=== PATIENT | male | born 1950 | race African-American/Black ===

== ENCOUNTER 2017-02-28 07:36 | Emergency (ER) | payer OTHER, BC ==
[2017-02-28 07:41] VITALS: BP 142/76; TEMP 98.8; BMI 33.9
[2017-02-28] MEDS ORDERED: ACETAMINOPHEN 325 MG TABLET (FP) PO ONE (08:43)
[2017-02-28] MEDS ORDERED: AMOX TR/POT CLAV 875MG/125MG TABLETS (FP) PO ONE (08:44)
[2017-02-28] MEDS ORDERED: ACETAMINOPHEN 325 MG TABLET (FP) ONE (08:45)
[2017-02-28] MEDS ORDERED: AMOX TR/POT CLAV 875MG/125MG TABLETS (FP) ONE (08:48)
--- NOTE | 2017-02-28 08:51 | PDOC ---
History of Present Illness <Gregg Vila - Last Filed: 02/28/17 09:10> - General History Source: Patient Exam Limitations: No Limitations - History of Present Illness Initial Comments: 02/28/17 12:22 The patient is a 67 year old male with a significant past medical history of hypertension and BPH who presents to the ED with left ear pain since yesterday. Patient notes that he has been experiencing cracky/static feeling in the left ear. Patient also reports nasal congestion. He states that he had an ear infection 1 year ago in the right ear. He denies fever, chills, cough, cp, SOB, nausea, vomiting, diarrhea, constipation or abdominal pain. <Valentina Orellana - Last Filed: 02/28/17 12:23> - General Chief Complaint: Ear Problem Stated Complaint: LEFT EAR PAIN Time Seen by Provider: 02/28/17 08:24 Past History - Past Medical History Anemia: No Asthma: No Cancer: No Cardiac Disorders: No CVA: No COPD: No CHF: No Dementia: No Diabetes: No GI Disorders: No Disorders: Yes (BPH) HTN: Yes Hypercholesterolemia: No Liver Disease: No Seizures: No Thyroid Disease: No - Surgical History Abdominal Surgery: No Appendectomy: No Cardiac Surgery: No Cholecystectomy: No Lung Surgery: No Neurologic Surgery: No Orthopedic Surgery: Yes (LEFT KNEE ARTHROSCOPY) - Immunization History Immunization Up to Date: Yes - Psycho/Social/Smoking Cessation Hx Anxiety: No Suicidal Ideation: No Smoking Status: Yes Smoking History: Never smoked Years of Tobacco Use: 0 Have you smoked in the past 12 months: No Number of Cigarettes Smoked Daily: 0 If you are a former smoker, when did you quit?: 20YRS AGO Cigars Per Day: 0 Information on smoking cessation initiated: No Hx Alcohol Use: Yes (occasional) Drug/Substance Use Hx: No Substance Use Type: None Hx Substance Use Treatment: No <Gregg Vila - Last Filed: 02/28/17 09:10> <Valentina Orellana - Last Filed: 02/28/17 12:23> - Past Medical History Allergies/Adverse Reactions: Allergies Allergy/AdvReac Type Severity Reaction Status Date / Time epinephrine AdvReac Severe Verified 02/28/17 07:40 lidocaine AdvReac Verified 02/28/17 07:40 Home Medications: Ambulatory Orders Enalapril Maleate [Vasotec] 20 mg PO DAILY 02/15/16 Nifedipine [Procardia Xl] 60 mg PO DAILY 02/15/16 Silodosin [Rapaflo] 8 mg PO DAILY 02/15/16 Amoxicillin/Potassium Clav [Augmentin 875-125 Tablet] 1 each PO BID #13 tablet 02/28/17 Review of Systems - Review of Systems Able to Perform ROS?: Yes Comments:: 02/28/17 12:22 CONSTITUTIONAL: No reported: Fever, Chills, Diaphoresis, Generalized Weakness, Malaise, Loss of Appetite HEENT: Reported: left ear pain, nasal congestion No reported: Rhinorrhea, Throat Pain, Throat Swelling, Difficulty Swallowing, Mouth Swelling, Eye Pain, Visual Changes CARDIOVASCULAR: No reported: Chest Pain, Syncope, Palpitations, Irregular Heart Rate, Lightheadedness, Peripheral Edema RESPIRATORY: No reported: Cough, Shortness of Breath, SOB with Exertion, Orthopnea, Wheezing , Stridor, Hemoptysis GASTROINTESTINAL: No reported: Abdominal pain, Abdominal Distension, Nausea, Vomiting, Diarrhea, Constipation, Melena, Hematochezia GENITOURINARY: No reported: Dysuria, Frequency, Urgency, Hesitancy, Flank Pain, Genital Pain MUSCULOSKELETAL: No reported: Myalgia, Arthralgia, Joint Swelling, Back pain, Neck Pain SKIN: No reported: Rash, Itching, Pallor HEMEATOLOGIC/IMMUNOLOGIC: No reported: Easy Bleeding, Easy Bruising, Lymphadenopathy, Frequent infections ENDOCRINE: No reported: Unexplained Weight Gain, Unexplained Weight Loss, Heat Intolerance , Cold Intolerance NEUROLOGIC: No reported: Headache, Focal Weakness, Paresthesias, Vertigo, Lightheadedness, Unsteady Gait, Seizure, Mental Status Changes, Incontinence PSYCHIATRIC: No reported: Anxiety, Depression <Valentina Orellana - Last Filed: 02/28/17 12:23> *Physical Exam - Vital Signs Last Vital Signs Temp Pulse Resp BP Pulse Ox 98.8 F 114 H 19 142/76 97 02/28/17 07:38 02/28/17 07:38 02/28/17 07:38 02/28/17 07:38 02/28/17 07:38 <Gregg Vila - Last Filed: 02/28/17 09:10> - Vital Signs Last Vital Signs Temp Pulse Resp BP Pulse Ox 98.8 F 99 H 19 142/76 97 02/28/17 07:38 02/28/17 08:52 02/28/17 07:38 02/28/17 07:38 02/28/17 07:38 - Physical Exam Comments: 02/28/17 12:23 GENERAL: The patient is awake, alert, and fully oriented, Nontoxic - in no acute distress. HEAD: Normocephalic, atraumatic. EYES: extraocular movements intact, sclera anicteric, conjunctiva clear. ENT: +bulging left TM with appearance of behind the TM. posterior pharynx normal non erythematous, no mastoid tenderness. Normal voice, Moist mucous membranes. NECK: Normal range of motion, supple LUNGS: Breath sounds equal, clear to auscultation bilaterally. No wheezes, no rhonchi, no rales. HEART: slightly tachcyradic, without murmur, rub or gallop. ABDOMEN: Soft, nontender, normoactive bowel sounds. No guarding, no rebound.No CVA tenderness EXTREMITIES: Normal range of motion, no edema. No clubbing or cyanosis. No cords, erythema, or tenderness. NEUROLOGICAL: No facial assymetry, Normal speech, mpoving all 4 extrmities spontanously and symmetrically PSYCH: Normal mood, normal affect. SKIN: Warm, Dry, normal turgor <Valentina Orellana - Last Filed: 02/28/17 12:23> ED Treatment Course - Medications Given in the ED: ED Medications Discontinued Medications Generic Name Dose Route Start Last Admin Trade Name Larissa PRN Reason Stop Dose Admin Acetaminophen 975 mg 02/28/17 08:43 02/28/17 08:46 Tylenol - PO 02/28/17 08:44 975 mg ONCE ONE Administration Amoxicillin/Clavulanate Potassium 1 tab 02/28/17 08:44 02/28/17 08:46 Augmentin - 875mg Tablet PO 02/28/17 08:45 1 tab ONCE ONE Administration <Valentina Orellana - Last Filed: 02/28/17 12:23> *DC/Admit/Observation/Transfer - Discharge Dispostion Admit: No <Gregg Vila - Last Filed: 02/28/17 09:10> - Attestations Scribe Attestion: 02/28/17 08:53 Documentation prepared by CEM Soni, acting as medical billing manager for Gregg Vila MD. <Valentina Orellana - Last Filed: 02/28/17 12:23> Diagnosis at time of Disposition: Ear infection - Discharge Dispostion Disposition: HOME Condition at time of disposition: Improved - Prescriptions Prescriptions: Amoxicillin/Potassium Clav [Augmentin 875-125 Tablet] 1 each PO BID #13 tablet - Referrals Referrals: Boy Simmons MD [Primary Care Provider] - - Patient Instructions Printed Discharge Instructions: Middle Ear Infection Additional Instructions: Return to the emergency department immediately with ANY new, persistent or worsening symptoms including fever/chills, difficulty swallowing, persistent ear pain or other concerns. Take the antibiotics as prescribed You MUST call and follow up with your doctor tomorrow for further evaluation of your symptoms. Results were discussed with you. Please make sure your doctor reviews the results of your emergency evaluation. Print Language: MARSHALLESE
[2017-02-28 08:52] VITALS: PULSE 99
== END 2017-02-28 09:16 | disposition home or self-care (01) ==
LOC: JER 07:36
DX: H66.92 Otitis media, unspecified, left ear (principal); I10 Essential (primary) hypertension; N40.0 Benign prostatic hyperplasia without lower urinary tract symptoms
CPT/HCPCS: 99281-25

== ENCOUNTER 2017-05-05 06:14 | Day surgery (SDC) | payer OTHER, BC ==
[2017-04-30 15:39] VITALS: BMI 32.1
[2017-05-05] MEDS ORDERED: ROCURONIUM BROMIDE 50 MG/5 ML VIAL ONE (07:14)
[2017-05-05] MEDS ORDERED: MIDAZOLAM HCL 2 MG/2 ML SINGLE DOSE VIAL ONE (07:14)
[2017-05-05] MEDS ORDERED: PROPOFOL 20 ML ONE (07:14)
[2017-05-05] MEDS ORDERED: LIDOCAINE 1%/EPI 1:100000 (50 ML MULTI DOSE VIAL) ONE (07:37)
--- NOTE | 2017-05-05 07:38 | HP ---
Admitting History and Physical - Primary Care Physician PCP: Boy Simmons - Admission Chief Complaint: Nasal congestion, post nasal drip, sinus symptoms History of Present Illness: Chronic sinus problems for years with repeated treatment and chronic sinus abnormalities on CT scan. We discussed lido/epi reaction and it occurred when a MD injected it into his lip and his heart beat really fast and hard. History Source: Patient, Medical Record Limitations to Obtaining History: No Limitations - Past Medical History Cardiovascular: Yes: HTN Renal/: Yes: BPH ENT: Yes: Sinusitis Endocrine: Yes: Other (low Testoterone) - Past Surgical History Past Surgical History: Yes: Arthrosocopy, Cataract Removal - Smoking History Smoking history: Former smoker Have you smoked in the past 12 months: No Aproximately how many cigarettes per day: 0 If you are a former smoker, when did you quit?: 30YRS AGO - Alcohol/Substance Use Hx Alcohol Use: Yes (SOCIAL) Home Medications - Allergies Allergies/Adverse Reactions: Allergies Allergy/AdvReac Type Severity Reaction Status Date / Time epinephrine AdvReac Severe Verified 05/05/17 06:32 lidocaine AdvReac Verified 05/05/17 06:32 - Home Medications Home Medications: Ambulatory Orders Enalapril Maleate [Vasotec] 20 mg PO DAILY 02/15/16 Nifedipine [Procardia Xl] 60 mg PO DAILY 02/15/16 Silodosin [Rapaflo] 8 mg PO DAILY 02/15/16 Multivitamins [Tab-A-Vit -] 1 tab PO DAILY 04/30/17 Review of Systems - Review of Systems Constitutional: reports: No Symptoms Eyes: reports: No Symptoms HENT: reports: Nasal Congestion Neck: reports: No Symptoms Cardiovascular: reports: No Symptoms Respiratory: reports: No Symptoms Gastrointestinal: reports: No Symptoms Genitourinary: reports: No Symptoms Musculoskeletal: reports: No Symptoms Integumentary: reports: No Symptoms Neurological: reports: No Symptoms Endocrine: reports: No Symptoms Hematology/Lymphatic: reports: No Symptoms Psychiatric: reports: No Symptoms Physical Examination Vital Signs: Vital Signs Temperature 97.7 F 05/05/17 06:23 Pulse Rate 81 05/05/17 06:23 Respiratory Rate 18 05/05/17 06:23 Blood Pressure 151/90 05/05/17 06:23 O2 Sat by Pulse Oximetry (%) 97 06/27/17 06:23 Constitutional: Yes: Well Nourished, No Distress Eyes: Yes: WNL HENT: Yes: WNL, Other (DNS) Neck: Yes: WNL Cardiovascular: Yes: WNL Respiratory: Yes: WNL Gastrointestinal: Yes: WNL Extremities: Yes: WNL Problem List - Problems (1) Sinusitis Assessment/Plan: For surgery today, risks and benefits discussed, all questions answered. Code(s): J32.9 - CHRONIC SINUSITIS, UNSPECIFIED
[2017-05-05] MEDS ORDERED: COCAINE HCL 4% TOPICAL SOLUTION 4 ML BOTTLE TP ONE ×2 (07:58→08:18)
[2017-05-05] MEDS ORDERED: SODIUM CHLORIDE 0.9% P/F 10 ML VIAL IJ ONE (08:13)
[2017-05-05] MEDS ORDERED: ceFAZolin SODIUM 1 GM VIAL ONE (08:13)
[2017-05-05] MEDS ORDERED: DEXAMETHASONE SOD PHOSPHATE 4 MG/1 ML VIAL ONE (08:16)
[2017-05-05] MEDS ORDERED: ceFAZolin SODIUM 1 GM VIAL IVPB ONE (08:16)
[2017-05-05] MEDS ORDERED: LIDOCAINE 1%/EPI 1:100000 (50 ML MULTI DOSE VIAL) INF ONE (08:18)
[2017-05-05] MEDS ORDERED: DESFLURANE GAS 240 ML BOTTLE IH ONE (08:47)
[2017-05-05] MEDS ORDERED: BACITRACIN 15 GM TUBE TOPICAL OINTMENT TP ONE (08:55)
[2017-05-05] MEDS ORDERED: NEOSTIGMINE METHYLSULFATE 0.5 MG/ML - 10 ML MDV ONE (08:57)
[2017-05-05] MEDS ORDERED: GLYCOPYRROLATE 0.2 MG/1 ML VIAL ONE (08:57)
[2017-05-05] MEDS ORDERED: ONDANSETRON 4 MG/2 ML VIAL IVPUSH PRN (09:14)
[2017-05-05] MEDS ORDERED: PROMETHAZINE HCL 25 MG/1 ML VIAL IVPUSH PRN (09:14)
[2017-05-05] MEDS ORDERED: LACTATED RINGERS SOLUTION 1,000 ML IV SCH (09:15)
[2017-05-05 10:09] VITALS: TEMP 98
[2017-05-05 11:58] VITALS: BP 127/56; PULSE 77
--- NOTE | 2017-05-07 16:28 | PATH ---
Surgical Pathology Report Patient Name: MARIO KAMARA [facility]. Rec. #: [id number] /Age/Gender: 1950 (Age: 67) / M Account: [id number] Location: [facility] SURGICAL Taken: 05/05/2017 Received: 05/05/2017 Reported: 05/07/2017 Physicians: J Carlos Alvarez M.D. Specimen(s) Received ETHMOID & MAXILLARY CONTENTS Clinical History Deviated nasal septum Final Diagnosis NASAL SINUS, ETHMOID AND MAXILLARY, CURETTING: RESPIRATORY MUCOSA WITH NO SIGNIFICANT PATHOLOGIC CHANGES, ALONG WITH CLOTTED BLOOD AND SMALL FRAGMENTS OF BONE. Electronically Signed Bridger Fraire M.D. Gross Description Received in formalin labeled "ethmoid and maxillary content," is a 3.0 x 2.2 x 0.2 cm aggregate of russo soft tissue fragments admixed with mucus. The formalin is filtered and the specimen is entirely submitted in one cassette. /05/05/201705/05/2017
== END 2017-05-05 11:25 | disposition home or self-care (01) ==
LOC: JASU-SURG 06:14
PROVIDERS: ATTEND Otolaryngology
PROC: 09QT4ZZ Repair Left Frontal Sinus, Percutaneous Endoscopic Approach (ICD-10-PCS; 2017-05-05)
PROC: 09QS4ZZ Repair Right Frontal Sinus, Percutaneous Endoscopic Approach (ICD-10-PCS; 2017-05-05)
PROC: 099T4ZZ Drainage of Left Frontal Sinus, Percutaneous Endoscopic Approach (ICD-10-PCS; 2017-05-05)
PROC: 099S4ZZ Drainage of Right Frontal Sinus, Percutaneous Endoscopic Approach (ICD-10-PCS; 2017-05-05)
PROC: 8E09XBZ Computer Assisted Procedure of Head and Neck Region (ICD-10-PCS; 2017-05-05)
PROC: 09SL4ZZ Reposition Nasal Turbinate, Percutaneous Endoscopic Approach (ICD-10-PCS; 2017-05-05)
PROC: 8E09XBZ Computer Assisted Procedure of Head and Neck Region (ICD-10-PCS; 2017-05-05)
PROC: 8E09XBZ Computer Assisted Procedure of Head and Neck Region (ICD-10-PCS; principal; 2017-05-05 07:30)
DX: J32.8 Other chronic sinusitis (principal); J34.3 Hypertrophy of nasal turbinates
CPT/HCPCS: 88304-TC; 94760

== ENCOUNTER 2020-04-22 14:11 | Inpatient (IN) | payer OTHER, BC ==
[2020-04-22 14:25] VITALS: BMI 31.1
--- NOTE | 2020-04-22 14:29 | PDOC ---
History of Present Illness - General Chief Complaint: Injury Stated Complaint: FALL Time Seen by Provider: 04/22/20 14:22 History Source: Patient Exam Limitations: No Limitations - History of Present Illness Initial Comments: 04/22/20 16:02 70 yo M with a hx of HTN and lumbar spondolyosis presents to the emergency department with back pain s/p fall that occurred today. Per the patient, he states that he was getting out of his bed when he felt weakness in his legs and fell, landing on his buttocks without head trauma and LOC. Per the patient, he has had progressive weakness in his lower extremities for the past 3 months and was originally scheduled to have surgical intervention by Dr. Gao in mid December that was canceled secondary to COVID. In addition, the patient has had progressive difficulty ambulating with his walker due to upper extremity weakness that has been progressing worst on the right side versus the left side. The patient denies the following symptoms: fever, chills, SOB, chest pain, cough, headache, dizziness, lightheadedness, diarrhea, vomiting, constipation, urinary incontinence, dysuria, hematuria, diarrhea, and bowel incontinence. Denies loss of sensation in his legs. Past History - Past Medical History Allergies/Adverse Reactions: Allergies Allergy/AdvReac Type Severity Reaction Status Date / Time epinephrine AdvReac Severe Verified 04/22/20 14:22 lidocaine AdvReac Verified 04/22/20 14:22 Home Medications: Ambulatory Orders Nifedipine [Procardia Xl] 90 mg PO DAILY 02/15/16 Silodosin [Rapaflo] 8 mg PO DAILY 02/15/16 Losartan Potassium 100 mg PO DAILY 04/22/20 Naproxen 0 mg PO PRN 04/22/20 Anemia: No Asthma: No Cancer: No Cardiac Disorders: No CVA: No COPD: No CHF: No Dementia: No Diabetes: No GI Disorders: No Disorders: Yes (BPH) HTN: Yes Hypercholesterolemia: No Liver Disease: No Seizures: No Thyroid Disease: No Other medical history: spinal stenosis - Surgical History Abdominal Surgery: No Appendectomy: No Cardiac Surgery: No Cholecystectomy: No Lung Surgery: No Neurologic Surgery: No Orthopedic Surgery: Yes (LEFT KNEE ARTHROSCOPY) - Immunization History Immunization Up to Date: Yes - Psycho Social/Smoking Cessation Hx Smoking Status: Yes Smoking History: Never smoked Years of Tobacco Use: 0 Have you smoked in the past 12 months: No Number of Cigarettes Smoked Daily: 0 If you are a former smoker, when did you quit?: 20YRS AGO Cigars Per Day: 0 Hx Alcohol Use: Yes (occasional) Drug/Substance Use Hx: No Substance Use Type: None Hx Substance Use Treatment: No Review of Systems - Review of Systems Able to Perform ROS?: Yes Is the patient limited Khmer proficient: No Constitutional: No: Chills, Diaphoresis, Fever, Weakness HEENTM: No: Eye Pain, Ear Pain, Nose Pain, Throat Pain, Mouth Pain Respiratory: No: Cough, Shortness of Breath Cardiac (ROS): No: Chest Pain ABD/GI: No: Constipated, Diarrhea, Nausea, Rectal Bleeding, Vomiting, Abdominal cramping, Tarry Stools : No: Burning, Dysuria, Frequency, Hematuria, Incontinence Musculoskeletal: Yes: Back Pain. No: Joint Pain, Neck Pain Integumentary: No: Bruising, Rash Neurological: No: Headache Psychiatric: No: Change in Appetite Endocrine: No: Unexplained Weight Loss Hematologic/Lymphatic: No: Anemia *Physical Exam - Vital Signs Last Vital Signs Temp Pulse Resp BP Pulse Ox 97.8 F 67 18 146/70 99 04/22/20 14:16 04/22/20 14:16 04/22/20 14:16 04/22/20 14:16 04/22/20 14:16 - Physical Exam General Appearance: Yes: Nourished, Appropriately Dressed. No: Apparent Distr ess, Intoxicated HEENT: positive: EOMI, MARYJANE, Normal Voice, Symmetrical, Pharynx Normal, Hearing Grossly Normal. negative: Pale Conjunctivae, Scleral Icterus (R), Scleral Ict erus (L), Muffled/Hoarse voice, Pharyngeal Erythema, Tonsillar Exudate, Tonsillar Erythema, Nasal Congestion, Rhinorrhea, Sinus Tenderness, Excessive drooling Neck: positive: Trachea midline, Supple. negative: Tender, Lymphadenopathy (R), Lymphadenopathy (L), Tender lateral, Tender midline Respiratory/Chest: positive: Lungs Clear, Normal Breath Sounds. negative: Chest Tender, Respiratory Distress, Accessory Muscle Use, Crackles, Rales, Rhonchi, Stridor, Wheezing Cardiovascular: positive: Regular Rhythm, Regular Rate, S1, S2. negative: Systolic Murmur Gastrointestinal/Abdominal: positive: Normal Bowel Sounds, Flat, Soft. negative: Tender Lymphatic: negative: Adenopathy Musculoskeletal: positive: Normal Inspection, Vertebral Tenderness (vertebral tenderness in the L4-L5 region at the midline. No tenderness to palpation or step offs noted in the cervical or thoracic spinal column. No overlying ecchymosis noted. ). negative: CVA Tenderness Extremity: positive: Normal Capillary Refill, Normal Inspection, Other (Motor strength bicep, tricep, hand shrub grower 4/5 on the right UE. 4/5 strength on hip flexion on right side. LUE and LLE motor strength 5/5. No sensory deficits noted in the UE and LE bilaterally. ) Integumentary: positive: Normal Color, Dry, Warm Neurologic: positive: scrap stripper hand II-XII NML intact, Fully Oriented, Alert, Normal Mood/Affect, Normal Response, Other (diminished reflexes on right UE. ). negative: Sensory Deficit ED Treatment Course - LABORATORY CBC & Chemistry Diagram: 04/22/20 15:00 04/22/20 15:00 Medical Decision Making - Medical Decision Making 70 yo M with a hx of HTN and lumbar spondolyosis presents to the emergency department with back pain s/p fall that occurred today. Initial vitals; Initial Vital Signs Temp Pulse Resp BP Pulse Ox 97.8 F 67 18 146/70 99 04/22/20 14:16 04/22/20 14:16 04/22/20 14:16 04/22/20 14:16 04/22/20 14:16 Work up: patient presents to the emergency department s/p fall today Per the patient, he has had progressive LE weakness bilaterally with progressively worsening weakness on the RUE over the course of 3 months per the patient. The patient denies acute worsening of his weakness in his extremities, but endorses that he is unable to walk with his walker due to the progression Will rule out fracture and dislocation. The patient denies urinary incontinence and bowel incontinence. No loss of sensation and new weakness that are acute in his UE and LE bilaterally. Unlikely to be cauda equina given this. Ddx also includes ruling out other causes of weakness: infectious vs metabolic vs cardiac vs neurogenic. Will rule out dysrhythmias, ACS, PNA, intracranial pathologies, electrolyte disturbance, KIM Laboratory Tests 04/22/20 04/22/20 04/22/20 15:00 15:00 15:00 WBC 9.1 RBC 5.37 Hgb 16.4 Hct 48.4 D MCV 90.1 MCH 30.4 MCHC 33.8 RDW 13.4 Plt Count 378 D MPV 6.7 L Absolute Neuts (auto) 6.6 Neutrophils % 72.6 Lymphocytes % 18.6 D Monocytes % 6.6 Eosinophils % 1.6 Basophils % 0.6 Nucleated RBC % 0 PT with INR 13.40 H INR 1.13 H Sodium 136 Potassium 4.3 Chloride 104 Carbon Dioxide 25 Anion Gap 7 L BUN 11.8 Creatinine 0.7 Est GFR (CKD-EPI)AfAm 110.04 Est GFR (CKD-EPI)NonAf 94.95 Random Glucose 95 Calcium 9.3 Total Bilirubin 0.4 AST 41 H ALT 64 H Alkaline Phosphatase 133 H Creatine Kinase 104 Troponin I < 0.02 Total Protein 6.4 Albumin 3.4 Acetaminophen Blood Type Antibody Screen 04/22/20 04/22/20 15:00 15:00 WBC RBC Hgb Hct MCV MCH MCHC RDW Plt Count MPV Absolute Neuts (auto) Neutrophils % Lymphocytes % Monocytes % Eosinophils % Basophils % Nucleated RBC % PT with INR INR Sodium Potassium Chloride Carbon Dioxide Anion Gap BUN Creatinine Est GFR (CKD-EPI)AfAm Est GFR (CKD-EPI)NonAf Random Glucose Calcium Total Bilirubin AST ALT Alkaline Phosphatase Creatine Kinase Troponin I Total Protein Albumin Acetaminophen 2.2 Blood Type O POSITIVE Antibody Screen Negative Head CT does not show acute pathology No acute pathology noted in the cervical and lumbar region. No thoracic spine imaging taken since physical exam shows potential fracture due to tenderness in the midline and the progressive weakness of the RUE is to rule out an occult fracture/dislocation. Dr. Gao, the patient's neurosurgeon, was contacted. Per Dr. Gao, he will attempt to move the patient's scheduled surgical date sooner. Requests for admission given the patient is unable to walk without severe impairment. In a ddition, he recommends a LUMBAR spine MRI and to expand getting a cervical and thoracic MRI if the symptoms are not consistent or explained with the findings on the LUMBAR MRI. The patient had his pain controlled initially with 1 gram of tylenol. Patient to be admitted for inability to ambulate at baseline due to pain that is uncontrolled secondary likely to the lumbar spondylosis. Patient to be admitted to hospitalist service. Discharge - Discharge Information Problems reviewed: Yes Clinical Impression/Diagnosis: Back pain - Follow up/Referral - Patient Discharge Instructions - Post Discharge Activity
[2020-04-22] MEDS ORDERED: ACETAMINOPHEN 1000 MG/100 ML VIAL (NON FORMULARY) IVPB ONE (14:57)
[2020-04-22] MEDS ORDERED: ACETAMINOPHEN INJECTION 100 ML IVPB ONE (15:13)
[2020-04-22 15:18] LABS: BASO % 0.6 % (0-2.0); EOS % 1.6 % (0-4.5); HEMATOCRIT 48.4 % (35.4-49); HEMOGLOBIN 16.4 GM/dL (11.7-16.9); LYMPH % 18.6 % (8-40); MCH 30.4 pg (25.7-33.7); MCHC 33.8 g/dl (32.0-35.9); MEAN CELL VOLUME 90.1 fl (80-96); MEAN PLT VOLUME 6.7 fl (7.5-11.1); MONO % 6.6 % (3.8-10.2); NEUT % 72.6 % (42.8-82.8); PLATELET COUNT 378 K/MM3 (134-434); RBC 5.37 M/mm3 (4.00-5.60); RDW 13.4 % (11.9-15.9); WHITE BLOOD COUNT 9.1 K/mm3 (4.0-10.0)
[2020-04-22 15:24] LABS: INR 1.13 (0.83-1.09); PROTHROMBIN TIME (PATIENT) 13.4 SEC (9.7-13.0)
[2020-04-22 15:56] LABS: ALBUMIN 3.4 g/dl (3.4-5.0); ALK PHOS 133 U/L (45-117); ANION GAP 7 MMOL/L (8-16); BILIRUBIN,TOTAL 0.4 mg/dL (0.2-1); BLOOD UREA NITROGEN 11.8 mg/dL (7-18); CALCIUM 9.3 mg/dL (8.5-10.1); CHLORIDE 104 mmol/L (98-107); CO2 25 mmol/L (21-32); CREATININE 0.7 mg/dL (0.55-1.3); GLUCOSE,RANDOM 95 mg/dL (74-106); POTASSIUM 4.3 mmol/L (3.5-5.1); SGOT/AST 41 U/L (15-37); SGPT/ALT 64 U/L (13-61); SODIUM 136 mmol/L (136-145); TOT PROT 6.4 g/dl (6.4-8.2)
--- NOTE | 2020-04-22 16:10 | PDOC ---
Documentation entered by Koby Abraham SCRIBE, acting as scribe for Mildred Holland MD. Mildred Holland MD: This documentation has been prepared by the Jarad jones Xhesika, SCRIBE, under my direction and personally reviewed by me in its entirety. I confirm that the documentation accurately reflects all work, treatment, procedures, and medical decision making performed by me. Attending Attestation - Resident Resident Name: Patrick Hyman - ED Attending Attestation I have performed the following: I have examined & evaluated the patient, The case was reviewed & discussed with the resident, I agree w/resident's findings & plan, Exceptions are as noted - HPI HPI: 04/22/20 15:31 The patient is a 70y/o M with a significant past medical history of hypertension and BPH who presents to the ED with lower back pain. The patient states he woke up this morning his legs felt weak, they gave out and he fell on his buttocks. Pt states he has surgery scheduled on with Dr. Gao due to his lower back pain. Pt denies LE numbness or tingling. He states his legs have felt weak for more than a year, and do not feel more weak today. Denies chest pain, shortness of breath, headache and dizziness. Denies fever, chills, cough, nausea, vomiting, diarrhea and constipation. Denies dysuria, frequency, urgency and hematuria. Allergies: Epinephrine, lidocaine PCP: Dr. Boy Simmons - Physicial Exam PE: 04/22/20 16:04 Agree with resident exam - Medical Decision Making 04/22/20 16:05 70yo M hx lumbar spondylosis presents to the ED with LBP after falling out of bed this AM. No head strike or LOC. +lumbar midline spinal ttp. Pt also with objective R UE and RLE weakness, that he states is old Plan for CTH (to eval for CVA as cause of R sided weakness) and CT lumbar spine given lumbar ttp Pt will likely need MRI spinal imaging but will defer to Dr. Gao given pt has surgery scheduled this week. Anticipate admission 04/22/20 17:24 CT imaging negative Labs with mild LFT elevations, pt with no abd pain, N/V, abd ttp Per Dr. Gao, recommends admit for operative management. He will evaluate in the AM. We discussed the patients neuro deficits which Dr. Gao states are baseline. He recommends non con lumbar spine MRI at this time and to hold off on cervical/thoracic imaging unless the lumbar MRI is normal. Pt admitted for further management Case discussed in detail with admitting physician including history, physical exam and ancillary studies. Admitting physician has assumed care for the patient, will follow all pending diagnostics and will complete the evaluation and treatment. Discharge - Discharge Information Problems reviewed: Yes Clinical Impression/Diagnosis: Back pain - Follow up/Referral - Patient Discharge Instructions - Post Discharge Activity
[2020-04-22] MEDS ORDERED: ACETAMINOPHEN 325 MG TABLET (FP) PO ONE (19:02)
[2020-04-22] MEDS ORDERED: ACETAMINOPHEN 325 MG TABLET (FP) ONE (19:02)
--- NOTE | 2020-04-22 19:15 | HP ---
CHIEF COMPLAINT: lower back pain PCP: Boy Simmons HISTORY OF PRESENT ILLNESS: 70M w/ pmh of right-handedness, HTN, lumbar spondolyosis, scoliosis, BPH presenting to [facility] after sustaining fall at home. Patient was getting dressing with the aide of his and grandson. He had difficulty pulling up his pants and fell backwards onto this bed then to the floor. Had severe 8 of 10 lower back pain and could not get up. Neg LOC, incontinence, dizziness, palpitations. After getting acetaminophen and Ofirmev in the ED, pain is currently 4 of 10. Had elective surgery scheduled for January 2020 w/ Dr Gao which was delayed until 04/26/2020 due to the ongoing COVID pandemic. Takes acetaminophen and ibupr ofen(~10tabs/wk) for chronic LBP. Normally, he ambulates with the aid of a walker. Has had progressive lower back pain and BLE weakness(worse in RUE) since Dec 2019. Has difficult holding a pencil. Lower back pain is slightly relieved with leaning forward. 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 Thinks he history of irregular heart beat. Had stress test 20ys prior which he believes was negative ER course was notable for: (1) AST/ALT 41/64; Alk P 133 (2) CTH: neg intracrnial path, prominent atherosclerotic calcificaitons along cavernous carotid arteries; prominent dural calcifications along cerebral falc (3) CTc-spine/L-spine: severe Left C4-C5 facet athropathy, severe multilevel C- spine central canal stenosis, mod-marked multilevel lumbar degenerative disc changes, mod-marked multilevel degenerative central canal stenosis (4) EKG: Afib; rpt EKG was NSR (4) acetaminophen 650mg, ofirmev 1000mg (5) Murray consult: rec MRI L-spine, if norm then MRI c-spine/t-spine Recent Travel: none PAST MEDICAL HISTORY: right-handedness, HTN, lumbar spondolyosis, scoliosis, BPH PAST SURGICAL HISTORY: b/l knee replacement Social History: Smoking: quit 20ys prior Alcohol: 1 glass wine occasionally, last 6mo prior Drugs: denies Allergies epinephrine Adverse Reaction (Severe, Verified 04/22/20 14:22) RAPID HEART RATE lidocaine Adverse Reaction (Verified 04/22/20 14:22) LIDOCAINE WITH EPHINEPHRINE CAUSES TACHY- CARDIA HOME MEDICATIONS: Home Medications Medication Instructions Recorded Nifedipine [Procardia Xl] 90 mg PO DAILY 02/15/16 Silodosin [Rapaflo] 8 mg PO DAILY 02/15/16 Losartan Potassium 100 mg PO DAILY 04/22/20 Naproxen 0 mg PO PRN 04/22/20 REVIEW OF SYSTEMS CONSTITUTIONAL: lost 15lbs in 6mo Absent: fever, chills, diaphoresis, generalized weakness, malaise, loss of appetite, HEENT: Absent: rhinorrhea, nasal congestion, throat pain, throat swelling, difficulty swallowing, mouth swelling, ear pain, eye pain, visual changes CARDIOVASCULAR: Absent: chest pain, syncope, palpitations, irregular heart rate, lightheadedness, peripheral edema RESPIRATORY: Absent: cough, shortness of breath, dyspnea with exertion, orthopnea, wheezing, stridor, hemoptysis GASTROINTESTINAL: Absent: abdominal pain, abdominal distension, nausea, vomiting, diarrhea, constipation, melena, hematochezia GENITOURINARY: Absent: dysuria, frequency, urgency, hesitancy, hematuria, flank pain, genital pain MUSCULOSKELETAL: lower back pain, Absent: myalgia, arthralgia, joint swelling, neck pain SKIN: Absent: rash, itching, pallor HEMATOLOGIC/IMMUNOLOGIC: Absent: easy bleeding, easy bruising, lymphadenopathy, frequent infections ENDOCRINE: Absent: unexplained weight gain, unexplained weight loss, heat intolerance, cold intolerance NEUROLOGIC: weakness in BUE(worse in Right hand) Absent: headache, focal weakness or paresthesias, dizziness, unsteady gait, seizure, mental status changes, bladder or bowel incontinence PSYCHIATRIC: Absent: anxiety, depression, suicidal or homicidal ideation, hallucinations. PHYSICAL EXAMINATION Vital Signs - 24 hr 04/22/20 04/22/20 14:16 17:13 Temperature 97.8 F Pulse Rate 67 Pulse Rate [ 83 Left Radial] Respiratory 18 Rate Blood Pressure 146/70 Blood Pressure 150/82 [Right Arm] O2 Sat by Pulse 99 100 Oximetry (%) GENERAL: Awake, alert, and fully oriented, in no acute distress. HEAD: Normal with no signs of trauma. EYES: sclera anicteric, conjunctiva clear and w/o pallor. EARS, NOSE, THROAT: Ears normal, nares patent, oropharynx clear without exudates. Moist mucous membranes. NECK: Normal range of motion, supple without lymphadenopathy, JVD, or masses. LUNGS: Breath sounds equal, clear to auscultation bilaterally. No wheezes, and no crackles. No accessory muscle use. HEART: irregular rhythm, normal S1 and S2 without murmur, rub or gallop. ABDOMEN: Soft, nontender, not distended, no guarding, no rebound, no masses. MUSCULOSKELETAL: Normal range of motion at all joints. UPPER EXTREMITIES: 2+ pulses, warm, well-perfused. No cyanosis. No clubbing. LOWER EXTREMITIES: B/l surgical incisional scars at knees. 2+ pulses, warm, well-perfused. No calf tenderness. No peripheral edema. NEUROLOGICAL: Cranial nerves II-XII intact. Normal speech. 3/5 strength of Right district medical examiner, 4/5 strength of Left district medical examiner. RLE 3/5 strength in hip/knee flexion/extension. LLE 4/5 strength in hip/knee flexion/extension. Sensation grossly intact throughout. Scoliosis SKIN: Warm, dry, normal turgor, no rashes or lesions noted, normal capillary refill. Laboratory Results - last 24 hr 04/22/20 04/22/20 04/22/20 15:00 15:00 15:00 WBC 9.1 RBC 5.37 Hgb 16.4 Hct 48.4 D MCV 90.1 MCH 30.4 MCHC 33.8 RDW 13.4 Plt Count 378 D MPV 6.7 L Absolute Neuts (auto) 6.6 Neutrophils % 72.6 Lymphocytes % 18.6 D Monocytes % 6.6 Eosinophils % 1.6 Basophils % 0.6 Nucleated RBC % 0 PT with INR 13.40 H INR 1.13 H Sodium 136 Potassium 4.3 Chloride 104 Carbon Dioxide 25 Anion Gap 7 L BUN 11.8 Creatinine 0.7 Est GFR (CKD-EPI)AfAm 110.04 Est GFR (CKD-EPI)NonAf 94.95 Random Glucose 95 Calcium 9.3 Total Bilirubin 0.4 AST 41 H ALT 64 H Alkaline Phosphatase 133 H Creatine Kinase 104 Troponin I < 0.02 Total Protein 6.4 Albumin 3.4 Blood Type Antibody Screen 04/22/20 15:00 WBC RBC Hgb Hct MCV MCH MCHC RDW Plt Count MPV Absolute Neuts (auto) Neutrophils % Lymphocytes % Monocytes % Eosinophils % Basophils % Nucleated RBC % PT with INR INR Sodium Potassium Chloride Carbon Dioxide Anion Gap BUN Creatinine Est GFR (CKD-EPI)AfAm Est GFR (CKD-EPI)NonAf Random Glucose Calcium Total Bilirubin AST ALT Alkaline Phosphatase Creatine Kinase Troponin I Total Protein Albumin Blood Type O POSITIVE Antibody Screen Negative ASSESSMENT/PLAN: 70M w/ pmh of right-handedness, HTN, lumbar spondolyosis, scoliosis, BPH presenting to [facility] after mechanical GLF sustaining with complaint of worsened acute on chronic lower back pain. Weakness is baseline. Dr Gao recommended patient admission for lower back pain w/u and possible surgical intervention. #mechanical Ground Level Fall --no prodomal symptoms; no acute ICH, little c oncern for syncope #acute on chronic lower back pain --likely 2/2 spinal stenosis; no fractures > CTH: neg intracranial path, prominent atherosclerotic calcifications along cavernous carotid arteries; prominent dural calcifications along cerebral falc > CTc-spine/L-spine: severe Left C4-C5 facet athropathy, severe multilevel C- spine central canal stenosis, mod-marked multilevel lumbar degenerative disc changes, mod-marked multilevel degenerative central canal stenosis - PT - pain control: ibuprofen 600 q6H PRN - Ortho Spine Consult(Murray): --rec MRI L-spine, if norm then MRI c-spine/t-spine #new-onset Afib --?nonpersistent > CHADVASC 2 > echo --pending > TSH --pending - tele - HOLDING off on A/C for now d/t possible Ortho sx - Cardio Consult(Chuy Renteria) --recs pending for new-onset Afib #elevated LFTs --possibly 2/2 fatty liver > AST/ALT: 41/64; AP 133, Tbil 0.4 > US RUQ(12/31/18): liver 16.5cm sagittal legnth w/ slight-mod dense echotexture - fu acetaminophen level - trend CMP FEN - no mIVF - sodium controlled diet DVT PPX: - SQH Dispo: -tele for new-onset Afib Family Medical History Family Hx Cancer: Father (prostate cancer) Visit type - Emergency Visit Emergency Visit: Yes ED Registration Date: 04/22/20 Care time: The patient presented to the Emergency Department on the above date and was hospitalized for further evaluation of their emergent condition. - New Patient This patient is new to me today: Yes Date on this admission: 04/23/20 - Critical Care Critical Care patient: No ATTENDING PHYSICIAN STATEMENT I saw and evaluated the patient. I reviewed the resident's note and discussed the case with the resident. I agree with the resident's findings and plan as documented. SUBJECTIVE: OBJECTIVE: ASSESSMENT AND PLAN:
[2020-04-22] MEDS: HEPARIN NA (PORCINE) 5,000 UNITS/ML 1ML VIAL SQ SCH (22:59)
[2020-04-22] MEDS: IBUPROFEN 600 MG TABLET (FP) PO PRN (23:05)
--- NOTE | 2020-04-23 00:23 | PN ---
Teaching Attending Note Name of Resident: Mode Harris ATTENDING PHYSICIAN STATEMENT I saw and evaluated the patient. I reviewed the resident's note and discussed the case with the resident. I agree with the resident's findings and plan as documented. SUBJECTIVE: 70 years Old Male with PMh of HTN, lumbar spondolyosis, scoliosis, BPH presented after he sustained a fall. He stated that he fell down due to "Bad back'". His legs felt very weak and fell on his buttocks while trying to stand up. He doesn't have bowel or bladder incontinence. Pt states he has surgery scheduled on with Dr. Gao due to his lower back pain After coming to ED Dr. Emmanuel was consulted by ED who recommended admission for further management. OBJECTIVE: Last Vital Signs Temp Pulse Resp BP Pulse Ox 98.7 F 112 H 18 128/89 98 04/22/20 22:00 04/22/20 22:00 04/22/20 22:00 04/22/20 22:00 04/22/20 22:00 GENERAL; not in acute distress HEAD: Normal with no signs of trauma. EYES: sclera anicteric, conjunctiva clear and w/o pallor. EARS, NOSE, THROAT: Ears normal, nares patent, oropharynx clear without exudates. Moist mucous membranes. NECK: Normal range of motion, supple without lymphadenopathy, JVD, or masses. LUNGS: Breath sounds equal, clear to auscultation bilaterally. No wheezes, and no crackles. No accessory muscle use. HEART: irregular rhythm, normal S1 and S2 without murmur, rub or gallop. ABDOMEN: Soft, nontender, not distended, no guarding, no rebound, no masses. MUSCULOSKELETAL: Normal range of motion at all joints. UPPER EXTREMITIES: 2+ pulses, warm, well-perfused. No cyanosis. No clubbing. LOWER EXTREMITIES:. 2+ pulses, warm, well-perfused. No calf tenderness. No peripheral edema. NEUROLOGICAL: Cranial nerves II-XII intact. Normal speech. Right hand corporate communications associate reduced strength, left hand corporate communications associate normal. Sensation grossly intact throughout. couldn't be able to turn around for back exam RLE strength 3/5 LLE 4/5 SKIN: Warm, dry, normal turgor, no rashes or lesions noted, normal capillary refill. CTc-spine/L-spine: severe Left C4-C5 facet athropathy, severe multilevel C-spine central canal stenosis, mod-marked multilevel lumbar degenerative disc changes, mod-marked multilevel degenerative central canal stenosis ASSESSMENT AND PLAN: Mechanical fall Acute on chronic back pain Left C4-C5 facet athropathy, severe multilevel C-spine central canal stenosis, mod-marked multilevel lumbar degenerative disc changes, mod-marked multilevel degenerative central canal stenosis Admit to floor Ortho spine consult and possible surgery PT/Rehab EKG in ED showed ?A fib, repeat EKG showed NSR. will monitor on tele and repeat EKG in Am. ECHO Cardio pre op clearance Elevated LFts possibly fatty liver - send tylenol level repeat CMP in AM DVT ppx HTN- controlled,Resume home meds Follow COVID test
[2020-04-23] MEDS: HEPARIN NA (PORCINE) 5,000 UNITS/ML 1ML VIAL SQ SCH ×4 (05:59→21:34)
[2020-04-23] MEDS: INSULIN SLIDING SCALE (NOVOLOG) 1 VIAL SQ SCH (06:02)
[2020-04-23] MEDS: IBUPROFEN 600 MG TABLET (FP) PO PRN ×2 (06:36→12:30)
[2020-04-23 08:22] LABS: HEMATOCRIT 44.7 % (35.4-49); HEMOGLOBIN 15.2 GM/dL (11.7-16.9); MCH 30.5 pg (25.7-33.7); MEAN CELL VOLUME 89.7 fl (80-96); MEAN PLT VOLUME 7.2 fl (7.5-11.1); PLATELET COUNT 377 K/MM3 (134-434); RBC 4.99 M/mm3 (4.00-5.60); RDW 13.3 % (11.9-15.9); WHITE BLOOD COUNT 8.3 K/mm3 (4.0-10.0)
[2020-04-23 08:51] LABS: ALBUMIN 3.1 g/dl (3.4-5.0); BLOOD UREA NITROGEN 13.1 mg/dL (7-18); CREATININE 0.7 mg/dL (0.55-1.3); MAGNESIUM 1.5 mg/dL (1.8-2.4); PHOSPHOROUS 3.2 mg/dL (2.5-4.9); POTASSIUM 4.3 mmol/L (3.5-5.1)
[2020-04-23 08:59] LABS: BILIRUBIN,TOTAL 0.5 mg/dL (0.2-1); TOT PROT 5.7 g/dl (6.4-8.2)
[2020-04-23 09:00] LABS: CALCIUM 8.6 mg/dL (8.5-10.1)
[2020-04-23] MEDS: TAMSULOSIN HCL 0.4 MG CAP PO SCH (09:04)
--- NOTE | 2020-04-23 09:11 | EKG ---
Test Reason : Blood Pressure : / mmHG Vent. Rate : 090 BPM Atrial Rate : 090 BPM P-R Int : 192 ms QRS Dur : 090 ms QT Int : 342 ms P-R-T Axes : -03 008 063 degrees QTc Int : 418 ms SINUS RHYTHM WITH PREMATURE ATRIAL COMPLEXES WITH ABERRANT CONDUCTION OTHERWISE NORMAL ECG WHEN COMPARED WITH ECG OF 22-APR-2020 15:08, No significant changes Confirmed by Cinda Ospina ([id number]) on 04/23/2020 9:10:56 AM Referred By: Confirmed By:Cinda Ospina
--- NOTE | 2020-04-23 09:24 | EKG ---
Test Reason : Blood Pressure : / mmHG Vent. Rate : 095 BPM Atrial Rate : 091 BPM P-R Int : 000 ms QRS Dur : 088 ms QT Int : 348 ms P-R-T Axes : 000 028 055 degrees QTc Int : 437 ms POOR DATA QUALITY, INTERPRETATION MAY BE ADVERSELY AFFECTED Sinus rhythm with APCs ABNORMAL ECG WHEN COMPARED WITH ECG OF 15-FEB-2016 16:24, APCs present Confirmed by Cinda Ospina ([id number]) on 04/23/2020 9:24:20 AM Referred By: Confirmed By:Cinda Ospina
[2020-04-23] MEDS: NIFEdipine E.R. 90 MG TABLET PO SCH (10:05)
[2020-04-23] MEDS: LOSARTAN POTASSIUM 50 MG TABLET (FP) PO SCH (10:05)
--- NOTE | 2020-04-23 10:26 | CON.CARD ---
Consult Consult Specialty:: Cardiology Referred by:: Hospitalist Reason for Consultation:: Abnormal ECG, PAC and PVC, pre-op CV evaluation - History of Present Illness Chief Complaint: Weakness History of Present Illness: 70 years Old Male with PMhx of HTN, lumbar spondolyosis, scoliosis, BPH presented after he sustained a fall due to progressive lower extremity weakness w/o loss of sensation and fell on his buttocks while trying to stand up. He doesn't have bowel or bladder incontinence. Pt states he has surgery scheduled on with Dr. Gao due to his lower back pain, denies chest pain, dyspnea, palpitations, near or true syncope, orthopnea, PND or LE edema. - History Source History Provided By: Patient Limitations to Obtaining History: No Limitations - Past Medical History Cardio/Vascular: Yes: HTN Renal/: Yes: BPH ENT: Yes: Sinusitis Endocrine: Yes: Other (low Testoterone) - Past Surgical History Past Surgical History: Yes: Arthrosocopy, Cataract Removal - Alcohol/Substance Use Hx Alcohol Use: Yes (occasional) - Smoking History Smoking history: Never smoked Have you smoked in the past 12 months: No Aproximately how many cigarettes per day: 0 If you are a former smoker, when did you quit?: 20YRS AGO Home Medications - Allergies Allergies/Adverse Reactions: Allergies Allergy/AdvReac Type Severity Reaction Status Date / Time epinephrine AdvReac Severe Verified 04/22/20 14:22 lidocaine AdvReac Verified 04/22/20 14:22 - Home Medications Home Medications: Ambulatory Orders Nifedipine [Procardia Xl] 90 mg PO DAILY 02/15/16 Silodosin [Rapaflo] 8 mg PO DAILY 02/15/16 Losartan Potassium 100 mg PO DAILY 04/22/20 Naproxen 0 mg PO PRN 04/22/20 Review of Systems - Review of Systems Constitutional: reports: Weakness Musculoskeletal: reports: Back Pain Vital Signs: Vital Signs Temperature 97.8 F 04/23/20 10:00 Pulse Rate 90 04/23/20 10:00 Respiratory Rate 04/23/20 10:00 Blood Pressure 118/76 04/23/20 10:00 O2 Sat by Pulse Oximetry (%) 98 04/22/20 22:00 Constitutional: Yes: No Distress, Calm Neck: Yes: Supple Respiratory: Yes: Regular, CTA Bilaterally Gastrointestinal: Yes: Soft, Hypoactive Bowel Sounds Cardiovascular: Yes: Regular Rate and Rhythm JVD: No Carotid Bruit: No Heart Sounds: Yes: S1, S2 Edema: No - Other Data Labs, Other Data: CBC, BMP 04/23/20 05:35 04/23/20 05:35 INR, PTT INR 1.13 (0.83-1.09) H 04/22/20 15:00 Troponin, BNP 04/22/20 15:00 Troponin I < 0.02 Troponin, BNP 04/22/20 15:00 Troponin I < 0.02 NSR with PAC, PVC Tele: NSR Ejection Fraction %: LVEF > or = 40 % Problem List - Problems (1) Preop cardiovascular exam Code(s): Z01.810 - ENCOUNTER FOR PREPROCEDURAL CARDIOVASCULAR EXAMINATION (2) Back pain Code(s): M54.9 - DORSALGIA, UNSPECIFIED (3) Hypertension Code(s): I10 - ESSENTIAL (PRIMARY) HYPERTENSION Qualifiers: Hypertension type: essential hypertension Qualified Code(s): I10 - Essential (primary) hypertension (4) Premature atrial contraction Code(s): I49.1 - ATRIAL PREMATURE DEPOLARIZATION (5) Premature ventricular contraction Code(s): I49.3 - VENTRICULAR PREMATURE DEPOLARIZATION (6) Facet arthropathy, lumbosacral Code(s): M47.817 - SPONDYLS W/O MYELOPATHY OR RADICULOPATHY, LUMBOSACR REGION Assessment/Plan 04/23/2020 Echo: Normal LV size and fxn LVEF 55-60%, diastolic dysfunction, normal RV fxn, mild TR with normal RVSP, mildly dilated ao root 3.8 cm 1. Mechanical fall in context of acute on chronic back pain 2. Left C4-C5 facet athropathy, severe multilevel C-spine central canal stenosis, mod-marked multilevel lumbar degenerative disc changes, mod-marked multilevel degenerative central canal stenosis 3. Pre-op CV evaluation 4. PAC, PVC 5. HTN P:1. Echo results noted, telemetry monitoring to document arrhythmia burden, Follow COVID test 2. May proceed with spinal surgery if no sustained arrhythmia is seen, doesn not have symptoms of decompensated CHF or acute coronary syndrome, f/u MRI spine 3. Continue Procardia XL 90 qd and losartan 100 qd 4. Thank you for consultative opportunity
[2020-04-23] MEDS: oxyCODONE HCL 5 MG TABLET PO PRN ×2 (13:10→19:59)
--- NOTE | 2020-04-23 14:05 | PN ---
Progress Note, Physician History of Present Illness: Patient seen and examined. Well-known to me from office. pain issues--- better with medication Positive constipation denies chest pain Follow-up follow-ups noted and appreciated - Current Medication List Current Medications: Active Medications Docusate Sodium (Colace -) 100 mg PO Q8H PRN PRN Reason: CONSTIPATION Heparin Sodium (Porcine) (Heparin -) 5,000 unit SQ TID [facility] Last Admin: 04/23/20 13:10 Dose: 5,000 unit Documented by: Ibuprofen (Motrin -) 600 mg PO Q6H PRN PRN Reason: PAIN LEVEL 4-6 Last Admin: 04/23/20 06:36 Dose: 600 mg Documented by: Insulin Aspart (Novolog Vial Sliding Scale -) 0 vial SQ [facility]; Protocol Last Admin: 04/23/20 06:02 Dose: Not Given Documented by: Losartan Potassium (Cozaar -) 100 mg PO DAILY [facility] Last Admin: 04/23/20 10:05 Dose: 100 mg Documented by: Nifedipine (Procardia Xl -) 90 mg PO DAILY [facility] Last Admin: 04/23/20 10:05 Dose: 90 mg Documented by: Oxycodone HCl (Roxicodone -) 10 mg PO Q6H PRN PRN Reason: PAIN LEVEL 7-10 Last Admin: 04/23/20 13:10 Dose: 10 mg Documented by: Tamsulosin HCl (Flomax -) 0.8 mg PO DAILY@0830 [facility] Last Admin: 04/23/20 09:04 Dose: 0.8 mg Documented by: - Objective Vital Signs: Vital Signs Temperature 97.8 F 04/23/20 10:00 Pulse Rate 90 04/23/20 10:00 Respiratory Rate 20 04/23/20 10:00 Blood Pressure 118/76 04/23/20 10:00 O2 Sat by Pulse Oximetry (%) 98 04/22/20 22:00 Constitutional: Yes: No Distress Eyes: Yes: Conjunctiva Clear HENT: Yes: Other (No JVD) Neck: Yes: Other (no bruit) Cardiovascular: Yes: Regular Rate and Rhythm Respiratory: Yes: Diminished Gastrointestinal: Yes: Soft Edema: No Neurological: Yes: Alert Labs: CBC, BMP 04/23/20 05:35 04/23/20 05:35 INR, PTT INR 1.13 (0.83-1.09) H 04/22/20 15:00 - ....Imaging Chest X-ray: Report Reviewed Cat Scan: Report Reviewed Problem List - Problems (1) Arrhythmia Code(s): I49.9 - CARDIAC ARRHYTHMIA, UNSPECIFIED (2) Fall Code(s): W19.XXXA - UNSPECIFIED FALL, INITIAL ENCOUNTER (3) Back pain Code(s): M54.9 - DORSALGIA, UNSPECIFIED (4) Facet arthropathy, lumbosacral Code(s): M47.817 - SPONDYLS W/O MYELOPATHY OR RADICULOPATHY, LUMBOSACR REGION (5) Hypertension Code(s): I10 - ESSENTIAL (PRIMARY) HYPERTENSION Qualifiers: Hypertension type: essential hypertension Qualified Code(s): I10 - Essential (primary) hypertension Assessment/Plan discussed with patient as well as nursing staff. Continue present care. Pain control. Laxatives. Neurosurgery on case as well as cardiology. Monitor on Telemetry will follow
--- NOTE | 2020-04-23 14:43 | ECHO ---
Name: MARIO KAMARA Exam:Adult Echocardiogram Study Date: 04/23/2020 11:50 AM Age: 70 yrs Reason For Study: New-onset A-fib, pre-op Height: 72 in Weight: 230 lb BSA: 2.3 m2 MMode/2D Measurements & Calculations IVSd: 1.1 cm Ao root diam: 3.8 cm LVIDd: 4.4 cm LA dimension: 2.7 cm LVIDs: 3.1 cm ACS: 1.9 cm LVPWd: 1.0 cm EDV(Teich): 88.2 ml LVOT diam: 2.0 cm ESV(Teich): 36.7 ml LAV (MOD-bp): 23.0 ml TAPSE: 2.0 cm RV S Adrian: 21.3 cm/sec Doppler Measurements & Calculations MV E max adrian: 68.1 cm/sec Ao V2 max: 108.6 cm/sec MV A max adrian: 76.0 cm/sec Ao max P.7 mmHg MV E/A: 0.90 Ao V2 mean: 74.1 cm/sec MV dec time: 0.21 sec Ao mean P.5 mmHg Ao V2 VTI: 18.0 cm KLAUS(I,D): 2.8 cm2 KLAUS(V,D): 2.3 cm2 LV V1 max P.7 mmHg SV(LVOT): 51.3 ml LV V1 mean P.5 mmHg LV V1 max: 82.4 cm/sec LV V1 mean: 55.6 cm/sec LV V1 VTI: 16.6 cm TR max adrian: 207.7 cm/sec PA acc slope: 570.4 cm/sec2 TR max P.3 mmHg PA acc time: 0.10 sec Med Peak E' Adrian: 6.6 cm/sec PA pr(Accel): 33.1 mmHg Med E/e': 10.3 Lat Peak E' Adrian: 8.9 cm/sec Lat E/e': 7.7 Tech Comments TDS. Patient scanned supine. Procedure Study Quality: Technically suboptimal. Left Ventricle The left ventricular size, thickness and function are normal. Ejection Fraction = 55-60%. The transmi tral spectral Doppler flow pattern is suggestive of impaired LV relaxation. Right Ventricle Borderline right ventricular enlargement. The right ventricular systolic function is normal. Atria Normal left and right atrial size and function. Mitral Valve The mitral valve is grossly normal. There is no mitral regurgitation noted. Tricuspid Valve The tricuspid valve is not well visualized, but is grossly normal. There is mild tricuspid regurgitat ion. Right ventricular systolic pressure is normal. Aortic Valve There is mild aortic sclerosis.;. No hemodynamically significant valvular aortic stenosis. No aortic regurgitation is present. Pulmonic Valve The pulmonic valve is not well visualized. Great Vessels Mild aortic root dilatation. Pericardium/Pleura There is no pericardial effusion. Interpretation Summary LV: Normal size and systoluic ffunction, EF 55-60%, impaired relaxation RV: Normal AV: Sclerotic Mild TR with normal RVSP Mildly dilated aortic root/sinus of Valsalve 3.8 cm; ascending aorta not well seen. Cinda Ospina 04/23/2020 02:42 PM
[2020-04-23] MEDS: POLYETHYLENE GLYCOL 3350 119 GM BTL PO SCH (17:18)
--- NOTE | 2020-04-23 17:54 | CONSULT ---
Consult - text type - Consultation Consultation Note: NEUROSURGERY CONSULTATION Gustavo Choi is a 70 year old malewho has achief complaint of lower back pain. He states: "I've had some problems with my lower back." He has been told of a "considerable amount of arthritis." He has had Epidural steroid injections, Physical Therapy, and Radiofrequency Ablation procedures which he indicates: "[they] helped." The patient underwent Right sided RFA injection in April 2019and this lasted for 6 months.He recently returned for consideration of another injection, but is having symptoms of progressive gait deterioration and myelopathy.The patient was originally referred to [facility] by Dr. Landon Dunn for further evaluation and management.The patient has had episodes where his Left leg jag and gives out from beneath him. He is also having increased tone and spasticity in his legs which manifests as stiffness and spontaneous clonus. He has been having difficulty emptying his bladder resulting in frequent trips to the bathroom and sleep disruption. He has also had some difficulty controlling his bowels and is complaining of constipation. The patient has had some episodes of urinary incontinence. The patient denies any accident or injury which may have been causative of his symptoms and denies any history of falls.Although he has some neck pain, he denies numbness and tingling in his hands, loss of fine motor skills or dropping things. He has some neck pain with extension and Left greater than Right Spurling's sign on Physical Examination.The patient has aggravation of back pain with vibration and jostling such as riding in a car over a bumpy road, pot holes or rail road tracks which he describes as "sometimes." The patienthas aggravation of symptoms associated with Valsalvas maneuver. The patient walks better with a stooped posture such as pushing a shopping cart.MRI Lumbar demonstrates Lumbar degenerative scoliosis with severe spondylosis with osteophytes, disc bulges and hypertrophic facets and ligamentum flavum. There is evidence of a lower th oracic disc herniation which is eccentric to the Left and causes severe compression of the conus medullaris. There is profound, multilevel spondylosis with nerve root and cauda equina compression from hypertrophic facets, discs and ligamentum flavum.The patient describes severe limitations of activities of daily living and a poor quality of life. I described the potential role of injections, bracing, and Physical Therapy as well as medical management in detail.After review of the patients symptoms and imaging, the patient would likely benefit from decompression and stabilization in the Lumbar spine. I described the risks, benefits and alternativesof Lumbar scoliosis surgery in great detail. I explained that the risks included, but were not limited to: , coma, paralysis, bleeding, infection, CSF leak possibly requiring spinal drainage or additional surgery, failure to fuse, failure to improve, instrumentation migration/malposition/malfunction and the need for additional surgery. I offered the patient the option to seek another opinion or another surgeon. All questions were answered. Informed consent was obtained. I made a series of illustrations to outline the anatomy, pathology, surgical approachesand potential complications.I explained that the most likely procedure would consist of T12-S2 decompression, osteotomies, and posterior fusion with pedicle screws, however, the exact plan of care would require evaluation of a more contemporaneous MRI.The patient returned on January 04, 2020 withMRI Thoracic and Lumbar without contrast and standing plain films of the Thoracic and Lumbar spine taken with the knees locked, Including flexion/extension views. These imaging studies confirm the surgical plan as previously discussed and identify some mid-Thoracic spondylosis which may require treatment into the future. The patient has a unilateral rib on the Right at L1. The patient is progressing and having increased pain and difficulty walking. He has fallen twice and is adamant that: "I can't live like this....I have to do something."The patient asks that we proceed with Thoraco-Lumbar scoliosis surgery as described.- Surgery was scheduled for Thursday January 23, 2020; however, this was postponed due to Covid-19 Pandemic resulting in cessation of elective surgeries. The patient has been progressing in his pain and incapacitation over the subsequent three months while awaiting treatment and has largely been bed bound for the last 2 months. This weekend, he suffered a fall and was brought to the [facility] ED for evaluation. His Neurological exam is stable other than progressive functional limitation secondary to pain. The patient was evaluated with CT Lumbar that did not reveal concerning progression which would alter the plans for surgery which is now planned for April pending Medical Clearance from Dr. Boy Simmons and Cardiology Clearance from Dr. Winston. I again reviewed the surgical plans with the patient who is eager to proceed, even sooner if arrangements can be made.
--- NOTE | 2020-04-23 19:52 | PN ---
Progress Note (short form) - Note Progress Note: MRI report reviewed. Neurosurgery is already consulted and aware. Surgery is scheduled for pending cardiac clearance.
[2020-04-23] MEDS: SENNOSIDES 8.6MG TABLET (FP) PO PRN (19:59)
[2020-04-23] MEDS: DOCUSATE SODIUM 100 MG CAPSULE (FP) PO PRN (19:59)
[2020-04-24] MEDS: IBUPROFEN 600 MG TABLET (FP) PO PRN ×2 (00:05→06:14)
[2020-04-24] MEDS: oxyCODONE HCL 5 MG TABLET PO PRN ×4 (01:58→21:41)
[2020-04-24] MEDS: HEPARIN NA (PORCINE) 5,000 UNITS/ML 1ML VIAL SQ SCH ×3 (06:15→21:32)
[2020-04-24] MEDS: INSULIN SLIDING SCALE (NOVOLOG) 1 VIAL SQ SCH (06:24)
--- NOTE | 2020-04-24 07:30 | PN ---
Progress Note (short form) - Note Progress Note: NEUROSURGERY planning for T12-S2 PLIF 04/26/20 Patient's current Covid test (which is negative) will be out of date as per new OR protocol. Repeat Covid and type and screen ordered Medical optimization / clearance for impending procedure.
[2020-04-24] MEDS: TAMSULOSIN HCL 0.4 MG CAP PO SCH (08:08)
[2020-04-24 08:31] LABS: EPI CELLS 1 /uL (0-25.1); HYALINE CASTS 4 /uL (0-3.1); URINE APPEARANCE CLOUDY; URINE BILIRUBIN NEGATIVE (NEGATIVE); URINE COLOR YELLOW; URINE GLUCOSE (UA) NEGATIVE (NEGATIVE); URINE KETONE TRACE (NEGATIVE); URINE LEUK ESTERASE 2+ (NEGATIVE); URINE NITRITE NEGATIVE (NEGATIVE); URINE PROTEIN NEGATIVE (NEGATIVE); URINE RBC 9 /uL (0-23.9); URINE WBC 340 /uL (0-25.8)
[2020-04-24] MEDS: LOSARTAN POTASSIUM 50 MG TABLET (FP) PO SCH (09:22)
[2020-04-24] MEDS: NIFEdipine E.R. 90 MG TABLET PO SCH (09:22)
--- NOTE | 2020-04-24 10:28 | PN ---
Progress Note, Physician Chief Complaint: Events noted Back pain History of Present Illness: Patient was seen and examined. Awake and alert. Chart was reviewed Denies chest pain, SOB or palpitations - Current Medication List Current Medications: Active Medications Docusate Sodium (Colace -) 100 mg PO Q8H PRN PRN Reason: CONSTIPATION Last Admin: 04/23/20 19:59 Dose: 100 mg Documented by: Heparin Sodium (Porcine) (Heparin -) 5,000 unit SQ TID [facility] Last Admin: 04/24/20 06:15 Dose: 5,000 unit Documented by: Ibuprofen (Motrin -) 600 mg PO Q6H PRN PRN Reason: PAIN LEVEL 4-6 Last Admin: 04/24/20 06:14 Dose: 600 mg Documented by: Insulin Aspart (Novolog Vial Sliding Scale -) 0 vial SQ ACBK [facility]; Protocol Last Admin: 04/24/20 06:24 Dose: Not Given Documented by: Losartan Potassium (Cozaar -) 100 mg PO DAILY [facility] Last Admin: 04/24/20 09:22 Dose: 100 mg Documented by: Nifedipine (Procardia Xl -) 90 mg PO DAILY [facility] Last Admin: 04/24/20 09:22 Dose: 90 mg Documented by: Oxycodone HCl (Roxicodone -) 10 mg PO Q6H PRN PRN Reason: PAIN LEVEL 7-10 Last Admin: 04/24/20 09:38 Dose: 10 mg Documented by: Polyethylene Glycol (Miralax (For Daily Use) -) 17 gm PO DAILY [facility] Last Admin: 04/23/20 17:18 Dose: 17 gm Documented by: Senna (Senna -) 2 tab PO HS PRN PRN Reason: CONSTIPATION Last Admin: 04/23/20 19:59 Dose: 2 tab Documented by: Tamsulosin HCl (Flomax -) 0.8 mg PO DAILY@0830 [facility] Last Admin: 04/24/20 08:08 Dose: 0.8 mg Documented by: - Objective Vital Signs: Vital Signs Temperature 97.5 F L 04/24/20 08:03 Pulse Rate 93 H 04/24/20 08:03 Respiratory Rate 18 04/24/20 08:03 Blood Pressure 116/78 04/24/20 08:03 O2 Sat by Pulse Oximetry (%) 97 04/24/20 08:02 Neck: Yes: Supple Cardiovascular: Yes: Regular Rate and Rhythm, S1, S2 Respiratory: Yes: CTA Bilaterally Gastrointestinal: Yes: Normal Bowel Sounds, Soft. No: Tenderness Edema: No Additional Findings/Remarks: - Review of Systems Constitutional: denies: Chills, Fever Cardiovascular: denies: Chest Pain, Palpitations, Shortness of Breath Respiratory: denies: Cough, SOB, SOB on Exertion Gastrointestinal: denies: Abdominal Pain, Constipation, Diarrhea, Melena, Nausea, Rectal Bleeding, Vomiting Genitourinary: denies: Dysuria, Hematuria Musculoskeletal: denies: Joint Pain Neurological: denies: Dizziness, Headache, Seizure, Syncope Labs: CBC, BMP 04/23/20 05:35 04/23/20 05:35 INR, PTT INR 1.13 (0.83-1.09) H 04/22/20 15:00 Problem List - Problems (1) Facet arthropathy, lumbosacral Code(s): M47.817 - SPONDYLS W/O MYELOPATHY OR RADICULOPATHY, LUMBOSACR REGION (2) Fall Code(s): W19.XXXA - UNSPECIFIED FALL, INITIAL ENCOUNTER (3) Premature atrial contraction Code(s): I49.1 - ATRIAL PREMATURE DEPOLARIZATION (4) Premature ventricular contraction Code(s): I49.3 - VENTRICULAR PREMATURE DEPOLARIZATION (5) Preop cardiovascular exam Code(s): Z01.810 - ENCOUNTER FOR PREPROCEDURAL CARDIOVASCULAR EXAMINATION (6) Anemia Code(s): D64.9 - ANEMIA, UNSPECIFIED Qualifiers: Anemia type: unspecified type Qualified Code(s): D64.9 - Anemia, unspecified (7) Hypertension Code(s): I10 - ESSENTIAL (PRIMARY) HYPERTENSION Qualifiers: Hypertension type: essential hypertension Qualified Code(s): I10 - Essential (primary) hypertension Assessment/Plan 1. Mechanical fall in context of acute on chronic back pain 2. Left C4-C5 facet athropathy, severe multilevel C-spine central canal stenosis, mod-marked multilevel lumbar degenerative disc changes, mod-marked multilevel degenerative central canal stenosis 3. Pre-op cardiovascular evaluation 4. HTN PLAN: 1. Echocardiography noted 2. May proceed with spinal surgery. No absolute contraindication in view of absence of ischemic symptoms, decompensated congestive heart failure or malignant arrhythmias 3. Continue Procardia XL 90 mg QD and Losartan 100 mg QD 4. Physical therapy Further plans are to follow Sang H. Myra MD
[2020-04-24] MEDS: POLYETHYLENE GLYCOL 3350 119 GM BTL PO SCH ×2 (10:29→21:31)
--- NOTE | 2020-04-24 12:54 | EKG ---
Test Reason : Blood Pressure : / mmHG Vent. Rate : 100 BPM Atrial Rate : 100 BPM P-R Int : 160 ms QRS Dur : 088 ms QT Int : 314 ms P-R-T Axes : 062 030 056 degrees QTc Int : 405 ms POOR DATA QUALITY, INTERPRETATION MAY BE ADVERSELY AFFECTED SINUS RHYTHM WITH PREMATURE SUPRAVENTRICULAR COMPLEXES AND WITH OCCASIONAL PREMATURE VENTRICULAR COMPLEXES OTHERWISE NORMAL ECG WHEN COMPARED WITH ECG OF 22-APR-2020 16:21, PREMATURE VENTRICULAR COMPLEXES ARE NOW PRESENT T WAVE AMPLITUDE HAS DECREASED IN INFERIOR LEADS Confirmed by Antonio Mcneil ([id number]) on 04/24/2020 12:54:16 PM Referred By: Confirmed By:Antonio Mcneil
--- NOTE | 2020-04-24 14:45 | PN ---
Progress Note (short form) - Note Progress Note: Events noted No BM so far Pain is controlled with meds Echo noted Vital Signs - 24 hr 04/23/20 04/24/20 04/24/20 23:00 02:06 06:00 Temperature 97.6 F 97.7 F 97.7 F Pulse Rate 88 83 79 Respiratory 16 18 16 Rate Blood Pressure 113/72 110/70 133/78 O2 Sat by Pulse Oximetry (%) 04/24/20 04/24/20 04/24/20 08:02 08:03 14:25 Temperature 97.5 F L 97.6 F Pulse Rate 93 H 94 H Respiratory 18 18 18 Rate Blood Pressure 116/78 140/82 O2 Sat by Pulse 97 Oximetry (%) Current Medications Generic Name Dose Route Start Last Admin Trade Name Freq PRN Reason Stop Dose Admin Docusate Sodium 100 mg 04/23/20 12:18 04/23/20 19:59 Colace - PO 100 mg Q8H PRN Administration CONSTIPATION Heparin Sodium (Porcine) 5,000 unit 04/22/20 22:00 04/24/20 13:09 Heparin - SQ 5,000 unit TID [facility] Administration Ibuprofen 600 mg 04/22/20 20:33 04/24/20 06:14 Motrin - PO 600 mg Q6H PRN Administration PAIN LEVEL 4-6 Insulin Aspart 0 vial 04/23/20 07:00 04/24/20 06:24 Novolog Vial Sliding Scale - SQ Not Given [facility] Protocol Losartan Potassium 100 mg 04/23/20 10:00 04/24/20 09:22 Cozaar - PO 100 mg DAILY [facility] Administration Nifedipine 90 mg 04/23/20 10:00 04/24/20 09:22 Procardia Xl - PO 90 mg DAILY [facility] Administration Oxycodone HCl 10 mg 04/23/20 12:18 04/24/20 15:33 Roxicodone - PO 10 mg Q6H PRN Administration PAIN LEVEL 7-10 Polyethylene Glycol 17 gm 04/24/20 22:00 Miralax (For Daily Use) - PO BID [facility] Senna 2 tab 04/23/20 15:56 04/23/20 19:59 Senna - PO 2 tab HS PRN Administration CONSTIPATION Tamsulosin HCl 0.8 mg 04/23/20 08:30 04/24/20 08:08 Flomax - PO 0.8 mg DAILY@0830 [facility] Administration Laboratory Results - last 24 hr 04/24/20 04/24/20 04/24/20 05:50 06:19 11:56 POC Glucometer 92 Urine Color Yellow Urine Appearance Cloudy Urine pH 5.0 Ur Specific [place] 1.024 Urine Protein Negative Urine Glucose (UA) Negative Urine Ketones Trace H Urine Blood Negative Urine Nitrite Negative Urine Bilirubin Negative Urine Urobilinogen 1.0 Ur Leukocyte Esterase 2+ H Urine WBC (Auto) 340 Urine RBC (Auto) 9 Urine Casts (Auto) 4 U Epithel Cells (Auto) 1 Urine Bacteria (Auto) >10,000 Blood Type O POSITIVE Antibody Screen Negative S1S2 RRR Lungs clear Abd -soft, NT, ND No edema Moving his legs No sensory deficits A/P pain control continue BP meds COVID first one negative 2nd one pending he has urinary problems - finds it difficult to urinate-- UA positive -- will start ceftriaxone-- urine culture ordered Pt cleared by Cardiology Pt is medically cleared for surgery Problem List - Problems (1) UTI (urinary tract infection) Code(s): N39.0 - URINARY TRACT INFECTION, SITE NOT SPECIFIED (2) Arrhythmia Code(s): I49.9 - CARDIAC ARRHYTHMIA, UNSPECIFIED (3) Back pain Code(s): M54.9 - DORSALGIA, UNSPECIFIED (4) Facet arthropathy, lumbosacral Code(s): M47.817 - SPONDYLS W/O MYELOPATHY OR RADICULOPATHY, LUMBOSACR REGION (5) Premature atrial contraction Code(s): I49.1 - ATRIAL PREMATURE DEPOLARIZATION
[2020-04-24] MEDS ORDERED: SODIUM PHOSPHATE/NA BIPHOS 133 ML ENEMA RC ONE (18:04)
[2020-04-24] MEDS ORDERED: cefTRIAXone SODIUM 1 GM VIAL ONE (20:26)
[2020-04-24] MEDS ORDERED: DEXTROSE 5%-WATER - 50 ML IVPB ONE (20:27)
[2020-04-24] MEDS: CEFTRIAXONE 1 GM in DEXTROSE 5%-WATER - 50 ML IVPB SCH (20:35)
[2020-04-24] MEDS: BISACODYL 10 MG SUPP.RECT PR PRN (20:36)
[2020-04-24] MEDS: SENNOSIDES 8.6MG TABLET (FP) PO PRN (21:31)
[2020-04-25] MEDS: HEPARIN NA (PORCINE) 5,000 UNITS/ML 1ML VIAL SQ SCH ×3 (05:39→21:09)
[2020-04-25] MEDS: INSULIN SLIDING SCALE (NOVOLOG) 1 VIAL SQ SCH (06:08)
[2020-04-25] MEDS ORDERED: cefTRIAXone SODIUM 1 GM VIAL ONE (08:08)
[2020-04-25] MEDS ORDERED: DEXTROSE 5%-WATER - 50 ML IVPB ONE (08:08)
[2020-04-25] MEDS: TAMSULOSIN HCL 0.4 MG CAP PO SCH (08:20)
--- NOTE | 2020-04-25 08:30 | SPA.PREOP ---
- PRE-OP NOTE Dx: Spinal stenosis Planned Procedure: T12-S2 PLIF Surgeon: Jagdish Gao MD Last Vital Signs Temp Pulse Resp BP Pulse Ox 98 F 83 20 117/75 99 04/25/20 07:54 04/25/20 07:54 04/25/20 07:54 04/25/20 07:54 04/25/20 07:54 Lab Results WBC 8.3 K/mm3 (4.0-10.0) 04/23/20 05:35 RBC 4.99 M/mm3 (4.00-5.60) 04/23/20 05:35 Hgb 15.2 GM/dL (11.7-16.9) 04/23/20 05:35 Hct 44.7 % (35.4-49) 04/23/20 05:35 MCV 89.7 fl (80-96) 04/23/20 05:35 MCHC 34.0 g/dl (32.0-35.9) 04/23/20 05:35 RDW 13.3 % (11.9-15.9) 04/23/20 05:35 Plt Count 377 K/MM3 (134-434) 04/23/20 05:35 INR 1.13 (0.83-1.09) H 04/22/20 15:00 Sodium 137 mmol/L (136-145) 04/23/20 05:35 Potassium 4.3 mmol/L (3.5-5.1) 04/23/20 05:35 Chloride 106 mmol/L (98-107) 04/23/20 05:35 Carbon Dioxide 23 mmol/L (21-32) 04/23/20 05:35 Anion Gap 8 MMOL/L (8-16) 04/23/20 05:35 BUN 13.1 mg/dL (7-18) 04/23/20 05:35 Creatinine 0.7 mg/dL (0.55-1.3) 04/23/20 05:35 Random Glucose 79 mg/dL (74-106) 04/23/20 05:35 Calcium 8.6 mg/dL (8.5-10.1) 04/23/20 05:35 Blood Type O POSITIVE 04/24/20 11:56 Antibody Screen Negative 04/24/20 11:56 - ASSESSMENT/PLAN 1. Make NPO after midnight except po meds 2. GI/DVT PPX 3. Medical optimization / clearance 4. Consent to be obtained by surgeon after risks, benefits and alternatives discussed with patient and or Health Care Proxy.
[2020-04-25] MEDS: NIFEdipine E.R. 90 MG TABLET PO SCH (09:11)
[2020-04-25] MEDS: CEFTRIAXONE 1 GM in DEXTROSE 5%-WATER - 50 ML IVPB SCH (09:11)
[2020-04-25] MEDS: LOSARTAN POTASSIUM 50 MG TABLET (FP) PO SCH (09:12)
[2020-04-25] MEDS: POLYETHYLENE GLYCOL 3350 119 GM BTL PO SCH ×2 (09:12→21:09)
--- NOTE | 2020-04-25 09:41 | PN ---
Progress Note, Physician History of Present Illness: Denies chest pain, SOB or palpitations, back pain adequately controlled. - Current Medication List Current Medications: Active Medications Bisacodyl (Dulcolax Suppository -) 10 mg TN DAILY PRN PRN Reason: CONSTIPATION Last Admin: 04/24/20 20:36 Dose: 10 mg Documented by: Docusate Sodium (Colace -) 100 mg PO Q8H PRN PRN Reason: CONSTIPATION Last Admin: 04/23/20 19:59 Dose: 100 mg Documented by: Heparin Sodium (Porcine) (Heparin -) 5,000 unit SQ TID [facility] Last Admin: 04/25/20 05:39 Dose: 5,000 unit Documented by: Ceftriaxone Sodium 1 gm/ (Dextrose) 50 mls @ 100 mls/hr IVPB DAILY [facility] Stop: 04/28/20 10:29 Last Admin: 04/25/20 09:11 Dose: 100 mls/hr Documented by: Ibuprofen (Motrin -) 600 mg PO Q6H PRN PRN Reason: PAIN LEVEL 4-6 Last Admin: 04/24/20 06:14 Dose: 600 mg Documented by: Insulin Aspart (Novolog Vial Sliding Scale -) 0 vial SQ ACBK [facility]; Protocol Last Admin: 04/25/20 06:08 Dose: Not Given Documented by: Losartan Potassium (Cozaar -) 100 mg PO DAILY [facility] Last Admin: 04/25/20 09:12 Dose: 100 mg Documented by: Nifedipine (Procardia Xl -) 90 mg PO DAILY [facility] Last Admin: 04/25/20 09:11 Dose: 90 mg Documented by: Oxycodone HCl (Roxicodone -) 10 mg PO Q6H PRN PRN Reason: PAIN LEVEL 7-10 Last Admin: 04/24/20 21:41 Dose: 10 mg Documented by: Polyethylene Glycol (Miralax (For Daily Use) -) 17 gm PO BID [facility] Last Admin: 04/25/20 09:12 Dose: 17 grams Documented by: Senna (Senna -) 2 tab PO HS PRN PRN Reason: CONSTIPATION Last Admin: 04/24/20 21:31 Dose: 2 tab Documented by: Tamsulosin HCl (Flomax -) 0.8 mg PO DAILY@0830 [facility] Last Admin: 04/25/20 08:20 Dose: 0.8 mg Documented by: - Objective Vital Signs: Vital Signs Temperature 98 F 04/25/20 07:54 Pulse Rate 83 04/25/20 07:54 Respiratory Rate 20 04/25/20 07:54 Blood Pressure 117/75 04/25/20 07:54 O2 Sat by Pulse Oximetry (%) 99 04/25/20 07:54 Constitutional: Yes: No Distress, Calm Neck: Yes: Supple Cardiovascular: Yes: Regular Rate and Rhythm Respiratory: Yes: Regular, CTA Bilaterally Gastrointestinal: Yes: Normal Bowel Sounds, Soft Edema: No Labs: CBC, BMP 04/23/20 05:35 04/23/20 05:35 INR, PTT INR 1.13 (0.83-1.09) H 04/22/20 15:00 - ....Imaging EKG: Report Reviewed (Tele: NSR) Problem List - Problems (1) Preop cardiovascular exam Code(s): Z01.810 - ENCOUNTER FOR PREPROCEDURAL CARDIOVASCULAR EXAMINATION (2) Back pain Code(s): M54.9 - DORSALGIA, UNSPECIFIED (3) Hypertension Code(s): I10 - ESSENTIAL (PRIMARY) HYPERTENSION Qualifiers: Hypertension type: essential hypertension Qualified Code(s): I10 - Esse ntial (primary) hypertension (4) Premature atrial contraction Code(s): I49.1 - ATRIAL PREMATURE DEPOLARIZATION (5) Premature ventricular contraction Code(s): I49.3 - VENTRICULAR PREMATURE DEPOLARIZATION (6) Facet arthropathy, lumbosacral Code(s): M47.817 - SPONDYLS W/O MYELOPATHY OR RADICULOPATHY, LUMBOSACR REGION Assessment/Plan 04/23/2020 Echo: Normal LV size and fxn LVEF 55-60%, diastolic dysfunction, normal RV fxn, mild TR with normal RVSP, mildly dilated ao root 3.8 cm 1. Mechanical fall in context of acute on chronic back pain 2. Left C4-C5 facet arthropathy, severe multilevel C-spine central canal stenosis, mod-marked multilevel lumbar degenerative disc changes, mod-marked multilevel degenerative central canal stenosis 3. Pre-op cardiovascular evaluation 4. HTN PLAN: 1. Echocardiography noted 2. May proceed with spinal surgery. No absolute contraindication in view of absence of ischemic symptoms, decompensated congestive heart failure or malignant arrhythmias 3. Continue Procardia XL 90 mg QD and Losartan 100 mg QD 4. Physical therapy
[2020-04-25] MEDS: oxyCODONE HCL 5 MG TABLET PO PRN ×3 (10:38→22:51)
--- NOTE | 2020-04-25 14:32 | PN ---
Progress Note (short form) - Note Progress Note: Events noted hard stools Pain is controlled with meds Echo noted has weakness in upper arms tells me his hands have been weaker for the last 6 months-- > has a hard time writing and holding things. Vital Signs - 24 hr 04/24/20 04/24/20 04/24/20 19:32 21:00 21:51 Temperature 98.1 F 97.8 F Pulse Rate 86 89 Respiratory 20 Rate Blood Pressure 127/78 151/74 O2 Sat by Pulse 98 Oximetry (%) 04/25/20 04/25/20 04/25/20 01:43 05:38 07:54 Temperature 97.6 F 98.1 F 98 F Pulse Rate 91 H 91 H 83 Respiratory 20 20 20 Rate Blood Pressure 137/79 132/69 117/75 O2 Sat by Pulse 99 Oximetry (%) 04/25/20 14:14 Temperature 98 F Pulse Rate 88 Respiratory 20 Rate Blood Pressure 131/76 O2 Sat by Pulse Oximetry (%) Current Medications Generic Name Dose Route Start Last Admin Trade Name Freq PRN Reason Stop Dose Admin Bisacodyl 10 mg 04/24/20 19:54 04/24/20 20:36 Dulcolax Suppository - [place] 10 mg DAILY PRN Administration CONSTIPATION Docusate Sodium 100 mg 04/23/20 12:18 04/23/20 19:59 Colace - PO 100 mg Q8H PRN Administration CONSTIPATION Heparin Sodium (Porcine) 5,000 unit 04/22/20 22:00 04/25/20 13:26 Heparin - SQ 5,000 unit TID [facility] Administration Ceftriaxone Sodium 1 gm/ 50 mls @ 100 mls/hr 04/24/20 19:30 04/25/20 09:11 Dextrose IVPB 04/28/20 10:29 100 mls/hr DAILY [facility] Administration Ibuprofen 600 mg 04/22/20 20:33 04/24/20 06:14 Motrin - PO 600 mg Q6H PRN Administration PAIN LEVEL 4-6 Insulin Aspart 0 vial 04/23/20 07:00 04/25/20 06:08 Novolog Vial Sliding Scale - SQ Not Given [facility] Protocol Losartan Potassium 100 mg 04/23/20 10:00 04/25/20 09:12 Cozaar - PO 100 mg DAILY [facility] Administration Nifedipine 90 mg 04/23/20 10:00 04/25/20 09:11 Procardia Xl - PO 90 mg DAILY [facility] Administration Oxycodone HCl 10 mg 04/23/20 12:18 04/25/20 10:38 Roxicodone - PO 10 mg Q6H PRN Administration PAIN LEVEL 7-10 Polyethylene Glycol 17 gm 04/24/20 22:00 04/25/20 09:12 Miralax (For Daily Use) - PO 17 grams BID [facility] Administration Senna 2 tab 04/23/20 15:56 04/24/20 21:31 Senna - PO 2 tab HS PRN Administration CONSTIPATION Tamsulosin HCl 0.8 mg 04/23/20 08:30 04/25/20 08:20 Flomax - PO 0.8 mg DAILY@0830 [facility] Administration Laboratory Results - last 24 hr 04/24/20 04/24/20 04/25/20 21:39 Unknown 05:31 POC Glucometer 105 99 COVID-19 (MAURICIO) Not detected S1S2 RRR Lungs clear Abd -soft, NT, ND No edema 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, 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 No sensory deficits A/P pain control continue BP meds COVID first one negative 2nd one negative Neurology evaluation with regards to weakness in hands for surgery tomorrow Problem List - Problems (1) UTI (urinary tract infection) Code(s): N39.0 - URINARY TRACT INFECTION, SITE NOT SPECIFIED (2) Arrhythmia Code(s): I49.9 - CARDIAC ARRHYTHMIA, UNSPECIFIED (3) Back pain Code(s): M54.9 - DORSALGIA, UNSPECIFIED (4) Facet arthropathy, lumbosacral Code(s): M47.817 - SPONDYLS W/O MYELOPATHY OR RADICULOPATHY, LUMBOSACR REGION (5) Premature atrial contraction Code(s): I49.1 - ATRIAL PREMATURE DEPOLARIZATION
[2020-04-25] MEDS: SENNOSIDES 8.6MG TABLET (FP) PO PRN (19:51)
[2020-04-25] MEDS: DOCUSATE SODIUM 100 MG CAPSULE (FP) PO PRN (19:51)
[2020-04-25] MEDS: IBUPROFEN 600 MG TABLET (FP) PO PRN (20:29)
[2020-04-26] MEDS: IBUPROFEN 600 MG TABLET (FP) PO PRN (02:21)
[2020-04-26] MEDS: oxyCODONE HCL 5 MG TABLET PO PRN (04:36)
[2020-04-26] MEDS: HEPARIN NA (PORCINE) 5,000 UNITS/ML 1ML VIAL SQ SCH ×2 (05:49→15:15)
[2020-04-26] MEDS: INSULIN SLIDING SCALE (NOVOLOG) 1 VIAL SQ SCH (06:13)
[2020-04-26] MEDS ORDERED: PROPOFOL 20 ML ONE (07:20)
[2020-04-26] MEDS ORDERED: ROCURONIUM BROMIDE 50 MG/5 ML SYRINGE ONE ×4 (07:20→13:27)
[2020-04-26] MEDS ORDERED: fentaNYL CITRATE 250 MCG/5 ML VIAL ONE ×3 (07:20→16:09)
[2020-04-26] MEDS ORDERED: MIDAZOLAM HCL 2 MG/2 ML SINGLE DOSE VIAL ONE ×4 (07:21→15:25)
[2020-04-26] MEDS ORDERED: LIDOCAINE HCL/PF 2% SDV 5ML VIAL ONE (07:21)
[2020-04-26] MEDS ORDERED: ceFAZolin SODIUM 1 GM VIAL IVPB ONE ×2 (08:35→12:00)
[2020-04-26] MEDS ORDERED: VANCOMYCIN 1,000 MG VIAL (RESTRICTED TO ID ONLY) IVPB ONE ×2 (08:38→09:01)
[2020-04-26] MEDS ORDERED: VANCOMYCIN 1,000 MG VIAL (RESTRICTED TO ID ONLY) ONE (08:40)
[2020-04-26] MEDS ORDERED: ceFAZolin SODIUM 1 GM VIAL ONE ×4 (08:40→21:31)
[2020-04-26] MEDS ORDERED: LIDOCAINE 1%/EPI 1:100000 (50 ML MULTI DOSE VIAL) INF ONE (08:50)
[2020-04-26] MEDS ORDERED: HYDROGEN PEROXIDE 473 ML PO ONE (09:01)
[2020-04-26] MEDS ORDERED: GENTAMICIN SO4 80 MG/2 ML VIAL IVPB ONE (09:01)
[2020-04-26] MEDS ORDERED: THROMBIN (BOVINE) 5,000 UNIT VIAL TP ONE ×2 (09:01→11:17)
[2020-04-26] MEDS ORDERED: BACITRACIN 50,000 UNITS VIAL TP ONE ×2 (09:01)
[2020-04-26] MEDS ORDERED: BUPIVACAINE LIPOSOME/PF (EXPAREL) 266 MG/20 ML VIAL ONE (09:15)
[2020-04-26] MEDS ORDERED: THROMBIN (BOVINE) 20,000 UNIT VIAL TP ONE (09:26)
[2020-04-26] MEDS: POLYETHYLENE GLYCOL 3350 119 GM BTL PO SCH ×2 (09:28→21:11)
[2020-04-26] MEDS ORDERED: BUPIVACAINE LIPOSOME/PF (EXPAREL) 266 MG/20 ML VIAL NR ONE (09:31)
[2020-04-26] MEDS: TAMSULOSIN HCL 0.4 MG CAP PO SCH (09:35)
[2020-04-26] MEDS ORDERED: SODIUM CHLORIDE 0.9% P/F 10 ML VIAL IJ ONE (11:13)
[2020-04-26] MEDS ORDERED: DEXAMETHASONE SOD PHOSPHATE 4 MG/1 ML VIAL ONE (11:23)
[2020-04-26] MEDS ORDERED: ONDANSETRON 4 MG/2 ML VIAL ONE (11:23)
[2020-04-26] MEDS: LOSARTAN POTASSIUM 50 MG TABLET (FP) PO SCH (11:26)
[2020-04-26] MEDS: NIFEdipine E.R. 90 MG TABLET PO SCH (11:26)
[2020-04-26] MEDS: CEFTRIAXONE 1 GM in DEXTROSE 5%-WATER - 50 ML IVPB SCH (11:27)
--- NOTE | 2020-04-26 12:24 | PN ---
Progress Note (short form) - Note Progress Note: Pain is controlled with meds Vital Signs - 24 hr 04/25/20 04/25/20 04/25/20 14:14 17:30 20:48 Temperature 98 F 98.2 F 98.4 F Pulse Rate 88 90 72 Respiratory 20 20 18 Rate Blood Pressure 131/76 126/72 130/90 O2 Sat by Pulse Oximetry (%) 04/25/20 04/26/20 04/26/20 20:49 01:34 05:46 Temperature 98.1 F 98.1 F Pulse Rate 65 83 Respiratory 16 16 Rate Blood Pressure 125/77 110/60 O2 Sat by Pulse 91 L Oximetry (%) 04/26/20 09:00 Temperature Pulse Rate Respiratory 16 Rate Blood Pressure O2 Sat by Pulse Oximetry (%) Current Medications Generic Name Dose Route Start Last Admin Trade Name Freq PRN Reason Stop Dose Admin Bisacodyl 10 mg 04/24/20 19:54 04/24/20 20:36 Dulcolax Suppository - [place] 10 mg DAILY PRN Administration CONSTIPATION Docusate Sodium 100 mg 04/23/20 12:18 04/25/20 19:51 Colace - PO 100 mg Q8H PRN Administration CONSTIPATION Heparin Sodium (Porcine) 5,000 unit 04/22/20 22:00 04/26/20 05:49 Heparin - SQ Not Given TID [facility] Ceftriaxone Sodium 1 gm/ 50 mls @ 100 mls/hr 04/24/20 19:30 04/26/20 11:27 Dextrose IVPB 04/28/20 10:29 Not Given DAILY [facility] Ibuprofen 600 mg 04/22/20 20:33 04/26/20 02:21 Motrin - PO 600 mg Q6H PRN Administration PAIN LEVEL 4-6 Insulin Aspart 0 vial 04/23/20 07:00 04/26/20 06:13 Novolog Vial Sliding Scale - SQ Not Given ACBK [facility] Protocol Losartan Potassium 100 mg 04/23/20 10:00 04/26/20 11:26 Cozaar - PO Not Given DAILY [facility] Nifedipine 90 mg 04/23/20 10:00 04/26/20 11:26 Procardia Xl - PO Not Given DAILY [facility] Polyethylene Glycol 17 gm 04/24/20 22:00 04/26/20 09:28 Miralax (For Daily Use) - PO Not Given BID [facility] Senna 2 tab 04/23/20 15:56 04/25/20 19:51 Senna - PO 2 tab HS PRN Administration CONSTIPATION Tamsulosin HCl 0.8 mg 04/23/20 08:30 04/26/20 09:35 Flomax - PO Not Given DAILY@0830 [facility] Laboratory Results - last 24 hr 04/24/20 04/26/20 11:56 06:00 POC Glucometer 92 Blood Type O POSITIVE Antibody Screen Negative Crossmatch See Detail S1S2 RRR Lungs clear Abd -soft, NT, ND No edema 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
[2020-04-26] MEDS ORDERED: VASOPRESSIN 20 UNITS/ML VIAL IV ONE (12:38)
[2020-04-26] MEDS ORDERED: NEOSTIGMINE METHYLSULFATE 0.5 MG/1 ML - 10 ML MDV ONE (14:53)
[2020-04-26] MEDS ORDERED: NOREPINEPHRINE BITARTRATE 4 MG/4 ML ML IV ONE (15:08)
[2020-04-26] MEDS ORDERED: ROCURONIUM BROMIDE 100 MG/10 ML VIAL ONE ×2 (15:10)
[2020-04-26] MEDS ORDERED: diphenhydrAMINE HCL 25 MG CAPSULE (FP) PO PRN (15:51)
--- NOTE | 2020-04-26 16:04 | PN ---
Progress Note (short form) - Note Progress Note: Pt s/p T12-S2 decompression/fusion. Has TAYLRE x1, monitor output. Blood loss 2L, received 6L LR intraop. Required pressors intraop. Plan for pt to go to ICU, will remain intubated with strict monitoring of fluid status. Labs ordered cbc/chm/magnesium. Will go downstairs for post op CT scan. [place] to remain in place, strict I&Os. Plan for attempt to extubate tomorrow 04/28. Of note, pts family is Jehovas witness, pt is not. Would like to avoid blood products unless absolutely necessary. Above d/w ICU resident.
[2020-04-26] MEDS ORDERED: PROPOFOL 1,000,000 MCG/100 ML VIAL ONE ×2 (16:27→19:07)
[2020-04-26] MEDS: PROPOFOL 1,000,000 MCG/100 ML VIAL IVPB SCH ×2 (16:37→21:43)
--- NOTE | 2020-04-26 16:38 | OP ---
Operative Note - Note: Operative Date: 04/26/20 Operation: s/p lumbar lamiectomy/decompression/fusion of T12 to S2 with interbody cage placment S1-2/L5-S1/L4-5/L3-4. dureal defect and repair with duraseal Surgeon: Jagdish Gao Tipple Greaser: Heike Arce Anesthesiologist/TIGHTENING MACHINE OPERATOR: Gay Rios Anesthesia: General Estimated Blood Loss (mls): 2,000 Drains, Volume Out (mls): 450 (nguyen) Fluid Volume Replaced (mls): 7,000 Operative Report Dictated: Yes
[2020-04-26 16:48] LABS: BASO % 0.2 % (0-2.0); EOS % 0.1 % (0-4.5); HEMATOCRIT 30.1 % (35.4-49); LYMPH % 7.4 % (8-40); MCH 30.5 pg (25.7-33.7); MCHC 33.2 g/dl (32.0-35.9); MEAN CELL VOLUME 91.9 fl (80-96); MONO % 3.2 % (3.8-10.2); NEUT % 89.1 % (42.8-82.8); PLATELET COUNT 262 K/MM3 (134-434); RBC 3.28 M/mm3 (4.00-5.60); RDW 13.4 % (11.9-15.9); WHITE BLOOD COUNT 10.2 K/mm3 (4.0-10.0)
[2020-04-26] MEDS: LACTATED RINGERS SOLUTION 1,000 ML/1,000 ML INFUS.BAG IV SCH ×2 (17:00→21:11)
[2020-04-26] MEDS ORDERED: PHENYLEPHRINE HCL 10 MG/1 ML SINGLE DOSE VIAL ONE (17:14)
[2020-04-26 17:27] LABS: ALBUMIN 1.9 g/dl (3.4-5.0); BILIRUBIN,TOTAL 0.5 mg/dL (0.2-1); BLOOD UREA NITROGEN 14.8 mg/dL (7-18); CALCIUM 8.3 mg/dL (8.5-10.1); CREATININE 0.7 mg/dL (0.55-1.3); POTASSIUM 4.4 mmol/L (3.5-5.1); TOT PROT 3.8 g/dl (6.4-8.2)
[2020-04-26 17:35] LABS: MAGNESIUM 1.4 mg/dL (1.8-2.4)
[2020-04-26] MEDS ORDERED: PHENYLEPHRINE HCL 10,000 MCG in DEXTROSE 5%-WATER - 499 ML IV SCH (18:00)
[2020-04-26] MEDS ORDERED: HYDROmorphone HCl 2 MG/ML VIAL ONE (18:02)
--- NOTE | 2020-04-26 18:06 | PN ---
Progress Note (short form) - Note Progress Note: 70M post-op multiple level decompression and fusion with EBL of approx. 2000 cc now hypotensive in pacu. Pt. intubated and mechanically ventillated postop secondary to length of procedure and associated fluid shifts. Likely etiology of hypotension being hypovolemia. Given the magnitude of the intraop blood loss we will transfuse 1 unit of PRBC, but until the hypotension resolves will support BP with phenylephrine gtt.
--- NOTE | 2020-04-26 20:41 | CONSULT ---
Consultation: REQUESTING PROVIDER: surgery CONSULT REQUEST: We have been asked to medically evaluate this patient for post operative monitoring and hypotension. HISTORY OF PRESENT ILLNESS: 70 y/o male PMH HTN and BPH c/o mechanical fall and now s/p T12-S2 decompression/fusion with EBL 2 L and resuscitation with 7 L IVF. He is now on phenylephrine ggt peripherally. Surgical history, family history, social history unable to acquire. REVIEW OF SYSTEMS: Pt intubated and sedated PHYSICAL EXAMINATION Vital Signs - 24 hr 04/25/20 04/25/20 04/26/20 20:48 20:49 01:34 Temperature 98.4 F 98.1 F Pulse Rate 72 65 Respiratory 18 16 Rate Blood Pressure 130/90 125/77 O2 Sat by Pulse 91 L Oximetry (%) 04/26/20 04/26/20 04/26/20 05:46 09:00 16:20 Temperature 98.1 F 98.4 F Pulse Rate 83 89 Respiratory 16 16 19 Rate Blood Pressure 110/60 94/61 O2 Sat by Pulse 100 Oximetry (%) 04/26/20 04/26/20 04/26/20 16:30 16:45 17:00 Temperature Pulse Rate 88 90 93 H Respiratory 14 14 14 Rate Blood Pressure 94/59 L 86/54 L 76/79 L O2 Sat by Pulse 95 99 100 Oximetry (%) GENERAL: Intubated 14/450/100%/15 and sedated on propofol HEAD: Normal with no signs of trauma. EYES: TENZIN, sclera anicteric, conjunctiva clear. EARS, NOSE, THROAT: Ears normal, nares patent, oropharynx clear without exudates. Dry mucous membranes. NECK: No appreciable lymphadenopathy, JVD, or masses. LUNGS: Breath sounds equal, clear to auscultation bilaterally. No wheezes, and no crackles. No accessory muscle use. HEART: Regular rate and rhythm, normal S1 and S2 without murmur, rub or gallop. ABDOMEN: Soft, not distended, normoactive bowel sounds, no masses. No hepatomegaly. SKIN/MUSCULOSKELETAL: Surgical dressing on back. RIGHT knee surgical scar. TAYLER drain in place. UPPER EXTREMITIES: 2+ pulses, warm, well-perfused. No cyanosis. No clubbing. Cap refill <2 seconds. No peripheral edema. LOWER EXTREMITIES: 2+ pulses, warm, well-perfused. No calf tenderness. No peripheral edema. NEUROLOGICAL: TENZIN, patellar reflex +2 BL Laboratory Results - last 24 hr 04/24/20 04/26/20 04/26/20 11:56 06:00 16:40 WBC RBC Hgb Hct MCV MCH MCHC RDW Plt Count MPV Absolute Neuts (auto) Neutrophils % Lymphocytes % Monocytes % Eosinophils % Basophils % Nucleated RBC % Sodium 139 Potassium 4.4 Chloride 108 H Carbon Dioxide 24 Anion Gap 7 L BUN 14.8 Creatinine 0.7 Est GFR (CKD-EPI)AfAm 110.04 Est GFR (CKD-EPI)NonAf 94.95 POC Glucometer 92 Random Glucose 138 H Calcium 8.3 L Magnesium 1.4 L Total Bilirubin 0.5 AST 39 H ALT 43 Alkaline Phosphatase 72 Total Protein 3.8 L Albumin 1.9 L Blood Type O POSITIVE Antibody Screen Negative Crossmatch See Detail 04/26/20 16:40 WBC 10.2 H RBC 3.28 L Hgb 10.0 L Hct 30.1 L D MCV 91.9 MCH 30.5 MCHC 33.2 RDW 13.4 Plt Count 262 D MPV 7.0 L Absolute Neuts (auto) 9.1 H Neutrophils % 89.1 H D Lymphocytes % 7.4 L D Monocytes % 3.2 L Eosinophils % 0.1 D Basophils % 0.2 Nucleated RBC % 0 Sodium Potassium Chloride Carbon Dioxide Anion Gap BUN Creatinine Est GFR (CKD-EPI)AfAm Est GFR (CKD-EPI)NonAf POC Glucometer Random Glucose Calcium Magnesium Total Bilirubin AST ALT Alkaline Phosphatase Total Protein Albumin Blood Type Antibody Screen Crossmatch Active Medications Generic Name Dose Route Start Last Admin Trade Name Freq PRN Reason Stop Dose Admin Bisacodyl 10 mg 04/24/20 19:54 04/24/20 20:36 Dulcolax Suppository - [place] 10 mg DAILY PRN Administration CONSTIPATION Chlorhexidine Gluconate 1 applic 04/26/20 22:00 Hibiclens For Decolonization - TP HS CAITLYN Diphenhydramine HCl 25 mg 04/26/20 15:51 Benadryl - PO Q6H PRN FOR ITCHING Docusate Sodium 100 mg 04/27/20 06:00 Colace - PO TID CAITLYN Ferrous Sulfate 325 mg 04/27/20 08:00 Feosol - PO DAILY@0800 [facility] Folic Acid 1 mg 04/27/20 10:00 Folic Acid - PO DAILY [facility] Hydromorphone HCl 2 mg 04/26/20 16:45 Dilaudid Vial - IVPUSH 04/27/20 16:44 Q4H CAITLYN Cefazolin Sodium 1 gm/ 50 mls @ 100 mls/hr 04/26/20 20:00 Dextrose IVPB Q8H-IV CA[facility]LYN Lactated Ringer's 1,000 ml in 1,000 mls @ 125 mls/hr 04/26/20 16:00 04/26/20 17:00 Lactated Ringers Solution IV 0 mls ASDIR CAITLYN Administration Propofol 1,000,000 mcg in 100 mls @ 3.13 mls/hr 04/26/20 16:30 04/26/20 16:37 Diprivan - IVPB 0 mls TITR CAITLYN Administration Protocol 5 MCG/KG/MIN Phenylephrine HCl 50,000 mcg/ 500 mls @ 30 mls/hr 04/26/20 18:15 Dextrose IV TITR [facility]N Protocol 50 MCG/MIN Insulin Aspart 0 vial 04/23/20 07:00 04/26/20 06:13 Novolog Vial Sliding Scale - SQ Not Given ACBK [facility] Protocol Losartan Potassium 100 mg 04/23/20 10:00 04/26/20 11:26 Cozaar - PO Not Given DAILY [facility] [place] Mupirocin 1 applic 04/26/20 22:00 Bactroban Ointment (For Decolonization) - NS 05/01/20 21:59 BID [facility] Nifedipine 90 mg 04/23/20 10:00 04/26/20 11:26 Procardia Xl - PO Not Given DAILY [facility] Ondansetron HCl 4 mg 04/26/20 15:51 Zofran Injection IVPUSH Q6H PRN NAUSE[facility] Polyethylene Glycol 17 gm 04/24/20 22:00 04/26/20 09:28 Miralax (For Daily Use) - PO Not Given BID [facility] Senna 2 tab 04/23/20 15:56 04/25/20 19:51 Senna - PO 2 tab HS PRN Administration CONSTIPATION Tamsulosin HCl 0.8 mg 04/23/20 08:30 04/26/20 09:35 Flomax - PO Not Given DAILY@0830 [facility] [place] ASSESSMENT/PLAN: 70 y/o male PMH HTN and BPH c/o mechanical fall and now s/p T12-S2 decompression/fusion with EBL 2L and resuscitation with 7L IVF. He is now on phenylephrine ggt peripherally. # Neuro Sedated on propfol Pain: dilauded 2 mg q4h # MSK Spondylosis now s/p T12-S2 decompression/fusion # CVS: HTN Procardia XL 90 mg QD and Losartan 100 mg QD LR @ 125 Phenylephrine ggt (will consider changing) # Pulm Intubated 14/450/100%/15 covid NEG # ID Continue ancef while TAYLER drain in place # Renal Cr 0.7 UO 600 # Tamsulosin 0.8 mg po qd # FEN LR @125 Cont. to monitor electrolytes NPO # TLD [place] Plan for central line # PPX SCD Dispo: We will continue to follow the patient. Thank you for this consultative opportunity, Dr. Pugh Visit type - Emergency Visit Emergency Visit: No - New Patient This patient is new to me today: Yes Date on this admission: 04/26/20 - Critical Care Critical Care patient: Yes Total Critical Care Time (in minutes): 36 Critical Care Statement: The care of this patient involved high complexity decision making to prevent further life threatening deterioration of the patient's condition and/or to evaluate & treat vital organ system(s) failure or risk of failure. ATTENDING PHYSICIAN STATEMENT I saw and evaluated the patient. I reviewed the resident's note and discussed the case with the resident. I agree with the resident's findings and plan as documented. SUBJECTIVE: OBJECTIVE: ASSESSMENT AND PLAN:
[2020-04-26] MEDS: PHENYLEPHRINE HCL 50,000 MCG in DEXTROSE 5%-WATER - 495 ML IV SCH (21:07)
[2020-04-26] MEDS: CEFAZOLIN 1 GM in DEXTROSE 5%-WATER - 50 ML IVPB SCH (21:10)
[2020-04-26] MEDS: MUPIROCIN 2% TOPICAL OINTMENT FOR DECOLONIZATION NS SCH (21:10)
[2020-04-26] MEDS: HYDROmorphone HCl 2 MG/ML VIAL IVPUSH SCH ×2 (21:10→21:42)
[2020-04-26] MEDS: CHLORHEXIDINE GLUCONATE 4% CLEANSER FOR DECOLONIZATION TP SCH (21:11)
[2020-04-26] MEDS ORDERED: DEXTROSE 5%-WATER - 50 ML IVPB ONE (21:31)
--- NOTE | 2020-04-26 23:27 | PROC ---
Central Line Insertion Indication: Vasopressor Risks and Benefits Explained: No Consent on Chart: No (Emergent ) Central Line: Triple Lumen Catheter Anesthesia: 1% Lidocaine Sterile Technique: Yes Ultrasound Guided Assistance: Yes Position: Left Internal Jugular Post Insertion: Yes: Chest X-Ray Ordered Sterile Dressing Applied: Yes
[2020-04-26] MEDS ORDERED: NOREPINEPHRINE BITARTRATE 8,000 MCG in DEXTROSE 5%-WATER - 492 ML IV SCH (23:30)
[2020-04-27] MEDS: HYDROmorphone HCl 2 MG/ML VIAL IVPUSH SCH ×3 (00:57→09:50)
[2020-04-27] MEDS: NOREPINEPHRINE BITARTRATE 8,000 MCG in DEXTROSE 5%-WATER - 492 ML IV SCH ×2 (01:04→23:59)
[2020-04-27] MEDS: CEFAZOLIN 1 GM in DEXTROSE 5%-WATER - 50 ML IVPB SCH ×2 (01:17→09:17)
[2020-04-27] MEDS ORDERED: LACTATED RINGERS SOLUTION 1000 ML INFUS.BAG IV ONE (02:08)
[2020-04-27] MEDS: DOCUSATE SODIUM 100 MG CAPSULE (FP) PO SCH ×3 (05:12→21:02)
[2020-04-27] MEDS: LACTATED RINGERS SOLUTION 1,000 ML/1,000 ML INFUS.BAG IV SCH ×3 (05:13→22:19)
[2020-04-27] MEDS: PHENYLEPHRINE HCL 50,000 MCG in DEXTROSE 5%-WATER - 495 ML IV SCH ×2 (05:14→21:01)
[2020-04-27] MEDS: INSULIN SLIDING SCALE (NOVOLOG) 1 VIAL SQ SCH (06:00)
[2020-04-27] MEDS: PROPOFOL 1,000,000 MCG/100 ML VIAL IVPB SCH (06:01)
[2020-04-27 06:47] LABS: HEMATOCRIT 30.9 % (35.4-49); HEMOGLOBIN 10.3 GM/dL (11.7-16.9); MCH 29.7 pg (25.7-33.7); MCHC 33.2 g/dl (32.0-35.9); MEAN CELL VOLUME 89.3 fl (80-96); MEAN PLT VOLUME 7.6 fl (7.5-11.1); PLATELET COUNT 264 K/MM3 (134-434); RBC 3.46 M/mm3 (4.00-5.60); RDW 14.5 % (11.9-15.9); WHITE BLOOD COUNT 15.6 K/mm3 (4.0-10.0)
[2020-04-27 06:54] LABS: INR 1.12 (0.83-1.09); PROTHROMBIN TIME (PATIENT) 13.2 SEC (9.7-13.0)
[2020-04-27 07:13] LABS: ANION GAP 5 MMOL/L (8-16); BLOOD UREA NITROGEN 19.1 mg/dL (7-18); CALCIUM 7.4 mg/dL (8.5-10.1); CHLORIDE 105 mmol/L (98-107); CO2 26 mmol/L (21-32); GLUCOSE,RANDOM 122 mg/dL (74-106); MAGNESIUM 1.1 mg/dL (1.8-2.4); POTASSIUM 5.3 mmol/L (3.5-5.1); SODIUM 136 mmol/L (136-145)
[2020-04-27] MEDS ORDERED: MAGNESIUM SULF 50% (8.12 MEQ/2 ML-1 GM VIAL) IVPB ONE (08:14)
[2020-04-27] MEDS ORDERED: ceFAZolin SODIUM 1 GM VIAL ONE (09:09)
[2020-04-27] MEDS ORDERED: DEXTROSE 5%-WATER - 50 ML IVPB ONE (09:09)
[2020-04-27] MEDS: FOLIC ACID 1 MG TABLET (FP) PO SCH (09:37)
[2020-04-27] MEDS: POLYETHYLENE GLYCOL 3350 119 GM BTL PO SCH ×2 (09:37→21:02)
[2020-04-27] MEDS: FERROUS SO4 325 MG TABLET (FP) PO SCH (09:37)
[2020-04-27] MEDS: TAMSULOSIN HCL 0.4 MG CAP PO SCH (09:37)
[2020-04-27] MEDS: NIFEdipine E.R. 90 MG TABLET PO SCH (09:38)
--- NOTE | 2020-04-27 09:39 | PN ---
Progress Note (short form) - Note Progress Note: POD 1, s/p lumbar laminectomy/decompression/fusion of T12 to S2 with interbody cage placment S1-2/L5-S1/L4-5/L3-4 Pt seen and examined. Intubated but awake and responsive. Shaking his head yes or no to questions. Mouthing ? regarding blood transfusion, not entirely clear. On 2 pressors but titrating down. No major issues overnight. Vital Signs Temp 99.3 F 04/27/20 07:53 Pulse 141 H 04/27/20 09:35 Resp 16 04/27/20 09:35 BP 105/75 04/27/20 09:35 Pulse Ox 100 04/27/20 08:57 Intake & Output 04/26/20 04/26/20 04/27/20 11:59 23:59 11:59 Intake Total 7000 1009 2300 Output Total 2300 1115 620 Balance 4700 -106 1680 Intake: IV 7000 659 2100 DIPRIVAN - 1,000,000 mcg 101 In 100 ml @ 5 MCG/KG/MIN 3.13 mls/hr IVPB TITR CAITLYN Rx#:[id number] LACTATED RINGERS SOLUTION 1507 1,000 ml In 1,000 ml @ 125 mls/hr IV ASDIR CAITLYN Rx#:[id number] Levophed - 8,000 Mcg In 68 D5w - 492 ml @ 5 MCG/MIN 18.75 mls/hr IV TITR CAITLYN Rx#:[id number] [place]-Synephrine - 50,000 414 Mcg In D5w - 495 ml @ 50 MCG/MIN 30 mls/hr IV TITR CAITLYN Rx#:[id number] SALINE LOCK 10 IVPB 200 Oral 0 0 Blood Product 350 Output: Drainage 405 490 Posterior Back 70 490 Urine 300 710 130 Void 200 60 130 Estimated Blood Loss 1999 Other: Voiding Method Indwelling Catheter Indwelling Catheter Indwelling Catheter # Unmeasured Voids Void 1 Bowel Movement No No CBC, BMP 04/27/20 05:00 04/27/20 06:00 Gen: Intubated, awake and responsive Neuro: Tayler in place with approx 25cc serosanguinous drainage in reservoir, tubing stripped. Moves all extremities. Dorsi/plantarflex foot A/P: 70 y/o M w/ PMHx HTN, lumbar spondolyosis, scoliosis, BPH admitted 04/22 after a fall secondary to progressive lower extremity weakness (pt was evaluated by neurosurgery in the past and was set for surgery January 23, 2020; however, this was postponed due to Covid-19 Pandemic resulting in cessation of elective surgeries), now POD 1 s/p lumbar laminectomy/decompression/fusion of T12 to S2 with interbody cage placement S1-2/L5-S1/L4-5/L3-4 c/b hypovolemia. Received 1 unit pRBC overnight On pressor support however bp this AM is systolic 130s TAYLER output 350cc since midnight UOP 130ml overnight -Plan for extubation this morning per ICU -Wean pressors as tolerated -Monitor h/h -Strict I&Os -Continue ancef while drain is in place -DVT prophylaxis with heparin 5000units sq and b/l scds -Incentive spirometry
--- NOTE | 2020-04-27 09:52 | PN ---
Progress Note (short form) - Note Progress Note: Anesthesia POD#1 S/P Laminectomy and instrumentation under GA Stable in the ICU, still intubated. BP is stable,tachycardia just started. Once stable, can be extubated. No issues from yesterday. Lynette Mcgowan MD.
[2020-04-27] MEDS: MUPIROCIN 2% TOPICAL OINTMENT FOR DECOLONIZATION NS SCH ×2 (10:00→21:02)
--- NOTE | 2020-04-27 10:00 | PN ---
Progress Note (short form) - Note Progress Note: Events reviewed: POD#1, laminectomy/fusion multisegments, lost 2 L RBC in OR>.6 L fluid; Hypotensive post >.ICU , intubated on pressors; Hb 10 ( from 15) Currently intubated but awake, tachy, BP low normal, just extubated, awake Monitor/ECG: likely SVT vs AFl 2:1 rate 147 bpm , no significant ST changes, nonspec T changes Vital Signs Temperature 99.3 F 04/27/20 07:53 Pulse Rate 141 H 04/27/20 09:35 Respiratory Rate 16 04/27/20 09:35 Blood Pressure 105/75 04/27/20 09:35 O2 Sat by Pulse Oximetry (%) 100 04/27/20 08:57 Constitutional: Yes:just extubated, awake Cardiovascular: Yes: Regular Rate and Rhythm, tachy Respiratory: Yes: Regular, CTA Bilaterally Gastrointestinal: Yes: Normal Bowel Sounds, Soft Edema: No Labs: CBC, BMP 04/27/20 05:00 04/27/20 06:00 Active Medications Bisacodyl (Dulcolax Suppository -) 10 mg [place] DAILY PRN PRN Reason: CONSTIPATION Last Admin: 04/24/20 20:36 Dose: 10 mg Documented by: Chlorhexidine Gluconate (Hibiclens For Decolonization -) 1 applic TP HS [facility] Last Admin: 04/26/20 21:11 Dose: 1 applic Documented by: Diphenhydramine HCl (Benadryl -) 25 mg PO Q6H PRN PRN Reason: FOR ITCHING Docusate Sodium (Colace -) 100 mg PO TID [facility] Last Admin: 04/27/20 05:12 Dose: Not Given Documented by: Ferrous Sulfate (Feosol -) 325 mg PO DAILY@0800 [facility] Last Admin: 04/27/20 09:37 Dose: Not Given Documented by: Folic Acid (Folic Acid -) 1 mg PO DAILY [facility] Last Admin: 04/27/20 09:37 Dose: Not Given Documented by: Hydromorphone HCl (Dilaudid Vial -) 2 mg IVPUSH Q4H [facility] Stop: 04/27/20 16:44 Last Admin: 04/27/20 09:50 Dose: 2 mg Documented by: Cefazolin Sodium 1 gm/ (Dextrose) 50 mls @ 100 mls/hr IVPB Q8H-IV [facility]N Last Admin: 04/27/20 09:17 Dose: 100 mls/hr Documented by: Lactated Ringer's (Lactated Ringers Solution) 1,000 ml in 1,000 mls @ 125 mls/hr IV ASDIR [facility]ITLYN Last Admin: 04/27/20 05:13 Dose: 125 mls/hr Documented by: Propofol (Diprivan -) 1,000,000 mcg in 100 mls @ 3.13 mls/hr IVPB TITR [facility]; Protocol Last Admin: 04/27/20 06:01 Dose: 20 mcg/kg/min, 12.519 mls/hr Documented by: Phenylephrine HCl 50,000 mcg/ (Dextrose) 500 mls @ 30 mls/hr IV TITR [facility]; Protocol Last Titration: 04/27/20 06:05 Dose: 75 mcg/min, 45 mls/hr Documented by: Norepinephrine Bitartrate 8, (000 mcg/ Dextrose) 500 mls @ 11.737 mls/hr IV ASDIR [facility]; Protocol Last Admin: 04/27/20 01:04 Dose: 0.05 mcg/kg/min, 18 mls/hr Documented by: Insulin Aspart (Novolog Vial Sliding Scale -) 0 vial SQ ACBK [facility]; Protocol Last Admin: 04/27/20 06:00 Dose: Not Given Documented by: Mupirocin (Bactroban Ointment (For Decolonization) -) 1 applic NS BID [facility] Stop: 05/01/20 21:59 Last Admin: 04/26/20 21:10 Dose: 1 g Documented by: Nifedipine (Procardia Xl -) 90 mg PO DAILY [facility] Last Admin: 04/27/20 09:38 Dose: Not Given Documented by: Ondansetron HCl (Zofran Injection) 4 mg IVPUSH Q6H PRN PRN Reason: NAUSEA Polyethylene Glycol (Miralax (For Daily Use) -) 17 gm PO BID [facility] Last Admin: 04/27/20 09:37 Dose: Not Given Documented by: Senna (Senna -) 2 tab PO HS PRN PRN Reason: CONSTIPATION Last Admin: 04/25/20 19:51 Dose: 2 tab Documented by: Tamsulosin HCl (Flomax -) 0.8 mg PO DAILY@0830 [facility] Last Admin: 04/27/20 09:37 Dose: Not Given Documented by: - ....Imaging EKG: Report Reviewed (Tele: NSR) Problem List - Problems (1) Preop cardiovascular exam Code(s): Z01.810 - ENCOUNTER FOR PREPROCEDURAL CARDIOVASCULAR EXAMINATION (2) Back pain Code(s): M54.9 - DORSALGIA, UNSPECIFIED (3) Hypertension Code(s): I10 - ESSENTIAL (PRIMARY) HYPERTENSION Qualifiers: Hypertension type: essential hypertension Qualified Code(s): I10 - [place] l (primary) hypertension (4) Premature atrial contraction Code(s): I49.1 - ATRIAL PREMATURE DEPOLARIZATION (5) Premature ventricular contraction Code(s): I49.3 - VENTRICULAR PREMATURE DEPOLARIZATION (6) Facet arthropathy, lumbosacral Code(s): M47.817 - SPONDYLS W/O MYELOPATHY OR RADICULOPATHY, LUMBOSACR REGION Assessment/Plan 04/23/2020 Echo: Normal LV size and fxn LVEF 55-60%, diastolic dysfunction, normal RV fxn, mild TR with normal RVSP, mildly dilated ao root 3.8 cm -Hypotension pst op -SVT vs AFl 2:1 -Anemia -POstop#1 1. Mechanical fall in context of acute on chronic back pain 2. Left C4-C5 facet arthropathy, severe multilevel C-spine central canal stenosis, mod-marked multilevel lumbar degenerative disc changes, mod-marked mu ltilevel degenerative central canal stenosis: s/p laminectomies/fusions 3. HTN PLAN: 1. Adenosine to differentiate tachy (treat if SVT , if AFl will need rate control with BB when blood pressure OK) 2. Tropninx1 if elevated then trend 3-Limited echo: LV/RV function 4-Off BP meds
--- NOTE | 2020-04-27 10:14 | EKG ---
Test Reason : Blood Pressure : / mmHG Vent. Rate : 139 BPM Atrial Rate : 140 BPM P-R Int : 176 ms QRS Dur : 082 ms QT Int : 262 ms P-R-T Axes : 066 059 078 degrees QTc Int : 398 ms SINUS TACHYCARDIA WHEN COMPARED WITH ECG OF 22-APR-2020 21:39, PREMATURE VENTRICULAR COMPLEXES ARE NO LONGER PRESENT PREMATURE SUPRAVENTRICULAR COMPLEXES ARE NO LONGER PRESENT NONSPECIFIC T WAVE ABNORMALITY NOW EVIDENT IN LATERAL LEADS Confirmed by JESSICA CAMARILLO MD ([id number]) on 04/27/2020 10:13:58 AM Referred By: Confirmed By:JESSICA CAMARILLO MD
[2020-04-27] MEDS ORDERED: ADENOSINE 6 MG/2 ML VIAL IVPUSH ONE ×2 (10:15→10:33)
[2020-04-27] MEDS ORDERED: METOPROLOL TARTRATE 5 MG/5 ML VIAL IVPUSH ONE (10:34)
--- NOTE | 2020-04-27 11:47 | PN ---
Physical Exam: SUBJECTIVE: Patient seen and examined at bedside. No new events overnight. OBJECTIVE: Vital Signs Period Temp Pulse Resp BP Sys/Chinchilla Pulse Ox Last 24 Hr 96.8 F-99.3 F 80-144 10-19 74-122/54-95 95-100 GENERAL: The patient is awake, alert, following commands while intubated. HEAD: Normal with no signs of trauma. NECK: Trachea midline, full range of motion, supple. LUNGS: Breath sounds equal, clear to auscultation bilaterally, no wheezes, no crackles, no accessory muscle use. HEART: Regular rate and rhythm, S1, S2 without murmur, rub or gallop. ABDOMEN: Soft, nontender, nondistended, normoactive bowel sounds, no guarding, no rebound, no hepatosplenomegaly, no masses. EXTREMITIES: 2+ pulses, warm, well-perfused, no edema. NEUROLOGICAL: Cranial nerves II through X grossly intact. limited as patient is intubated. Laboratory Results - last 24 hr 04/24/20 04/26/20 04/26/20 11:56 16:40 16:40 WBC 10.2 H RBC 3.28 L Hgb 10.0 L Hct 30.1 L D MCV 91.9 MCH 30.5 MCHC 33.2 RDW 13.4 Plt Count 262 D MPV 7.0 L Absolute Neuts (auto) 9.1 H Neutrophils % 89.1 H D Lymphocytes % 7.4 L D Monocytes % 3.2 L Eosinophils % 0.1 D Basophils % 0.2 Nucleated RBC % 0 PT with INR INR Sodium 139 Potassium 4.4 Chloride 108 H Carbon Dioxide 24 Anion Gap 7 L BUN 14.8 Creatinine 0.7 Est GFR (CKD-EPI)AfAm 110.04 Est GFR (CKD-EPI)NonAf 94.95 POC Glucometer Random Glucose 138 H Calcium 8.3 L Phosphorus Magnesium 1.4 L Total Bilirubin 0.5 AST 39 H ALT 43 Alkaline Phosphatase 72 Troponin I Total Protein 3.8 L Albumin 1.9 L Blood Type O POSITIVE Antibody Screen Negative Crossmatch See Detail 04/27/20 04/27/20 04/27/20 05:00 05:00 05:01 WBC 15.6 H RBC 3.46 L Hgb 10.3 L Hct 30.9 L MCV 89.3 MCH 29.7 MCHC 33.2 RDW 14.5 Plt Count 264 MPV 7.6 Absolute Neuts (auto) Neutrophils % Lymphocytes % Monocytes % Eosinophils % Basophils % Nucleated RBC % PT with INR 13.20 H INR 1.12 H Sodium Potassium Chloride Carbon Dioxide Anion Gap BUN Creatinine Est GFR (CKD-EPI)AfAm Est GFR (CKD-EPI)NonAf POC Glucometer 115 Random Glucose Calcium Phosphorus Magnesium Total Bilirubin AST ALT Alkaline Phosphatase Troponin I Total Protein Albumin Blood Type Antibody Screen Crossmatch 04/27/20 06:00 WBC RBC Hgb Hct MCV MCH MCHC RDW Plt Count MPV Absolute Neuts (auto) Neutrophils % Lymphocytes % Monocytes % Eosinophils % Basophils % Nucleated RBC % PT with INR INR Sodium 136 Potassium 5.3 H Chloride 105 Carbon Dioxide 26 Anion Gap 5 L BUN 19.1 H Creatinine 1.0 Est GFR (CKD-EPI)AfAm 87.37 Est GFR (CKD-EPI)NonAf 75.39 POC Glucometer Random Glucose 122 H Calcium 7.4 L Phosphorus 4.0 Magnesium 1.1 L Total Bilirubin AST ALT Alkaline Phosphatase Troponin I < 0.02 Total Protein Albumin Blood Type Antibody Screen Crossmatch Active Medications Generic Name Dose Route Start Last Admin Trade Name Freq PRN Reason Stop Dose Admin Bisacodyl 10 mg 04/24/20 19:54 04/24/20 20:36 Dulcolax Suppository - [place] 10 mg DAILY PRN Administration CONSTIPATION Chlorhexidine Gluconate 1 applic 04/26/20 22:00 04/26/20 21:11 Hibiclens For Decolonization - TP 1 applic HS CAITLYN Administration Diphenhydramine HCl 25 mg 04/26/20 15:51 Benadryl - PO Q6H PRN FOR ITCHING Docusate Sodium 100 mg 04/27/20 06:00 04/27/20 05:12 Colace - PO Not Given TID CAITLYN Ferrous Sulfate 325 mg 04/27/20 08:00 04/27/20 09:37 Feosol - PO Not Given DAILY@0800 CAILTYN Folic Acid 1 mg 04/27/20 10:00 04/27/20 09:37 Folic Acid - PO Not Given DAILY CAITLYN Hydromorphone HCl 2 mg 04/26/20 16:45 04/27/20 09:50 Dilaudid Vial - IVPUSH 04/27/20 16:44 2 mg Q4H CAITLYN Administration Cefazolin Sodium 1 gm/ 50 mls @ 100 mls/hr 04/26/20 20:00 04/27/20 09:17 Dextrose IVPB 100 mls/hr Q8H-IV CAITLYN Administration Lactated Ringer's 1,000 ml in 1,000 mls @ 125 mls/hr 04/26/20 16:00 04/27/20 05:13 Lactated Ringers Solution IV 125 mls/hr ASDIR CAITLYN Administration Propofol 1,000,000 mcg in 100 mls @ 3.13 mls/hr 04/26/20 16:30 04/27/20 06:01 Diprivan - IVPB 20 mcg/kg/min TITR CAITLYN 12.519 mls/hr Administration Protocol 5 MCG/KG/MIN Phenylephrine HCl 50,000 mcg/ 500 mls @ 30 mls/hr 04/26/20 18:15 04/27/20 06:05 Dextrose IV 75 mcg/min TITR CAITLYN 45 mls/hr Titration Protocol 50 MCG/MIN Norepinephrine Bitartrate 8, 500 mls @ 11.737 mls/hr 04/26/20 23:30 04/27/20 01:04 000 mcg/ Dextrose IV 0.05 mcg/kg/min ASDIR CAITLYN 18 mls/hr Administration Protocol 0.03 MCG/KG/MIN Insulin Aspart 0 vial 04/23/20 07:00 04/27/20 06:00 Novolog Vial Sliding Scale - SQ Not Given ACBK [facility] Protocol Mupirocin 1 applic 04/26/20 22:00 04/26/20 21:10 Bactroban Ointment (For Decolonization) - NS 05/01/20 21:59 1 g BID CAITLYN Administration Nifedipine 90 mg 04/23/20 10:00 04/27/20 09:38 Procardia Xl - PO Not Given DAILY CAITLYN Ondansetron HCl 4 mg 04/26/20 15:51 Zofran Injection IVPUSH Q6H PRN NAUSEA Polyethylene Glycol 17 gm 04/24/20 22:00 04/27/20 09:37 Miralax (For Daily Use) - PO Not Given BID CAITLYN Senna 2 tab 04/23/20 15:56 04/25/20 19:51 Senna - PO 2 tab HS PRN Administration CONSTIPATION Tamsulosin HCl 0.8 mg 04/23/20 08:30 04/27/20 09:37 Flomax - PO Not Given DAILY@0830 [facility] ASSESSMENT/PLAN: 70 y/o male PMH HTN and BPH c/o mechanical fall and now s/p T12-S2 decompression/fusion with EBL 2L and resuscitation with 7L IVF. Patient left intubated post op germaine to the length of the procedure and the EBL. # Neuro -Patient awake off sedation. -will change IV pain control to PO # MSK -Spondylosis now s/p T12-S2 decompression/fusion # CVS: HTN -Holding home Procardia XL 90 mg QD and Losartan 100 mg QD due to hypotension -LR @ 125 -on levo and phenylephrine GTT; will downtitrate -patient noted to be tachycardic to 140's -adenosine 6mg administered; patient noted to be in Afib -lopressor 5mg IV administered, patient slowed to 114 with a sinus rhythm -EKG showed sinus tach # Pulm -Patient was left intubated post op; awake, following commands today -vent settings minimal -CXR clear -patient doing well on cpap -patient is a good candidate for extubation today # ID -patient hypotensive and tachycardic -plan d/w Dr. Simmons and Dr. Callahan -UCx growing ESBL -will obtain BCx -given hypotention and positive UCX, will broaden coverage with vancomycin and zosyn in lieu of ancef -f/u final ID reccs # FEN -LR @125 -Cont. to monitor electrolytes -Patient passed bedside swallow; will resume diet # PPX -SCDs -AC held in light of sanguinous drainage from TAYLER drain and large about of intra-op blood loss. #Dispo -admit ICU Visit type - Emergency Visit Emergency Visit: Yes ED Registration Date: 04/22/20 Care time: The patient presented to the Emergency Department on the above date and was hospitalized for further evaluation of their emergent condition. - New Patient This patient is new to me today: Yes Date on this admission: 04/27/20 - Critical Care Critical Care patient: Yes Total Critical Care Time (in minutes): 50 Critical Care Statement: The care of this patient involved high complexity decision making to prevent further life threatening deterioration of the patient's condition and/or to evaluate & treat vital organ system(s) failure or risk of failure. - Discharge Referral Referred to [facility] Med [facility].C.: No ATTENDING PHYSICIAN STATEMENT I saw and evaluated the patient. I reviewed the resident's note and discussed the case with the resident. I agree with the resident's findings and plan as documented. SUBJECTIVE: OBJECTIVE: ASSESSMENT AND PLAN:
--- NOTE | 2020-04-27 12:41 | PN ---
Progress Note, Physician History of Present Illness: Pod # 1 Seen in icu. Chart reviewed Case D/W ICu Resident Extubated awake s/p T12-S2 decompression/fusion with EBL 2 L and resuscitation with 7 L IVF. On pressors. afebrile Elevated WBCs. - Current Medication List Current Medications: Active Medications Bisacodyl (Dulcolax Suppository -) 10 mg IN DAILY PRN PRN Reason: CONSTIPATION Last Admin: 04/24/20 20:36 Dose: 10 mg Documented by: Chlorhexidine Gluconate (Hibiclens For Decolonization -) 1 applic TP HS CAITLYN Last Admin: 04/26/20 21:11 Dose: 1 applic Documented by: Diphenhydramine HCl (Benadryl -) 25 mg PO Q6H PRN PRN Reason: FOR ITCHING Docusate Sodium (Colace -) 100 mg PO TID CAITLYN Last Admin: 04/27/20 05:12 Dose: Not Given Documented by: Ferrous Sulfate (Feosol -) 325 mg PO DAILY@0800 CAITLYN Last Admin: 04/27/20 09:37 Dose: Not Given Documented by: Folic Acid (Folic Acid -) 1 mg PO DAILY CAITLYN Last Admin: 04/27/20 09:37 Dose: Not Given Documented by: Cefazolin Sodium 1 gm/ (Dextrose) 50 mls @ 100 mls/hr IVPB Q8H-IV CAITLYN Last Admin: 04/27/20 09:17 Dose: 100 mls/hr Documented by: Lactated Ringer's (Lactated Ringers Solution) 1,000 ml in 1,000 mls @ 125 ml s/hr IV ASDIR CAITLYN Last Admin: 04/27/20 05:13 Dose: 125 mls/hr Documented by: Propofol (Diprivan -) 1,000,000 mcg in 100 mls @ 3.13 mls/hr IVPB TITR CAITLYN; Protocol Last Admin: 04/27/20 06:01 Dose: 20 mcg/kg/min, 12.519 mls/hr Documented by: Phenylephrine HCl 50,000 mcg/ (Dextrose) 500 mls @ 30 mls/hr IV TITR CAITLYN; Protocol Last Titration: 04/27/20 06:05 Dose: 75 mcg/min, 45 mls/hr Documented by: Norepinephrine Bitartrate 8, (000 mcg/ Dextrose) 500 mls @ 11.737 mls/hr IV ASDIR [facility]; Protocol Last Admin: 04/27/20 01:04 Dose: 0.05 mcg/kg/min, 18 mls/hr Documented by: Insulin Aspart (Novolog Vial Sliding Scale -) 0 vial SQ ACBK [facility]; Protocol Last Admin: 04/27/20 06:00 Dose: Not Given Documented by: Mupirocin (Bactroban Ointment (For Decolonization) -) 1 applic NS BID [facility] Stop: 05/01/20 21:59 Last Admin: 04/26/20 21:10 Dose: 1 g Documented by: Nifedipine (Procardia Xl -) 90 mg PO DAILY [facility] Last Admin: 04/27/20 09:38 Dose: Not Given Documented by: Ondansetron HCl (Zofran Injection) 4 mg IVPUSH Q6H PRN PRN Reason: NAUSEA Polyethylene Glycol (Miralax (For Daily Use) -) 17 gm PO BID [facility] Last Admin: 04/27/20 09:37 Dose: Not Given Documented by: Senna (Senna -) 2 tab PO HS PRN PRN Reason: CONSTIPATION Last Admin: 04/25/20 19:51 Dose: 2 tab Documented by: Tamsulosin HCl (Flomax -) 0.8 mg PO DAILY@0830 [facility] Last Admin: 04/27/20 09:37 Dose: Not Given Documented by: - Objective Vital Signs: Vital Signs Temperature 98.3 F 04/27/20 10:00 Pulse Rate 112 H 04/27/20 11:00 Respiratory Rate 16 04/27/20 11:00 Blood Pressure 93/72 04/27/20 11:00 O2 Sat by Pulse Oximetry (%) 100 04/27/20 08:57 Constitutional: Yes: No Distress Neck: Yes: Supple Cardiovascular: Yes: Pulse Irregular Respiratory: Yes: CTA Bilaterally Gastrointestinal: Yes: Soft Edema: No Neurological: Yes: Alert Labs: CBC, BMP 04/27/20 05:00 04/27/20 06:00 INR, PTT INR 1.12 (0.83-1.09) H 04/27/20 05:00 Problem List - Problems (1) Arrhythmia Code(s): I49.9 - CARDIAC ARRHYTHMIA, UNSPECIFIED (2) Fall Code(s): W19.XXXA - UNSPECIFIED FALL, INITIAL ENCOUNTER (3) Back pain Code(s): M54.9 - DORSALGIA, UNSPECIFIED (4) Facet arthropathy, lumbosacral Code(s): M47.817 - SPONDYLS W/O MYELOPATHY OR RADICULOPATHY, LUMBOSACR REGION (5) Hypertension Code(s): I10 - ESSENTIAL (PRIMARY) HYPERTENSION Qualifiers: Hypertension type: essential hypertension Qualified Code(s): I10 - Essential (primary) hypertension Assessment/Plan Monitor in icu Pressor support Abx I/D consult D/W Dr. Callahan also- Will see pt Will follow condition gila barraza CC time approx 30 min
[2020-04-27] MEDS ORDERED: VANCOMYCIN 1 GM in D5W (PRE-DOCKED) 1,000 MG/250 ML IVPB SCH (12:45)
[2020-04-27] MEDS ORDERED: VANCOMYCIN 1 GM in D5W (PRE-DOCKED) 1,000 MG/250 ML IVPB ONE (13:15)
[2020-04-27] MEDS: oxyCODONE HCL 5 MG TABLET PO PRN ×2 (13:37→20:20)
--- NOTE | 2020-04-27 14:54 | PN ---
Progress Note (short form) - Note Progress Note: ID CONSULT DICTATED POD #1 LAMINECTOMY UTI R/O SEPSIS SECONDARY TO UTI HYPOTENSION/ TACHYCARDIA LEUKOCYTOSIS OBTAIN BC AWAIT URINE C/S MEROPEN[facility] CONTACT PRECAUTIONS ESBL CRITICAL CARE TIME 35MIN
[2020-04-27] MEDS ORDERED: PIPERACILLIN/TAZOB 3.375 GM 3.375 GM in DEXTROSE 5%-WATER - 50 ML IVPB SCH (15:00)
--- NOTE | 2020-04-27 15:06 | PN ---
Teaching Attending Note Name of Resident: Polo Bloom ATTENDING PHYSICIAN STATEMENT I saw and evaluated the patient. I reviewed the resident's note and discussed the case with the resident. I agree with the resident's findings and plan as documented. SUBJECTIVE: Patient seen and examined in the ICU. Intubated. Awake and able to follow commands. NE @ 8 mcq and Phenylphrine for hemodynamic support. Intake & Output 04/24/20 04/25/20 04/26/20 04/27/20 23:59 23:59 23:59 23:59 Intake Total 925 154 8127 2300 Output Total 2650 600 3715 620 Balance -2030 -100 4294 1680 Weight 230 lb Last Vital Signs Temp Pulse Resp BP Pulse Ox 98 F 116 H 18 105/68 100 04/27/20 14:00 04/27/20 14:00 04/27/20 14:00 04/27/20 14:00 04/27/20 08:57 Active Medications Bisacodyl (Dulcolax Suppository -) 10 mg NC DAILY PRN PRN Reason: CONSTIPATION Last Admin: 04/24/20 20:36 Dose: 10 mg Documented by: Chlorhexidine Gluconate (Hibiclens For Decolonization -) 1 applic TP HS [facility] Last Admin: 04/26/20 21:11 Dose: 1 applic Documented by: Diphenhydramine HCl (Benadryl -) 25 mg PO Q6H PRN PRN Reason: FOR ITCHING Docusate Sodium (Colace -) 100 mg PO TID [facility] Last Admin: 04/27/20 14:23 Dose: Not Given Documented by: Ferrous Sulfate (Feosol -) 325 mg PO DAILY@0800 [facility] Last Admin: 04/27/20 09:37 Dose: Not Given Documented by: Folic Acid (Folic Acid -) 1 mg PO DAILY [facility] Last Admin: 04/27/20 09:37 Dose: Not Given Documented by: Lactated Ringer's (Lactated Ringers Solution) 1,000 ml in 1,000 mls @ 125 mls/hr IV ASDIR [facility] Last Admin: 04/27/20 05:13 Dose: 125 mls/hr Documented by: Propofol (Diprivan -) 1,000,000 mcg in 100 mls @ 3.13 mls/hr IVPB TITR [facility]; Protocol Last Admin: 04/27/20 06:01 Dose: 20 mcg/kg/min, 12.519 mls/hr Documented by: Phenylephrine HCl 50,000 mcg/ (Dextrose) 500 mls @ 30 mls/hr IV TITR [facility]; Protocol Last Titration: 04/27/20 06:05 Dose: 75 mcg/min, 45 mls/hr Documented by: Norepinephrine Bitartrate 8, (000 mcg/ Dextrose) 500 mls @ 11.737 mls/hr IV ASDIR [facility]; Protocol Last Admin: 04/27/20 01:04 Dose: 0.05 mcg/kg/min, 18 mls/hr Documented by: Piperacillin Sod/Tazobactam (Sod 3.375 gm/ Dextrose) 50 mls @ 100 mls/hr IVPB Q6H-IV [facility]; Protocol Insulin Aspart (Novolog Vial Sliding Scale -) 1 vial SQ ACBK [facility]; Protocol Mupirocin (Bactroban Ointment (For Decolonization) -) 1 applic NS BID [facility] Stop: 05/01/20 21:59 Last Admin: 04/26/20 21:10 Dose: 1 g Documented by: Nifedipine (Procardia Xl -) 90 mg PO DAILY [facility] Last Admin: 04/27/20 09:38 Dose: Not Given Documented by: Ondansetron HCl (Zofran Injection) 4 mg IVPUSH Q6H PRN PRN Reason: NAUSEA Oxycodone HCl (Roxicodone -) 10 mg PO Q4H PRN PRN Reason: PAIN LEVEL 7 - 10 Last Admin: 04/27/20 13:37 Dose: 10 mg Documented by: Polyethylene Glycol (Miralax (For Daily Use) -) 17 gm PO BID [facility] Last Admin: 04/27/20 09:37 Dose: Not Given Documented by: Senna (Senna -) 2 tab PO HS PRN PRN Reason: CONSTIPATION Last Admin: 04/25/20 19:51 Dose: 2 tab Documented by: Tamsulosin HCl (Flomax -) 0.8 mg PO DAILY@0830 [facility] Last Admin: 04/27/20 09:37 Dose: Not Given Documented by: Vancomycin HCl (Vancomycin (Pre-Docked)) 1,000 mg IVPB DAILY [facility]; Protocol GENERAL: Intubated,awake and alert HEAD: Normal with no signs of trauma. EYES: sclera anicteric, conjunctiva clear. EARS, NOSE, THROAT: Ears normal, nares patent, oropharynx clear without exudates. Dry mucous membranes. NECK: (-) lymphadenopathy, JVD, or masses. LUNGS: Vented, clear to auscultation bilaterally. No wheezes, and no crackles. No accessory muscle use. HEART: Regular rate and rhythm, normal S1 and S2 without murmur, rub or gallop. ABDOMEN: Soft, not distended, normoactive bowel sounds, no masses. No hepatomegaly. SKIN/MUSCULOSKELETAL: Surgical dressing on back. RIGHT knee surgical scar. TAYLER drain in place. UPPER EXTREMITIES: 2+ pulses, warm, well-perfused. No cyanosis. No clubbing. Cap refill <2 seconds. No peripheral edema. LOWER EXTREMITIES: 2+ pulses, warm, well-perfused. No calf tenderness. No peripheral edema. NEUROLOGICAL: Non-focal Laboratory Results - last 24 hr 04/24/20 04/26/20 04/26/20 11:56 06:00 16:40 WBC RBC Hgb Hct MCV MCH MCHC RDW Plt Count MPV Absolute Neuts (auto) Neutrophils % Lymphocytes % Monocytes % Eosinophils % Basophils % Nucleated RBC % Sodium 139 Potassium 4.4 Chloride 108 H Carbon Dioxide 24 Anion Gap 7 L BUN 14.8 Creatinine 0.7 Est GFR (CKD-EPI)AfAm 110.04 Est GFR (CKD-EPI)NonAf 94.95 POC Glucometer 92 Random Glucose 138 H Calcium 8.3 L Magnesium 1.4 L Total Bilirubin 0.5 AST 39 H ALT 43 Alkaline Phosphatase 72 Total Protein 3.8 L Albumin 1.9 L Blood Type O POSITIVE Antibody Screen Negative Crossmatch See Detail 04/26/20 16:40 WBC 10.2 H RBC 3.28 L Hgb 10.0 L Hct 30.1 L D MCV 91.9 MCH 30.5 MCHC 33.2 RDW 13.4 Plt Count 262 D MPV 7.0 L Absolute Neuts (auto) 9.1 H Neutrophils % 89.1 H D Lymphocytes % 7.4 L D Monocytes % 3.2 L Eosinophils % 0.1 D Basophils % 0.2 Nucleated RBC % 0 Sodium Potassium Chloride Carbon Dioxide Anion Gap BUN Creatinine Est GFR (CKD-EPI)AfAm Est GFR (CKD-EPI)NonAf POC Glucometer Random Glucose Calcium Magnesium Total Bilirubin AST ALT Alkaline Phosphatase Total Protein Albumin Blood Type Antibody Screen Crossmatch Active Medications Generic Name Dose Route Start Last Admin Trade Name Freq PRN Reason Stop Dose Admin Bisacodyl 10 mg 04/24/20 19:54 04/24/20 20:36 Dulcolax Suppository - [place] 10 mg DAILY PRN Administration CONSTIPATION Chlorhexidine Gluconate 1 applic 04/26/20 22:00 Hibiclens For Decolonization - TP HS CAITLYN Diphenhydramine HCl 25 mg 04/26/20 15:51 Benadryl - PO Q6H PRN FOR ITCHING Docusate Sodium 100 mg 04/27/20 06:00 Colace - PO TID CAITLYN Ferrous Sulfate 325 mg 04/27/20 08:00 Feosol - PO DAILY@0800 CAITLYN Folic Acid 1 mg 04/27/20 10:00 Folic Acid - PO DAILY CAITLYN Hydromorphone HCl 2 mg 04/26/20 16:45 Dilaudid Vial - IVPUSH 04/27/20 16:44 Q4H CAITLYN Cefazolin Sodium 1 gm/ 50 mls @ 100 mls/hr 04/26/20 20:00 Dextrose IVPB Q8H-IV CAITLYN Lactated Ringer's 1,000 ml in 1,000 mls @ 125 mls/hr 04/26/20 16:00 04/26/20 17:00 Lactated Ringers Solution IV 0 mls ASDIR CAITLYN Administration Propofol 1,000,000 mcg in 100 mls @ 3.13 mls/hr 04/26/20 16:30 04/26/20 16:37 Diprivan - IVPB 0 mls TITR CAITLYN Administration Protocol 5 MCG/KG/MIN Phenylephrine HCl 50,000 mcg/ 500 mls @ 30 mls/hr 04/26/20 18:15 Dextrose IV TITR CAITLYN Protocol 50 MCG/MIN Insulin Aspart 0 vial 04/23/20 07:00 04/26/20 06:13 Novolog Vial Sliding Scale - SQ Not Given ACBK CAITLYN Protocol Losartan Potassium 100 mg 04/23/20 10:00 04/26/20 11:26 Cozaar - PO Not Given DAILY CAITLYN Mupirocin 1 applic 04/26/20 22:00 Bactroban Ointment (For Decolonization) - NS 05/01/20 21:59 BID CAITLYN Nifedipine 90 mg 04/23/20 10:00 04/26/20 11:26 Procardia Xl - PO Not Given DAILY CAITLYN Ondansetron HCl 4 mg 04/26/20 15:51 Zofran Injection IVPUSH Q6H PRN NAUSEA Polyethylene Glycol 17 gm 04/24/20 22:00 04/26/20 09:28 Miralax (For Daily Use) - PO Not Given BID CAITLYN Senna 2 tab 04/23/20 15:56 04/25/20 19:51 Senna - PO 2 tab HS PRN Administration CONSTIPATION Tamsulosin HCl 0.8 mg 04/23/20 08:30 04/26/20 09:35 Flomax - PO Not Given DAILY@0830 [facility] ASSESSMENT/PLAN: Suspected Septic Shock Acute Respiratory Insufficiency POD #1 : S/P T12-S2 decompression/fusion with EBL 2L S/P Mechanical Fall HTN BPH P AFib Wean to extubate Strict I & O IVF Pressors to maintain MAP > 65 Mechanical VTE prophylaxis Pain control Beta Get[place]w for rate control If continued AFib will need to discuss AC with Cardiology & Neurosurgery Requires ICU monitoring Dr Junior Critical care time spent in reviewing chart, evaluating patient and formulating plan - 36 minutes.
--- NOTE | 2020-04-27 15:25 | ECHO ---
Name: MARIO KAMARA Exam:Adult Echocardiogram Study Date: 04/27/2020 01:55 PM Age: 70 yrs Reason For Study: Limited: Evaluate LV/RV Function Height: 72 in Weight: 230 lb BSA: 2.3 m2 MMode/2D Measurements & Calculations RVDd: 3.5 cm LA dimension: 3.0 cm IVSd: 1.2 cm LVIDd: 3.6 cm LVIDs: 2.5 cm LVPWd: 1.2 cm EDV(Teich): 54.6 ml LVLd ap4: 7.8 cm ESV(Teich): 21.6 ml EDV(MOD-sp4): 100.0 ml LVLs ap4: 7.2 cm ESV(MOD-sp4): 39.0 ml SV(MOD-sp4): 61.0 ml TAPSE: 1.6 cm Doppler Measurements & Calculations TR max nabila: 292.5 cm/sec TR max P.3 mmHg Tech Comments TDS. Patient scanned supine. Left Ventricle There is borderline concentric left ventricular hypertrophy. Left ventricular systolic function is no rmal. Ejection Fraction = 55-60%. Right Ventricle The right ventricle is mildly dilated. The right ventricular systolic function is grossly normal. Atria The left atrial size is normal. Mitral Valve Focal calcification on the tip of anterior leaflet of the mitral valve. There is no mitral valve sten osis. Tricuspid Valve The tricuspid valve is normal in structure and function. There is mild tricuspid regurgitation. Right ventricular systolic pressure is elevated at 30-40mmHg. Aortic Valve The aortic valve opens well. No hemodynamically significant valvular aortic stenosis. Mild aortic regurgitation. Pulmonic Valve The pulmonic valve is not well seen, but is grossly normal. There is no pulmonic valvular stenosis. T race pulmonic valvular regurgitation. Great Vessels Mild aortic root dilatation. Pericardium/Pleura There is no pericardial effusion. Interpretation Summary Left ventricular systolic function is normal. Ejection Fraction = 55-60%. There is borderline concentric left ventricular hypertrophy. The right ventricle is mildly dilated. The right ventricular systolic function is grossly normal. Focal calcification on the tip of anterior leaflet of the mitral valve. There is mild tricuspid regurgitation. Right ventricular systolic pressure is elevated at 30-40mmHg. Mild aortic regurgitation. Mild aortic root dilatation. There is no pericardial effusion. MD Heath *Leif 04/27/2020 03:24 PM
[2020-04-27 15:37] LABS: HEMATOCRIT 28.3 % (35.4-49); HEMOGLOBIN 9.3 GM/dL (11.7-16.9); MCH 29.7 pg (25.7-33.7); MCHC 32.9 g/dl (32.0-35.9); MEAN CELL VOLUME 90.3 fl (80-96); MEAN PLT VOLUME 7.7 fl (7.5-11.1); PLATELET COUNT 243 K/MM3 (134-434); RBC 3.13 M/mm3 (4.00-5.60); RDW 14.9 % (11.9-15.9); WHITE BLOOD COUNT 14.8 K/mm3 (4.0-10.0)
[2020-04-27] MEDS ORDERED: DEXTROSE 5%-WATER 100 ML IVPB ONE ×2 (16:58→22:41)
[2020-04-27] MEDS ORDERED: MEROPENEM 1 GM VIAL (RESTRICTED TO ID) IVPB ONE ×2 (16:58→22:40)
[2020-04-27] MEDS: MEROPENEM 1 GM in DEXTROSE 5%-WATER 100 ML IVPB SCH ×2 (17:07→17:48)
[2020-04-27] MEDS: CHLORHEXIDINE GLUCONATE 4% CLEANSER FOR DECOLONIZATION TP SCH (21:02)
[2020-04-27] MEDS: SENNOSIDES 8.6MG TABLET (FP) PO PRN (21:13)
[2020-04-27 21:28] LABS: CHLORIDE 103 mmol/L (98-107); CO2 25 mmol/L (21-32); POTASSIUM 4.7 mmol/L (3.5-5.1)
[2020-04-27 21:29] LABS: ANION GAP 7 MMOL/L (8-16); BLOOD UREA NITROGEN 19.4 mg/dL (7-18); CALCIUM 7.8 mg/dL (8.5-10.1); CREATININE 0.9 mg/dL (0.55-1.3); GLUCOSE,RANDOM 116 mg/dL (74-106); SODIUM 135 mmol/L (136-145)
[2020-04-27] MEDS ORDERED: PT OWN MED DRAWER 7, Y5N ONE (22:40)
[2020-04-27] MEDS ORDERED: ACETAMINOPHEN 1000 MG/100 ML VIAL (NON FORMULARY) IVPB ONE (22:48)
--- NOTE | 2020-04-27 22:48 | CONS ---
DATE OF CONSULTATION: DATE OF DICTATION: 04/27/2020 INFECTIOUS DISEASE CONSULTATION HISTORY OF PRESENT ILLNESS: The patient is a 70-year-old male who is evaluated for sepsis. History was obtained from the chart as well as the patient, who is awake and alert. He has a history of chronic low back pain. He had progressively worsening lower extremity weakness over the past several weeks to months prior to admission. He was to have spinal surgery, however this was delayed secondary to the COVID-19 pandemic. He is now admitted to the hospital on April 22, 2020, after falling at home. He had sustained back trauma. He denied any head trauma or loss of consciousness. He was evaluated at [facility] where MRI showed multifocal spinal stenosis. He was also noted to have a T12-L1 disk herniation. The patient was taken to the operating room on April 26, 2020, where a lumbar laminectomy decompression/fusion of L2 to S1 with interbody cage placement S1-L5, S1-L4-L5 was performed. Postoperatively, course was complicated by anemia. He is noted to be hypotensive on pressors and tachycardic. He was successfully extubated. Patient perioperatively received Ancef. A [place] catheter is in place. Urinalysis shows pyuria, urine culture growing ESBL. At the present time, he is awake. He has no focal complaints. He complains of generalized weakness. He has been afebrile, denies any shaking chills. No complaints of chest pain, shortness of breath, cough or sputum production. No vomiting or diarrhea. PAST MEDICAL HISTORY: Positive for osteoarthritis, hypertension, lumbar , BPH. ALLERGIES: EPINEPHRINE, LIDOCAINE. MEDICATION: Include: 1. Zosyn. 2. Vancomycin. 3. Benadryl. 4. Norepinephrine. 5. Flomax. 6. Adenocard. 7. Metoprolol. 8. Nifedipine. 9. Magnesium. 10. Oxycodone. 11. Propofol. SOCIAL HISTORY: Resides in the community. Denies tobacco or alcohol use. SYSTEMS REVIEW: Neurologic: No loss of consciousness, seizure activity, focal weakness. Cardiac: Negative for chest pain or palpitations. Respiratory: Negative for cough or sputum production. Gastrointestinal: Negative vomiting or diarrhea. Genitourinary: Positive for urinary tract infection. LABORATORY DATA: White count 15.6, 89 neutrophils, 7 lymphocytes, 3 monocytes. Hematocrit 30.9, platelets 264, creatinine 1.0. Urinalysis 340 white cells. Urine culture is growing an ESBL. Chest x-ray: mild atelectatic changes right lung base. PHYSICAL EXAMINATION: General: On exam, he is awake, he is responsive, in no acute distress. Vital signs: Temperature 98, blood pressure 105/68, pulse tachycardic S1/S2 116, respirations 18 per minute. HEENT: Sclerae anicteric. A triple lumen catheter is present in the left neck area. Cardiovascular: Heart sounds S1, S2. Lungs: Clear bilaterally. Abdomen: Obese. Soft, nontender. Surgical dressing in place on the back. Extremities: Positive for edema. Negative Homans sign. IMPRESSION: 1. Postoperative day number 1 laminectomy. 2. Tachycardia, hypotension, rule out sepsis. 3. Urinary tract infection, rule out sepsis secondary to urinary tract infection. 4. Positive urine culture extended-spectrum beta-lactamases. 5. Leukocytosis. Obtain blood cultures. Await urine culture result. Empiric coverage for ESBL with meropenem. Contact precautions for ESBL. Critical care time spent 35 minutes. Thank you for the kind referral. JESSICA OCHOA M.D. [id number]
[2020-04-28] MEDS: MEROPENEM 1 GM in DEXTROSE 5%-WATER 100 ML IVPB SCH ×3 (01:01→18:22)
[2020-04-28] MEDS: VANCOMYCIN 1 GRAM (PRE-DOCKED) 1,000 MG/250 ML BAG IVPB SCH ×2 (01:01→14:24)
[2020-04-28] MEDS: ONDANSETRON 4 MG/2 ML VIAL IVPUSH PRN ×2 (01:02→07:54)
[2020-04-28] MEDS: oxyCODONE HCL 5 MG TABLET PO PRN ×3 (01:13→20:15)
[2020-04-28] MEDS: DOCUSATE SODIUM 100 MG CAPSULE (FP) PO SCH ×3 (05:28→21:32)
[2020-04-28] MEDS: INSULIN SLIDING SCALE (NOVOLOG) 1 VIAL SQ SCH (05:59)
[2020-04-28 07:01] LABS: HEMATOCRIT 23.5 % (35.4-49); HEMOGLOBIN 7.9 GM/dL (11.7-16.9); MCH 29.7 pg (25.7-33.7); MCHC 33.5 g/dl (32.0-35.9); MEAN CELL VOLUME 88.6 fl (80-96); MEAN PLT VOLUME 7.4 fl (7.5-11.1); PLATELET COUNT 210 K/MM3 (134-434); RBC 2.65 M/mm3 (4.00-5.60); RDW 14.2 % (11.9-15.9); WHITE BLOOD COUNT 12.4 K/mm3 (4.0-10.0)
[2020-04-28 07:24] LABS: BILIRUBIN,TOTAL 0.6 mg/dL (0.2-1); BLOOD UREA NITROGEN 14.7 mg/dL (7-18); CALCIUM 7.5 mg/dL (8.5-10.1); CREATININE 0.7 mg/dL (0.55-1.3); MAGNESIUM 1.6 mg/dL (1.8-2.4); PHOSPHOROUS 1.6 mg/dL (2.5-4.9); POTASSIUM 3.8 mmol/L (3.5-5.1); TOT PROT 3.9 g/dl (6.4-8.2)
[2020-04-28] MEDS ORDERED: MEROPENEM 1 GM VIAL (RESTRICTED TO ID) IVPB ONE ×2 (07:50→16:35)
[2020-04-28] MEDS ORDERED: DEXTROSE 5%-WATER 100 ML IVPB ONE ×2 (07:51→16:35)
[2020-04-28] MEDS: BISACODYL 10 MG SUPP.RECT PR PRN (07:54)
[2020-04-28] MEDS: TAMSULOSIN HCL 0.4 MG CAP PO SCH (07:56)
[2020-04-28] MEDS: FERROUS SO4 325 MG TABLET (FP) PO SCH (07:56)
[2020-04-28] MEDS: MUPIROCIN 2% TOPICAL OINTMENT FOR DECOLONIZATION NS SCH ×2 (09:47→23:00)
[2020-04-28] MEDS: POLYETHYLENE GLYCOL 3350 119 GM BTL PO SCH ×2 (09:48→21:32)
[2020-04-28] MEDS: FOLIC ACID 1 MG TABLET (FP) PO SCH (09:48)
--- NOTE | 2020-04-28 10:30 | PN ---
Progress Note, Physician History of Present Illness: Events reviewed: POD#2, laminectomy/fusion multisegments, lost 2 L RBC in OR>.6 L fluid; Hypotensive post >.ICU , intubated on pressors; Hb 10 ( from 15) Currently extubated, tachy, BP low normal, just extubated, awake Monitor/ECG: likely SVT vs AFl 2:1 rate 147 bpm , no significant ST changes, nonspec T changes - Current Medication List Current Medications: Active Medications Bisacodyl (Dulcolax Suppository -) 10 mg [place] DAILY PRN PRN Reason: CONSTIPATION Last Admin: 04/28/20 07:54 Dose: 10 mg Documented by: Chlorhexidine Gluconate (Hibiclens For Decolonization -) 1 applic TP HS [facility] Last Admin: 04/27/20 21:02 Dose: 1 applic Documented by: Diphenhydramine HCl (Benadryl -) 25 mg PO Q6H PRN PRN Reason: FOR ITCHING Last Admin: 04/28/20 07:54 Dose: 25 mg Documented by: Docusate Sodium (Colace -) 100 mg PO TID [facility] Last Admin: 04/28/20 05:28 Dose: 100 mg Documented by: Ferrous Sulfate (Feosol -) 325 mg PO DAILY@0800 [facility] Last Admin: 04/28/20 07:56 Dose: 325 mg Documented by: Folic Acid (Folic Acid -) 1 mg PO DAILY [facility] Last Admin: 04/28/20 09:48 Dose: 1 mg Documented by: Lactated Ringer's (Lactated Ringers Solution) 1,000 ml in 1,000 mls @ 125 mls/hr IV ASDIR [facility] Last Admin: 04/27/20 22:19 Dose: 125 mls/hr Documented by: Phenylephrine HCl 50,000 mcg/ (Dextrose) 500 mls @ 30 mls/hr IV TITR [facility]; Protocol Last Admin: 04/27/20 21:01 Dose: Not Given Documented by: Norepinephrine Bitartrate 8, (000 mcg/ Dextrose) 500 mls @ 11.737 mls/hr IV ASDIR [facility]; Protocol Last Admin: 04/27/20 23:59 Dose: 0.02 mcg/kg/min, 7.5 mls/hr Documented by: Vancomycin HCl (Vancomycin (Pre-Docked)) 1,000 mg in 250 mls @ 166.667 mls/hr IVPB Q12H [facility]; Protocol Last Admin: 04/28/20 01:01 Dose: 166.667 mls/hr Documented by: Meropenem 1 gm/ Dextrose 100 mls @ 200 mls/hr IVPB Q8H-IV [facility] Last Admin: 04/28/20 09:48 Dose: 200 mls/hr Documented by: Insulin Aspart (Novolog Vial Sliding Scale -) 1 vial SQ ACBK [facility]; Protocol Last Admin: 04/28/20 05:59 Dose: Not Given Documented by: Mupirocin (Bactroban Ointment (For Decolonization) -) 1 applic NS BID [facility] Stop: 05/01/20 21:59 Last Admin: 04/28/20 09:47 Dose: 1 applic Documented by: Nifedipine (Procardia Xl -) 90 mg PO DAILY [facility] Last Admin: 04/27/20 09:38 Dose: Not Given Documented by: Ondansetron HCl (Zofran Injection) 4 mg IVPUSH Q6H PRN PRN Reason: NAUSEA Last Admin: 04/28/20 07:54 Dose: 4 mg Documented by: Oxycodone HCl (Roxicodone -) 10 mg PO Q4H PRN PRN Reason: PAIN LEVEL 7 - 10 Last Admin: 04/28/20 07:54 Dose: 10 mg Documented by: Polyethylene Glycol (Miralax (For Daily Use) -) 17 gm PO BID [facility] Last Admin: 04/28/20 09:48 Dose: 17 grams Documented by: Senna (Senna -) 2 tab PO HS PRN PRN Reason: CONSTIPATION Last Admin: 04/27/20 21:13 Dose: 2 tab Documented by: Tamsulosin HCl (Flomax -) 0.8 mg PO DAILY@0830 [facility] Last Admin: 04/28/20 07:56 Dose: 0.8 mg Documented by: - Objective Vital Signs: Vital Signs Temperature 97.7 F 04/28/20 09:56 Pulse Rate 118 H 04/28/20 09:56 Respiratory Rate 18 04/28/20 09:56 Blood Pressure 122/63 04/28/20 09:56 O2 Sat by Pulse Oximetry (%) 96 04/28/20 09:00 Eyes: Yes: WNL, Conjunctiva Clear, EOM Intact HENT: Yes: WNL, Atraumatic, Normocephalic Neck: Yes: WNL, Supple, Trachea Midline Cardiovascular: Yes: Tachycardia, S1, S2 Respiratory: Yes: WNL, Regular, Diminished Gastrointestinal: Yes: WNL, Normal Bowel Sounds Genitourinary: Yes: WNL Musculoskeletal: Yes: WNL Extremities: Yes: WNL Edema: No Integumentary: Yes: WNL Neurological: Yes: Alert, Oriented ...Motor Strength: WNL Psychiatric: Yes: WNL Labs: CBC, BMP 04/28/20 05:40 04/28/20 05:40 INR, PTT INR 1.12 (0.83-1.09) H 04/27/20 05:00 Assessment/Plan - Problems (1) Preop cardiovascular exam Code(s): Z01.810 - ENCOUNTER FOR PREPROCEDURAL CARDIOVASCULAR EXAMINATION (2) Back pain Code(s): M54.9 - DORSALGIA, UNSPECIFIED (3) Hypertension Code(s): I10 - ESSENTIAL (PRIMARY) HYPERTENSION Qualifiers: Hypertension type: essential hypertension Qualified Code(s): I10 - Essential (primary) hypertension (4) Premature atrial contraction Code(s): I49.1 - ATRIAL PREMATURE DEPOLARIZATION (5) Premature ventricular contraction Code(s): I49.3 - VENTRICULAR PREMATURE DEPOLARIZATION (6) Facet arthropathy, lumbosacral Code(s): M47.817 - SPONDYLS W/O MYELOPATHY OR RADICULOPATHY, LUMBOSACR REGION Assessment/Plan 04/23/2020 Echo: Normal LV size and fxn LVEF 55-60%, diastolic dysfunction, normal RV fxn, mild TR with normal RVSP, mildly dilated ao root 3.8 cm -Hypotension pst op -SVT vs AFl 2:1 -Anemia -POstop#2 1. Mechanical fall in context of acute on chronic back pain 2. Left C4-C5 facet arthropathy, severe multilevel C-spine central canal stenosis, mod-marked multilevel lumbar degenerative disc changes, mod-marked multilevel degenerative central canal stenosis: s/p laminectomies/fusions 3. HTN PLAN: 1. Adenosine to differentiate tachy (treat if SVT , if AFl will need rate control with BB when blood pressure OK) 2. Tropninx1 if elevated then trend 3-Limited echo: LV/RV function 4-Off BP meds CC time spent [address] Winston
[2020-04-28] MEDS ORDERED: MAGNESIUM SULF 50% (8.12 MEQ/2 ML-1 GM VIAL) IVPB ONE (12:01)
[2020-04-28] MEDS ORDERED: SODIUM PHOSPHATE/NA BIPHOS 133 ML ENEMA RC PRN (12:02)
--- NOTE | 2020-04-28 12:09 | PN ---
Progress Note, Physician History of Present Illness: Pod # 2 Seen in icu. Chart reviewed Case D/W ICu Resident again today awake s/p T12-S2 decompression/fusion with EBL 2 L and resuscitation with 7 L IVF. Off pressors. afebrile I/D CONSULT noted/ appreciated-- On vanco and Meropenam Pain ok - Current Medication List Current Medications: Active Medications Bisacodyl (Dulcolax Suppository -) 10 mg CO DAILY PRN PRN Reason: CONSTIPATION Last Admin: 04/28/20 07:54 Dose: 10 mg Documented by: Chlorhexidine Gluconate (Hibiclens For Decolonization -) 1 applic TP HS [facility] Last Admin: 04/27/20 21:02 Dose: 1 applic Documented by: Diphenhydramine HCl (Benadryl -) 25 mg PO Q6H PRN PRN Reason: FOR ITCHING Last Admin: 04/28/20 07:54 Dose: 25 mg Documented by: Docusate Sodium (Colace -) 100 mg PO TID [facility] Last Admin: 04/28/20 05:28 Dose: 100 mg Documented by: Ferrous Sulfate (Feosol -) 325 mg PO DAILY@0800 [facility] Last Admin: 04/28/20 07:56 Dose: 325 mg Documented by: Folic Acid (Folic Acid -) 1 mg PO DAILY [facility] Last Admin: 04/28/20 09:48 Dose: 1 mg Documented by: Vancomycin HCl (Vancomycin (Pre-Docked)) 1,000 mg in 250 mls @ 166.667 mls/hr IVPB Q12H [facility]; Protocol Last Admin: 04/28/20 01:01 Dose: 166.667 mls/hr Documented by: Meropenem 1 gm/ Dextrose 100 mls @ 200 mls/hr IVPB Q8H-IV [facility] Last Admin: 04/28/20 09:48 Dose: 200 mls/hr Documented by: Insulin Aspart (Novolog Vial Sliding Scale -) 1 vial SQ ACBK [facility]; Protocol Last Admin: 04/28/20 05:59 Dose: Not Given Documented by: Mupirocin (Bactroban Ointment (For Decolonization) -) 1 applic NS BID [facility] Stop: 05/01/20 21:59 Last Admin: 04/28/20 09:47 Dose: 1 applic Documented by: Ondansetron HCl (Zofran Injection) 4 mg IVPUSH Q6H PRN PRN Reason: NAUSEA Last Admin: 04/28/20 07:54 Dose: 4 mg Documented by: Oxycodone HCl (Roxicodone -) 10 mg PO Q4H PRN PRN Reason: PAIN LEVEL 7 - 10 Last Admin: 04/28/20 07:54 Dose: 10 mg Documented by: Polyethylene Glycol (Miralax (For Daily Use) -) 17 gm PO BID [facility] Last Admin: 04/28/20 09:48 Dose: 17 grams Documented by: Senna (Senna -) 2 tab PO HS PRN PRN Reason: CONSTIPATION Last Admin: 04/27/20 21:13 Dose: 2 tab Documented by: Sodium Phosphate (Fleet Adult Rectal Enema -) 133 ml RC DAILY PRN PRN Reason: CONSTIPATION Tamsulosin HCl (Flomax -) 0.8 mg PO DAILY@0830 [facility] Last Admin: 04/28/20 07:56 Dose: 0.8 mg Documented by: - Objective Vital Signs: Vital Signs Temperature 97.7 F 04/28/20 09:56 Pulse Rate 118 H 04/28/20 09:56 Respiratory Rate 18 04/28/20 09:56 Blood Pressure 122/63 04/28/20 09:56 O2 Sat by Pulse Oximetry (%) 96 04/28/20 09:00 Constitutional: Yes: No Distress Neck: Yes: Supple Cardiovascular: Yes: Regular Rate and Rhythm Respiratory: Yes: Diminished Gastrointestinal: Yes: Soft Edema: LLE: 1+, RLE: 1+ Peripheral Pulses WNL: Yes Neurological: Yes: Alert Psychiatric: Yes: Alert Labs: CBC, BMP 04/28/20 05:40 04/28/20 05:40 INR, PTT INR 1.12 (0.83-1.09) H 04/27/20 05:00 Problem List - Problems (1) Arrhythmia Code(s): I49.9 - CARDIAC ARRHYTHMIA, UNSPECIFIED (2) Fall Code(s): W19.XXXA - UNSPECIFIED FALL, INITIAL ENCOUNTER (3) Back pain Code(s): M54.9 - DORSALGIA, UNSPECIFIED (4) Facet arthropathy, lumbosacral Code(s): M47.817 - SPONDYLS W/O MYELOPATHY OR RADICULOPATHY, LUMBOSACR REGION (5) Hypertension Code(s): I10 - ESSENTIAL (PRIMARY) HYPERTENSION Qualifiers: Hypertension type: essential hypertension Qualified Code(s): I10 - Essential (primary) hypertension Assessment/Plan clinically better Abx Monitor Vanco level Transfuse one unit today Magnesium supplement. continue other meds PT Will follow Cc time approx 25 min.
--- NOTE | 2020-04-28 13:25 | PN ---
Teaching Attending Note Name of Resident: Polo Bloom ATTENDING PHYSICIAN STATEMENT I saw and evaluated the patient. I reviewed the resident's note and discussed the case with the resident. I agree with the resident's findings and plan as documented. SUBJECTIVE: Patient seen and examined in the ICU. Remains extubated. NAD on NC O2. Reports constipation. Off pressors. Intake & Output 04/25/20 04/26/20 04/27/20 04/28/20 23:59 23:59 23:59 23:59 Intake Total 500 85730 4608 2381 Output Total 600 6800 1720 655 Balance -100 9218 2888 1726 Weight 230 lb Last Vital Signs Temp Pulse Resp BP Pulse Ox 99.6 F 124 H 18 106/73 96 04/28/20 12:00 04/28/20 12:00 04/28/20 12:00 04/28/20 12:00 04/28/20 09:00 Active Medications Acetaminophen (Tylenol -) 650 mg PO Q6H PRN PRN Reason: FEVER Bisacodyl (Dulcolax Suppository -) 10 mg DE DAILY PRN PRN Reason: CONSTIPATION Last Admin: 04/28/20 07:54 Dose: 10 mg Documented by: Chlorhexidine Gluconate (Hibiclens For Decolonization -) 1 applic TP HS [facility] Last Admin: 04/27/20 21:02 Dose: 1 applic Documented by: Diphenhydramine HCl (Benadryl -) 25 mg PO Q6H PRN PRN Reason: FOR ITCHING Last Admin: 04/28/20 07:54 Dose: 25 mg Documented by: Docusate Sodium (Colace -) 100 mg PO TID [facility] Last Admin: 04/28/20 05:28 Dose: 100 mg Documented by: Ferrous Sulfate (Feosol -) 325 mg PO DAILY@0800 [facility] Last Admin: 04/28/20 07:56 Dose: 325 mg Documented by: Folic Acid (Folic Acid -) 1 mg PO DAILY [facility] Last Admin: 04/28/20 09:48 Dose: 1 mg Documented by: Vancomycin HCl (Vancomycin (Pre-Docked)) 1,000 mg in 250 mls @ 166.667 mls/hr IVPB Q12H [facility]; Protocol Last Admin: 04/28/20 01:01 Dose: 166.667 mls/hr Documented by: Meropenem 1 gm/ Dextrose 100 mls @ 200 mls/hr IVPB Q8H-IV [facility] Last Admin: 04/28/20 09:48 Dose: 200 mls/hr Documented by: Insulin Aspart (Novolog Vial Sliding Scale -) 1 vial SQ ACBK [facility]; Protocol Last Admin: 04/28/20 05:59 Dose: Not Given Documented by: Mupirocin (Bactroban Ointment (For Decolonization) -) 1 applic NS BID [facility] Stop: 05/01/20 21:59 Last Admin: 04/28/20 09:47 Dose: 1 applic Documented by: Ondansetron HCl (Zofran Injection) 4 mg IVPUSH Q6H PRN PRN Reason: NAUSEA Last Admin: 04/28/20 07:54 Dose: 4 mg Documented by: Oxycodone HCl (Roxicodone -) 10 mg PO Q4H PRN PRN Reason: PAIN LEVEL 7 - 10 Last Admin: 04/28/20 07:54 Dose: 10 mg Documented by: Polyethylene Glycol (Miralax (For Daily Use) -) 17 gm PO BID [facility] Last Admin: 04/28/20 09:48 Dose: 17 grams Documented by: Senna (Senna -) 2 tab PO HS PRN PRN Reason: CONSTIPATION Last Admin: 04/27/20 21:13 Dose: 2 tab Documented by: Sodium Phosphate (Fleet Adult Rectal Enema -) 133 ml RC DAILY PRN PRN Reason: CONSTIPATION Last Admin: 04/28/20 12:56 Dose: 133 ml Documented by: Tamsulosin HCl (Flomax -) 0.8 mg PO DAILY@0830 [facility] Last Admin: 04/28/20 07:56 Dose: 0.8 mg Documented by: GENERAL: awake and alert, NAD HEAD: Normal with no signs of trauma. EYES: sclera anicteric, conjunctiva clear. EARS, NOSE, THROAT: Ears normal, nares patent, oropharynx clear without exudates. Dry mucous membranes. NECK: (-) lymphadenopathy, JVD, or masses. LUNGS: Clear to auscultation bilaterally. No wheezes, and no crackles. No a ccessory muscle use. HEART: Regular rate and rhythm, normal S1 and S2 without murmur, rub or gallop. ABDOMEN: Soft, not distended, normoactive bowel sounds, no masses. No hepatomegaly. SKIN/MUSCULOSKELETAL: Surgical dressing on back. RIGHT knee surgical scar. TAYLER drain in place. UPPER EXTREMITIES: 2+ pulses, warm, well-perfused. No cyanosis. No clubbing. Cap refill <2 seconds. No peripheral edema. LOWER EXTREMITIES: 2+ pulses, warm, well-perfused. No calf tenderness. No peripheral edema. NEUROLOGICAL: UE and LE weakness Laboratory Results - last 24 hr 04/24/20 04/27/20 04/27/20 11:56 15:00 17:10 WBC 14.8 H RBC 3.13 L Hgb 9.3 L Hct 28.3 L MCV 90.3 MCH 29.7 MCHC 32.9 RDW 14.9 Plt Count 243 MPV 7.7 Sodium 135 L Potassium 4.7 Chloride 103 Carbon Dioxide 25 Anion Gap 7 L BUN 19.4 H Creatinine 0.9 Est GFR (CKD-EPI)AfAm 99.24 Est GFR (CKD-EPI)NonAf 85.63 POC Glucometer Random Glucose 116 H Calcium 7.8 L Phosphorus Magnesium Total Bilirubin AST ALT Alkaline Phosphatase Troponin I < 0.02 Total Protein Albumin Crossmatch See Detail 04/28/20 04/28/20 04/28/20 05:19 05:40 05:40 WBC 12.4 H RBC 2.65 L Hgb 7.9 L Hct 23.5 L D MCV 88.6 MCH 29.7 MCHC 33.5 RDW 14.2 Plt Count 210 MPV 7.4 L Sodium 135 L Potassium 3.8 Chloride 104 Carbon Dioxide 25 Anion Gap 6 L BUN 14.7 Creatinine 0.7 Est GFR (CKD-EPI)AfAm 110.04 Est GFR (CKD-EPI)NonAf 94.95 POC Glucometer 97 Random Glucose 106 Calcium 7.5 L Phosphorus 1.6 L Magnesium 1.6 L Total Bilirubin 0.6 AST 37 ALT 29 Alkaline Phosphatase 67 Troponin I Total Protein 3.9 L Albumin 2.0 L Crossmatch ASSESSMENT/PLAN: Resolving Septic Shock Volume depletion Acute Respiratory Insufficiency POD #2 : S/P T12-S2 decompression/fusion with EBL 2L S/P Mechanical Fall HTN BPH P AFib Supplemental O2 as needed Incentive Spirometry Strict I & O IVF VTE prophylaxis Pain control Rate control Cardiac Telemetry monitoring Dr Junior
[2020-04-28] MEDS: ACETAMINOPHEN 325 MG TABLET (FP) PO PRN (14:25)
--- NOTE | 2020-04-28 15:01 | PN ---
Physical Exam: SUBJECTIVE: Patient seen and examined at bedside. No events overnight, no new complaints. OBJECTIVE: Vital Signs Period Temp Pulse Resp BP Sys/Chinchilla Pulse Ox Last 24 Hr 97.7 F-101.3 F 98-124 15-19 93-130/56-78 96 GENERAL: The patient is awake, alert, and fully oriented, in no acute distress. HEAD: Normal with no signs of trauma. NECK: Trachea midline, full range of motion, supple. LUNGS: Breath sounds equal, clear to auscultation bilaterally, no wheezes, no crackles, no accessory muscle use. HEART: Regular rate and rhythm, S1, S2 without murmur, rub or gallop. ABDOMEN: Soft, nontender, nondistended, normoactive bowel sounds, no guarding, no rebound, no hepatosplenomegaly, no masses. EXTREMITIES: 2+ pulses, warm, well-perfused, no edema. NEUROLOGICAL: Cranial nerves II through X grossly intact. Normal speech, gait not observed. Strength 5/5 at the hands and feet, 3/5 at the elbow joint, 3/5 at the knee. Laboratory Results - last 24 hr 04/24/20 04/27/20 04/27/20 11:56 15:00 17:10 WBC 14.8 H RBC 3.13 L Hgb 9.3 L Hct 28.3 L MCV 90.3 MCH 29.7 MCHC 32.9 RDW 14.9 Plt Count 243 MPV 7.7 Sodium 135 L Potassium 4.7 Chloride 103 Carbon Dioxide 25 Anion Gap 7 L BUN 19.4 H Creatinine 0.9 Est GFR (CKD-EPI)AfAm 99.24 Est GFR (CKD-EPI)NonAf 85.63 POC Glucometer Random Glucose 116 H Calcium 7.8 L Phosphorus Magnesium Total Bilirubin AST ALT Alkaline Phosphatase Troponin I < 0.02 Total Protein Albumin Crossmatch See Detail 04/28/20 04/28/20 04/28/20 05:19 05:40 05:40 WBC 12.4 H RBC 2.65 L Hgb 7.9 L Hct 23.5 L D MCV 88.6 MCH 29.7 MCHC 33.5 RDW 14.2 Plt Count 210 MPV 7.4 L Sodium 135 L Potassium 3.8 Chloride 104 Carbon Dioxide 25 Anion Gap 6 L BUN 14.7 Creatinine 0.7 Est GFR (CKD-EPI)AfAm 110.04 Est GFR (CKD-EPI)NonAf 94.95 POC Glucometer 97 Random Glucose 106 Calcium 7.5 L Phosphorus 1.6 L Magnesium 1.6 L Total Bilirubin 0.6 AST 37 ALT 29 Alkaline Phosphatase 67 Troponin I Total Protein 3.9 L Albumin 2.0 L Crossmatch 04/28/20 13:30 WBC RBC Hgb Hct MCV MCH MCHC RDW Plt Count MPV Sodium Potassium Chloride Carbon Dioxide Anion Gap BUN Creatinine Est GFR (CKD-EPI)AfAm Est GFR (CKD-EPI)NonAf POC Glucometer Random Glucose Calcium Phosphorus Magnesium Total Bilirubin AST ALT Alkaline Phosphatase Troponin I Total Protein Albumin Crossmatch See Detail Active Medications Generic Name Dose Route Start Last Admin Trade Name Freq PRN Reason Stop Dose Admin Acetaminophen 650 mg 04/28/20 12:56 04/28/20 14:25 Tylenol - PO 650 mg Q6H PRN Administration FEVER Bisacodyl 10 mg 04/24/20 19:54 04/28/20 07:54 Dulcolax Suppository - ND 10 mg DAILY PRN Administration CONSTIPATION Chlorhexidine Gluconate 1 applic 04/26/20 22:00 04/27/20 21:02 Hibiclens For Decolonization - TP 1 applic HS CAITLYN Administration Docusate Sodium 100 mg 04/27/20 06:00 04/28/20 14:25 Colace - PO 100 mg TID CAITLYN Administration Ferrous Sulfate 325 mg 04/27/20 08:00 04/28/20 07:56 Feosol - PO 325 mg DAILY@0800 CAITLYN Administration Folic Acid 1 mg 04/27/20 10:00 04/28/20 09:48 Folic Acid - PO 1 mg DAILY CAITLYN Administration Vancomycin HCl 1,000 mg in 250 mls @ 166.667 mls/hr 04/28/20 02:00 04/28/20 14:24 Vancomycin (Pre-Docked) IVPB 166.667 mls/hr Q12H CAITLYN Administration Protocol Meropenem 1 gm/ Dextrose 100 mls @ 200 mls/hr 04/27/20 15:15 04/28/20 09:48 IVPB 200 mls/hr Q8H-IV CAITLYN Administration Insulin Aspart 1 vial 04/27/20 14:45 04/28/20 05:59 Novolog Vial Sliding Scale - SQ Not Given ACBK [facility] Protocol Mupirocin 1 applic 04/26/20 22:00 04/28/20 09:47 Bactroban Ointment (For Decolonization) - NS 05/01/20 21:59 1 applic BID CAITLYN Administration Ondansetron HCl 4 mg 04/26/20 15:51 04/28/20 07:54 Zofran Injection IVPUSH 4 mg Q6H PRN Administration NAUSEA Oxycodone HCl 10 mg 04/27/20 12:34 04/28/20 07:54 Roxicodone - PO 10 mg Q4H PRN Administration PAIN LEVEL 7 - 10 Polyethylene Glycol 17 gm 04/24/20 22:00 04/28/20 09:48 Miralax (For Daily Use) - PO 17 grams BID CAITLYN Administration Senna 2 tab 04/23/20 15:56 04/27/20 21:13 Senna - PO 2 tab HS PRN Administration CONSTIPATION Sodium Phosphate 133 ml 04/28/20 12:02 04/28/20 12:56 Fleet Adult Rectal Enema - RC 133 ml DAILY PRN Administration CONSTIPATION Tamsulosin HCl 0.8 mg 04/23/20 08:30 04/28/20 07:56 Flomax - PO 0.8 mg DAILY@0830 CAITLYN Administration ASSESSMENT/PLAN: 70 y/o male PMH HTN and BPH c/o mechanical fall and now s/p T12-S2 decompression/fusion with EBL 2L and resuscitation with 7L IVF. Patient left intubated post op due to the length of the procedure and the EBL. patient extubated 07/28 # Neuro -Patient awake off sedation. -will change IV pain control to PO -b/l UE and LE weakness 2/2 deconditioning/ spinal stenosis. # MSK -Spondylosis now s/p T12-S2 decompression/fusion -patient w/ persistent LE weakness, states improved since the surgery -patient w/ b/l weakness in upper extremities, likely 2/2 deconditioning. -PT onboard -will likely need rehabilitation in d/c - # CVS: -Holding home Procardia XL 90 mg QD and Losartan 100 mg QD due to hypotension -LR d/cd as patient normotensive and eating. -Patient off pressors since early am -Patient w/ episode of AFIB w/ RVR yesterday, broken after 5mg lopressor -remains in sinus rhythm; no further lopressor pushes needed -AC for afib held in light of dropping Hb and serosanguinous drainage from TAYLER drain. # Pulm -Intubated 07/27, extubated 07/28 Patient was left intubated post op; awake, following commands today -vent settings minimal -CXR clear -patient doing well on cpap -patient is a good candidate for extubation today #GI -patient w/ h/o constipation -on bowel regimen and fleet enema at home -will resume bowel regimen and monitor for BM # ID -hypotension resolved, off pressors since early AM -UCx growing ESBL -will obtain BCx -ID onboard, escalated ABX to meropenem and vanco q12h # FEN -no fluids indicated. -Cont. to monitor electrolytes -sodium controlled Diet # PPX -SCDs -AC held in light of sanguinous drainage from TAYLER drain and large about of intra-op blood loss. #Lines -Left IJ CVC inserted 04/26 #Dispo -admit ICU Visit type - Emergency Visit Emergency Visit: Yes ED Registration Date: 04/22/20 Care time: The patient presented to the Emergency Department on the above date and was hospitalized for further evaluation of their emergent condition. - New Patient This patient is new to me today: No - Critical Care Critical Care patient: Yes Total Critical Care Time (in minutes): 40 Critical Care Statement: The care of this patient involved high complexity decision making to prevent further life threatening deterioration of the patient's condition and/or to evaluate & treat vital organ system(s) failure or risk of failure. - Discharge Referral Referred to [facility] No ATTENDING PHYSICIAN STATEMENT I saw and evaluated the patient. I reviewed the resident's note and discussed the case with the resident. I agree with the resident's findings and plan as documented. SUBJECTIVE: OBJECTIVE: ASSESSMENT AND PLAN:
[2020-04-28] MEDS ORDERED: ONDANSETRON 4 MG/2 ML VIAL IVPUSH PRN (18:52)
[2020-04-28] MEDS ORDERED: BISACODYL 10 MG SUPP.RECT PR PRN (18:52)
--- NOTE | 2020-04-28 19:13 | PN ---
Progress Note, Physician History of Present Illness: AWAKE, RESPONSIVE LOW GRADE TEMP NO ACUTE DISTRESS NO C/O BACK PAIN - Current Medication List Current Medications: Active Medications Acetaminophen (Tylenol -) 650 mg PO Q6H PRN PRN Reason: FEVER Last Admin: 04/28/20 14:25 Dose: 650 mg Documented by: Bisacodyl (Dulcolax Suppository -) 10 mg OR DAILY PRN PRN Reason: CONSTIPATION Docusate Sodium (Colace -) 100 mg PO TID [facility] Ferrous Sulfate (Feosol -) 325 mg PO DAILY@0800 [facility] Folic Acid (Folic Acid -) 1 mg PO DAILY [facility] Vancomycin HCl (Vancomycin (Pre-Docked)) 1,000 mg in 250 mls @ 166.667 mls/hr IVPB Q12H [facility]; Protocol Last Admin: 04/28/20 14:24 Dose: 166.667 mls/hr Documented by: Meropenem 1 gm/ Dextrose 100 mls @ 200 mls/hr IVPB Q8H-IV [facility] Last Admin: 04/28/20 18:22 Dose: 200 mls/hr Documented by: Insulin Aspart (Novolog Vial Sliding Scale -) 1 vial SQ ACBK [facility]; Protocol Last Admin: 04/28/20 05:59 Dose: Not Given Documented by: Mupirocin (Bactroban Ointment (For Decolonization) -) 1 applic NS BID [facility] Stop: 05/01/20 21:59 Ondansetron HCl (Zofran Injection) 4 mg IVPUSH Q6H PRN PRN Reason: NAUSEA Oxycodone HCl (Roxicodone -) 10 mg PO Q4H PRN PRN Reason: PAIN LEVEL 7 - 10 Last Admin: 04/28/20 07:54 Dose: 10 mg Documented by: Polyethylene Glycol (Miralax (For Daily Use) -) 17 gm PO BID [facility] Senna (Senna -) 2 tab PO HS PRN PRN Reason: CONSTIPATION Sodium Phosphate (Fleet Adult Rectal Enema -) 133 ml RC DAILY PRN PRN Reason: CONSTIPATION Last Admin: 04/28/20 12:56 Dose: 133 ml Documented by: Tamsulosin HCl (Flomax -) 0.8 mg PO DAILY@0830 [facility] - Objective Vital Signs: Vital Signs Temperature 98.6 F 04/28/20 17:51 Pulse Rate 106 H 04/28/20 17:51 Respiratory Rate 18 04/28/20 17:51 Blood Pressure 150/68 04/28/20 17:51 O2 Sat by Pulse Oximetry (%) 96 04/28/20 09:00 Constitutional: Yes: No Distress Cardiovascular: Yes: Regular Rate and Rhythm, S1, S2 Respiratory: Yes: CTA Bilaterally Gastrointestinal: Yes: Normal Bowel Sounds, Soft Edema: Yes Edema: LLE: 2+, RLE: 2+ Labs: CBC, BMP 04/28/20 05:40 04/28/20 05:40 INR, PTT INR 1.12 (0.83-1.09) H 04/27/20 05:00 Assessment/Plan POD#2 LAMINECTOMY UTI + URINE ESBL LEUKOCYTOSIS CONTINUE MEROPENEM/VANCOMYCIN
[2020-04-28 21:36] LABS: HEMATOCRIT 27.4 % (35.4-49); HEMOGLOBIN 9.1 GM/dL (11.7-16.9); MCH 29.5 pg (25.7-33.7); MCHC 33.1 g/dl (32.0-35.9); MEAN CELL VOLUME 89.3 fl (80-96); MEAN PLT VOLUME 7.3 fl (7.5-11.1); PLATELET COUNT 216 K/MM3 (134-434); RBC 3.07 M/mm3 (4.00-5.60); RDW 14.7 % (11.9-15.9); WHITE BLOOD COUNT 13.4 K/mm3 (4.0-10.0)
[2020-04-28] MEDS ORDERED: SENNOSIDES 8.6MG TABLET (FP) PO PRN (22:00)
[2020-04-29] MEDS ORDERED: DEXTROSE 5%-WATER 100 ML IVPB ONE ×3 (00:53→17:49)
[2020-04-29] MEDS ORDERED: MEROPENEM 1 GM VIAL (RESTRICTED TO ID) IVPB ONE ×3 (00:53→17:49)
[2020-04-29] MEDS: oxyCODONE HCL 5 MG TABLET PO PRN ×3 (00:55→22:15)
[2020-04-29] MEDS: MEROPENEM 1 GM in DEXTROSE 5%-WATER 100 ML IVPB SCH ×3 (01:03→17:54)
[2020-04-29] MEDS: VANCOMYCIN 1 GRAM (PRE-DOCKED) 1,000 MG/250 ML BAG IVPB SCH ×2 (01:04→14:15)
--- NOTE | 2020-04-29 05:37 | PN ---
Physical Exam: SUBJECTIVE: Patient seen and examined at bed side in ICU , stable tolerating diet , had BM , removed central line can be monitored in M/S OBJECTIVE: Vital Signs Period Temp Pulse Resp BP Sys/Chinchilla Pulse Ox Last 24 Hr 97.7 F-99.7 F 95-124 12-18 106-152/58-90 96-98 GENERAL: The patient is awake, alert, and fully oriented, in no acute distress. HEAD: Normal with no signs of trauma. NECK: Trachea midline, full range of motion, supple. LUNGS: Breath sounds equal, clear to auscultation bilaterally, no wheezes, no crackles, no accessory muscle use. HEART: Regular rate and rhythm, S1, S2 without murmur, rub or gallop. ABDOMEN: Soft, nontender, nondistended, normoactive bowel sounds, no guarding, no rebound, no hepatosplenomegaly, no masses. EXTREMITIES: 2+ pulses, warm, well-perfused, no edema. NEUROLOGICAL: Cranial nerves II through X grossly intact. Normal speech, gait not observed. Strength 5/5 at the hands and feet, 3/5 at the elbow joint, 3/5 at the knee. Laboratory Results - last 24 hr 04/28/20 04/28/20 04/28/20 05:40 05:40 13:30 WBC 12.4 H RBC 2.65 L Hgb 7.9 L Hct 23.5 L D MCV 88.6 MCH 29.7 MCHC 33.5 RDW 14.2 Plt Count 210 MPV 7.4 L Sodium 135 L Potassium 3.8 Chloride 104 Carbon Dioxide 25 Anion Gap 6 L BUN 14.7 Creatinine 0.7 Est GFR (CKD-EPI)AfAm 110.04 Est GFR (CKD-EPI)NonAf 94.95 Random Glucose 106 Calcium 7.5 L Phosphorus 1.6 L Magnesium 1.6 L Total Bilirubin 0.6 AST 37 ALT 29 Alkaline Phosphatase 67 Total Protein 3.9 L Albumin 2.0 L Blood Type O POSITIVE Antibody Screen Negative Crossmatch See Detail 04/28/20 21:16 WBC 13.4 H RBC 3.07 L Hgb 9.1 L Hct 27.4 L D MCV 89.3 MCH 29.5 MCHC 33.1 RDW 14.7 Plt Count 216 MPV 7.3 L Sodium Potassium Chloride Carbon Dioxide Anion Gap BUN Creatinine Est GFR (CKD-EPI)AfAm Est GFR (CKD-EPI)NonAf Random Glucose Calcium Phosphorus Magnesium Total Bilirubin AST ALT Alkaline Phosphatase Total Protein Albumin Blood Type Antibody Screen Crossmatch Active Medications Generic Name Dose Route Start Last Admin Trade Name Freq PRN Reason Stop Dose Admin Acetaminophen 650 mg 04/28/20 12:56 04/28/20 14:25 Tylenol - PO 650 mg Q6H PRN Administration FEVER Bisacodyl 10 mg 04/28/20 18:52 Dulcolax Suppository - [place] DAILY PRN CONSTIPATION Docusate Sodium 100 mg 04/28/20 22:00 04/28/20 21:32 Colace - PO 100 mg TID CAITLYN Administration Ferrous Sulfate 325 mg 04/29/20 08:00 Feosol - PO DAILY@0800 CAITLYN Folic Acid 1 mg 04/29/20 10:00 Folic Acid - PO DAILY CAITLYN Vancomycin HCl 1,000 mg in 250 mls @ 166.667 mls/hr 04/28/20 02:00 04/29/20 01:04 Vancomycin (Pre-Docked) IVPB 166.667 mls/hr Q12H CAITLYN Administration Protocol Meropenem 1 gm/ Dextrose 100 mls @ 200 mls/hr 04/27/20 15:15 04/29/20 01:03 IVPB 200 mls/hr Q8H-IV CAITLYN Administration Insulin Aspart 1 vial 04/27/20 14:45 04/28/20 05:59 Novolog Vial Sliding Scale - SQ Not Given ACBK [facility] Protocol Mupirocin 1 applic 04/28/20 22:00 04/28/20 23:00 Bactroban Ointment (For Decolonization) - NS 05/01/20 21:59 1 applic BID CAITLYN Administration Ondansetron HCl 4 mg 04/28/20 18:52 Zofran Injection IVPUSH Q6H PRN NAUSEA Oxycodone HCl 5 mg 04/28/20 19:21 04/29/20 00:55 Roxicodone - PO 5 mg Q4H PRN Administration PAIN LEVEL 7 - 10 Polyethylene Glycol 17 gm 04/28/20 22:00 04/28/20 21:32 Miralax (For Daily Use) - PO 17 gm BID CAITLYN Administration Senna 2 tab 04/28/20 22:00 Senna - PO HS PRN CONSTIPATION Sodium Phosphate 133 ml 04/28/20 12:02 04/28/20 12:56 Fleet Adult Rectal Enema - RC 133 ml DAILY PRN Administration CONSTIPATION Tamsulosin HCl 0.8 mg 04/29/20 08:30 Flomax - PO DAILY@0830 [facility] ASSESSMENT/PLAN: 70 y/o male PMH HTN and BPH c/o mechanical fall and now s/p T12-S2 decompression/fusion with EBL 2L and resuscitation with 7L IVF. Patient left intubated post op due to the length of the procedure and the EBL. patient extubated 07/28 # Neuro -Patient awake off sedation. -will change IV pain control to PO -b/l UE and LE weakness 2/2 deconditioning/ spinal stenosis. # MSK -Spondylosis now s/p T12-S2 decompression/fusion -patient w/ persistent LE weakness, states improved since the surgery -patient w/ b/l weakness in upper extremities, likely 2/2 deconditioning. -PT onboard -will likely need rehabilitation in d/c - # CVS: -Holding home Procardia XL 90 mg QD and Losartan 100 mg QD due to hypotension -LR d/cd as patient normotensive and eating. -Patient off pressors since early am -Patient w/ episode of AFIB w/ RVR yesterday, broken after 5mg lopressor -remains in sinus rhythm; no further lopressor pushes needed -AC for afib held in light of dropping Hb and serosanguinous drainage from TAYLER drain. # Pulm -Intubated 07/27, extubated 07/28 Patient was left intubated post op; awake, following commands today -vent settings minimal -CXR clear -patient doing well on cpap -patient is a good candidate for extubation today #GI -patient w/ h/o constipation -on bowel regimen and fleet enema at home -will resume bowel regimen and monitor for BM # ID -hypotension resolved, off pressors since early AM -UCx growing ESBL -will obtain BCx -ID onboard, escalated ABX to meropenem and vanco q12h # FEN -no fluids indicated. -Cont. to monitor electrolytes -sodium controlled Diet # PPX -SCDs -AC held in light of sanguinous drainage from TAYLER drain and large about of intra-op blood loss. #Lines -Left IJ CVC inserted 04/26 #Dispo -admit ICU Visit type - Emergency Visit Emergency Visit: Yes ED Registration Date: 04/22/20 Care time: The patient presented to the Emergency Department on the above date and was hospitalized for further evaluation of their emergent condition. - New Patient This patient is new to me today: Yes Date on this admission: 04/29/20 - Critical Care Critical Care patient: Yes Total Critical Care Time (in minutes): 45 Critical Care Statement: The care of this patient involved high complexity decision making to prevent further life threatening deterioration of the patient's condition and/or to evaluate & treat vital organ system(s) failure or risk of failure. ATTENDING PHYSICIAN STATEMENT I saw and evaluated the patient. I reviewed the resident's note and discussed the case with the resident. I agree with the resident's findings and plan as documented. SUBJECTIVE: OBJECTIVE: ASSESSMENT AND PLAN:
[2020-04-29] MEDS: DOCUSATE SODIUM 100 MG CAPSULE (FP) PO SCH ×3 (06:20→21:37)
[2020-04-29] MEDS: INSULIN SLIDING SCALE (NOVOLOG) 1 VIAL SQ SCH (06:21)
[2020-04-29 07:29] LABS: HEMATOCRIT 26.8 % (35.4-49); HEMOGLOBIN 9.2 GM/dL (11.7-16.9); MCH 30.2 pg (25.7-33.7); MCHC 34.3 g/dl (32.0-35.9); MEAN CELL VOLUME 88.1 fl (80-96); MEAN PLT VOLUME 7.5 fl (7.5-11.1); PLATELET COUNT 224 K/MM3 (134-434); RBC 3.04 M/mm3 (4.00-5.60); RDW 14.3 % (11.9-15.9); WHITE BLOOD COUNT 13.6 K/mm3 (4.0-10.0)
[2020-04-29 07:47] LABS: ALBUMIN 2.1 g/dl (3.4-5.0); BILIRUBIN,TOTAL 0.6 mg/dL (0.2-1); BLOOD UREA NITROGEN 8.8 mg/dL (7-18); CREATININE 0.6 mg/dL (0.55-1.3); MAGNESIUM 1.7 mg/dL (1.8-2.4); PHOSPHOROUS 1.4 mg/dL (2.5-4.9); POTASSIUM 3.6 mmol/L (3.5-5.1); TOT PROT 4.4 g/dl (6.4-8.2)
[2020-04-29] MEDS: LOSARTAN POTASSIUM 50 MG TABLET (FP) PO SCH (09:21)
[2020-04-29] MEDS: MUPIROCIN 2% TOPICAL OINTMENT FOR DECOLONIZATION NS SCH ×2 (09:21→21:37)
[2020-04-29] MEDS: FOLIC ACID 1 MG TABLET (FP) PO SCH (09:21)
[2020-04-29] MEDS: TAMSULOSIN HCL 0.4 MG CAP PO SCH (09:21)
[2020-04-29] MEDS: POLYETHYLENE GLYCOL 3350 119 GM BTL PO SCH ×2 (09:21→21:37)
[2020-04-29] MEDS ORDERED: PT OWN MED DRAWER 7, Y5N ONE ×2 (09:24→17:12)
--- NOTE | 2020-04-29 09:30 | PN ---
Progress Note, Physician History of Present Illness: Events reviewed: POD#2, laminectomy/fusion multisegments, lost 2 L RBC in OR>.6 L fluid; Hypotensive post >.ICU , intubated on pressors; Hb 10 ( from 15) Currently extubated, tachy, BP low normal, just extubated, awake Monitor/ECG: likely SVT vs AFl 2:1 rate 147 bpm , no significant ST changes, nonspec T changes - Current Medication List Current Medications: Active Medications Acetaminophen (Tylenol -) 650 mg PO Q6H PRN PRN Reason: FEVER Last Admin: 04/28/20 14:25 Dose: 650 mg Documented by: Bisacodyl (Dulcolax Suppository -) 10 mg [place] DAILY PRN PRN Reason: CONSTIPATION Docusate Sodium (Colace -) 100 mg PO TID [facility] Last Admin: 04/29/20 06:20 Dose: 100 mg Documented by: Ferrous Sulfate (Feosol -) 325 mg PO DAILY@0800 [facility] Folic Acid (Folic Acid -) 1 mg PO DAILY [facility] Last Admin: 04/29/20 09:21 Dose: 1 mg Documented by: Vancomycin HCl (Vancomycin (Pre-Docked)) 1,000 mg in 250 mls @ 166.667 mls/hr IVPB Q12H [facility]; Protocol Last Admin: 04/29/20 01:04 Dose: 166.667 mls/hr Documented by: Meropenem 1 gm/ Dextrose 100 mls @ 200 mls/hr IVPB Q8H-IV [facility] Last Admin: 04/29/20 09:22 Dose: 200 mls/hr Documented by: Insulin Aspart (Novolog Vial Sliding Scale -) 1 vial SQ ACBK [facility]; Protocol Last Admin: 04/29/20 06:21 Dose: Not Given Documented by: Losartan Potassium (Cozaar -) 100 mg PO DAILY [facility] Last Admin: 04/29/20 09:21 Dose: 100 mg Documented by: Mupirocin (Bactroban Ointment (For Decolonization) -) 1 applic NS BID [facility] Stop: 05/01/20 21:59 Last Admin: 04/29/20 09:21 Dose: 1 applic Documented by: Ondansetron HCl (Zofran Injection) 4 mg IVPUSH Q6H PRN PRN Reason: NAUSEA Oxycodone HCl (Roxicodone -) 5 mg PO Q4H PRN PRN Reason: PAIN LEVEL 7 - 10 Last Admin: 04/29/20 09:22 Dose: 5 mg Documented by: Polyethylene Glycol (Miralax (For Daily Use) -) 17 gm PO BID [facility] Last Admin: 04/29/20 09:21 Dose: 17 gm Documented by: Senna (Senna -) 2 tab PO HS PRN PRN Reason: CONSTIPATION Sodium Phosphate (Fleet Adult Rectal Enema -) 133 ml RC DAILY PRN PRN Reason: CONSTIPATION Last Admin: 04/28/20 12:56 Dose: 133 ml Documented by: Tamsulosin HCl (Flomax -) 0.8 mg PO DAILY@0830 [facility] Last Admin: 04/29/20 09:21 Dose: 0.8 mg Documented by: - Objective Vital Signs: Vital Signs Temperature 98 F 04/29/20 08:38 Pulse Rate 100 H 04/29/20 08:38 Respiratory Rate 16 04/29/20 08:38 Blood Pressure 150/70 04/29/20 08:38 O2 Sat by Pulse Oximetry (%) 96 04/29/20 09:00 Eyes: Yes: WNL, Conjunctiva Clear, EOM Intact HENT: Yes: WNL, Atraumatic, Normocephalic Neck: Yes: WNL, Supple, Trachea Midline Cardiovascular: Yes: Pulse Irregular Respiratory: Yes: WNL, Regular, CTA Bilaterally Gastrointestinal: Yes: WNL, Normal Bowel Sounds Genitourinary: Yes: WNL Musculoskeletal: Yes: WNL Extremities: Yes: WNL Edema: No Integumentary: Yes: WNL Neurological: Yes: WNL, Alert, Oriented ...Motor Strength: WNL Psychiatric: Yes: WNL Labs: CBC, BMP 04/29/20 06:00 04/29/20 06:00 INR, PTT INR 1.12 (0.83-1.09) H 04/27/20 05:00 Assessment/Plan - Problems (1) Preop cardiovascular exam Code(s): Z01.810 - ENCOUNTER FOR PREPROCEDURAL CARDIOVASCULAR EXAMINATION (2) Back pain Code(s): M54.9 - DORSALGIA, UNSPECIFIED (3) Hypertension Code(s): I10 - ESSENTIAL (PRIMARY) HYPERTENSION Qualifiers: Hypertension type: essential hypertension Qualified Code(s): I10 - Essential (primary) hypertension (4) Premature atrial contraction Code(s): I49.1 - ATRIAL PREMATURE DEPOLARIZATION (5) Premature ventricular contraction Code(s): I49.3 - VENTRICULAR PREMATURE DEPOLARIZATION (6) Facet arthropathy, lumbosacral Code(s): M47.817 - SPONDYLS W/O MYELOPATHY OR RADICULOPATHY, LUMBOSACR REGION Assessment/Plan 04/23/2020 Echo: Normal LV size and fxn LVEF 55-60%, diastolic dysfunction, normal RV fxn, mild TR with normal RVSP, mildly dilated ao root 3.8 cm -Anemia -POstop#3 Telemetry s. tachycardia with ventricular trigemmini EKG pending 1. Mechanical fall in context of acute on chronic back pain 2. Left C4-C5 facet arthropathy, severe multilevel C-spine central canal stenosis, mod-marked multilevel lumbar degenerative disc changes, mod-marked multilevel degenerative central canal stenosis: s/p laminectomies/fusions 3. HTN PLAN: 1. Start Lopressor 25 BID 2. cont Losartan 100 QD 34. DVT PLX CC time spent [address] Winston
[2020-04-29] MEDS: FERROUS SO4 325 MG TABLET (FP) PO SCH (10:29)
[2020-04-29] MEDS: METOPROLOL TARTRATE 25 MG TABLET (FP) PO SCH ×2 (10:29→21:37)
--- NOTE | 2020-04-29 10:32 | PN ---
Progress Note, Physician History of Present Illness: AWAKE, RESPONSIVE NO C/O PAIN TEMPS DOWN AFEBRILE WBC REMAINS SL ELEVATED - Current Medication List Current Medications: Active Medications Acetaminophen (Tylenol -) 650 mg PO Q6H PRN PRN Reason: FEVER Last Admin: 04/28/20 14:25 Dose: 650 mg Documented by: Bisacodyl (Dulcolax Suppository -) 10 mg SD DAILY PRN PRN Reason: CONSTIPATION Docusate Sodium (Colace -) 100 mg PO TID [facility] Last Admin: 04/29/20 06:20 Dose: 100 mg Documented by: Ferrous Sulfate (Feosol -) 325 mg PO DAILY@0800 [facility] Last Admin: 04/29/20 10:29 Dose: 325 mg Documented by: Folic Acid (Folic Acid -) 1 mg PO DAILY [facility] Last Admin: 04/29/20 09:21 Dose: 1 mg Documented by: Vancomycin HCl (Vancomycin (Pre-Docked)) 1,000 mg in 250 mls @ 166.667 mls/hr IVPB Q12H [facility]; Protocol Last Admin: 04/29/20 01:04 Dose: 166.667 mls/hr Documented by: Meropenem 1 gm/ Dextrose 100 mls @ 200 mls/hr IVPB Q8H-IV [facility] Last Admin: 04/29/20 09:22 Dose: 200 mls/hr Documented by: Insulin Aspart (Novolog Vial Sliding Scale -) 1 vial SQ ACBK [facility]; Protocol Last Admin: 04/29/20 06:21 Dose: Not Given Documented by: Losartan Potassium (Cozaar -) 100 mg PO DAILY [facility] Last Admin: 04/29/20 09:21 Dose: 100 mg Documented by: Metoprolol Tartrate (Lopressor -) 25 mg PO BID [facility] Last Admin: 04/29/20 10:29 Dose: 25 mg Documented by: Mupirocin (Bactroban Ointment (For Decolonization) -) 1 applic NS BID [facility] Stop: 05/01/20 21:59 Last Admin: 04/29/20 09:21 Dose: 1 applic Documented by: Ondansetron HCl (Zofran Injection) 4 mg IVPUSH Q6H PRN PRN Reason: NAUSEA Oxycodone HCl (Roxicodone -) 5 mg PO Q4H PRN PRN Reason: PAIN LEVEL 7 - 10 Last Admin: 04/29/20 09:22 Dose: 5 mg Documented by: Polyethylene Glycol (Miralax (For Daily Use) -) 17 gm PO BID [facility] Last Admin: 04/29/20 09:21 Dose: 17 gm Documented by: Senna (Senna -) 2 tab PO HS PRN PRN Reason: CONSTIPATION Sodium Phosphate (Fleet Adult Rectal Enema -) 133 ml RC DAILY PRN PRN Reason: CONSTIPATION Last Admin: 04/28/20 12:56 Dose: 133 ml Documented by: Tamsulosin HCl (Flomax -) 0.8 mg PO DAILY@0830 [facility] Last Admin: 04/29/20 09:21 Dose: 0.8 mg Documented by: - Objective Vital Signs: Vital Signs Temperature 98 F 04/29/20 08:38 Pulse Rate 104 H 04/29/20 09:43 Respiratory Rate 16 04/29/20 09:43 Blood Pressure 125/64 04/29/20 09:43 O2 Sat by Pulse Oximetry (%) 96 04/29/20 09:00 Constitutional: Yes: No Distress Cardiovascular: Yes: Regular Rate and Rhythm, S1, S2 Respiratory: Yes: CTA Bilaterally Gastrointestinal: Yes: Normal Bowel Sounds, Soft. No: Tenderness Edema: Yes Labs: CBC, BMP 04/29/20 06:00 04/29/20 06:00 INR, PTT INR 1.12 (0.83-1.09) H 04/27/20 05:00 Assessment/Plan POD#3 LAMINECTOMY UTI + URINE ESBL LEUKOCYTOSIS CONTINUE MEROPENEM D/C VANCOMYCIN
--- NOTE | 2020-04-29 11:55 | PN ---
Progress Note, Physician History of Present Illness: Pod # 3 Seen in icu. awake Feels better s/p T12-S2 decompression/fusion with EBL 2 L and resuscitation with 7 L IVF. Off pressors. afebrile Slightly elevated wbc. got Transfusion yesterday Also has BM yesterday and today - Current Medication List Current Medications: Active Medications Acetaminophen (Tylenol -) 650 mg PO Q6H PRN PRN Reason: FEVER Last Admin: 04/28/20 14:25 Dose: 650 mg Documented by: Bisacodyl (Dulcolax Suppository -) 10 mg [place] DAILY PRN PRN Reason: CONSTIPATION Docusate Sodium (Colace -) 100 mg PO TID [facility] Last Admin: 04/29/20 06:20 Dose: 100 mg Documented by: Ferrous Sulfate (Feosol -) 325 mg PO DAILY@0800 [facility] Last Admin: 04/29/20 10:29 Dose: 325 mg Documented by: Folic Acid (Folic Acid -) 1 mg PO DAILY [facility] Last Admin: 04/29/20 09:21 Dose: 1 mg Documented by: Vancomycin HCl (Vancomycin (Pre-Docked)) 1,000 mg in 250 mls @ 166.667 mls/hr IVPB Q12H [facility]; Protocol Last Admin: 04/29/20 01:04 Dose: 166.667 mls/hr Documented by: Meropenem 1 gm/ Dextrose 100 mls @ 200 mls/hr IVPB Q8H-IV [facility] Last Admin: 04/29/20 09:22 Dose: 200 mls/hr Documented by: Insulin Aspart (Novolog Vial Sliding Scale -) 1 vial SQ ACBK [facility]; Protocol Last Admin: 04/29/20 06:21 Dose: Not Given Documented by: Losartan Potassium (Cozaar -) 100 mg PO DAILY [facility] Last Admin: 04/29/20 09:21 Dose: 100 mg Documented by: Metoprolol Tartrate (Lopressor -) 25 mg PO BID [facility] Last Admin: 04/29/20 10:29 Dose: 25 mg Documented by: Mupirocin (Bactroban Ointment (For Decolonization) -) 1 applic NS BID [facility] Stop: 05/01/20 21:59 Last Admin: 04/29/20 09:21 Dose: 1 applic Documented by: Ondansetron HCl (Zofran Injection) 4 mg IVPUSH Q6H PRN PRN Reason: NAUSEA Oxycodone HCl (Roxicodone -) 5 mg PO Q4H PRN PRN Reason: PAIN LEVEL 7 - 10 Last Admin: 04/29/20 09:22 Dose: 5 mg Documented by: Polyethylene Glycol (Miralax (For Daily Use) -) 17 gm PO BID [facility] Last Admin: 04/29/20 09:21 Dose: 17 gm Documented by: Senna (Senna -) 2 tab PO HS PRN PRN Reason: CONSTIPATION Sodium Phosphate (Fleet Adult Rectal Enema -) 133 ml RC DAILY PRN PRN Reason: CONSTIPATION Last Admin: 04/28/20 12:56 Dose: 133 ml Documented by: Tamsulosin HCl (Flomax -) 0.8 mg PO DAILY@0830 [facility] Last Admin: 04/29/20 09:21 Dose: 0.8 mg Documented by: - Objective Vital Signs: Vital Signs Temperature 98 F 04/29/20 11:00 Pulse Rate 94 H 04/29/20 11:00 Respiratory Rate 16 04/29/20 11:00 Blood Pressure 137/59 L 04/29/20 11:00 O2 Sat by Pulse Oximetry (%) 96 04/29/20 09:00 Constitutional: Yes: No Distress, Calm Eyes: Yes: Conjunctiva Clear Neck: Yes: Supple, Other (central line- left side) Cardiovascular: Yes: Regular Rate and Rhythm Respiratory: Yes: Diminished Gastrointestinal: Yes: Soft Edema: No Neurological: Yes: Alert Labs: CBC, BMP 04/29/20 06:00 04/29/20 06:00 INR, PTT INR 1.12 (0.83-1.09) H 04/27/20 05:00 Problem List - Problems (1) Arrhythmia Code(s): I49.9 - CARDIAC ARRHYTHMIA, UNSPECIFIED (2) Fall Code(s): W19.XXXA - UNSPECIFIED FALL, INITIAL ENCOUNTER (3) Back pain Code(s): M54.9 - DORSALGIA, UNSPECIFIED (4) Facet arthropathy, lumbosacral Code(s): M47.817 - SPONDYLS W/O MYELOPATHY OR RADICULOPATHY, LUMBOSACR REGION (5) Hypertension Code(s): I10 - ESSENTIAL (PRIMARY) HYPERTENSION Qualifiers: Hypertension type: essential hypertension Qualified Code(s): I10 - Essential (primary) hypertension Assessment/Plan clinically better Abx continue other meds Reviewed PT Will follow
--- NOTE | 2020-04-29 12:43 | EKG ---
Test Reason : Blood Pressure : / mmHG Vent. Rate : 098 BPM Atrial Rate : 098 BPM P-R Int : 158 ms QRS Dur : 100 ms QT Int : 342 ms P-R-T Axes : 026 013 022 degrees QTc Int : 436 ms SINUS RHYTHM WITH FREQUENT PREMATURE VENTRICULAR COMPLEXES NONSPECIFIC T WAVE ABNORMALITY ABNORMAL ECG WHEN COMPARED WITH ECG OF 27-APR-2020 09:28, PREMATURE VENTRICULAR COMPLEXES ARE NOW PRESENT NONSPECIFIC T WAVE ABNORMALITY NOW EVIDENT IN INFERIOR LEADS Confirmed by MD Raffi, Bernardino ([id number]) on 04/29/2020 12:43:03 PM Referred By: Frandy GONSALES Confirmed By:Bernardino Nugent MD
--- NOTE | 2020-04-29 12:48 | PN ---
Teaching Attending Note Name of Resident: Bradley Merritt ATTENDING PHYSICIAN STATEMENT I saw and evaluated the patient. I reviewed the resident's note and discussed the case with the resident. I agree with the resident's findings and plan as documented. SUBJECTIVE: Patient seen and examined in the ICU. Awake and alert. Had a BM this AM. Reports feeling overall better. HR better. Intake & Output 04/26/20 04/27/20 04/28/20 04/29/20 23:59 23:59 23:59 23:59 Intake Total 07223 4608 4031 750 Output Total 6800 1720 2335 850 Balance 9218 2888 1696 -100 Weight 230 lb Last Vital Signs Temp Pulse Resp BP Pulse Ox 98 F 90 16 138/78 96 04/29/20 11:00 04/29/20 12:00 04/29/20 12:00 04/29/20 12:00 04/29/20 09:00 Active Medications Acetaminophen (Tylenol -) 650 mg PO Q6H PRN PRN Reason: FEVER Last Admin: 04/28/20 14:25 Dose: 650 mg Documented by: Bisacodyl (Dulcolax Suppository -) 10 mg [place] DAILY PRN PRN Reason: CONSTIPATION Last Admin: 04/28/20 10:00 Dose: 10 mg Documented by: Docusate Sodium (Colace -) 100 mg PO TID [facility] Last Admin: 04/29/20 06:20 Dose: 100 mg Documented by: Ferrous Sulfate (Feosol -) 325 mg PO DAILY@0800 [facility] Last Admin: 04/29/20 10:29 Dose: 325 mg Documented by: Folic Acid (Folic Acid -) 1 mg PO DAILY [facility] Last Admin: 04/29/20 09:21 Dose: 1 mg Documented by: Vancomycin HCl (Vancomycin (Pre-Docked)) 1,000 mg in 250 mls @ 166.667 mls/hr IVPB Q12H [facility]; Protocol Last Admin: 04/29/20 01:04 Dose: 166.667 mls/hr Documented by: Meropenem 1 gm/ Dextrose 100 mls @ 200 mls/hr IVPB Q8H-IV [facility] Last Admin: 04/29/20 09:22 Dose: 200 mls/hr Documented by: Insulin Aspart (Novolog Vial Sliding Scale -) 1 vial SQ ACBK [facility]; Protocol Last Admin: 04/29/20 06:21 Dose: Not Given Documented by: Losartan Potassium (Cozaar -) 100 mg PO DAILY [facility] Last Admin: 04/29/20 09:21 Dose: 100 mg Documented by: Metoprolol Tartrate (Lopressor -) 25 mg PO BID [facility] Last Admin: 04/29/20 10:29 Dose: 25 mg Documented by: Mupirocin (Bactroban Ointment (For Decolonization) -) 1 applic NS BID [facility] Stop: 05/01/20 21:59 Last Admin: 04/29/20 09:21 Dose: 1 applic Documented by: Ondansetron HCl (Zofran Injection) 4 mg IVPUSH Q6H PRN PRN Reason: NAUSEA Oxycodone HCl (Roxicodone -) 5 mg PO Q4H PRN PRN Reason: PAIN LEVEL 7 - 10 Last Admin: 04/29/20 09:22 Dose: 5 mg Documented by: Polyethylene Glycol (Miralax (For Daily Use) -) 17 gm PO BID [facility] Last Admin: 04/29/20 09:21 Dose: 17 gm Documented by: Senna (Senna -) 2 tab PO HS PRN PRN Reason: CONSTIPATION Sodium Phosphate (Fleet Adult Rectal Enema -) 133 ml RC DAILY PRN PRN Reason: CONSTIPATION Last Admin: 04/28/20 12:56 Dose: 133 ml Documented by: Tamsulosin HCl (Flomax -) 0.8 mg PO DAILY@0830 [facility] Last Admin: 04/29/20 09:21 Dose: 0.8 mg Documented by: GENERAL: awake and alert, NAD HEAD: Normal with no signs of trauma. EYES: sclera anicteric, conjunctiva clear. EARS, NOSE, THROAT: Ears normal, nares patent, oropharynx clear without exudates. Dry mucous membranes. NECK: (-) lymphadenopathy, JVD, or masses. LUNGS: Clear to auscultation bilaterally. No wheezes, and no crackles. No accessory muscle use. HEART: Irregular, (-) murmur, rub or gallop. ABDOMEN: Soft, not distended, normoactive bowel sounds, no masses. No hepatomegaly. SKIN/MUSCULOSKELETAL: Surgical dressing on back. RIGHT knee surgical scar. TAYLER drain in place. UPPER EXTREMITIES: 2+ pulses, warm, well-perfused. No cyanosis. No clubbing. Cap refill <2 seconds. No peripheral edema. LOWER EXTREMITIES: 2+ pulses, warm, well-perfused. No calf tenderness. No peripheral edema. NEUROLOGICAL: UE and LE weakness Laboratory Results - last 24 hr 04/28/20 04/28/20 04/29/20 13:30 21:16 06:00 WBC 13.4 H 13.6 H RBC 3.07 L 3.04 L Hgb 9.1 L 9.2 L Hct 27.4 L D 26.8 L MCV 89.3 88.1 MCH 29.5 30.2 MCHC 33.1 34.3 RDW 14.7 14.3 Plt Count 216 224 MPV 7.3 L 7.5 Sodium Potassium Chloride Carbon Dioxide Anion Gap BUN Creatinine Est GFR (CKD-EPI)AfAm Est GFR (CKD-EPI)NonAf POC Glucometer Random Glucose Calcium Phosphorus Magnesium Total Bilirubin AST ALT Alkaline Phosphatase Total Protein Albumin Blood Type O POSITIVE Antibody Screen Negative Crossmatch See Detail 04/29/20 04/29/20 06:00 06:17 WBC RBC Hgb Hct MCV MCH MCHC RDW Plt Count MPV Sodium 136 Potassium 3.6 Chloride 103 Carbon Dioxide 24 Anion Gap 9 BUN 8.8 Creatinine 0.6 Est GFR (CKD-EPI)AfAm 117.24 Est GFR (CKD-EPI)NonAf 101.16 POC Glucometer 111 Random Glucose 100 Calcium 8.0 L Phosphorus 1.4 L Magnesium 1.7 L Total Bilirubin 0.6 AST 34 ALT 30 Alkaline Phosphatase 80 Total Protein 4.4 L Albumin 2.1 L Blood Type Antibody Screen Crossmatch ASSESSMENT/PLAN: Resolving Septic Shock due to a source Volume depletion Acute Respiratory Insufficiency POD #3 : S/P T12-S2 decompression/fusion with EBL 2L S/P Mechanical Fall HTN BPH AFib / Flutter Lopressor Supplemental O2 as needed Incentive Spirometry Strict I & O IVF VTE prophylaxis Pain control Bowel regimen Rate control Cardiac Telemetry monitoring Dr Junior
[2020-04-30] MEDS ORDERED: PT OWN MED DRAWER 7, Y5N ONE (01:08)
[2020-04-30] MEDS: VANCOMYCIN 1 GRAM (PRE-DOCKED) 1,000 MG/250 ML BAG IVPB SCH ×2 (01:12→14:35)
[2020-04-30] MEDS: MEROPENEM 1 GM in DEXTROSE 5%-WATER 100 ML IVPB SCH ×3 (01:49→18:04)
[2020-04-30] MEDS: DOCUSATE SODIUM 100 MG CAPSULE (FP) PO SCH ×3 (05:56→21:32)
[2020-04-30] MEDS: oxyCODONE HCL 5 MG TABLET PO PRN ×3 (05:56→21:28)
[2020-04-30 06:36] LABS: BASO % 0.3 % (0-2.0); EOS % 1.7 % (0-4.5); HEMATOCRIT 28.2 % (35.4-49); HEMOGLOBIN 9.5 GM/dL (11.7-16.9); LYMPH % 24.7 % (8-40); MCH 29.7 pg (25.7-33.7); MCHC 33.7 g/dl (32.0-35.9); MEAN CELL VOLUME 88.2 fl (80-96); MEAN PLT VOLUME 7.3 fl (7.5-11.1); MONO % 8.8 % (3.8-10.2); NEUT % 64.5 % (42.8-82.8); PLATELET COUNT 271 K/MM3 (134-434); WHITE BLOOD COUNT 11.8 K/mm3 (4.0-10.0)
[2020-04-30] MEDS: INSULIN SLIDING SCALE (NOVOLOG) 1 VIAL SQ SCH (07:01)
[2020-04-30 07:11] LABS: BLOOD UREA NITROGEN 6.8 mg/dL (7-18); CALCIUM 8.2 mg/dL (8.5-10.1); MAGNESIUM 1.6 mg/dL (1.8-2.4); POTASSIUM 3.5 mmol/L (3.5-5.1)
[2020-04-30 07:16] LABS: BILIRUBIN,TOTAL 0.5 mg/dL (0.2-1); CREATININE 0.5 mg/dL (0.55-1.3); PHOSPHOROUS 1.7 mg/dL (2.5-4.9); TOT PROT 4.3 g/dl (6.4-8.2)
[2020-04-30] MEDS ORDERED: MEROPENEM 1 GM VIAL (RESTRICTED TO ID) IVPB ONE ×2 (08:07→17:55)
[2020-04-30] MEDS ORDERED: DEXTROSE 5%-WATER 100 ML IVPB ONE ×2 (08:07→17:55)
--- NOTE | 2020-04-30 08:42 | PN ---
Physical Exam: SUBJECTIVE: Patient seen and examined at bedside. no events overnight, no new complaints. Patient states he feels better and stronger today. OBJECTIVE: Vital Signs Period Temp Pulse Resp BP Sys/Chinchilla Pulse Ox Last 24 Hr 98 F-98.9 F 84-104 12-16 119-139/55-96 96-98 GENERAL: The patient is awake, alert, and fully oriented, in no acute distress. HEAD: Normal with no signs of trauma. EYES: PERRL, extraocular movements intact, sclera anicteric, conjunctiva clear. No ptosis. LUNGS: Breath sounds equal, clear to auscultation bilaterally, no wheezes, no crackles, no accessory muscle use. HEART: Regular rate and rhythm, S1, S2 without murmur, rub or gallop. ABDOMEN: Soft, nontender, nondistended, normoactive bowel sounds, no guarding, no rebound, no hepatosplenomegaly, no masses. EXTREMITIES: 2+ pulses, warm, well-perfused, no edema. NEUROLOGICAL: Cranial nerves II through X grossly intact. Normal speech, gait not observed. strength improved today, 4/5 in all 4 limbs Laboratory Results - last 24 hr 04/24/20 04/30/20 04/30/20 11:56 05:55 05:55 WBC 11.8 H RBC 3.20 L Hgb 9.5 L Hct 28.2 L MCV 88.2 MCH 29.7 MCHC 33.7 RDW 14.0 Plt Count 271 D MPV 7.3 L Absolute Neuts (auto) 7.6 Neutrophils % 64.5 D Lymphocytes % 24.7 D Monocytes % 8.8 D Eosinophils % 1.7 D Basophils % 0.3 Nucleated RBC % 0 Sodium 139 Potassium 3.5 Chloride 106 Carbon Dioxide 25 Anion Gap 8 BUN 6.8 L Creatinine 0.5 L Est GFR (CKD-EPI)AfAm 126.36 Est GFR (CKD-EPI)NonAf 109.03 POC Glucometer Random Glucose 100 Calcium 8.2 L Phosphorus 1.7 L Magnesium 1.6 L Total Bilirubin 0.5 AST 26 ALT 25 Alkaline Phosphatase 79 Total Protein 4.3 L Albumin 2.0 L Blood Type O POSITIVE Antibody Screen Negative Crossmatch See Detail 04/30/20 06:29 WBC RBC Hgb Hct MCV MCH MCHC RDW Plt Count MPV Absolute Neuts (auto) Neutrophils % Lymphocytes % Monocytes % Eosinophils % Basophils % Nucleated RBC % Sodium Potassium Chloride Carbon Dioxide Anion Gap BUN Creatinine Est GFR (CKD-EPI)AfAm Est GFR (CKD-EPI)NonAf POC Glucometer 118 Random Glucose Calcium Phosphorus Magnesium Total Bilirubin AST ALT Alkaline Phosphatase Total Protein Albumin Blood Type Antibody Screen Crossmatch Active Medications Generic Name Dose Route Start Last Admin Trade Name Freq PRN Reason Stop Dose Admin Acetaminophen 650 mg 04/28/20 12:56 04/28/20 14:25 Tylenol - PO 650 mg Q6H PRN Administration FEVER Bisacodyl 10 mg 04/28/20 18:52 04/28/20 10:00 Dulcolax Suppository - MD 10 mg DAILY PRN Administration CONSTIPATION Docusate Sodium 100 mg 04/28/20 22:00 04/30/20 05:56 Colace - PO 100 mg TID [facility] Administration Ferrous Sulfate 325 mg 04/29/20 08:00 04/29/20 10:29 Feosol - PO 325 mg DAILY@0800 [facility] Administration Folic Acid 1 mg 04/29/20 10:00 04/29/20 09:21 Folic Acid - PO 1 mg DAILY [facility] Administration Vancomycin HCl 1,000 mg in 250 mls @ 166.667 mls/hr 04/28/20 02:00 04/30/20 01:12 Vancomycin (Pre-Docked) IVPB 166.667 mls/hr Q12H [facility] Administration Protocol Meropenem 1 gm/ Dextrose 100 mls @ 200 mls/hr 04/27/20 15:15 04/30/20 01:49 IVPB 200 mls/hr Q8H-IV [facility] Administration Insulin Aspart 1 vial 04/27/20 14:45 04/30/20 07:01 Novolog Vial Sliding Scale - SQ Not Given ACBK [facility] Protocol Losartan Potassium 100 mg 04/29/20 10:00 04/29/20 09:21 Cozaar - PO 100 mg DAILY [facility] Administration Metoprolol Tartrate 25 mg 04/29/20 10:00 04/29/20 21:37 Lopressor - PO 25 mg BID [facility] Administration Mupirocin 1 applic 04/28/20 22:00 04/29/20 21:37 Bactroban Ointment (For Decolonization) - NS 05/01/20 21:59 1 applic BID [facility] Administration Ondansetron HCl 4 mg 04/28/20 18:52 Zofran Injection IVPUSH Q6H PRN NAUSEA Oxycodone HCl 5 mg 04/28/20 19:21 04/30/20 05:56 Roxicodone - PO 5 mg Q4H PRN Administration PAIN LEVEL 7 - 10 Polyethylene Glycol 17 gm 04/28/20 22:00 04/29/20 21:37 Miralax (For Daily Use) - PO 17 gm BID [facility] Administration Senna 2 tab 04/28/20 22:00 Senna - PO HS PRN CONSTIPATION Sodium Phosphate 133 ml 04/28/20 12:02 04/28/20 12:56 Fleet Adult Rectal Enema - RC 133 ml DAILY PRN Administration CONSTIPATION Tamsulosin HCl 0.8 mg 04/29/20 08:30 04/29/20 09:21 Flomax - PO 0.8 mg DAILY@0830 [facility] Administration ASSESSMENT/PLAN: 70 y/o male PMH HTN and BPH c/o mechanical fall and now s/p T12-S2 decompression/fusion with EBL 2L and resuscitation with 7L IVF. Patient left intubated post op due to the length of the procedure and the EBL. patient e xtubated 07/28 # Neuro -Patient awake off sedation. -will change IV pain control to PO -b/l UE and LE weakness 2/2 deconditioning/ spinal stenosis. # MSK -Spondylosis now s/p T12-S2 decompression/fusion -patient w/ persistent LE weakness, states improved since the surgery -patient w/ b/l weakness in upper extremities, likely 2/2 deconditioning. -PT onboard -will likely need rehabilitation in d/c - # CVS: -home cardiac/BP meds restarted since patient off pressors -LR d/cd as patient normotensive and eating. -Patient w/ episode of AFIB w/ RVR yesterday, broken after 5mg lopressor -remains in sinus rhythm; no further lopressor pushes needed -AC for afib held in light of dropping Hb and serosanguinous drainage from TAYLER drain. # Pulm -Intubated 07/27, extubated 07/28 Patient was left intubated post op; awake, following commands today -vent settings minimal -CXR clear -patient doing well on cpap -patient is a good candidate for extubation today #GI -patient w/ h/o constipation -on bowel regimen and fleet enema at home -patient having BMs; c/w home regimen # ID -hypotension resolved, off pressors since early AM -UCx growing ESBL -will obtain BCx -ID onboard, escalated ABX to meropenem and vanco q12h (day 3) # FEN -no fluids indicated. -Cont. to monitor electrolytes -sodium controlled Diet # PPX -SCDs -AC held in light of sanguinous drainage from TAYLER drain and large about of intra-op blood loss. #Lines -Left IJ CVC inserted 04/26 -nguyen in place #Dispo -stable for transfer to telemetry Visit type - Emergency Visit Emergency Visit: Yes ED Registration Date: 04/22/20 Care time: The patient presented to the Emergency Department on the above date and was hospitalized for further evaluation of their emergent condition. - New Patient This patient is new to me today: No - Critical Care Critical Care patient: Yes Total Critical Care Time (in minutes): 40 Critical Care Statement: The care of this patient involved high complexity decision making to prevent further life threatening deterioration of the patient's condition and/or to evaluate & treat vital organ system(s) failure or risk of failure. - Discharge Referral Referred to [facility] Med [facility] No ATTENDING PHYSICIAN STATEMENT I saw and evaluated the patient. I reviewed the resident's note and discussed the case with the resident. I agree with the resident's findings and plan as documented. SUBJECTIVE: OBJECTIVE: ASSESSMENT AND PLAN:
[2020-04-30] MEDS: MAGNESIUM SULF 50% (8.12 MEQ/2 ML-1 GM VIAL) IVPB ONE ×2 (09:16→09:36)
[2020-04-30] MEDS: FERROUS SO4 325 MG TABLET (FP) PO SCH (09:18)
[2020-04-30] MEDS: METOPROLOL TARTRATE 25 MG TABLET (FP) PO SCH ×2 (09:18→21:32)
[2020-04-30] MEDS: TAMSULOSIN HCL 0.4 MG CAP PO SCH (09:18)
[2020-04-30] MEDS: LOSARTAN POTASSIUM 50 MG TABLET (FP) PO SCH (09:18)
[2020-04-30] MEDS: MUPIROCIN 2% TOPICAL OINTMENT FOR DECOLONIZATION NS SCH ×2 (09:18→21:32)
[2020-04-30] MEDS: FOLIC ACID 1 MG TABLET (FP) PO SCH (09:18)
--- NOTE | 2020-04-30 09:51 | PN ---
Progress Note (short form) - Note Progress Note: Neuro surgery: Pt without complaints of headache this am. Having loose BM, but given stool softeners this weekend. Pain well controlled, no complaints. No numbness to his extremities. Vital Signs Period Temp Pulse Resp BP Sys/Chinchilla Pulse Ox Last 24 Hr 98 F-98.9 F 84-104 12-16 119-139/55-96 98 TAYLER: 480ml serosangrenous nguyen: 2100ml yellow urine GEN: A&0x3, NAD ABD: soft, non-distended, non-tender Back: Dressing c/d/i LE: 5/5 dorsi/plantar flexion b/l. No calf tenderness or swelling noted b/l. SCds in place. CBC, BMP 04/30/20 05:55 04/30/20 05:55 Microbiology 04/24/20 21:50 Urine - Urine Nguyen Urine Culture - Final Escherichia Coli Esbl Pipe And Test Supervisor Non Lactose Fermenting Gnb A/P: 70 yo male s/p lumbar lamiectomy/decompression/fusion of T12 to S2 with interbody cage placment S1-2/L5-S1/L4-5/L3-4. dureal defect and repair with duraseal Continue det as tolerated and stool softners for constipation OOB/ambulate with PT. Wear brace when OOB to chair and ambulating. TAYLER to bile bag/passive drainage. His drain is serosangrenos Pain managment as needed Continue IV abx as per ID for ESBL in urine Restart heparin SQ Iron supplements
--- NOTE | 2020-04-30 10:55 | PN ---
Progress Note, Physician History of Present Illness: Denies chest pain, SOB or palpitations, back pain adequately controlled. TAYLER with serosanguinous drainage. - Current Medication List Current Medications: Active Medications Acetaminophen (Tylenol -) 650 mg PO Q6H PRN PRN Reason: FEVER Last Admin: 04/28/20 14:25 Dose: 650 mg Documented by: Bisacodyl (Dulcolax Suppository -) 10 mg [place] DAILY PRN PRN Reason: CONSTIPATION Last Admin: 04/28/20 10:00 Dose: 10 mg Documented by: Docusate Sodium (Colace -) 100 mg PO TID [facility] Last Admin: 04/30/20 05:56 Dose: 100 mg Documented by: Ferrous Sulfate (Feosol -) 325 mg PO DAILY@0800 [facility] Last Admin: 04/30/20 09:18 Dose: 325 mg Documented by: Folic Acid (Folic Acid -) 1 mg PO DAILY [facility] Last Admin: 04/30/20 09:18 Dose: 1 mg Documented by: Vancomycin HCl (Vancomycin (Pre-Docked)) 1,000 mg in 250 mls @ 166.667 mls/hr IVPB Q12H [facility]; Protocol Last Admin: 04/30/20 01:12 Dose: 166.667 mls/hr Documented by: Meropenem 1 gm/ Dextrose 100 mls @ 200 mls/hr IVPB Q8H-IV [facility] Last Admin: 04/30/20 09:17 Dose: 200 mls/hr Documented by: Insulin Aspart (Novolog Vial Sliding Scale -) 1 vial SQ ACBK [facility]; Protocol Last Admin: 04/30/20 07:01 Dose: Not Given Documented by: Losartan Potassium (Cozaar -) 100 mg PO DAILY [facility] Last Admin: 04/30/20 09:18 Dose: 100 mg Documented by: Metoprolol Tartrate (Lopressor -) 25 mg PO BID [facility] Last Admin: 04/30/20 09:18 Dose: 25 mg Documented by: Mupirocin (Bactroban Ointment (For Decolonization) -) 1 applic NS BID [facility] Stop: 05/01/20 21:59 Last Admin: 04/30/20 09:18 Dose: 1 applic Documented by: Ondansetron HCl (Zofran Injection) 4 mg IVPUSH Q6H PRN PRN Reason: NAUSEA Oxycodone HCl (Roxicodone -) 5 mg PO Q4H PRN PRN Reason: PAIN LEVEL 7 - 10 Last Admin: 04/30/20 05:56 Dose: 5 mg Documented by: Polyethylene Glycol (Miralax (For Daily Use) -) 17 gm PO BID [facility] Last Admin: 04/29/20 21:37 Dose: 17 gm Documented by: Potassium Phos/Sodium Phos (Phos-Nak Packet -) 1 packet PO TID [facility] Senna (Senna -) 2 tab PO HS PRN PRN Reason: CONSTIPATION Sodium Phosphate (Fleet Adult Rectal Enema -) 133 ml RC DAILY PRN PRN Reason: CONSTIPATION Last Admin: 04/28/20 12:56 Dose: 133 ml Documented by: Tamsulosin HCl (Flomax -) 0.8 mg PO DAILY@0830 [facility] Last Admin: 04/30/20 09:18 Dose: 0.8 mg Documented by: - Objective Vital Signs: Vital Signs Temperature 98.9 F 04/30/20 06:00 Pulse Rate 92 H 04/30/20 06:00 Respiratory Rate 15 04/30/20 06:00 Blood Pressure 121/64 04/30/20 06:00 O2 Sat by Pulse Oximetry (%) 98 04/29/20 21:00 Constitutional: Yes: No Distress, Calm Neck: Yes: Supple Cardiovascular: Yes: Regular Rate and Rhythm Respiratory: Yes: Regular, Diminished, On Nasal O2 Gastrointestinal: Yes: Normal Bowel Sounds, Soft Genitourinary: Yes: [place] Present Edema: No Labs: CBC, BMP 04/30/20 05:55 04/30/20 05:55 INR, PTT INR 1.12 (0.83-1.09) H 04/27/20 05:00 - ....Imaging EKG: Report Reviewed (Tele: NSR frequent PVC) Problem List - Problems (1) Back pain Code(s): M54.9 - DORSALGIA, UNSPECIFIED (2) Hypertension Code(s): I10 - ESSENTIAL (PRIMARY) HYPERTENSION Qualifiers: Hypertension type: essential hypertension Qualified Code(s): I10 - Essential (primary) hypertension (3) Premature atrial contraction Code(s): I49.1 - ATRIAL PREMATURE DEPOLARIZATION (4) Premature ventricular contraction Code(s): I49.3 - VENTRICULAR PREMATURE DEPOLARIZATION (5) Facet arthropathy, lumbosacral Code(s): M47.817 - SPONDYLS W/O MYELOPATHY OR RADICULOPATHY, LUMBOSACR REGION (6) Diastolic dysfunction Code(s): I51.89 - OTHER ILL-DEFINED HEART DISEASES Assessment/Plan 04/23/2020 Echo: Normal LV size and fxn LVEF 55-60%, diastolic dysfunction, normal RV fxn, mild TR with normal RVSP, mildly dilated ao root 3.8 cm 1. Mechanical fall in context of acute on chronic back pain 2. Left C4-C5 facet arthropathy, severe multilevel C-spine central canal stenosis, mod-marked multilevel lumbar degenerative disc changes, mod-marked multilevel degenerative central canal stenosis: s/p lumbar lamiecto my/decompression/fusion of T12 to S2 with interbody cage placment S1-2/L5-S1/L4-5/L3-4 3. HTN 4. Acute blood loss anemia 5. PVC with ventricular trigeminy 6. Diastolic dysfunction PLAN: 1. Continue Lopressor 25 bid, losartan 100 qd 2. DVT prophylaxis, drain management, empiric abx coverage, pain control, PT as tolerated
[2020-04-30] MEDS: POLYETHYLENE GLYCOL 3350 119 GM BTL PO SCH ×2 (11:50→21:32)
--- NOTE | 2020-04-30 13:09 | PN ---
Teaching Attending Note Name of Resident: Polo Bloom ATTENDING PHYSICIAN STATEMENT I saw and evaluated the patient. I reviewed the resident's note and discussed the case with the resident. I agree with the resident's findings and plan as documented. SUBJECTIVE: Pt seen and examined in the ICU. Pain controlled. TAYLER with serous drainage. No fevers/chills. OBJECTIVE: Vital Signs Period Temp Pulse Resp BP Sys/Chinchilla Pulse Ox Last 24 Hr 98 F-98.9 F 84-104 12-21 106-140/54-96 98-98 Intake & Output 04/27/20 04/28/20 04/29/20 04/30/20 23:59 23:59 23:59 23:59 Intake Total 4608 4031 2150 550 Output Total 1720 2335 2810 1220 Balance 2888 8575 -340 -619 Weight 104.326 kg Gen: NAD at rest Heart: RRR Lung: decreased breath sounds at the bases Abd: soft, nontender Ext: no edema CBC, BMP 04/30/20 05:55 04/30/20 05:55 Active Medications Acetaminophen (Tylenol -) 650 mg PO Q6H PRN PRN Reason: FEVER Last Admin: 04/28/20 14:25 Dose: 650 mg Documented by: Bisacodyl (Dulcolax Suppository -) 10 mg [place] DAILY PRN PRN Reason: CONSTIPATION Last Admin: 04/28/20 10:00 Dose: 10 mg Documented by: Docusate Sodium (Colace -) 100 mg PO TID [facility] Last Admin: 04/30/20 05:56 Dose: 100 mg Documented by: Ferrous Sulfate (Feosol -) 325 mg PO DAILY@0800 [facility] Last Admin: 04/30/20 09:18 Dose: 325 mg Documented by: Folic Acid (Folic Acid -) 1 mg PO DAILY [facility] Last Admin: 04/30/20 09:18 Dose: 1 mg Documented by: Vancomycin HCl (Vancomycin (Pre-Docked)) 1,000 mg in 250 mls @ 166.667 mls/hr IVPB Q12H [facility]; Protocol Last Admin: 04/30/20 01:12 Dose: 166.667 mls/hr Documented by: Meropenem 1 gm/ Dextrose 100 mls @ 200 mls/hr IVPB Q8H-IV [facility] Last Admin: 04/30/20 09:17 Dose: 200 mls/hr Documented by: Insulin Aspart (Novolog Vial Sliding Scale -) 1 vial SQ ACBK [facility]; Protocol Last Admin: 04/30/20 07:01 Dose: Not Given Documented by: Losartan Potassium (Cozaar -) 100 mg PO DAILY [facility] Last Admin: 04/30/20 09:18 Dose: 100 mg Documented by: Metoprolol Tartrate (Lopressor -) 25 mg PO BID [facility] Last Admin: 04/30/20 09:18 Dose: 25 mg Documented by: Mupirocin (Bactroban Ointment (For Decolonization) -) 1 applic NS BID [facility] Stop: 05/01/20 21:59 Last Admin: 04/30/20 09:18 Dose: 1 applic Documented by: Ondansetron HCl (Zofran Injection) 4 mg IVPUSH Q6H PRN PRN Reason: NAUSEA Oxycodone HCl (Roxicodone -) 5 mg PO Q4H PRN PRN Reason: PAIN LEVEL 7 - 10 Last Admin: 04/30/20 11:58 Dose: 5 mg Documented by: Polyethylene Glycol (Miralax (For Daily Use) -) 17 gm PO BID [facility] Last Admin: 04/30/20 11:50 Dose: Not Given Documented by: Potassium Phos/Sodium Phos (Phos-Nak Packet -) 1 packet PO TID [facility] Senna (Senna -) 2 tab PO HS PRN PRN Reason: CONSTIPATION Sodium Phosphate (Fleet Adult Rectal Enema -) 133 ml RC DAILY PRN PRN Reason: CONSTIPATION Last Admin: 04/28/20 12:56 Dose: 133 ml Documented by: Tamsulosin HCl (Flomax -) 0.8 mg PO DAILY@0830 [facility] Last Admin: 04/30/20 09:18 Dose: 0.8 mg Documented by: ASSESSMENT AND PLAN: s/p lumbar lamiectomy/decompression/fusion of T12 to S2 with interbody cage placment S1-2/L5-S1/L4-5/L3-4. Acute Blood Loss Anemia Hemorrhagic Shock improved LV Diastolic Dysfunction UTI HTN BPH - continue antibiotics - monitor drain output - monitor H/H - pain control - incentive spirometry - PO as tolerated - rehab/PT - DVT prophylaxis - can monitor on floor
[2020-04-30] MEDS: NAPH,MB-DB/K PH,MBDB POWDER PACKET PO SCH ×2 (14:35→21:32)
--- NOTE | 2020-04-30 16:12 | PN ---
Progress Note, Physician History of Present Illness: Pod # 4 Seen in icu. awake Feels better s/p T12-S2 decompression/fusion with EBL 2 L and resuscitation with 7 L IVF. Off pressors. afebrile having BM Frustated today as wants to go to floor- as not able to sleep well here-- Awaiting room availability I d/w him as well as case maker/ resident team and RN. No distress - Current Medication List Current Medications: Active Medications Acetaminophen (Tylenol -) 650 mg PO Q6H PRN PRN Reason: FEVER Last Admin: 04/28/20 14:25 Dose: 650 mg Documented by: Bisacodyl (Dulcolax Suppository -) 10 mg [place] DAILY PRN PRN Reason: CONSTIPATION Last Admin: 04/28/20 10:00 Dose: 10 mg Documented by: Docusate Sodium (Colace -) 100 mg PO TID [facility] Last Admin: 04/30/20 14:36 Dose: 100 mg Documented by: Ferrous Sulfate (Feosol -) 325 mg PO DAILY@0800 [facility] Last Admin: 04/30/20 09:18 Dose: 325 mg Documented by: Folic Acid (Folic Acid -) 1 mg PO DAILY [facility] Last Admin: 04/30/20 09:18 Dose: 1 mg Documented by: Vancomycin HCl (Vancomycin (Pre-Docked)) 1,000 mg in 250 mls @ 166.667 mls/hr IVPB Q12H [facility]; Protocol Last Admin: 04/30/20 14:35 Dose: 166.667 mls/hr Documented by: Meropenem 1 gm/ Dextrose 100 mls @ 200 mls/hr IVPB Q8H-IV [facility] Last Admin: 04/30/20 09:17 Dose: 200 mls/hr Documented by: Insulin Aspart (Novolog Vial Sliding Scale -) 1 vial SQ ACBK [facility]; Protocol Last Admin: 04/30/20 07:01 Dose: Not Given Documented by: Losartan Potassium (Cozaar -) 100 mg PO DAILY [facility] Last Admin: 04/30/20 09:18 Dose: 100 mg Documented by: Metoprolol Tartrate (Lopressor -) 25 mg PO BID [facility] Last Admin: 04/30/20 09:18 Dose: 25 mg Documented by: Mupirocin (Bactroban Ointment (For Decolonization) -) 1 applic NS BID [facility] Stop: 05/01/20 21:59 Last Admin: 04/30/20 09:18 Dose: 1 applic Documented by: Ondansetron HCl (Zofran Injection) 4 mg IVPUSH Q6H PRN PRN Reason: NAUSEA Oxycodone HCl (Roxicodone -) 5 mg PO Q4H PRN PRN Reason: PAIN LEVEL 7 - 10 Last Admin: 04/30/20 11:58 Dose: 5 mg Documented by: Polyethylene Glycol (Miralax (For Daily Use) -) 17 gm PO BID [facility] Last Admin: 04/30/20 11:50 Dose: Not Given Documented by: Potassium Phos/Sodium Phos (Phos-Nak Packet -) 1 packet PO TID [facility] Last Admin: 04/30/20 14:35 Dose: 1 packet Documented by: Senna (Senna -) 2 tab PO HS PRN PRN Reason: CONSTIPATION Sodium Phosphate (Fleet Adult Rectal Enema -) 133 ml RC DAILY PRN PRN Reason: CONSTIPATION Last Admin: 04/28/20 12:56 Dose: 133 ml Documented by: Tamsulosin HCl (Flomax -) 0.8 mg PO DAILY@0830 [facility] Last Admin: 04/30/20 09:18 Dose: 0.8 mg Documented by: - Objective Vital Signs: Vital Signs Temperature 98.6 F 04/30/20 10:00 Pulse Rate 87 04/30/20 12:00 Respiratory Rate 18 04/30/20 12:00 Blood Pressure 106/54 L 04/30/20 10:00 O2 Sat by Pulse Oximetry (%) 98 04/30/20 09:00 Constitutional: Yes: No Distress, Anxious Neck: Yes: Supple Cardiovascular: Yes: Regular Rate and Rhythm Respiratory: Yes: Diminished Gastrointestinal: Yes: Soft Edema: No Neurological: Yes: Alert Labs: CBC, BMP 04/30/20 05:55 04/30/20 05:55 INR, PTT INR 1.12 (0.83-1.09) H 04/27/20 05:00 Problem List - Problems (1) Arrhythmia Code(s): I49.9 - CARDIAC ARRHYTHMIA, UNSPECIFIED (2) Fall Code(s): W19.XXXA - UNSPECIFIED FALL, INITIAL ENCOUNTER (3) Back pain Code(s): M54.9 - DORSALGIA, UNSPECIFIED (4) Facet arthropathy, lumbosacral Code(s): M47.817 - SPONDYLS W/O MYELOPATHY OR RADICULOPATHY, LUMBOSACR REGION (5) Hypertension Code(s): I10 - ESSENTIAL (PRIMARY) HYPERTENSION Qualifiers: Hypertension type: essential hypertension Qualified Code(s): I10 - Essential (primary) hypertension Assessment/Plan clinically stable Continue present care continue other meds can go to floor PT Will follow.
[2020-04-30] MEDS: HEPARIN NA (PORCINE) 5,000 UNITS/ML 1ML VIAL SQ SCH (21:32)
--- NOTE | 2020-04-30 23:59 | PN ---
Progress Note, Physician History of Present Illness: AWAKE, RESPONSIVE DEPRESSED WISHES TO BE MOVED OUT OF ICU NO C/O PAIN TEMPS DOWN AFEBRILE WBC REMAINS SL ELEVATED - Current Medication List Current Medications: Active Medications Acetaminophen (Tylenol -) 650 mg PO Q6H PRN PRN Reason: FEVER Last Admin: 04/28/20 14:25 Dose: 650 mg Documented by: Bisacodyl (Dulcolax Suppository -) 10 mg [place] DAILY PRN PRN Reason: CONSTIPATION Last Admin: 04/28/20 10:00 Dose: 10 mg Documented by: Docusate Sodium (Colace -) 100 mg PO TID [facility] Last Admin: 04/30/20 21:32 Dose: 100 mg Documented by: Ferrous Sulfate (Feosol -) 325 mg PO DAILY@0800 [facility] Last Admin: 04/30/20 09:18 Dose: 325 mg Documented by: Folic Acid (Folic Acid -) 1 mg PO DAILY [facility] Last Admin: 04/30/20 09:18 Dose: 1 mg Documented by: Heparin Sodium (Porcine) (Heparin -) 5,000 unit SQ BID [facility] Last Admin: 04/30/20 21:32 Dose: 5,000 unit Documented by: Vancomycin HCl (Vancomycin (Pre-Docked)) 1,000 mg in 250 mls @ 166.667 mls/hr IVPB Q12H [facility]; Protocol Last Admin: 04/30/20 14:35 Dose: 166.667 mls/hr Documented by: Meropenem 1 gm/ Dextrose 100 mls @ 200 mls/hr IVPB Q8H-IV [facility] Last Admin: 04/30/20 18:04 Dose: 200 mls/hr Documented by: Insulin Aspart (Novolog Vial Sliding Scale -) 1 vial SQ ACBK [facility]; Protocol Last Admin: 04/30/20 07:01 Dose: Not Given Documented by: Losartan Potassium (Cozaar -) 100 mg PO DAILY [facility] Last Admin: 04/30/20 09:18 Dose: 100 mg Documented by: Metoprolol Tartrate (Lopressor -) 25 mg PO BID [facility] Last Admin: 04/30/20 21:32 Dose: 25 mg Documented by: Mupirocin (Bactroban Ointment (For Decolonization) -) 1 applic NS BID [facility] Stop: 05/01/20 21:59 Last Admin: 04/30/20 21:32 Dose: 1 applic Documented by: Ondansetron HCl (Zofran Injection) 4 mg IVPUSH Q6H PRN PRN Reason: NAUSEA Oxycodone HCl (Roxicodone -) 5 mg PO Q4H PRN PRN Reason: PAIN LEVEL 7 - 10 Last Admin: 04/30/20 21:28 Dose: 5 mg Documented by: Polyethylene Glycol (Miralax (For Daily Use) -) 17 gm PO BID [facility] Last Admin: 04/30/20 21:32 Dose: 17 gm Documented by: Potassium Phos/Sodium Phos (Phos-Nak Packet -) 1 packet PO TID [facility] Last Admin: 04/30/20 21:32 Dose: 1 packet Documented by: Senna (Senna -) 2 tab PO HS PRN PRN Reason: CONSTIPATION Sodium Phosphate (Fleet Adult Rectal Enema -) 133 ml RC DAILY PRN PRN Reason: CONSTIPATION Last Admin: 04/28/20 12:56 Dose: 133 ml Documented by: Tamsulosin HCl (Flomax -) 0.8 mg PO DAILY@0830 [facility] Last Admin: 04/30/20 09:18 Dose: 0.8 mg Documented by: - Objective Vital Signs: Vital Signs Temperature 98.2 F 04/30/20 22:00 Pulse Rate 92 H 04/30/20 22:00 Respiratory Rate 18 04/30/20 22:00 Blood Pressure 118/77 04/30/20 22:00 O2 Sat by Pulse Oximetry (%) 99 04/30/20 21:00 Constitutional: Yes: No Distress Eyes: Yes: Conjunctiva Clear Cardiovascular: Yes: Regular Rate and Rhythm, S1, S2 Respiratory: Yes: Diminished. No: Regular Gastrointestinal: Yes: Normal Bowel Sounds, Soft Edema: No Labs: CBC, BMP 04/30/20 05:55 04/30/20 05:55 INR, PTT INR 1.12 (0.83-1.09) H 04/27/20 05:00 Assessment/Plan POD#4 LAMINECTOMY UTI + URINE ESBL LEUKOCYTOSIS CONTINUE MEROPENEM D/C VANCOMYCIN
[2020-05-01] MEDS: VANCOMYCIN 1 GRAM (PRE-DOCKED) 1,000 MG/250 ML BAG IVPB SCH ×2 (02:32→13:22)
[2020-05-01] MEDS: MEROPENEM 1 GM in DEXTROSE 5%-WATER 100 ML IVPB SCH ×3 (03:40→18:23)
[2020-05-01] MEDS: oxyCODONE HCL 5 MG TABLET PO PRN ×5 (05:07→22:21)
[2020-05-01] MEDS: DOCUSATE SODIUM 100 MG CAPSULE (FP) PO SCH ×3 (05:08→21:50)
[2020-05-01] MEDS: INSULIN SLIDING SCALE (NOVOLOG) 1 VIAL SQ SCH (06:05)
[2020-05-01] MEDS: NAPH,MB-DB/K PH,MBDB POWDER PACKET PO SCH ×3 (06:06→21:50)
[2020-05-01 06:56] LABS: HEMATOCRIT 28.5 % (35.4-49); HEMOGLOBIN 9.6 GM/dL (11.7-16.9); MCH 29.9 pg (25.7-33.7); MCHC 33.5 g/dl (32.0-35.9); MEAN CELL VOLUME 89.3 fl (80-96); MEAN PLT VOLUME 7.3 fl (7.5-11.1); PLATELET COUNT 333 K/MM3 (134-434); RBC 3.19 M/mm3 (4.00-5.60); RDW 14.5 % (11.9-15.9); WHITE BLOOD COUNT 9.9 K/mm3 (4.0-10.0)
[2020-05-01 07:11] LABS: BLOOD UREA NITROGEN 6.9 mg/dL (7-18); CREATININE 0.5 mg/dL (0.55-1.3); MAGNESIUM 1.6 mg/dL (1.8-2.4); PHOSPHOROUS 2.6 mg/dL (2.5-4.9); POTASSIUM 3.5 mmol/L (3.5-5.1)
[2020-05-01] MEDS: ACETAMINOPHEN 325 MG TABLET (FP) PO PRN (07:52)
[2020-05-01] MEDS: FERROUS SO4 325 MG TABLET (FP) PO SCH (07:53)
[2020-05-01] MEDS: TAMSULOSIN HCL 0.4 MG CAP PO SCH (07:53)
--- NOTE | 2020-05-01 08:51 | PN ---
Progress Note (short form) - Note Progress Note: HD#10 OVERNIGHT EVENTS No acute overnight events. Patient seems to be progressing well. Up for xfr to telemetry. However patient notes feeling more depressed, would like to speak with SW and Passenger Service Supervisor Paul. OBJECTIVE Vital Signs Temp 98.1 F 05/01/20 06:00 Pulse 73 05/01/20 06:00 Resp 18 05/01/20 06:00 BP 132/75 05/01/20 06:00 Pulse Ox 99 05/01/20 07:57 Intake & Output 04/30/20 04/30/20 05/01/20 11:59 23:59 11:59 Intake Total 550 850 610 Output Total 0364 373 0764 Balance -670 -105 -430 Intake: IV 10 10 SALINE LOCK 10 10 IVPB 250 250 350 Oral 300 590 250 Output: Drainage 120 215 300 Posterior Back 120 215 300 Urine 1100 740 740 [place] 1100 700 700 Void 40 40 Other: Voiding Method Indwelling Catheter Indwelling Catheter Indwelling Catheter Bowel Movement Yes Yes: LARGE Yes: LARGE # Bowel Movements 1 1 LINES: LIJ CVC placed 04/26/2020 TUBES: None DRAINS: [place], TAYLER drain SUPPLEMENTAL O2: None GENERAL: depressed affect but physically well-appearing, A/Ox4, answers questions appropriately, pleasant and kind gentleman HEENT: PERRLA, EOMI, moist mucous membranes NECK/BACK: no midline ttp, no spinal stepoff or deformity, no hematoma, full R OM, neck supple CARDIOVASCULAR: regular rate/rhythm, no MGR, strong peripheral pulses, capillary refill <2 seconds, extremities wwp, no edema LUNGS/RESPIRATORY: no respiratory distress, CTAB GI/ABDOMEN: symmetric [id number], normoactive BS, soft, no ttp, no midline pulsatile masses : no CVA tenderness EXTREMITIES: no muscle atrophy, no acute deformity SKIN: warm and dry, no pallor, no jaundice, no rash, no bruising, no skin breakdown, no cuts, no lesions NEUROLOGICAL: GCS 15, CN II-XII grossly intact, 4/5 strength proximally and distally all four extremities, no facial droop PSYCH: depressed affect, not anxious, a bit hypokinetic movement, but not endorsing abnormal or harmful thoughts and appears of sound mind CBCD WBC 9.9 K/mm3 (4.0-10.0) 05/01/20 05:45 RBC 3.19 M/mm3 (4.00-5.60) L 05/01/20 05:45 Hgb 9.6 GM/dL (11.7-16.9) L 05/01/20 05:45 Hct 28.5 % (35.4-49) L 05/01/20 05:45 MCV 89.3 fl (80-96) 05/01/20 05:45 MCHC 33.5 g/dl (32.0-35.9) 05/01/20 05:45 RDW 14.5 % (11.9-15.9) 05/01/20 05:45 Plt Count 333 K/MM3 (134-434) D 05/01/20 05:45 MPV 7.3 fl (7.5-11.1) L 05/01/20 05:45 CMP Sodium 139 mmol/L (136-145) 05/01/20 05:45 Potassium 3.5 mmol/L (3.5-5.1) 05/01/20 05:45 Chloride 104 mmol/L (98-107) 05/01/20 05:45 Carbon Dioxide 26 mmol/L (21-32) 05/01/20 05:45 Anion Gap 9 MMOL/L (8-16) 05/01/20 05:45 BUN 6.9 mg/dL (7-18) L 05/01/20 05:45 Creatinine 0.5 mg/dL (0.55-1.3) L 05/01/20 05:45 Random Glucose 95 mg/dL (74-106) 05/01/20 05:45 Calcium 8.0 mg/dL (8.5-10.1) L 05/01/20 05:45 Total Bilirubin 0.5 mg/dL (0.2-1) 04/30/20 05:55 AST 26 U/L (15-37) 04/30/20 05:55 ALT 25 U/L (13-61) 04/30/20 05:55 Alkaline Phosphatase 79 U/L (45-117) 04/30/20 05:55 Total Protein 4.3 g/dl (6.4-8.2) L 04/30/20 05:55 Albumin 2.0 g/dl (3.4-5.0) L 04/30/20 05:55 CARDIAC ENZYMES Creatine Kinase 104 U/L (26-308) 04/22/20 15:00 Troponin I < 0.02 ng/ml (0.00-0.05) 04/27/20 17:10 Microbiology 04/27/20 17:10 Blood - Peripheral Venous Blood Culture - Preliminary NO GROWTH OBTAINED AFTER 72 HOURS, INCUBATION TO CONTINUE FOR 2 DAYS. 04/27/20 17:20 Blood - Peripheral Venous Blood Culture - Preliminary NO GROWTH OBTAINED AFTER 72 HOURS, INCUBATION TO CONTINUE FOR 2 DAYS. 04/24/20 21:50 Urine - Urine [place] Urine Culture - Final Escherichia Coli Esbl Dental Scheduling Coordinator Non Lactose Fermenting Gnb ASSESSMENT/PLAN: 70 y/o male PMH HTN and BPH c/o mechanical fall and now s/p T12-S2 decompression/fusion with EBL 2L and resuscitation with 7L IVF. Patient left intubated post op due to the length of the procedure and the EBL. Extubated 07/28/2020 and doing well. # Psych -Patient notes feeling very down about his medical problems and lack of movement -Specifically feels he should be progressing faster -Being in hospital without a lot of contact with family has been very difficult -Possible h/o mild depressive sxs but never diagnosed or treated, always was able to manage himself -Hospital time, lack of sleep, hospital food all exacerbating symptoms -Would like to see Passenger Service Supervisorronald Renteria for discussion -Would like to follow up with SW regarding plan for rehab placement -Would like family updated -I will f/u these action items for this gentleman today # Neuro -Patient awake off sedation -PO analgesia -all four extremities weakness 2/2 deconditioning/spinal stenosis. # MSK -Spondylosis now s/p T12-S2 decompression/fusion -patient w/ persistent LE weakness, states improved since the surgery -patient w/ b/l weakness in upper extremities, likely 2/2 deconditioning. -PT onboard -will likely need rehabilitation in d/c # CVS: -home cardiac/BP meds restarted since patient off pressors -LR d/cd as patient normotensive and eating. -Patient w/ episode of AFIB w/ RVR yesterday, broken after 5mg lopressor -remains in sinus rhythm; no further lopressor pushes needed -AC for afib held in light of dropping Hb and serosanguinous drainage from TAYLER drain. # Pulm -Intubated 07/27, extubated 07/28 Patient was left intubated post op; awake, following commands today -vent settings minimal -CXR clear -patient doing well on cpap -patient is a good candidate for extubation today #GI -patient w/ h/o constipation -on bowel regimen and fleet enema at home -patient having BMs; c/w home regimen # ID -hypotension resolved, off pressors since early AM -UCx growing ESBL -f/u BCx final -ID onboard, escalated ABX to meropenem and vanco q12h (day 3) # FEN -no fluids indicated. -Cont. to monitor electrolytes -sodium controlled Diet # PPX -SCDs -AC held in light of sanguinous drainage from TAYLER drain and large about of intra-op blood loss. #Dispo -XFR telemetry Discussed patient with ICU Attending, Bridger Soares MD. Yamilka Bond MD ICU Consult Service
[2020-05-01] MEDS ORDERED: MEROPENEM 1 GM VIAL (RESTRICTED TO ID) IVPB ONE ×2 (09:58→17:17)
[2020-05-01] MEDS ORDERED: PT OWN MED DRAWER 7, Y5N ONE (09:58)
[2020-05-01] MEDS ORDERED: DEXTROSE 5%-WATER 100 ML IVPB ONE ×2 (09:58→17:17)
[2020-05-01] MEDS: LOSARTAN POTASSIUM 50 MG TABLET (FP) PO SCH (10:02)
[2020-05-01] MEDS: FOLIC ACID 1 MG TABLET (FP) PO SCH (10:02)
[2020-05-01] MEDS: METOPROLOL TARTRATE 25 MG TABLET (FP) PO SCH ×2 (10:02→21:50)
[2020-05-01] MEDS: POLYETHYLENE GLYCOL 3350 119 GM BTL PO SCH ×2 (10:04→22:20)
[2020-05-01] MEDS: MUPIROCIN 2% TOPICAL OINTMENT FOR DECOLONIZATION NS SCH (10:04)
[2020-05-01] MEDS: HEPARIN NA (PORCINE) 5,000 UNITS/ML 1ML VIAL SQ SCH ×2 (10:04→21:53)
--- NOTE | 2020-05-01 10:37 | PN ---
Progress Note (short form) - Note Progress Note: Neuro surgery: Vital Signs Period Temp Pulse Resp BP Sys/Chinchilla Pulse Ox Last 24 Hr 98.1 F-98.3 F 63-92 11-18 118-145/67-82 99-99 nguyen: 1400 ml yellow urine posterior drain 515, serosangrenous GEN: A&0x3, NAD ABD: soft, non-distended, non-tender Back: Dressing c/d/i LE: 5/5 dorsi/plantar flexion b/l. No calf tenderness or swelling noted b/l. SCds in place. CBC, BMP 05/01/20 05:45 05/01/20 05:45 04/24/20 21:50 Urine - Urine Nguyen Urine Culture - Final Escherichia Coli Esbl Deli Manager Non Lactose Fermenting Gnb A/P: 70 yo male s/p lumbar lamiectomy/decompression/fusion of T12 to S2 with interbody cage placment S1-2/L5-S1/L4-5/L3-4. dureal defect and repair with duraseal Continue diet as tolerated and stool softners for constipation OOB/ambulate with PT. Wear brace when OOB to chair and ambulating. TAYLER to bile bag/passive drainage. His drain is serosangrenos Pain managment as needed Continue IV abx as per ID for ESBL in urine DVT ppx with heparin SQ Iron supplements
--- NOTE | 2020-05-01 11:41 | PN ---
Teaching Attending Note Name of Resident: Yamilka Bond ATTENDING PHYSICIAN STATEMENT I saw and evaluated the patient. I reviewed the resident's note and discussed the case with the resident. I agree with the resident's findings and plan as documented. SUBJECTIVE: Pt seen and examined in the ICU. Pain uncontrolled today. TAYLER with serous draina ge. No fevers/chills. OBJECTIVE: Vital Signs Period Temp Pulse Resp BP Sys/Chinchilla Pulse Ox Last 24 Hr 97.7 F-98.3 F 63-92 11-18 118-156/67-91 99-99 Intake & Output 04/28/20 04/29/20 04/30/20 05/01/20 23:59 23:59 23:59 23:59 Intake Total 4031 2150 1400 610 Output Total 2335 2810 2175 1040 Balance 1696 -660 -775 -430 Gen: NAD at rest Heart: RRR Lung: decreased breath sounds at the bases Abd: soft, nontender Ext: no edema CBC, BMP 05/01/20 05:45 05/01/20 05:45 Active Medications Acetaminophen (Tylenol -) 650 mg PO Q6H PRN PRN Reason: FEVER Last Admin: 05/01/20 07:52 Dose: 650 mg Documented by: Bisacodyl (Dulcolax Suppository -) 10 mg [place] DAILY PRN PRN Reason: CONSTIPATION Last Admin: 04/28/20 10:00 Dose: 10 mg Documented by: Docusate Sodium (Colace -) 100 mg PO TID [facility] Last Admin: 05/01/20 05:08 Dose: 100 mg Documented by: Ferrous Sulfate (Feosol -) 325 mg PO DAILY@0800 [facility] Last Admin: 05/01/20 07:53 Dose: 325 mg Documented by: Folic Acid (Folic Acid -) 1 mg PO DAILY [facility] Last Admin: 05/01/20 10:02 Dose: 1 mg Documented by: Heparin Sodium (Porcine) (Heparin -) 5,000 unit SQ BID [facility] Last Admin: 05/01/20 10:04 Dose: 5,000 unit Documented by: Vancomycin HCl (Vancomycin (Pre-Docked)) 1,000 mg in 250 mls @ 166.667 mls/hr IVPB Q12H [facility]; Protocol Last Admin: 05/01/20 02:32 Dose: 166.667 mls/hr Documented by: Meropenem 1 gm/ Dextrose 100 mls @ 200 mls/hr IVPB Q8H-IV [facility] Last Admin: 05/01/20 10:01 Dose: 200 mls/hr Documented by: Insulin Aspart (Novolog Vial Sliding Scale -) 1 vial SQ ACBK [facility]; Protocol Last Admin: 05/01/20 06:05 Dose: Not Given Documented by: Losartan Potassium (Cozaar -) 100 mg PO DAILY [facility] Last Admin: 05/01/20 10:02 Dose: 100 mg Documented by: Metoprolol Tartrate (Lopressor -) 25 mg PO BID [facility] Last Admin: 05/01/20 10:02 Dose: 25 mg Documented by: Mupirocin (Bactroban Ointment (For Decolonization) -) 1 applic NS BID [facility] Stop: 05/01/20 21:59 Last Admin: 05/01/20 10:04 Dose: 1 applic Documented by: Ondansetron HCl (Zofran Injection) 4 mg IVPUSH Q6H PRN PRN Reason: NAUSEA Oxycodone HCl (Roxicodone -) 5 mg PO Q4H PRN PRN Reason: PAIN LEVEL 7 - 10 Last Admin: 05/01/20 10:02 Dose: 5 mg Documented by: Polyethylene Glycol (Miralax (For Daily Use) -) 17 gm PO BID [facility] Last Admin: 05/01/20 10:04 Dose: 17 gm Documented by: Potassium Phos/Sodium Phos (Phos-Nak Packet -) 1 packet PO TID [facility] Last Admin: 05/01/20 06:06 Dose: 1 packet Documented by: Senna (Senna -) 2 tab PO HS PRN PRN Reason: CONSTIPATION Sodium Phosphate (Fleet Adult Rectal Enema -) 133 ml RC DAILY PRN PRN Reason: CONSTIPATION Last Admin: 04/28/20 12:56 Dose: 133 ml Documented by: Tamsulosin HCl (Flomax -) 0.8 mg PO DAILY@0830 [facility] Last Admin: 05/01/20 07:53 Dose: 0.8 mg Documented by: ASSESSMENT AND PLAN: s/p lumbar lamiectomy/decompression/fusion of T12 to S2 with interbody cage placment S1-2/L5-S1/L4-5/L3-4. Acute Blood Loss Anemia Hemorrhagic Shock improved LV Diastolic Dysfunction UTI HTN BPH - continue antibiotics - monitor drain output - monitor H/H - pain control - incentive spirometry - PO as tolerated - rehab/PT - DVT prophylaxis - can monitor on floor
--- NOTE | 2020-05-01 13:18 | PN ---
Progress Note, Physician Chief Complaint: Events noted Post op in ICU Hemodynamically stable History of Present Illness: Patient was seen and examined. Awake and alert. Chart was reviewed Denies chest pain, SOB or palpitations - Current Medication List Current Medications: Active Medications Acetaminophen (Tylenol -) 650 mg PO Q6H PRN PRN Reason: FEVER Last Admin: 05/01/20 07:52 Dose: 650 mg Documented by: Bisacodyl (Dulcolax Suppository -) 10 mg [place] DAILY PRN PRN Reason: CONSTIPATION Last Admin: 04/28/20 10:00 Dose: 10 mg Documented by: Docusate Sodium (Colace -) 100 mg PO TID [facility] Last Admin: 05/01/20 05:08 Dose: 100 mg Documented by: Ferrous Sulfate (Feosol -) 325 mg PO DAILY@0800 [facility] Last Admin: 05/01/20 07:53 Dose: 325 mg Documented by: Folic Acid (Folic Acid -) 1 mg PO DAILY [facility] Last Admin: 05/01/20 10:02 Dose: 1 mg Documented by: Heparin Sodium (Porcine) (Heparin -) 5,000 unit SQ BID [facility] Last Admin: 05/01/20 10:04 Dose: 5,000 unit Documented by: Vancomycin HCl (Vancomycin (Pre-Docked)) 1,000 mg in 250 mls @ 166.667 mls/hr I VPB Q12H [facility]; Protocol Last Admin: 05/01/20 02:32 Dose: 166.667 mls/hr Documented by: Meropenem 1 gm/ Dextrose 100 mls @ 200 mls/hr IVPB Q8H-IV [facility] Last Admin: 05/01/20 10:01 Dose: 200 mls/hr Documented by: Insulin Aspart (Novolog Vial Sliding Scale -) 1 vial SQ ACBK [facility]; Protocol Last Admin: 05/01/20 06:05 Dose: Not Given Documented by: Losartan Potassium (Cozaar -) 100 mg PO DAILY [facility] Last Admin: 05/01/20 10:02 Dose: 100 mg Documented by: Metoprolol Tartrate (Lopressor -) 25 mg PO BID [facility] Last Admin: 05/01/20 10:02 Dose: 25 mg Documented by: Mupirocin (Bactroban Ointment (For Decolonization) -) 1 applic NS BID [facility] Stop: 05/01/20 21:59 Last Admin: 05/01/20 10:04 Dose: 1 applic Documented by: Ondansetron HCl (Zofran Injection) 4 mg IVPUSH Q6H PRN PRN Reason: NAUSEA Oxycodone HCl (Roxicodone -) 5 mg PO Q4H PRN PRN Reason: PAIN LEVEL 7 - 10 Last Admin: 05/01/20 10:02 Dose: 5 mg Documented by: Polyethylene Glycol (Miralax (For Daily Use) -) 17 gm PO BID [facility] Last Admin: 05/01/20 10:04 Dose: 17 gm Documented by: Potassium Phos/Sodium Phos (Phos-Nak Packet -) 1 packet PO TID [facility] Last Admin: 05/01/20 06:06 Dose: 1 packet Documented by: Senna (Senna -) 2 tab PO HS PRN PRN Reason: CONSTIPATION Sodium Phosphate (Fleet Adult Rectal Enema -) 133 ml RC DAILY PRN PRN Reason: CONSTIPATION Last Admin: 04/28/20 12:56 Dose: 133 ml Documented by: Tamsulosin HCl (Flomax -) 0.8 mg PO DAILY@0830 [facility] Last Admin: 05/01/20 07:53 Dose: 0.8 mg Documented by: - Objective Vital Signs: Vital Signs Temperature 98.3 F 05/01/20 12:00 Pulse Rate 68 05/01/20 12:00 Respiratory Rate 20 05/01/20 12:00 Blood Pressure 111/75 05/01/20 12:00 O2 Sat by Pulse Oximetry (%) 99 05/01/20 07:57 Neck: Yes: Supple Cardiovascular: Yes: Regular Rate and Rhythm, S1, S2. No: Murmur Respiratory: Yes: CTA Bilaterally Gastrointestinal: Yes: Normal Bowel Sounds, Soft. No: Tenderness Edema: No Labs: CBC, BMP 05/01/20 05:45 05/01/20 05:45 INR, PTT INR 1.12 (0.83-1.09) H 04/27/20 05:00 Problem List - Problems (1) Facet arthropathy, lumbosacral Code(s): M47.817 - SPONDYLS W/O MYELOPATHY OR RADICULOPATHY, LUMBOSACR REGION (2) Fall Code(s): W19.XXXA - UNSPECIFIED FALL, INITIAL ENCOUNTER (3) Premature atrial contraction Code(s): I49.1 - ATRIAL PREMATURE DEPOLARIZATION (4) Premature ventricular contraction Code(s): I49.3 - VENTRICULAR PREMATURE DEPOLARIZATION (5) Preop cardiovascular exam Code(s): Z01.810 - ENCOUNTER FOR PREPROCEDURAL CARDIOVASCULAR EXAMINATION (6) Anemia Code(s): D64.9 - ANEMIA, UNSPECIFIED Qualifiers: Anemia type: unspecified type Qualified Code(s): D64.9 - Anemia, unspecifi ed (7) Hypertension Code(s): I10 - ESSENTIAL (PRIMARY) HYPERTENSION Qualifiers: Hypertension type: essential hypertension Qualified Code(s): I10 - Essential (primary) hypertension Assessment/Plan 1. Mechanical fall in context of acute on chronic back pain 2. Left C4-C5 facet arthropathy, severe multilevel C-spine central canal stenosis, moderate-marked multilevel lumbar degenerative disc changes, moderate- marked multilevel degenerative central canal stenosis: s/p lumbar lamiectomy/decompression/fusion of T12 to S2 with interbody cage placment S1-2/L5-S1/L4-5/L3-4 3. HTN 4. Acute blood loss anemia 5. PVC with ventricular trigeminy 6. Diastolic dysfunction PLAN: 1. Continue Lopressor 25 mg BID and Losartan 100 mg QD 2. DVT prophylaxis, empiric antibiotic coverage, pain control and PT as tolerated 3. Surgical follow up Chuy Renteria MD
[2020-05-01] MEDS ORDERED: MAGNESIUM SULFATE IN WATER 2 GM/50 ML IVPB IVPB ONE (14:45)
[2020-05-01] MEDS ORDERED: MELATONIN 5 MG TABLETS PO PRN (14:47)
[2020-05-01] MEDS: AMINO ACIDS/PROTEIN HYDROLYS 30 ML LIQUID.PKT PO SCH (18:23)
[2020-05-01] MEDS: NIFEdipine E.R. 90 MG TABLET PO SCH (19:14)
--- NOTE | 2020-05-01 23:05 | PN ---
Progress Note (short form) - Note Progress Note: Pain is controlled with meds unsteady gait during PT he is depressed, still in ICU-- he is waiting for bed on the regular floor- - need isolation room Vital Signs - 24 hr 05/01/20 05/01/20 05/01/20 02:00 02:48 06:00 Temperature 98.3 F 98.3 F 98.1 F Pulse Rate 63 63 73 Respiratory 18 18 18 Rate Blood Pressure 145/82 145/82 132/75 O2 Sat by Pulse Oximetry (%) 05/01/20 05/01/20 05/01/20 07:57 08:00 10:00 Temperature 97.7 F Pulse Rate 64 74 Respiratory 13 17 Rate Blood Pressure 156/81 145/91 O2 Sat by Pulse 99 Oximetry (%) 05/01/20 05/01/20 05/01/20 12:00 14:00 16:00 Temperature 98.3 F 98.2 F Pulse Rate 68 68 62 Respiratory 20 17 12 Rate Blood Pressure 111/75 124/67 128/81 O2 Sat by Pulse Oximetry (%) 05/01/20 05/01/20 18:00 21:00 Temperature Pulse Rate 66 Respiratory 19 Rate Blood Pressure 140/73 O2 Sat by Pulse 99 Oximetry (%) Current Medications Generic Name Dose Route Start Last Admin Trade Name Freq PRN Reason Stop Dose Admin Acetaminophen 650 mg 04/28/20 12:56 05/01/20 07:52 Tylenol - PO 650 mg Q6H PRN Administration FEVER Amino Acids 30 ml 05/01/20 17:30 05/01/20 18:23 Prosource No Carb Liquid Pkt PO 30 ml BID@0800,1730 [facility] Administration Bisacodyl 10 mg 04/28/20 18:52 04/28/20 10:00 Dulcolax Suppository - [place] 10 mg DAILY PRN Administration CONSTIPATION Docusate Sodium 100 mg 04/28/20 22:00 05/01/20 21:50 Colace - PO 100 mg TID [facility] Administration Ferrous Sulfate 325 mg 04/29/20 08:00 05/01/20 07:53 Feosol - PO 325 mg DAILY@0800 [facility] Administration Folic Acid 1 mg 04/29/20 10:00 05/01/20 10:02 Folic Acid - PO 1 mg DAILY [facility] Administration Heparin Sodium (Porcine) 5,000 unit 04/30/20 22:00 05/01/20 21:53 Heparin - SQ 5,000 unit BID [facility] Administration Vancomycin HCl 1,000 mg in 250 mls @ 166.667 mls/hr 04/28/20 02:00 05/01/20 1 3:22 Vancomycin (Pre-Docked) IVPB 166.667 mls/hr Q12H [facility] Administration Protocol Meropenem 1 gm/ Dextrose 100 mls @ 200 mls/hr 04/27/20 15:15 05/01/20 18:23 IVPB 200 mls/hr Q8H-IV [facility] Administration Insulin Aspart 1 vial 04/27/20 14:45 05/01/20 06:05 Novolog Vial Sliding Scale - SQ Not Given [facility] Protocol Losartan Potassium 100 mg 04/29/20 10:00 05/01/20 10:02 Cozaar - PO 100 mg DAILY [facility] Administration Melatonin 5 mg 05/01/20 14:47 Melatonin PO HS PRN INSOMNIA Metoprolol Tartrate 25 mg 04/29/20 10:00 05/01/20 21:50 Lopressor - PO 25 mg BID [facility] Administration Ondansetron HCl 4 mg 04/28/20 18:52 Zofran Injection IVPUSH Q6H PRN NAUSEA Oxycodone HCl 5 mg 04/28/20 19:21 05/01/20 22:21 Roxicodone - PO 5 mg Q4H PRN Administration PAIN LEVEL 7 - 10 Polyethylene Glycol 17 gm 04/28/20 22:00 05/01/20 22:20 Miralax (For Daily Use) - PO 17 gm BID [facility] Administration Potassium Phos/Sodium Phos 1 packet 04/30/20 14:00 05/01/20 21:50 Phos-Nak Packet - PO 1 packet TID [facility] Administration Senna 2 tab 04/28/20 22:00 Senna - PO HS PRN CONSTIPATION Sodium Phosphate 133 ml 04/28/20 12:02 04/28/20 12:56 Fleet Adult Rectal Enema - RC 133 ml DAILY PRN Administration CONSTIPATION Tamsulosin HCl 0.8 mg 04/29/20 08:30 05/01/20 07:53 Flomax - PO 0.8 mg DAILY@0830 [facility] Administration Laboratory Results - last 24 hr 04/28/20 05/01/20 05/01/20 13:30 05:44 05:45 WBC 9.9 RBC 3.19 L Hgb 9.6 L Hct 28.5 L MCV 89.3 MCH 29.9 MCHC 33.5 RDW 14.5 Plt Count 333 D MPV 7.3 L Sodium Potassium Chloride Carbon Dioxide Anion Gap BUN Creatinine Est GFR (CKD-EPI)AfAm Est GFR (CKD-EPI)NonAf POC Glucometer 107 Random Glucose Calcium Phosphorus Magnesium Blood Type O POSITIVE Antibody Screen Negative Crossmatch See Detail 05/01/20 05:45 WBC RBC Hgb Hct MCV MCH MCHC RDW Plt Count MPV Sodium 139 Potassium 3.5 Chloride 104 Carbon Dioxide 26 Anion Gap 9 BUN 6.9 L Creatinine 0.5 L Est GFR (CKD-EPI)AfAm 126.36 Est GFR (CKD-EPI)NonAf 109.03 POC Glucometer Random Glucose 95 Calcium 8.0 L Phosphorus 2.6 Magnesium 1.6 L Blood Type Antibody Screen Crossmatch Microbiology 04/27/20 17:10 Blood Culture - Preliminary Blood - Peripheral Venous NO GROWTH OBTAINED AFTER 96 HOURS, INCUBATION TO CONTINUE FOR 1 DAYS. 04/27/20 17:20 Blood Culture - Preliminary Blood - Peripheral Venous NO GROWTH OBTAINED AFTER 96 HOURS, INCUBATION TO CONTINUE FOR 1 DAYS. S1S2 RRR Lungs clear Abd -soft, NT, ND No edema A/P pain control continue BP meds add melatonin to help him with sleep incentive spirometry replace magnesium iv antibiotics for ESBL in Urine Problem List - Problems (1) UTI (urinary tract infection) Code(s): N39.0 - URINARY TRACT INFECTION, SITE NOT SPECIFIED (2) Arrhythmia Code(s): I49.9 - CARDIAC ARRHYTHMIA, UNSPECIFIED (3) Back pain Code(s): M54.9 - DORSALGIA, UNSPECIFIED (4) Facet arthropathy, lumbosacral Code(s): M47.817 - SPONDYLS W/O MYELOPATHY OR RADICULOPATHY, LUMBOSACR REGION (5) Premature atrial contraction Code(s): I49.1 - ATRIAL PREMATURE DEPOLARIZATION (6) UTI (lower urinary tract infection) Code(s): N39.0 - URINARY TRACT INFECTION, SITE NOT SPECIFIED
--- NOTE | 2020-05-01 23:42 | PN ---
Progress Note, Physician History of Present Illness: AWAKE, RESPONSIVE DEPRESSED WISHES TO BE MOVED OUT OF ICU NO C/O PAIN TEMPS DOWN AFEBRILE WBC IMPROVED - Current Medication List Current Medications: Active Medications Acetaminophen (Tylenol -) 650 mg PO Q6H PRN PRN Reason: FEVER Last Admin: 05/01/20 07:52 Dose: 650 mg Documented by: Amino Acids (Prosource No Carb Liquid Pkt) 30 ml PO BID@0800,1730 [facility] Last Admin: 05/01/20 18:23 Dose: 30 ml Documented by: Bisacodyl (Dulcolax Suppository -) 10 mg [place] DAILY PRN PRN Reason: CONSTIPATION Last Admin: 04/28/20 10:00 Dose: 10 mg Documented by: Docusate Sodium (Colace -) 100 mg PO TID [facility] Last Admin: 05/01/20 21:50 Dose: 100 mg Documented by: Ferrous Sulfate (Feosol -) 325 mg PO DAILY@0800 [facility] Last Admin: 05/01/20 07:53 Dose: 325 mg Documented by: Folic Acid (Folic Acid -) 1 mg PO DAILY [facility] Last Admin: 05/01/20 10:02 Dose: 1 mg Documented by: Heparin Sodium (Porcine) (Heparin -) 5,000 unit SQ BID [facility] Last Admin: 05/01/20 21:53 Dose: 5,000 unit Documented by: Vancomycin HCl (Vancomycin (Pre-Docked)) 1,000 mg in 250 mls @ 166.667 mls/hr IVPB Q12H [facility]; Protocol Last Admin: 05/01/20 13:22 Dose: 166.667 mls/hr Documented by: Meropenem 1 gm/ Dextrose 100 mls @ 200 mls/hr IVPB Q8H-IV [facility] Last Admin: 05/01/20 18:23 Dose: 200 mls/hr Documented by: Insulin Aspart (Novolog Vial Sliding Scale -) 1 vial SQ ACBK [facility]; Protocol Last Admin: 05/01/20 06:05 Dose: Not Given Documented by: Losartan Potassium (Cozaar -) 100 mg PO DAILY [facility] Last Admin: 05/01/20 10:02 Dose: 100 mg Documented by: Melatonin (Melatonin) 5 mg PO HS PRN PRN Reason: INSOMNIA Last Admin: 05/01/20 23:15 Dose: 5 mg Documented by: Metoprolol Tartrate (Lopressor -) 25 mg PO BID [facility] Last Admin: 05/01/20 21:50 Dose: 25 mg Documented by: Ondansetron HCl (Zofran Injection) 4 mg IVPUSH Q6H PRN PRN Reason: NAUSEA Oxycodone HCl (Roxicodone -) 5 mg PO Q4H PRN PRN Reason: PAIN LEVEL 7 - 10 Last Admin: 05/01/20 22:21 Dose: 5 mg Documented by: Polyethylene Glycol (Miralax (For Daily Use) -) 17 gm PO BID [facility] Last Admin: 05/01/20 22:20 Dose: 17 gm Documented by: Potassium Phos/Sodium Phos (Phos-Nak Packet -) 1 packet PO TID [facility] Last Admin: 05/01/20 21:50 Dose: 1 packet Documented by: Senna (Senna -) 2 tab PO HS PRN PRN Reason: CONSTIPATION Sodium Phosphate (Fleet Adult Rectal Enema -) 133 ml RC DAILY PRN PRN Reason: CONSTIPATION Last Admin: 04/28/20 12:56 Dose: 133 ml Documented by: Tamsulosin HCl (Flomax -) 0.8 mg PO DAILY@0830 [facility] Last Admin: 05/01/20 07:53 Dose: 0.8 mg Documented by: - Objective Vital Signs: Vital Signs Temperature 98.2 F 05/01/20 16:00 Pulse Rate 81 05/01/20 22:00 Respiratory Rate 14 05/01/20 22:00 Blood Pressure 128/76 05/01/20 22:00 O2 Sat by Pulse Oximetry (%) 99 05/01/20 21:00 Constitutional: Yes: No Distress Cardiovascular: Yes: Regular Rate and Rhythm, S1, S2 Respiratory: Yes: CTA Bilaterally Gastrointestinal: Yes: Normal Bowel Sounds, Soft Edema: Yes Labs: CBC, BMP 05/01/20 05:45 05/01/20 05:45 INR, PTT INR 1.12 (0.83-1.09) H 04/27/20 05:00 Assessment/Plan POD#5 LAMINECTOMY UTI + URINE ESBL LEUKOCYTOSIS CONTINUE MEROPENEM D/C VANCOMYCIN
[2020-05-02] MEDS ORDERED: MEROPENEM 1 GM VIAL (RESTRICTED TO ID) IVPB ONE ×4 (01:59→17:50)
[2020-05-02] MEDS ORDERED: DEXTROSE 5%-WATER 100 ML IVPB ONE ×4 (01:59→17:51)
[2020-05-02] MEDS: MEROPENEM 1 GM in DEXTROSE 5%-WATER 100 ML IVPB SCH ×3 (02:06→18:31)
[2020-05-02] MEDS: VANCOMYCIN 1 GRAM (PRE-DOCKED) 1,000 MG/250 ML BAG IVPB SCH (03:05)
[2020-05-02] MEDS: oxyCODONE HCL 5 MG TABLET PO PRN ×4 (05:45→21:41)
[2020-05-02] MEDS: NAPH,MB-DB/K PH,MBDB POWDER PACKET PO SCH ×3 (07:20→21:40)
[2020-05-02] MEDS: DOCUSATE SODIUM 100 MG CAPSULE (FP) PO SCH ×3 (07:20→21:40)
[2020-05-02] MEDS: INSULIN SLIDING SCALE (NOVOLOG) 1 VIAL SQ SCH (07:31)
--- NOTE | 2020-05-02 09:24 | PN ---
Progress Note (short form) - Note Progress Note: NEUROSURGERY POD #6 Last Vital Signs Temp Pulse Resp BP Pulse Ox 98.3 F 57 L 13 141/77 100 05/02/20 06:00 05/02/20 08:00 05/02/20 08:00 05/02/20 08:00 05/02/20 07:33 CBC, BMP 05/01/20 05:45 05/01/20 05:45 Selected Entries 05/01/20 05/01/20 05/02/20 06:00 18:29 07:31 Drain to bile bag 300 300 330 Microbiology: 04/24/20 21:50 Urine - Urine Nguyen Urine Culture - Final: Escherichia Coli Esbl [employer]; Non Lactose Fermenting GnbPE PE GEN: A&0x3, NAD ABD: soft, non-distended, non-tender Back: Dressing c/d/i. No evidence of infection. LE: 5/5 dorsi/plantar flexion b/l. No calf tenderness or swelling noted b/l. SCds in place. : nguyen (clear) to gravity LE: all compartments soft. SCDs bilat Problem List - Problems (1) Back pain Assessment/Plan: POD #6 s/p lumbar lamiectomy/decompression/fusion of T12 to S2 with interbody cage placement S1-2/L5-S1/L4-5/L3-4. Dural defect and repair with duraseal -Continue diet as tolerated -Stool softners for constipation -OOB/ambulate with PT. -Wear brace when OOB to chair and ambulating. -Monitor/record TAYLER(to bile bag) -Pain managment PRN -IV abx as per ID for ESBL in urine -DVT ppx -Iron supplements Above plan discussed with Dr. Gao and agrees. Code(s): M54.9 - DORSALGIA, UNSPECIFIED (2) VRE (vancomycin resistant enterococcus) culture positive Code(s): Z22.39 - CARRIER OF OTHER SPECIFIED BACTERIAL DISEASES (3) Facet arthropathy, lumbosacral Code(s): M47.817 - SPONDYLS W/O MYELOPATHY OR RADICULOPATHY, LUMBOSACR REGION (4) Hypertension Code(s): I10 - ESSENTIAL (PRIMARY) HYPERTENSION Qualifiers: Hypertension type: essential hypertension Qualified Code(s): I10 - Essential (primary) hypertension
[2020-05-02] MEDS ORDERED: PT OWN MED DRAWER 7, Y5N ONE (09:25)
[2020-05-02] MEDS: HEPARIN NA (PORCINE) 5,000 UNITS/ML 1ML VIAL SQ SCH ×2 (09:43→21:41)
[2020-05-02] MEDS: TAMSULOSIN HCL 0.4 MG CAP PO SCH (09:43)
[2020-05-02] MEDS: FERROUS SO4 325 MG TABLET (FP) PO SCH (09:43)
[2020-05-02] MEDS: AMINO ACIDS/PROTEIN HYDROLYS 30 ML LIQUID.PKT PO SCH ×2 (09:43→17:33)
[2020-05-02] MEDS: FOLIC ACID 1 MG TABLET (FP) PO SCH (09:43)
[2020-05-02] MEDS: LOSARTAN POTASSIUM 50 MG TABLET (FP) PO SCH (09:43)
[2020-05-02] MEDS: METOPROLOL TARTRATE 25 MG TABLET (FP) PO SCH ×2 (09:43→21:41)
[2020-05-02] MEDS: POLYETHYLENE GLYCOL 3350 119 GM BTL PO SCH ×2 (09:48→21:41)
[2020-05-02] MEDS: ACETAMINOPHEN 325 MG TABLET (FP) PO PRN ×2 (09:49→17:33)
--- NOTE | 2020-05-02 10:08 | PN ---
Progress Note, Physician History of Present Illness: AWAKE, RESPONSIVE IN BED NO C/O PAIN AFEBRILE WBC IMPROVED - Current Medication List Current Medications: Active Medications Acetaminophen (Tylenol -) 650 mg PO Q6H PRN PRN Reason: FEVER Last Admin: 05/02/20 09:49 Dose: 650 mg Documented by: Amino Acids (Prosource No Carb Liquid Pkt) 30 ml PO BID@0800,1730 [facility] Last Admin: 05/02/20 09:43 Dose: 30 ml Documented by: Bisacodyl (Dulcolax Suppository -) 10 mg [place] DAILY PRN PRN Reason: CONSTIPATION Last Admin: 04/28/20 10:00 Dose: 10 mg Documented by: Docusate Sodium (Colace -) 100 mg PO TID [facility] Last Admin: 05/02/20 07:20 Dose: 100 mg Documented by: Ferrous Sulfate (Feosol -) 325 mg PO DAILY@0800 [facility] Last Admin: 05/02/20 09:43 Dose: 325 mg Documented by: Folic Acid (Folic Acid -) 1 mg PO DAILY [facility] Last Admin: 05/02/20 09:43 Dose: 1 mg Documented by: Heparin Sodium (Porcine) (Heparin -) 5,000 unit SQ BID [facility] Last Admin: 05/02/20 09:43 Dose: 5,000 unit Documented by: Meropenem 1 gm/ Dextrose 100 mls @ 200 mls/hr IVPB Q8H-IV [facility] Last Admin: 05/02/20 02:06 Dose: 200 mls/hr Documented by: Insulin Aspart (Novolog Vial Sliding Scale -) 1 vial SQ [facility]; Protocol Last Admin: 05/02/20 07:31 Dose: Not Given Documented by: Losartan Potassium (Cozaar -) 100 mg PO DAILY [facility] Last Admin: 05/02/20 09:43 Dose: 100 mg Documented by: Melatonin (Melatonin) 5 mg PO HS PRN PRN Reason: INSOMNIA Last Admin: 05/01/20 23:15 Dose: 5 mg Documented by: Metoprolol Tartrate (Lopressor -) 25 mg PO BID [facility] Last Admin: 05/02/20 09:43 Dose: 25 mg Documented by: Ondansetron HCl (Zofran Injection) 4 mg IVPUSH Q6H PRN PRN Reason: NAUSEA Last Admin: 06/24/20 02:06 Dose: 4 mg Documented by: Oxycodone HCl (Roxicodone -) 5 mg PO Q4H PRN PRN Reason: PAIN LEVEL 7 - 10 Last Admin: 05/02/20 09:48 Dose: 5 mg Documented by: Polyethylene Glycol (Miralax (For Daily Use) -) 17 gm PO BID [facility] Last Admin: 05/02/20 09:48 Dose: 17 gm Documented by: Potassium Phos/Sodium Phos (Phos-Nak Packet -) 1 packet PO TID [facility] Last Admin: 05/02/20 07:20 Dose: 1 packet Documented by: Senna (Senna -) 2 tab PO HS PRN PRN Reason: CONSTIPATION Sodium Phosphate (Fleet Adult Rectal Enema -) 133 ml RC DAILY PRN PRN Reason: CONSTIPATION Last Admin: 04/28/20 12:56 Dose: 133 ml Documented by: Tamsulosin HCl (Flomax -) 0.8 mg PO DAILY@0830 [facility] Last Admin: 05/02/20 09:43 Dose: 0.8 mg Documented by: - Objective Vital Signs: Vital Signs Temperature 98.1 F 05/02/20 09:47 Pulse Rate 85 05/02/20 10:01 Respiratory Rate 19 05/02/20 10:01 Blood Pressure 124/59 L 05/02/20 10:01 O2 Sat by Pulse Oximetry (%) 100 05/02/20 07:33 Constitutional: Yes: No Distress Eyes: Yes: Conjunctiva Clear Cardiovascular: Yes: Regular Rate and Rhythm, S1, S2 Respiratory: Yes: CTA Bilaterally Gastrointestinal: Yes: Normal Bowel Sounds, Soft. No: Tenderness Edema: Yes Labs: CBC, BMP 05/01/20 05:45 05/01/20 05:45 INR, PTT INR 1.12 (0.83-1.09) H 04/27/20 05:00 Assessment/Plan POD#6 LAMINECTOMY UTI + URINE ESBL LEUKOCYTOSIS CONTINUE MEROPENEM ADDITIONAL 24HR
--- NOTE | 2020-05-02 10:55 | PN ---
Physical Exam: SUBJECTIVE: Patient seen and examined. Pt afebrile and asymptomatic. C/o of lack of sleep due to noise c/o, feelings decreased mood, anxious to be discharged. Passing stool, urinating, tolerating diet, but appetite decreased. OBJECTIVE: Vital Signs Period Temp Pulse Resp BP Sys/Chinchilla Pulse Ox Last 24 Hr 98.0 F-98.3 F 57-85 12-20 111-141/59-83 99-100 GENERAL: The patient is awake, alert, and fully oriented, in no acute distress. Decreased mood but physically well-appearing EYES: PERRL, extraocular movements intact, sclera anicteric, conjunctiva clear. No ptosis. ENT: moist mucous membranes. NECK: Trachea midline, full range of motion, supple. LUNGS: Breath sounds equal, clear to auscultation bilaterally, no wheezes, no crackles, HEART: Regular rate and rhythm, S1, S2 without murmur, rub or gallop. ABDOMEN: Soft, nontender, nondistended, normoactive bowel sounds, no guarding, EXTREMITIES: 2+ pulses, warm, well-perfused, no edema. NEUROLOGICAL: Normal speech, gait not observed. PSYCH: decreased mood SKIN: Warm, dry, normal turgor, no rashes or lesions noted Laboratory Results - last 24 hr 04/28/20 05/02/20 13:30 07:24 POC Glucometer 102 Blood Type O POSITIVE Antibody Screen Negative Crossmatch See Detail Active Medications Generic Name Dose Route Start Last Admin Trade Name Freq PRN Reason Stop Dose Admin Acetaminophen 650 mg 04/28/20 12:56 05/02/20 09:49 Tylenol - PO 650 mg Q6H PRN Administration FEVER Amino Acids 30 ml 05/01/20 17:30 05/02/20 09:43 Prosource No Carb Liquid Pkt PO 30 ml BID@0800,1730 [facility] Administration Bisacodyl 10 mg 04/28/20 18:52 04/28/20 10:00 Dulcolax Suppository - [place] 10 mg DAILY PRN Administration CONSTIPATION Docusate Sodium 100 mg 04/28/20 22:00 05/02/20 07:20 Colace - PO 100 mg TID [facility] Administration Ferrous Sulfate 325 mg 04/29/20 08:00 05/02/20 09:43 Feosol - PO 325 mg DAILY@0800 [facility] Administration Folic Acid 1 mg 04/29/20 10:00 05/02/20 09:43 Folic Acid - PO 1 mg DAILY [facility] Administration Heparin Sodium (Porcine) 5,000 unit 04/30/20 22:00 05/02/20 09:43 Heparin - SQ 5,000 unit BID [facility] Administration Meropenem 1 gm/ Dextrose 100 mls @ 200 mls/hr 04/27/20 15:15 05/02/20 02:06 IVPB 05/03/20 23:00 200 mls/hr Q8H-IV [facility] Administration Insulin Aspart 1 vial 04/27/20 14:45 05/02/20 07:31 Novolog Vial Sliding Scale - SQ Not Given [facility] Protocol Losartan Potassium 100 mg 04/29/20 10:00 05/02/20 09:43 Cozaar - PO 100 mg DAILY [facility] Administration Melatonin 5 mg 05/01/20 14:47 05/01/20 23:15 Melatonin PO 5 mg HS PRN Administration INSOMNIA Metoprolol Tartrate 25 mg 04/29/20 10:00 05/02/20 09:43 Lopressor - PO 25 mg BID [facility] Administration Ondansetron HCl 4 mg 04/28/20 18:52 05/02/20 02:06 Zofran Injection IVPUSH 4 mg Q6H PRN Administration NAUSEA Oxycodone HCl 5 mg 04/28/20 19:21 05/02/20 09:48 Roxicodone - PO 5 mg Q4H PRN Administration PAIN LEVEL 7 - 10 Polyethylene Glycol 17 gm 04/28/20 22:00 05/02/20 09:48 Miralax (For Daily Use) - PO 17 gm BID [facility] Administration Potassium Phos/Sodium Phos 1 packet 04/30/20 14:00 05/02/20 07:20 Phos-Nak Packet - PO 1 packet TID [facility] Administration Senna 2 tab 04/28/20 22:00 Senna - PO HS PRN CONSTIPATION Sodium Phosphate 133 ml 04/28/20 12:02 04/28/20 12:56 Fleet Adult Rectal Enema - RC 133 ml DAILY PRN Administration CONSTIPATION Tamsulosin HCl 0.8 mg 04/29/20 08:30 05/02/20 09:43 Flomax - PO 0.8 mg DAILY@0830 [facility] Administration ASSESSMENT/PLAN: 70 y/o male PMH HTN and BPH c/o mechanical fall and now s/p T12-S2 decompression/fusion with EBL 2L and resuscitation with 7L IVF. Patient left intubated post op due to the length of the procedure and the EBL. Extubated 07/28/2020 and doing well. # Neuro awake off sedation PO analgesia all four extremities weakness 2/2 deconditioning/spinal stenosis. #MSK Spondylosis now s/p T12-S2 decompression/fusion PT onboard will likely need rehabilitation in d/c Left arm strength improved #CVS: home cardiac/BP meds restarted since patient off pressors AC for afib held in light of dropping Hb and serosanguinous drainage from TAYLER drain. #Pulm Intubated 07/27, extubated 07/28 stable #GI patient w/ h/o constipation on bowel regimen and fleet enema at home #ID UCx- ESBL ID onboard Meropenem [id number], d/c Abx tomorrow after 24hrs #Psych Patient notes feeling very down about his medical problems and lack of movement Being in hospital without a lot of contact with family has been very difficult Hospital time, lack of sleep, hospital food all exacerbating symptoms Would like to see Chaplain Renteria for discussion # FEN Cont. to monitor electrolytes sodium controlled Diet #PPX SCDs AC held in light of sanguinous drainage from TAYLER drain and large about of intra- op blood loss. #Dispo: transfer to med-surg, discussed with Dr. Angelo, pt does not need tele. Visit type - Emergency Visit Emergency Visit: Yes ED Registration Date: 04/22/20 Care time: The patient presented to the Emergency Department on the above date and was hospitalized for further evaluation of their emergent condition. - New Patient This patient is new to me today: Yes Date on this admission: 05/08/20 - Critical Care Critical Care patient: No - Discharge Referral Referred to [facility] No ATTENDING PHYSICIAN STATEMENT I saw and evaluated the patient. I reviewed the resident's note and discussed the case with the resident. I agree with the resident's findings and plan as documented. SUBJECTIVE: OBJECTIVE: ASSESSMENT AND PLAN:
[2020-05-02 11:15] LABS: HEMATOCRIT 30.7 % (35.4-49); MCH 29.2 pg (25.7-33.7); MCHC 32.6 g/dl (32.0-35.9); MEAN CELL VOLUME 89.4 fl (80-96); MEAN PLT VOLUME 6.9 fl (7.5-11.1); PLATELET COUNT 428 K/MM3 (134-434); RBC 3.43 M/mm3 (4.00-5.60); RDW 14.6 % (11.9-15.9); WHITE BLOOD COUNT 9.4 K/mm3 (4.0-10.0)
--- NOTE | 2020-05-02 11:36 | PN ---
Teaching Attending Note Name of Resident: Alden Lujan ATTENDING PHYSICIAN STATEMENT I saw and evaluated the patient. I reviewed the resident's note and discussed the case with the resident. I agree with the resident's findings and plan as documented. SUBJECTIVE: Pt seen and examined in the ICU. Pain better controlled today. TAYLER with serosan guinous drainage. No fevers/chills. OBJECTIVE: Vital Signs Period Temp Pulse Resp BP Sys/Chinchilla Pulse Ox Last 24 Hr 98.0 F-98.3 F 57-85 12-20 111-141/59-83 99-100 Intake & Output 04/29/20 04/30/20 05/01/20 05/02/20 23:59 23:59 23:59 23:59 Intake Total 2150 1400 1710 Output Total 2810 2175 2240 630 Balance -660 -775 -530 -630 Gen: NAD at rest Heart: RRR Lung: decreased breath sounds at the bases Abd: soft, nontender Ext: no edema CBC, BMP 05/02/20 10:58 05/01/20 05:45 Active Medications Acetaminophen (Tylenol -) 650 mg PO Q6H PRN PRN Reason: FEVER Last Admin: 05/02/20 09:49 Dose: 650 mg Documented by: Amino Acids (Prosource No Carb Liquid Pkt) 30 ml PO BID@0800,1730 [facility] Last Admin: 05/02/20 09:43 Dose: 30 ml Documented by: Bisacodyl (Dulcolax Suppository -) 10 mg [place] DAILY PRN PRN Reason: CONSTIPATION Last Admin: 04/28/20 10:00 Dose: 10 mg Documented by: Docusate Sodium (Colace -) 100 mg PO TID [facility] Last Admin: 05/02/20 07:20 Dose: 100 mg Documented by: Ferrous Sulfate (Feosol -) 325 mg PO DAILY@0800 [facility] Last Admin: 05/02/20 09:43 Dose: 325 mg Documented by: Folic Acid (Folic Acid -) 1 mg PO DAILY [facility] Last Admin: 05/02/20 09:43 Dose: 1 mg Documented by: Heparin Sodium (Porcine) (Heparin -) 5,000 unit SQ BID [facility] Last Admin: 05/02/20 09:43 Dose: 5,000 unit Documented by: Meropenem 1 gm/ Dextrose 100 mls @ 200 mls/hr IVPB Q8H-IV [facility] Stop: 05/03/20 23:00 Last Admin: 05/02/20 02:06 Dose: 200 mls/hr Documented by: Insulin Aspart (Novolog Vial Sliding Scale -) 1 vial SQ ACBK [facility]; Protocol Last Admin: 05/02/20 07:31 Dose: Not Given Documented by: Losartan Potassium (Cozaar -) 100 mg PO DAILY [facility] Last Admin: 05/02/20 09:43 Dose: 100 mg Documented by: Melatonin (Melatonin) 5 mg PO HS PRN PRN Reason: INSOMNIA Last Admin: 05/01/20 23:15 Dose: 5 mg Documented by: Metoprolol Tartrate (Lopressor -) 25 mg PO BID [facility] Last Admin: 05/02/20 09:43 Dose: 25 mg Documented by: Ondansetron HCl (Zofran Injection) 4 mg IVPUSH Q6H PRN PRN Reason: NAUSEA Last Admin: 05/02/20 02:06 Dose: 4 mg Documented by: Oxycodone HCl (Roxicodone -) 5 mg PO Q4H PRN PRN Reason: PAIN LEVEL 7 - 10 Last Admin: 05/02/20 09:48 Dose: 5 mg Documented by: Polyethylene Glycol (Miralax (For Daily Use) -) 17 gm PO BID [facility] Last Admin: 05/02/20 09:48 Dose: 17 gm Documented by: Potassium Phos/Sodium Phos (Phos-Nak Packet -) 1 packet PO TID [facility] Last Admin: 05/02/20 07:20 Dose: 1 packet Documented by: Senna (Senna -) 2 tab PO HS PRN PRN Reason: CONSTIPATION Sodium Phosphate (Fleet Adult Rectal Enema -) 133 ml RC DAILY PRN PRN Reason: CONSTIPATION Last Admin: 04/28/20 12:56 Dose: 133 ml Documented by: Tamsulosin HCl (Flomax -) 0.8 mg PO DAILY@0830 [facility] Last Admin: 05/02/20 09:43 Dose: 0.8 mg Documented by: ASSESSMENT AND PLAN: s/p lumbar lamiectomy/decompression/fusion of T12 to S2 with interbody cage placment S1-2/L5-S1/L4-5/L3-4 Acute Blood Loss Anemia Hemorrhagic Shock improved LV Diastolic Dysfunction UTI HTN BPH - continue antibiotics - monitor drain output - monitor H/H - pain control - incentive spirometry - PO as tolerated - rehab/PT - DVT prophylaxis - can monitor on floor
[2020-05-02] MEDS ORDERED: MAGNESIUM SULF 50% (8.12 MEQ/2 ML-1 GM VIAL) IVPB ONE (12:35)
--- NOTE | 2020-05-02 12:44 | PN ---
Progress Note, Physician History of Present Illness: Denies chest pain, SOB or palpitations, back pain adequately controlled. TAYLER drain with serosaunguinous drainage. - Current Medication List Current Medications: Active Medications Acetaminophen (Tylenol -) 650 mg PO Q6H PRN PRN Reason: FEVER Last Admin: 05/02/20 09:49 Dose: 650 mg Documented by: Amino Acids (Prosource No Carb Liquid Pkt) 30 ml PO BID@0800,1730 [facility] Last Admin: 05/02/20 09:43 Dose: 30 ml Documented by: Bisacodyl (Dulcolax Suppository -) 10 mg [place] DAILY PRN PRN Reason: CONSTIPATION Last Admin: 04/28/20 10:00 Dose: 10 mg Documented by: Docusate Sodium (Colace -) 100 mg PO TID [facility] Last Admin: 05/02/20 07:20 Dose: 100 mg Documented by: Ferrous Sulfate (Feosol -) 325 mg PO DAILY@0800 [facility] Last Admin: 05/02/20 09:43 Dose: 325 mg Documented by: Folic Acid (Folic Acid -) 1 mg PO DAILY [facility] Last Admin: 05/02/20 09:43 Dose: 1 mg Documented by: Heparin Sodium (Porcine) (Heparin -) 5,000 unit SQ BID [facility] Last Admin: 05/02/20 09:43 Dose: 5,000 unit Documented by: Meropenem 1 gm/ Dextrose 100 mls @ 200 mls/hr IVPB Q8H-IV [facility] Stop: 05/03/20 23:00 Last Admin: 05/02/20 12:37 Dose: 200 mls/hr Documented by: Insulin Aspart (Novolog Vial Sliding Scale -) 1 vial SQ BK [facility]; Protocol Last Admin: 05/02/20 07:31 Dose: Not Given Documented by: Losartan Potassium (Cozaar -) 100 mg PO DAILY [facility] Last Admin: 05/02/20 09:43 Dose: 100 mg Documented by: Melatonin (Melatonin) 5 mg PO HS PRN PRN Reason: INSOMNIA Last Admin: 05/01/20 23:15 Dose: 5 mg Documented by: Metoprolol Tartrate (Lopressor -) 25 mg PO BID [facility] Last Admin: 05/02/20 09:43 Dose: 25 mg Documented by: Ondansetron HCl (Zofran Injection) 4 mg IVPUSH Q6H PRN PRN Reason: NAUSEA Last Admin: 05/02/20 02:06 Dose: 4 mg Documented by: Oxycodone HCl (Roxicodone -) 5 mg PO Q4H PRN PRN Reason: PAIN LEVEL 7 - 10 Last Admin: 05/02/20 09:48 Dose: 5 mg Documented by: Polyethylene Glycol (Miralax (For Daily Use) -) 17 gm PO BID [facility] Last Admin: 05/02/20 09:48 Dose: 17 gm Documented by: Potassium Phos/Sodium Phos (Phos-Nak Packet -) 1 packet PO TID [facility] Last Admin: 05/02/20 07:20 Dose: 1 packet Documented by: Senna (Senna -) 2 tab PO HS PRN PRN Reason: CONSTIPATION Sodium Phosphate (Fleet Adult Rectal Enema -) 133 ml RC DAILY PRN PRN Reason: CONSTIPATION Last Admin: 04/28/20 12:56 Dose: 133 ml Documented by: Tamsulosin HCl (Flomax -) 0.8 mg PO DAILY@0830 [facility] Last Admin: 05/02/20 09:43 Dose: 0.8 mg Documented by: - Objective Vital Signs: Vital Signs Temperature 98.1 F 05/02/20 10:00 Pulse Rate 85 05/02/20 10:01 Respiratory Rate 19 05/02/20 10:01 Blood Pressure 124/59 L 05/02/20 10:01 O2 Sat by Pulse Oximetry (%) 100 05/02/20 07:33 Constitutional: Yes: No Distress, Calm Neck: Yes: Supple Cardiovascular: Yes: Regular Rate and Rhythm Respiratory: Yes: Regular, CTA Bilaterally Gastrointestinal: Yes: Normal Bowel Sounds, Soft Edema: No Labs: CBC, BMP 05/02/20 10:58 05/01/20 05:45 INR, PTT INR 1.12 (0.83-1.09) H 04/27/20 05:00 - ....Imaging EKG: Report Reviewed (Tele: NSR) Problem List - Problems (1) Back pain Code(s): M54.9 - DORSALGIA, UNSPECIFIED (2) Hypertension Code(s): I10 - ESSENTIAL (PRIMARY) HYPERTENSION Qualifiers: Hypertension type: essential hypertension Qualified Code(s): I10 - Essential (primary) hypertension (3) Premature atrial contraction Code(s): I49.1 - ATRIAL PREMATURE DEPOLARIZATION (4) Premature ventricular contraction Code(s): I49.3 - VENTRICULAR PREMATURE DEPOLARIZATION (5) Facet arthropathy, lumbosacral Code(s): M47.817 - SPONDYLS W/O MYELOPATHY OR RADICULOPATHY, LUMBOSACR REGION (6) Diastolic dysfunction Code(s): I51.89 - OTHER ILL-DEFINED HEART DISEASES Assessment/Plan 04/23/2020 Echo: Normal LV size and fxn LVEF 55-60%, diastolic dysfunction, normal RV fxn, mild TR with normal RVSP, mildly dilated ao root 3.8 cm 1. Mechanical fall in context of acute on chronic back pain 2. Left C4-C5 facet arthropathy, severe multilevel C-spine central canal stenosis, moderate-marked multilevel lumbar degenerative disc changes, moderate- marked multilevel degenerative central canal stenosis: s/p lumbar lamiectomy/decompression/fusion of T12 to S2 with interbody cage placment S1-2/L5-S1/L4-5/L3-4 3. HTN 4. Acute blood loss anemia 5. PVC with ventricular trigeminy 6. Diastolic dysfunction PLAN: 1. Continue Lopressor 25 mg BID and Losartan 100 mg QD 2. DVT prophylaxis, empiric antibiotic coverage, pain control and PT as tolerated 3. Surgical follow up, drain management
--- NOTE | 2020-05-02 13:04 | PN ---
Progress Note (short form) - Note Progress Note: Pain is controlled with meds unsteady gait during PT he is depressed, still in ICU-- he is waiting for bed on the regular floor- - need isolation room Vital Signs - 24 hr 05/02/20 05/02/20 05/02/20 02:00 06:00 07:33 Temperature 98.3 F Pulse Rate 67 69 Respiratory 12 17 Rate Blood Pressure 114/66 139/83 O2 Sat by Pulse 100 Oximetry (%) 05/02/20 05/02/20 05/02/20 08:00 10:00 10:01 Temperature 98.1 F Pulse Rate 57 L 85 85 Respiratory 13 19 19 Rate Blood Pressure 141/77 120/73 124/59 L O2 Sat by Pulse Oximetry (%) 05/02/20 05/02/20 05/02/20 12:00 14:00 16:00 Temperature 98.4 F 98.7 F Pulse Rate 64 74 Respiratory 22 H 12 Rate Blood Pressure 120/73 115/74 O2 Sat by Pulse Oximetry (%) 05/02/20 20:00 Temperature Pulse Rate 72 Respiratory 18 Rate Blood Pressure 121/70 O2 Sat by Pulse Oximetry (%) Current Medications Generic Name Dose Route Start Last Admin Trade Name Freq PRN Reason Stop Dose Admin Acetaminophen 650 mg 05/02/20 20:09 Tylenol - PO Q6H PRN FEVER Amino Acids 30 ml 05/03/20 08:00 Prosource No Carb Liquid Pkt PO BID@0800,1730 [facility] Bisacodyl 10 mg 05/02/20 20:09 Dulcolax Suppository - [place] DAILY PRN CONSTIPATION Docusate Sodium 100 mg 05/02/20 22:00 05/02/20 21:40 Colace - PO 100 mg TID [facility] Administration Ferrous Sulfate 325 mg 05/03/20 08:00 Feosol - PO DAILY@0800 [facility] Folic Acid 1 mg 05/03/20 10:00 Folic Acid - PO DAILY [facility] Heparin Sodium (Porcine) 5,000 unit 05/02/20 22:00 05/02/20 21:41 Heparin - SQ 5,000 unit BID [facility] Administration Meropenem 1 gm/ Dextrose 100 mls @ 200 mls/hr 05/03/20 02:00 IVPB Q8H-IV [facility] Insulin Aspart 1 vial 05/03/20 07:00 Novolog Vial Sliding Scale - SQ ACBK [facility] Protocol Losartan Potassium 100 mg 05/03/20 10:00 Cozaar - PO DAILY [facility] Melatonin 5 mg 05/02/20 20:09 05/02/20 21:42 Melatonin PO 5 mg HS PRN Administration INSOMNIA Metoprolol Tartrate 25 mg 05/02/20 22:00 05/02/20 21:41 Lopressor - PO 25 mg BID [facility] Administration Ondansetron HCl 4 mg 05/02/20 20:09 Zofran Injection IVPUSH Q6H PRN NAUSEA Oxycodone HCl 5 mg 05/02/20 20:09 05/02/20 21:41 Roxicodone - PO 5 mg Q4H PRN Administration PAIN LEVEL 7 - 10 Polyethylene Glycol 17 gm 05/02/20 22:00 05/02/20 21:41 Miralax (For Daily Use) - PO 17 gm BID [facility] Administration Potassium Phos/Sodium Phos 1 packet 05/02/20 22:00 05/02/20 21:40 Phos-Nak Packet - PO 1 packet TID [facility] Administration Senna 2 tab 05/02/20 20:09 Senna - PO HS PRN CONSTIPATION Sodium Phosphate 133 ml 05/02/20 20:09 Fleet Adult Rectal Enema - RC DAILY PRN CONSTIPATION Tamsulosin HCl 0.8 mg 05/03/20 08:30 Flomax - PO DAILY@0830 [facility] Laboratory Results - last 24 hr 05/02/20 05/02/20 05/02/20 07:24 10:58 10:58 WBC 9.4 RBC 3.43 L Hgb 10.0 L Hct 30.7 L MCV 89.4 MCH 29.2 MCHC 32.6 RDW 14.6 Plt Count 428 D MPV 6.9 L POC Glucometer 102 Magnesium 1.5 L S1S2 RRR Lungs clear Abd -soft, NT, ND No edema A/P pain control still has drain continue BP meds on melatonin to help him with sleep incentive spirometry replace magnesium iv antibiotics for ESBL in Urine Problem List - Problems (1) UTI (urinary tract infection) Code(s): N39.0 - URINARY TRACT INFECTION, SITE NOT SPECIFIED (2) Arrhythmia Code(s): I49.9 - CARDIAC ARRHYTHMIA, UNSPECIFIED (3) Back pain Code(s): M54.9 - DORSALGIA, UNSPECIFIED (4) Facet arthropathy, lumbosacral Code(s): M47.817 - SPONDYLS W/O MYELOPATHY OR RADICULOPATHY, LUMBOSACR REGION (5) Premature atrial contraction Code(s): I49.1 - ATRIAL PREMATURE DEPOLARIZATION (6) UTI (lower urinary tract infection) Code(s): N39.0 - URINARY TRACT INFECTION, SITE NOT SPECIFIED
[2020-05-02] MEDS ORDERED: SENNOSIDES 8.6MG TABLET (FP) PO PRN (20:09)
[2020-05-02] MEDS ORDERED: BISACODYL 10 MG SUPP.RECT PR PRN (20:09)
[2020-05-02] MEDS ORDERED: SODIUM PHOSPHATE/NA BIPHOS 133 ML ENEMA RC PRN (20:09)
[2020-05-02] MEDS ORDERED: ACETAMINOPHEN 325 MG TABLET (FP) PO PRN (20:09)
[2020-05-02] MEDS ORDERED: ONDANSETRON 4 MG/2 ML VIAL IVPUSH PRN (20:09)
[2020-05-02] MEDS: MELATONIN 5 MG TABLETS PO PRN (21:42)
[2020-05-03] MEDS ORDERED: MEROPENEM 1 GM VIAL (RESTRICTED TO ID) IVPB ONE ×3 (02:20→16:35)
[2020-05-03] MEDS ORDERED: DEXTROSE 5%-WATER 100 ML IVPB ONE ×3 (02:20→16:36)
[2020-05-03] MEDS: MEROPENEM 1 GM in DEXTROSE 5%-WATER 100 ML IVPB SCH ×3 (02:34→17:39)
[2020-05-03] MEDS: oxyCODONE HCL 5 MG TABLET PO PRN ×5 (02:34→21:34)
[2020-05-03] MEDS: NAPH,MB-DB/K PH,MBDB POWDER PACKET PO SCH ×3 (05:44→21:34)
[2020-05-03] MEDS: DOCUSATE SODIUM 100 MG CAPSULE (FP) PO SCH ×3 (05:45→21:34)
[2020-05-03] MEDS: INSULIN SLIDING SCALE (NOVOLOG) 1 VIAL SQ SCH (06:02)
--- NOTE | 2020-05-03 08:04 | PN ---
Progress Note (short form) - Note Progress Note: Surgery POD #7 multilevel decompression and interbody fusion patient seen and examined on AM rounda with no complaints. His pain is controlled and he is tolerating and diet. He says that his pre-op symptoms continue to improve and he denies any radicular symptoms, fever, H/A, chills, N/V/D, CP or SOB. 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 with surrounding tissue intact and no tracking erythema, edema or evidence of collection or d/c. Drain at right upper back in good posisiotn with SS d/c. No evidence of infection. LE: 5/5 dorsi/plantar flexion b/l. No calf tenderness or swelling noted b/l. SCds in place. + DP pulses : nguyen removed LE: all compartments soft. SCDs bilat Problem List - Problems (1) Facet arthropathy, lumbosacral Assessment/Plan: Assessment/Plan: POD #7 s/p lumbar lamiectomy/decompression/fusion of T12 to S2 with interbody cage placement S1-2/L5-S1/L4-5/L3-4. Dural defect and repair with duraseal -Continue diet as tolerated with nutritional support- Ensure/proboost -Stool softners for constipation -OOB/ambulate with PT. -Wear brace when OOB to chair and ambulating. -Monitor/record TAYLER(to bile bag) -Pain managment PRN -IV abx as per ID for ESBL in urine -DVT ppx -Iron supplements -d/c planning for [facility] will d/c drain when patient is ready to go Above plan discussed with Dr. Gao and agrees. Code(s): M47.817 - SPONDYLS W/O MYELOPATHY OR RADICULOPATHY, LUMBOSACR REGION
[2020-05-03] MEDS: TAMSULOSIN HCL 0.4 MG CAP PO SCH (08:35)
[2020-05-03] MEDS: FERROUS SO4 325 MG TABLET (FP) PO SCH (08:35)
[2020-05-03] MEDS: AMINO ACIDS/PROTEIN HYDROLYS 30 ML LIQUID.PKT PO SCH ×2 (08:35→16:49)
[2020-05-03 09:08] LABS: ALBUMIN 2.2 g/dl (3.4-5.0); BILIRUBIN,TOTAL 0.6 mg/dL (0.2-1); BLOOD UREA NITROGEN 8.9 mg/dL (7-18); CALCIUM 8.3 mg/dL (8.5-10.1); CREATININE 0.5 mg/dL (0.55-1.3); MAGNESIUM 1.6 mg/dL (1.8-2.4); POTASSIUM 4.1 mmol/L (3.5-5.1); TOT PROT 4.6 g/dl (6.4-8.2)
--- NOTE | 2020-05-03 10:17 | PN ---
Progress Note, Physician History of Present Illness: Denies chest pain, SOB or palpitations, back pain adequately controlled. TAYLER drain with serosaunguinous drainage. - Current Medication List Current Medications: Active Medications Acetaminophen (Tylenol -) 650 mg PO Q6H PRN PRN Reason: FEVER Amino Acids (Prosource No Carb Liquid Pkt) 30 ml PO BID@0800,1730 [facility] Last Admin: 05/03/20 08:35 Dose: 30 ml Documented by: Bisacodyl (Dulcolax Suppository -) 10 mg [place] DAILY PRN PRN Reason: CONSTIPATION Docusate Sodium (Colace -) 100 mg PO TID [facility] Last Admin: 05/03/20 05:45 Dose: 100 mg Documented by: Ferrous Sulfate (Feosol -) 325 mg PO DAILY@0800 [facility] Last Admin: 05/03/20 08:35 Dose: 325 mg Documented by: Folic Acid (Folic Acid -) 1 mg PO DAILY [facility] Heparin Sodium (Porcine) (Heparin -) 5,000 unit SQ BID [facility] Last Admin: 05/02/20 21:41 Dose: 5,000 unit Documented by: Meropenem 1 gm/ Dextrose 100 mls @ 200 mls/hr IVPB Q8H-IV [facility] Last Admin: 05/03/20 02:34 Dose: 200 mls/hr Documented by: Insulin Aspart (Novolog Vial Sliding Scale -) 1 vial SQ ACBK [facility]; Protocol Last Admin: 05/03/20 06:02 Dose: Not Given Documented by: Losartan Potassium (Cozaar -) 100 mg PO DAILY [facility] Melatonin (Melatonin) 5 mg PO HS PRN PRN Reason: INSOMNIA Last Admin: 05/02/20 21:42 Dose: 5 mg Documented by: Metoprolol Tartrate (Lopressor -) 25 mg PO BID [facility] Last Admin: 05/02/20 21:41 Dose: 25 mg Documented by: Ondansetron HCl (Zofran Injection) 4 mg IVPUSH Q6H PRN PRN Reason: NAUSEA Oxycodone HCl (Roxicodone -) 5 mg PO Q4H PRN PRN Reason: PAIN LEVEL 7 - 10 Last Admin: 05/03/20 08:35 Dose: 5 mg Documented by: Polyethylene Glycol (Miralax (For Daily Use) -) 17 gm PO BID [facility] Last Admin: 05/02/20 21:41 Dose: 17 gm Documented by: Potassium Phos/Sodium Phos (Phos-Nak Packet -) 1 packet PO TID [facility] Last Admin: 05/03/20 05:44 Dose: 1 packet Documented by: Senari (Senna -) 2 tab PO HS PRN PRN Reason: CONSTIPATION Sodium Phosphate (Fleet Adult Rectal Enema -) 133 ml RC DAILY PRN PRN Reason: CONSTIPATION Tamsulosin HCl (Flomax -) 0.8 mg PO DAILY@0830 [facility] Last Admin: 05/03/20 08:35 Dose: 0.8 mg Documented by: - Objective Vital Signs: Vital Signs Temperature 97.9 F 05/03/20 06:00 Pulse Rate 73 05/03/20 06:00 Respiratory Rate 20 05/03/20 06:00 Blood Pressure 145/76 05/03/20 06:00 O2 Sat by Pulse Oximetry (%) 98 05/02/20 21:00 Constitutional: Yes: No Distress, Calm Neck: Yes: Supple Cardiovascular: Yes: Regular Rate and Rhythm Respiratory: Yes: Regular, CTA Bilaterally Gastrointestinal: Yes: Normal Bowel Sounds, Soft Edema: No Labs: CBC, BMP 05/02/20 10:58 05/03/20 07:06 INR, PTT INR 1.12 (0.83-1.09) H 04/27/20 05:00 Problem List - Problems (1) Back pain Code(s): M54.9 - DORSALGIA, UNSPECIFIED (2) Hypertension Code(s): I10 - ESSENTIAL (PRIMARY) HYPERTENSION Qualifiers: Hypertension type: essential hypertension Qualified Code(s): I10 - Essential (primary) hypertension (3) Premature atrial contraction Code(s): I49.1 - ATRIAL PREMATURE DEPOLARIZATION (4) Premature ventricular contraction Code(s): I49.3 - VENTRICULAR PREMATURE DEPOLARIZATION (5) Facet arthropathy, lumbosacral Code(s): M47.817 - SPONDYLS W/O MYELOPATHY OR RADICULOPATHY, LUMBOSACR REGION (6) Diastolic dysfunction Code(s): I51.89 - OTHER ILL-DEFINED HEART DISEASES Assessment/Plan 04/23/2020 Echo: Normal LV size and fxn LVEF 55-60%, diastolic dysfunction, normal RV fxn, mild TR with normal RVSP, mildly dilated ao root 3.8 cm 1. Mechanical fall in context of acute on chronic back pain 2. POD# 7 Left C4-C5 facet arthropathy, severe multilevel C-spine central canal stenosis, moderate-marked multilevel lumbar degenerative disc changes, moderate- marked multilevel degenerative central canal stenosis: s/p lumbar lamiectomy/decompression/fusion of T12 to S2 with interbody cage placment S1-2/L5-S1/L4-5/L3-4 3. HTN 4. Acute blood loss anemia 5. PVC with ventricular trigeminy 6. Diastolic dysfunction PLAN: 1. Continue Lopressor 25 mg BID and Losartan 100 mg QD 2. DVT prophylaxis, empiric antibiotic coverage, pain control and PT as tolerated 3. Surgical follow up, drain management, PT->rehab placement
[2020-05-03] MEDS ORDERED: PT OWN MED DRAWER 7, Y5N ONE (10:30)
[2020-05-03] MEDS: HEPARIN NA (PORCINE) 5,000 UNITS/ML 1ML VIAL SQ SCH ×2 (10:41→21:35)
[2020-05-03] MEDS: POLYETHYLENE GLYCOL 3350 119 GM BTL PO SCH ×2 (10:41→21:34)
[2020-05-03] MEDS: LOSARTAN POTASSIUM 50 MG TABLET (FP) PO SCH (10:42)
[2020-05-03] MEDS: METOPROLOL TARTRATE 25 MG TABLET (FP) PO SCH ×2 (10:42→21:34)
[2020-05-03] MEDS: FOLIC ACID 1 MG TABLET (FP) PO SCH (10:42)
[2020-05-03] MEDS ORDERED: MAGNESIUM 1GM/D5W - 1 GM/100 ML IVPB IVPB ONE (12:00)
--- NOTE | 2020-05-03 12:05 | PN ---
Progress Note (short form) - Note Progress Note: Pain is controlled with meds sleeping ok has muscle weakness I notice that his upper extremities are twitching continuously Vital Signs - 24 hr 05/02/20 05/02/20 05/02/20 14:00 16:00 20:00 Temperature 98.4 F 98.7 F Pulse Rate 74 72 Respiratory 12 18 Rate Blood Pressure 115/74 121/70 O2 Sat by Pulse Oximetry (%) 05/02/20 05/02/20 05/03/20 21:00 22:20 06:00 Temperature 97.9 F 97.9 F Pulse Rate 86 73 Respiratory 20 20 Rate Blood Pressure 139/88 145/76 O2 Sat by Pulse 98 Oximetry (%) Current Medications Generic Name Dose Route Start Last Admin Trade Name Freq PRN Reason Stop Dose Admin Acetaminophen 650 mg 05/02/20 20:09 Tylenol - PO Q6H PRN FEVER Amino Acids 30 ml 05/03/20 08:00 05/03/20 08:35 Prosource No Carb Liquid Pkt PO 30 ml BID@0800,1730 [facility] Administration Bisacodyl 10 mg 05/02/20 20:09 05/03/20 10:43 Dulcolax Suppository - [place] 10 mg DAILY PRN Administration CONSTIPATION Docusate Sodium 100 mg 05/02/20 22:00 05/03/20 05:45 Colace - PO 100 mg TID [facility] Administration Ferrous Sulfate 325 mg 05/03/20 08:00 05/03/20 08:35 Feosol - PO 325 mg DAILY@0800 [facility] Administration Folic Acid 1 mg 05/03/20 10:00 05/03/20 10:42 Folic Acid - PO 1 mg DAILY [facility] Administration Heparin Sodium (Porcine) 5,000 unit 05/02/20 22:00 05/03/20 10:41 Heparin - SQ 5,000 unit BID [facility] Administration Meropenem 1 gm/ Dextrose 100 mls @ 200 mls/hr 05/03/20 02:00 05/03/20 10:42 IVPB 200 mls/hr Q8H-IV [facility] Administration Magnesium Sulfate/Dextrose 2 200 mls @ 100 mls/hr 05/03/20 12:00 gm/ Miscellaneous IVPB 05/03/20 13:59 ONCE ONE Insulin Aspart 1 vial 05/03/20 07:00 05/03/20 06:02 Novolog Vial Sliding Scale - SQ Not Given ACBK [facility] Protocol Losartan Potassium 100 mg 05/03/20 10:00 05/03/20 10:42 Cozaar - PO 100 mg DAILY [facility] Administration Melatonin 5 mg 05/02/20 20:09 05/02/20 21:42 Melatonin PO 5 mg HS PRN Administration INSOMNIA Metoprolol Tartrate 25 mg 05/02/20 22:00 05/03/20 10:42 Lopressor - PO 25 mg BID [facility] Administration Ondansetron HCl 4 mg 05/02/20 20:09 Zofran Injection IVPUSH Q6H PRN NAUSEA Oxycodone HCl 5 mg 05/02/20 20:09 05/03/20 08:35 Roxicodone - PO 5 mg Q4H PRN Administration PAIN LEVEL 7 - 10 Polyethylene Glycol 17 gm 05/02/20 22:00 05/03/20 10:41 Miralax (For Daily Use) - PO 17 gm BID [facility] Administration Potassium Phos/Sodium Phos 1 packet 05/02/20 22:00 05/03/20 05:44 Phos-Nak Packet - PO 1 packet TID [facility] Administration Senna 2 tab 05/02/20 20:09 Senna - PO HS PRN CONSTIPATION Sodium Phosphate 133 ml 05/02/20 20:09 Fleet Adult Rectal Enema - RC DAILY PRN CONSTIPATION Tamsulosin HCl 0.8 mg 05/03/20 08:30 05/03/20 08:35 Flomax - PO 0.8 mg DAILY@0830 [facility] Administration Laboratory Results - last 24 hr 05/03/20 05/03/20 05:49 07:06 Sodium 138 Potassium 4.1 Chloride 104 Carbon Dioxide 27 Anion Gap 7 L BUN 8.9 Creatinine 0.5 L Est GFR (CKD-EPI)AfAm 126.36 Est GFR (CKD-EPI)NonAf 109.03 POC Glucometer 108 Random Glucose 91 Calcium 8.3 L Magnesium 1.6 L Total Bilirubin 0.6 AST 19 ALT 23 Alkaline Phosphatase 93 Total Protein 4.6 L Albumin 2.2 L S1S2 RRR Lungs clear Abd -soft, NT, ND No edema A/P pain control still has drain+ continue BP meds on melatonin to help him with sleep incentive spirometry replace magnesium iv antibiotics for ESBL in Urine-- last dose tonight will need Neurology for muscle weakness and twitching -- he says he has this chronic for many years and never thought much about it-->out[facility] [place] Problem List - Problems (1) UTI (urinary tract infection) Code(s): N39.0 - URINARY TRACT INFECTION, SITE NOT SPECIFIED (2) Arrhythmia Code(s): I49.9 - CARDIAC ARRHYTHMIA, UNSPECIFIED (3) Back pain Code(s): M54.9 - DORSALGIA, UNSPECIFIED (4) Facet arthropathy, lumbosacral Code(s): M47.817 - SPONDYLS W/O MYELOPATHY OR RADICULOPATHY, LUMBOSACR REGION (5) Premature atrial contraction Code(s): I49.1 - ATRIAL PREMATURE DEPOLARIZATION (6) UTI (lower urinary tract infection) Code(s): N39.0 - URINARY TRACT INFECTION, SITE NOT SPECIFIED
[2020-05-03] MEDS ORDERED: MAGNESIUM SULF 50% (8.12 MEQ/2 ML-1 GM VIAL) IVPB ONE (13:00)
[2020-05-03] MEDS: MELATONIN 5 MG TABLETS PO PRN (21:34)
[2020-05-04] MEDS ORDERED: DEXTROSE 5%-WATER 100 ML IVPB ONE ×2 (00:53→09:22)
[2020-05-04] MEDS ORDERED: MEROPENEM 1 GM VIAL (RESTRICTED TO ID) IVPB ONE ×2 (00:53→09:22)
[2020-05-04] MEDS: MEROPENEM 1 GM in DEXTROSE 5%-WATER 100 ML IVPB SCH ×2 (01:04→09:31)
[2020-05-04] MEDS: oxyCODONE HCL 5 MG TABLET PO PRN ×3 (02:32→11:24)
[2020-05-04] MEDS: NAPH,MB-DB/K PH,MBDB POWDER PACKET PO SCH ×2 (05:39→13:41)
[2020-05-04] MEDS: DOCUSATE SODIUM 100 MG CAPSULE (FP) PO SCH ×2 (05:39→13:41)
[2020-05-04] MEDS: INSULIN SLIDING SCALE (NOVOLOG) 1 VIAL SQ SCH (06:03)
[2020-05-04] MEDS: FERROUS SO4 325 MG TABLET (FP) PO SCH (08:38)
[2020-05-04] MEDS: AMINO ACIDS/PROTEIN HYDROLYS 30 ML LIQUID.PKT PO SCH (08:38)
[2020-05-04] MEDS: TAMSULOSIN HCL 0.4 MG CAP PO SCH (08:43)
--- NOTE | 2020-05-04 09:10 | PN ---
Progress Note (short form) - Note Progress Note: Surgery POD #8 multilevel decompression and interbody fusion patient seen and examined on AM rounds with no complaints. His pain is controlled and he is tolerating and diet. He says that his pre-op symptoms continue to improve and he denies any radicular symptoms, fever, H/A, chills, N/V/D, CP or SOB. Vital Signs Temp 98.1 F 05/04/20 09:43 Pulse 88 05/04/20 09:43 Resp 20 05/04/20 09:43 BP 153/87 05/04/20 09:43 Pulse Ox 98 05/04/20 09:00 Intake & Output 05/03/20 05/04/20 05/04/20 23:59 11:59 23:59 Intake Total 440 700 Output Total 500 580 Balance -60 120 Intake: IVPB 200 100 Oral 240 600 Output: Drainage 500 580 Posterior Back 500 580 Other: Voiding Method Incontinent Incontinent # Unmeasured Voids Void 3 Bowel Movement Yes: large Yes: Large BM # Bowel Movements 1 2 Body Mass Index (BMI) 31.1 CBC, BMP 05/02/20 10:58 05/03/20 07:06 PE GEN: A&0x3, NAD ABD: soft, non-distended, non-tender Back: incision c/d/i. with surrounding tissue intact and no tracking erythema, edema or evidence of collection or d/c. Drain removed on Rounds-ostomy sealed with Dermabond, clean dry dressing applied. no evidence of infection. LE: 5/5 dorsi/plantar flexion b/l. No calf tenderness or swelling noted b/l. SCds in place. + DP pulses LE: all compartments soft. SCDs bilat Problem List - Problems (1) Facet arthropathy, lumbosacral Assessment/Plan: Assessment/Plan: POD #8 s/p lumbar lamiectomy/decompression/fusion of T12 to S2 with interbody cage placement S1-2/L5-S1/L4-5/L3-4. Dural defect and repair with duraseal -Continue diet as tolerated with nutritional support- Ensure/proboost -Stool softeners for constipation -OOB/ambulate with PT. -Wear brace when OOB to chair and ambulating. -Pain management PRN -IV abx as per ID for ESBL in urine -DVT ppx -Iron supplements -d/c planning for [place] Above plan discussed with Dr. Gao Code(s): M47.817 - SPONDYLS W/O MYELOPATHY OR RADICULOPATHY, LUMBOSACR REGION
[2020-05-04] MEDS: METOPROLOL TARTRATE 25 MG TABLET (FP) PO SCH (09:27)
[2020-05-04] MEDS: FOLIC ACID 1 MG TABLET (FP) PO SCH (09:27)
[2020-05-04] MEDS: LOSARTAN POTASSIUM 50 MG TABLET (FP) PO SCH (09:27)
[2020-05-04] MEDS: HEPARIN NA (PORCINE) 5,000 UNITS/ML 1ML VIAL SQ SCH (09:31)
[2020-05-04] MEDS: POLYETHYLENE GLYCOL 3350 119 GM BTL PO SCH (09:32)
[2020-05-04 09:44] VITALS: BP 153/87; PULSE 88; TEMP 98.1
--- NOTE | 2020-05-04 10:35 | PN ---
Progress Note (short form) - Note Progress Note: No acute cardiac events; d/c planning Vital Signs Temperature 98.1 F 05/04/20 09:43 Pulse Rate 88 05/04/20 09:43 Respiratory Rate 20 05/04/20 09:43 Blood Pressure 153/87 05/04/20 09:43 O2 Sat by Pulse Oximetry (%) 98 05/03/20 21:00 Cardiovascular: Yes: Regular Rate and Rhythm Respiratory: Yes: Regular, CTA Bilaterally Gastrointestinal: Yes: Normal Bowel Sounds, Soft Edema: No Labs: CBC, BMP 05/02/20 10:58 05/03/20 07:06 Active Medications Acetaminophen (Tylenol -) 650 mg PO Q6H PRN PRN Reason: FEVER Amino Acids (Prosource No Carb Liquid Pkt) 30 ml PO BID@0800,1730 [facility] Last Admin: 05/04/20 08:38 Dose: 30 ml Documented by: Bisacodyl (Dulcolax Suppository -) 10 mg [place] DAILY PRN PRN Reason: CONSTIPATION Last Admin: 05/03/20 10:43 Dose: 10 mg Documented by: Docusate Sodium (Colace -) 100 mg PO TID [facility] Last Admin: 05/04/20 05:39 Dose: 100 mg Documented by: Ferrous Sulfate (Feosol -) 325 mg PO DAILY@0800 [facility] Last Admin: 05/04/20 08:38 Dose: 325 mg Documented by: Folic Acid (Folic Acid -) 1 mg PO DAILY [facility] Last Admin: 05/04/20 09:27 Dose: 1 mg Documented by: Heparin Sodium (Porcine) (Heparin -) 5,000 unit SQ BID [facility] Last Admin: 05/04/20 09:31 Dose: 5,000 unit Documented by: Meropenem 1 gm/ Dextrose 100 mls @ 200 mls/hr IVPB Q8H-IV [facility] Last Admin: 05/04/20 09:31 Dose: 200 mls/hr Documented by: Insulin Aspart (Novolog Vial Sliding Scale -) 1 vial SQ ACBK [facility]; Protocol Last Admin: 05/04/20 06:03 Dose: Not Given Documented by: Losartan Potassium (Cozaar -) 100 mg PO DAILY [facility] Last Admin: 05/04/20 09:27 Dose: 100 mg Documented by: Melatonin (Melatonin) 5 mg PO HS PRN PRN Reason: INSOMNIA Last Admin: 05/03/20 21:34 Dose: 5 mg Documented by: Metoprolol Tartrate (Lopressor -) 25 mg PO BID [facility] Last Admin: 05/04/20 09:27 Dose: 25 mg Documented by: Ondansetron HCl (Zofran Injection) 4 mg IVPUSH Q6H PRN PRN Reason: NAUSEA Oxycodone HCl (Roxicodone -) 5 mg PO Q4H PRN PRN Reason: PAIN LEVEL 7 - 10 Last Admin: 05/04/20 06:09 Dose: 5 mg Documented by: Polyethylene Glycol (Miralax (For Daily Use) -) 17 gm PO BID [facility] Last Admin: 05/04/20 09:32 Dose: Not Given Documented by: Potassium Phos/Sodium Phos (Phos-Nak Packet -) 1 packet PO TID [facility] Last Admin: 05/04/20 05:39 Dose: 1 packet Documented by: Senna (Senna -) 2 tab PO HS PRN PRN Reason: CONSTIPATION Sodium Phosphate (Fleet Adult Rectal Enema -) 133 ml RC DAILY PRN PRN Reason: CONSTIPATION Tamsulosin HCl (Flomax -) 0.8 mg PO DAILY@0830 [facility] Last Admin: 05/04/20 08:43 Dose: 0.8 mg Documented by: Problem List - Problems (1) Back pain Code(s): M54.9 - DORSALGIA, UNSPECIFIED (2) Hypertension Code(s): I10 - ESSENTIAL (PRIMARY) HYPERTENSION Qualifiers: Hypertension type: essential hypertension Qualified Code(s): I10 - Essential (primary) hypertension (3) Premature atrial contraction Code(s): I49.1 - ATRIAL PREMATURE DEPOLARIZATION (4) Premature ventricular contraction Code(s): I49.3 - VENTRICULAR PREMATURE DEPOLARIZATION (5) Facet arthropathy, lumbosacral Code(s): M47.817 - SPONDYLS W/O MYELOPATHY OR RADICULOPATHY, LUMBOSACR REGION (6) Diastolic dysfunction Code(s): I51.89 - OTHER ILL-DEFINED HEART DISEASES Assessment/Plan 04/23/2020 Echo: Normal LV size and fxn LVEF 55-60%, diastolic dysfunction, normal RV fxn, mild TR with normal RVSP, mildly dilated ao root 3.8 cm 1. Mechanical fall in context of acute on chronic back pain 2. POD# 7 Left C4-C5 facet arthropathy, severe multilevel C-spine central canal stenosis, moderate-marked multilevel lumbar degenerative disc changes, moderate- marked multilevel degenerative central canal stenosis: s/p lumbar lamie ctomy/decompression/fusion of T12 to S2 with interbody cage placment S1-2/L5-S1/L4-5/L3-4 3. HTN 4. Acute blood loss anemia 5. PVC with ventricular trigeminy 6. Diastolic dysfunction PLAN: 1. Continue Lopressor 25 mg BID and Losartan 100 mg QD 2.F/U with cardio as outpatient when surgically stable: [phone]
--- NOTE | 2020-05-04 11:37 | DS ---
Physical Examination Vital Signs: Vital Signs Temperature 98.1 F 05/04/20 09:43 Pulse Rate 88 05/04/20 09:43 Respiratory Rate 20 05/04/20 09:43 Blood Pressure 153/87 05/04/20 09:43 O2 Sat by Pulse Oximetry (%) 98 05/04/20 09:00 Findings/Remarks: comfortable pain ok alert/ awake Constitutional: Yes: No Distress Neck: Yes: Supple Cardiovascular: Yes: Regular Rate and Rhythm Respiratory: Yes: CTA Bilaterally Gastrointestinal: Yes: Soft Edema: No Neurological: Yes: Alert Psychiatric: Yes: Alert Labs: CBC, BMP 05/02/20 10:58 05/03/20 07:06 Discharge Summary Problems reviewed: Yes Reason For Visit: BACK PAIN Current Active Problems Arrhythmia (Acute) Back pain (Acute) Diastolic dysfunction (Acute) Facet arthropathy, lumbosacral (Acute) Fall (Acute) Premature atrial contraction (Acute) Premature ventricular contraction (Acute) Preop cardiovascular exam (Acute) UTI (urinary tract infection) (Acute) VRE (vancomycin resistant enterococcus) culture positive (Acute) Hospital Course: 70 yo male with pmhx of back pain /spinal stenosis htn/ obesity/bph admitted after fall/ back pain Underwent lumbar lamiectomy/decompression/fusion of T12 to S2 with interbody cage placment S1-2/L5-S1/L4-5/L3-4. dureal defect and repair with duraseal pod # 8 doing well Initially admitted to icu - post -op. 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 Anticipate d/c later today Pt also in agreement Condition: Improved - Instructions Referrals: Sonny Gupta DO [Staff Physician] - (once discharged from [place] ) Boy Simmons MD [Primary Care Provider] - Disposition: [facility] F[facility]ILITY - Home Medications Comprehensive Discharge Medication List: Ambulatory Orders Silodosin [Rapaflo] 8 mg PO DAILY 02/15/16 Losartan Potassium 100 mg PO DAILY 04/22/20 Acetaminophen [Tylenol .Regular Strength -] 650 mg PO Q6H PRN tablet 05/04/20 Amino Acids/Protein Hydrolys [Prosource No Carb Liquid Pkt] 30 ml PO BID@0800,17 30 packet 05/04/20 Bisacodyl Suppository [Dulcolax Suppository -] 10 mg [place] DAILY PRN supp.rect Docusate Sodium [Colace -] 100 mg PO TID capsule 05/04/20 Ferrous Sulfate [Feosol] 325 mg PO DAILY@0800 ud 05/04/20 Folic Acid - 1 mg PO DAILY tablet 05/04/20 Heparin - 5,000 unit SQ BID vial 05/04/20 Insulin Sliding Scale [Novolog Vial Sliding Scale -] 1 vial SQ ACBK units 05/04/20 Melatonin 5 mg PO HS PRN tab 05/04/20 Metoprolol Tartrate [Lopressor -] 25 mg PO BID tablet 05/04/20 Naph,Mb-Db/K pH,Mbdb [PHOS-NaK PACKET -] 1 packet PO TID pow 05/04/20 Polyethylene Glycol 3350 [Miralax 119 gm Btl -] 17 gm PO BID bottle 05/04/20 Sennosides [Senna -] 2 tab PO HS PRN tablet 05/04/20 Sodium Phosphate/Na Biphos [Fleet Adult Rectal Enema -] 133 ml RC DAILY PRN enema 05/04/20 oxyCODONE HCL [Roxicodone -] 5 mg PO Q4H PRN tablet 05/04/20
--- NOTE | 2020-05-22 16:28 | OP ---
Operative Note - Note: Operative Date: 04/20/20
--- NOTE | 2020-05-22 16:40 | SURG ---
Surgery Learning And Development Associate Note Learning And Development Associate: Heike Arce PA-C Date of Service: 04/26/20 Diagnosis: lumbar degenerative scoliosis Procedure: T12 laminectomies L1 Laminectomies L2 Laminectomies L3 Laminectomies L4 Lamiectomies L5 [place] Laminectomies S1 Laminectomies L23 Transpedicular approach L34 Transpedicular approach L45 Transpedicular approach L5S1 Transpedicular approach Fluoscopy Microdissection Posterior/Lateral Arthrodesis T12L1 Posterior/Lateral Arthrodesis L12 Interbody & Posterior/Lateral Arthrodesis L23 Interbody CAGE L23 Interbody & Posterior/Lateral Arthrodesis L34 Interbody CAGE L34 Interbody & Posterior/Lateral Arthrodesis L45 Interbody CAGE L45 Interbody & Posterior/Lateral Arthrodesis L5S1 Interbody CAGE L5S1 Spinopelvic arathrodesis Repair of durotomy T12-S2 posterior segmental instrumentation(technically challenging) Local autograft T12 Osteotomy L1 Osteotomy I was present for the entirety of the operative procedure. For further detail, please refer to operative report. Visit type - Case Type Case Type: Scheduled - Emergency Emergency Visit: No - New patient This patient is new to me today: Yes Date on this admission: 04/26/20
== END 2020-05-04 17:02 | DRG 453 ==
LOC: JER 14:11 → JERBED 17:18 → J4W 20:48 → JICU 04-26 17:28 → J6S 05-02 20:11
PROVIDERS: ADMIT Internal Medicine; ATTEND Internal Medicine
PROC: 0RGA071 Fusion of Thoracolumbar Vertebral Joint with Autologous Tissue Substitute, Posterior Approach, Posterior Column, Open Approach (ICD-10-PCS; 2020-04-26)
PROC: 0SG10AJ Fusion of 2 or more Lumbar Vertebral Joints with Interbody Fusion Device, Posterior Approach, Anterior Column, Open Approach (ICD-10-PCS; 2020-04-26)
PROC: 0SG1071 Fusion of 2 or more Lumbar Vertebral Joints with Autologous Tissue Substitute, Posterior Approach, Posterior Column, Open Approach (ICD-10-PCS; 2020-04-26)
PROC: 0SB20ZZ Excision of Lumbar Vertebral Disc, Open Approach (ICD-10-PCS; 2020-04-26)
PROC: 0SG30AJ Fusion of Lumbosacral Joint with Interbody Fusion Device, Posterior Approach, Anterior Column, Open Approach (ICD-10-PCS; 2020-04-26)
PROC: 0SG3071 Fusion of Lumbosacral Joint with Autologous Tissue Substitute, Posterior Approach, Posterior Column, Open Approach (ICD-10-PCS; 2020-04-26)
PROC: 00U20KZ Supplement Dura Mater with Nonautologous Tissue Substitute, Open Approach (ICD-10-PCS; 2020-04-26)
PROC: 00U20KZ Supplement Dura Mater with Nonautologous Tissue Substitute, Open Approach (ICD-10-PCS; 2020-04-26)
PROC: 0JX70ZB Transfer Back Subcutaneous Tissue and Fascia with Skin and Subcutaneous Tissue, Open Approach (ICD-10-PCS; 2020-04-26)
PROC: B01BZZZ Fluoroscopy of Spinal Cord (ICD-10-PCS; 2020-04-26)
PROC: 30233N1 Transfusion of Nonautologous Red Blood Cells into Peripheral Vein, Percutaneous Approach (ICD-10-PCS; 2020-04-26)
PROC: 05HN33Z Insertion of Infusion Device into Left Internal Jugular Vein, Percutaneous Approach (ICD-10-PCS; 2020-04-26)
PROC: 0RGA0AJ Fusion of Thoracolumbar Vertebral Joint with Interbody Fusion Device, Posterior Approach, Anterior Column, Open Approach (ICD-10-PCS; principal; 2020-04-26 08:00)
PROC: 5A1935Z Respiratory Ventilation, Less than 24 Consecutive Hours (ICD-10-PCS; 2020-04-27)
PROC: 0BH17EZ Insertion of Endotracheal Airway into Trachea, Via Natural or Artificial Opening (ICD-10-PCS; 2020-04-27)
DX: M47.16 Other spondylosis with myelopathy, lumbar region (principal); T81.19XA Other postprocedural shock, initial encounter; T81.40XA Infection following a procedure, unspecified, initial encounter; A41.9 Sepsis, unspecified organism; S32.058A Other fracture of fifth lumbar vertebra, initial encounter for closed fracture; G95.81 Conus medullaris syndrome; I47.1 Supraventricular tachycardia; I97.191 Other postprocedural cardiac functional disturbances following other surgery; N39.0 Urinary tract infection, site not specified; Z16.12 Extended spectrum beta lactamase (ESBL) resistance; D62 Acute posthemorrhagic anemia; I48.92 Unspecified atrial flutter; M41.56 Other secondary scoliosis, lumbar region; M48.00 Spinal stenosis, site unspecified; I10 Essential (primary) hypertension; M47.896 Other spondylosis, lumbar region; N40.0 Benign prostatic hyperplasia without lower urinary tract symptoms; M54.9 Dorsalgia, unspecified; K76.0 Fatty (change of) liver, not elsewhere classified; I95.81 Postprocedural hypotension; I48.91 Unspecified atrial fibrillation; N99.89 Other postprocedural complications and disorders of genitourinary system; D72.829 Elevated white blood cell count, unspecified; I49.3 Ventricular premature depolarization; I49.1 Atrial premature depolarization; Y83.9 Surgical procedure, unspecified as the cause of abnormal reaction of the patient, or of later complication, without mention of misadventure at the time of the procedure; E66.9 Obesity, unspecified; Z68.31 Body mass index [BMI] 31.0-31.9, adult; W19.XXXA Unspecified fall, initial encounter; Y93.9 Activity, unspecified; Y92.098 Other place in other non-institutional residence as the place of occurrence of the external cause; Y99.9 Unspecified external cause status
CPT/HCPCS: 36415; 36430; 36511; 70450-TC; 71045-TC-FY; 72125-TC; 72131-TC; 72148-TC; 76000-TC-FY; 80048; 80053; 80061; 80307; 81003; 82550; 82962; 83036; 83721; 83735; 84100; 84443; 84484; 85025; 85027; 85610; 86850; 86900; 86901; 86922; 87040; 87077; 87086; 87186; 93005; 93010; 93306-TC; 94002; 94010; 94760; 97116-GP; 97162-GP; 99285-25; J0131; J1644; P9038; P9058; U0003

== ENCOUNTER 2020-09-11 11:56 | Inpatient (IN) | payer OTHER, BC ==
[2020-09-11 14:23] LABS: BASO % 0.2 % (0-2.0); EOS % 4.3 % (0-4.5); HEMATOCRIT 44.7 % (35.4-49); HEMOGLOBIN 14.7 GM/dL (11.7-16.9); LYMPH % 30.9 % (8-40); MCH 30.7 pg (25.7-33.7); MEAN CELL VOLUME 93.2 fl (80-96); MONO % 9.5 % (3.8-10.2); NEUT % 55.1 % (42.8-82.8); PLATELET COUNT 299 K/MM3 (134-434); RDW 14.8 % (11.9-15.9); WHITE BLOOD COUNT 9.8 K/mm3 (4.0-10.0)
[2020-09-11 17:11] LABS: BASO % 0.9 % (0-2.0); EOS % 5.6 % (0-4.5); HEMATOCRIT 45.5 % (35.4-49); HEMOGLOBIN 14.8 GM/dL (11.7-16.9); MCH 30.1 pg (25.7-33.7); MCHC 32.6 g/dl (32.0-35.9); MEAN CELL VOLUME 92.5 fl (80-96); MEAN PLT VOLUME 8.1 fl (7.5-11.1); MONO % 6.3 % (3.8-10.2); NEUT % 58.2 % (42.8-82.8); PLATELET COUNT 231 K/MM3 (134-434); RBC 4.93 M/mm3 (4.00-5.60); RDW 14.7 % (11.9-15.9); WHITE BLOOD COUNT 8.3 K/mm3 (4.0-10.0)
[2020-09-11 17:19] LABS: POTASSIUM 3.9 mmol/L (3.5-5.1)
[2020-09-11 17:20] LABS: ALBUMIN 3.4 g/dl (3.4-5.0); BLOOD UREA NITROGEN 13.3 mg/dL (7-18); CALCIUM 9.4 mg/dL (8.5-10.1)
[2020-09-11 17:24] LABS: CREATININE 0.7 mg/dL (0.55-1.3)
[2020-09-11 17:25] LABS: BILIRUBIN,TOTAL 0.8 mg/dL (0.2-1); TOT PROT 6.3 g/dl (6.4-8.2)
[2020-09-11] MEDS: HEPARIN NA (PORCINE) 5,000 UNITS/ML 1ML VIAL SQ SCH (22:51)
[2020-09-11] MEDS: DOCUSATE SODIUM 100 MG CAPSULE (FP) PO SCH (22:52)
[2020-09-11] MEDS: PREGABALIN 50 MG CAPSULE PO SCH (22:52)
[2020-09-11] MEDS: METOPROLOL TARTRATE 25 MG TABLET (FP) PO SCH (22:52)
[2020-09-12 01:08] VITALS: BMI 31.8
[2020-09-12 02:48] LABS: N-TERMINAL BNP 173.6 pg/ml (5-125)
[2020-09-12] MEDS: DOCUSATE SODIUM 100 MG CAPSULE (FP) PO SCH ×3 (06:16→22:31)
[2020-09-12] MEDS: METOPROLOL TARTRATE 25 MG TABLET (FP) PO SCH ×2 (09:16→22:33)
[2020-09-12] MEDS: HEPARIN NA (PORCINE) 5,000 UNITS/ML 1ML VIAL SQ SCH ×2 (09:16→22:31)
[2020-09-12] MEDS: PREGABALIN 50 MG CAPSULE PO SCH ×2 (09:16→22:32)
[2020-09-12] MEDS: TAMSULOSIN HCL 0.4 MG CAP PO SCH (09:16)
[2020-09-12] MEDS: LOSARTAN POTASSIUM 50 MG TABLET PO SCH (09:17)
[2020-09-12] MEDS: HYDROCHLOROTHIAZIDE 12.5 MG CAPSULE (FP) PO SCH (13:34)
[2020-09-12] MEDS: ACETAMINOPHEN 325 MG TABLET (FP) PO PRN ×2 (15:20→22:32)
[2020-09-12] MEDS: MELATONIN 5 MG TABLETS PO PRN (22:32)
[2020-09-13] MEDS: DOCUSATE SODIUM 100 MG CAPSULE (FP) PO SCH ×3 (06:00→21:05)
[2020-09-13] MEDS: HEPARIN NA (PORCINE) 5,000 UNITS/ML 1ML VIAL SQ SCH ×2 (09:40→21:05)
[2020-09-13] MEDS: TAMSULOSIN HCL 0.4 MG CAP PO SCH (09:40)
[2020-09-13] MEDS: HYDROCHLOROTHIAZIDE 12.5 MG CAPSULE (FP) PO SCH (09:40)
[2020-09-13] MEDS: LOSARTAN POTASSIUM 50 MG TABLET PO SCH (09:40)
[2020-09-13] MEDS: PREGABALIN 50 MG CAPSULE PO SCH ×2 (09:40→21:05)
[2020-09-13] MEDS: METOPROLOL TARTRATE 25 MG TABLET (FP) PO SCH ×2 (09:41→21:05)
[2020-09-13] MEDS: ACETAMINOPHEN 325 MG TABLET (FP) PO PRN ×2 (10:46→18:21)
[2020-09-13] MEDS: MELATONIN 5 MG TABLETS PO PRN (21:05)
[2020-09-14] MEDS: DOCUSATE SODIUM 100 MG CAPSULE (FP) PO SCH ×3 (05:52→21:25)
[2020-09-14] MEDS: ACETAMINOPHEN 325 MG TABLET (FP) PO PRN ×2 (05:55→21:19)
[2020-09-14] MEDS: TAMSULOSIN HCL 0.4 MG CAP PO SCH (09:12)
[2020-09-14] MEDS: METOPROLOL TARTRATE 25 MG TABLET (FP) PO SCH ×2 (09:12→21:19)
[2020-09-14] MEDS: PREGABALIN 50 MG CAPSULE PO SCH ×2 (09:12→21:37)
[2020-09-14] MEDS: HEPARIN NA (PORCINE) 5,000 UNITS/ML 1ML VIAL SQ SCH ×2 (09:12→21:20)
[2020-09-14] MEDS: LOSARTAN POTASSIUM 50 MG TABLET PO SCH (09:12)
[2020-09-14] MEDS: HYDROCHLOROTHIAZIDE 12.5 MG CAPSULE (FP) PO SCH (09:13)
[2020-09-14] MEDS: ALPRAZolam 0.25 MG TABLET PO SCH ×2 (15:57→21:18)
[2020-09-14] MEDS: ESCITALOPRAM OXALATE 10 MG TABLET PO SCH (15:57)
[2020-09-14] MEDS: MELATONIN 5 MG TABLETS PO PRN (21:19)
[2020-09-14] MEDS: SENNOSIDES 8.6MG TABLET (FP) PO PRN (21:25)
[2020-09-15] MEDS ORDERED: traMADol HCL 50 MG TABLET PO ONE (01:10)
[2020-09-15] MEDS: ACETAMINOPHEN 325 MG TABLET (FP) PO PRN ×2 (05:31→23:00)
[2020-09-15] MEDS: PREGABALIN 50 MG CAPSULE PO SCH ×3 (05:51→21:14)
[2020-09-15] MEDS: DOCUSATE SODIUM 100 MG CAPSULE (FP) PO SCH ×3 (05:51→21:15)
[2020-09-15] MEDS: LOSARTAN POTASSIUM 50 MG TABLET PO SCH (09:38)
[2020-09-15] MEDS: TAMSULOSIN HCL 0.4 MG CAP PO SCH (09:39)
[2020-09-15] MEDS: HEPARIN NA (PORCINE) 5,000 UNITS/ML 1ML VIAL SQ SCH ×2 (09:39→21:14)
[2020-09-15] MEDS: ESCITALOPRAM OXALATE 10 MG TABLET PO SCH (09:39)
[2020-09-15] MEDS: HYDROCHLOROTHIAZIDE 12.5 MG CAPSULE (FP) PO SCH (09:39)
[2020-09-15] MEDS: METOPROLOL TARTRATE 25 MG TABLET (FP) PO SCH ×2 (09:39→21:14)
[2020-09-15] MEDS: ALPRAZolam 0.25 MG TABLET PO SCH ×2 (09:39→21:14)
[2020-09-15] MEDS ORDERED: oxyCODONE HCL 5 MG TABLET PO PRN (12:36)
[2020-09-15] MEDS: SENNOSIDES 8.6MG TABLET (FP) PO PRN (21:13)
[2020-09-15] MEDS: MELATONIN 5 MG TABLETS PO PRN (21:14)
[2020-09-15] MEDS ORDERED: TAMSULOSIN HCL 0.4 MG CAP PO ONE (22:00)
[2020-09-16] MEDS: PREGABALIN 50 MG CAPSULE PO SCH ×3 (05:46→21:17)
[2020-09-16] MEDS: ACETAMINOPHEN 325 MG TABLET (FP) PO PRN ×2 (05:46→21:16)
[2020-09-16] MEDS: DOCUSATE SODIUM 100 MG CAPSULE (FP) PO SCH ×3 (05:47→21:17)
[2020-09-16] MEDS: TAMSULOSIN HCL 0.4 MG CAP PO SCH (08:24)
[2020-09-16] MEDS: LOSARTAN POTASSIUM 50 MG TABLET PO SCH (10:28)
[2020-09-16] MEDS: ALPRAZolam 0.25 MG TABLET PO SCH ×2 (10:28→21:17)
[2020-09-16] MEDS: ESCITALOPRAM OXALATE 10 MG TABLET PO SCH (10:29)
[2020-09-16] MEDS: HEPARIN NA (PORCINE) 5,000 UNITS/ML 1ML VIAL SQ SCH (10:29)
[2020-09-16] MEDS: HYDROCHLOROTHIAZIDE 12.5 MG CAPSULE (FP) PO SCH (10:29)
[2020-09-16] MEDS: METOPROLOL TARTRATE 25 MG TABLET (FP) PO SCH ×2 (10:29→21:17)
[2020-09-16] MEDS ORDERED: SILODOSIN 8 MG PO SCH (16:00)
[2020-09-16] MEDS: SILODOSIN 8 MG CAP PO SCH (16:20)
[2020-09-16] MEDS ORDERED: PT OWN MED DRAWER 7, Y5N ONE (16:54)
[2020-09-16] MEDS ORDERED: TAMSULOSIN HCL 0.4 MG CAP PO SCH (18:00)
[2020-09-16] MEDS: MELATONIN 5 MG TABLETS PO PRN (21:16)
[2020-09-16] MEDS: SENNOSIDES 8.6MG TABLET (FP) PO PRN (21:17)
[2020-09-17] MEDS: ACETAMINOPHEN 325 MG TABLET (FP) PO PRN (05:37)
[2020-09-17] MEDS: DOCUSATE SODIUM 100 MG CAPSULE (FP) PO SCH ×3 (05:38→21:18)
[2020-09-17] MEDS: PREGABALIN 50 MG CAPSULE PO SCH ×3 (05:38→21:14)
[2020-09-17 06:31] LABS: EOS % 5.7 % (0-4.5); HEMATOCRIT 39.6 % (35.4-49); HEMOGLOBIN 13.2 GM/dL (11.7-16.9); LYMPH % 37.5 % (8-40); MCH 30.9 pg (25.7-33.7); MCHC 33.2 g/dl (32.0-35.9); MEAN CELL VOLUME 92.8 fl (80-96); MEAN PLT VOLUME 7.7 fl (7.5-11.1); MONO % 10.7 % (3.8-10.2); NEUT % 45.1 % (42.8-82.8); PLATELET COUNT 216 K/MM3 (134-434); RBC 4.26 M/mm3 (4.00-5.60); RDW 14.7 % (11.9-15.9); WHITE BLOOD COUNT 7.3 K/mm3 (4.0-10.0)
[2020-09-17 06:39] LABS: INR 1.08 (0.83-1.09)
[2020-09-17 07:10] LABS: ALBUMIN 3.1 g/dl (3.4-5.0); CALCIUM 8.8 mg/dL (8.5-10.1)
[2020-09-17 07:11] LABS: BLOOD UREA NITROGEN 18.9 mg/dL (7-18)
[2020-09-17 07:13] LABS: CREATININE 0.7 mg/dL (0.55-1.3)
[2020-09-17 07:15] LABS: BILIRUBIN,TOTAL 0.6 mg/dL (0.2-1); TOT PROT 5.6 g/dl (6.4-8.2)
[2020-09-17] MEDS: ESCITALOPRAM OXALATE 10 MG TABLET PO SCH (12:41)
[2020-09-17] MEDS: HYDROCHLOROTHIAZIDE 12.5 MG CAPSULE (FP) PO SCH (12:41)
[2020-09-17] MEDS: ALPRAZolam 0.25 MG TABLET PO SCH ×2 (12:41→21:14)
[2020-09-17] MEDS: TAMSULOSIN HCL 0.4 MG CAP PO SCH (12:41)
[2020-09-17] MEDS: LOSARTAN POTASSIUM 50 MG TABLET PO SCH (12:41)
[2020-09-17] MEDS: METOPROLOL TARTRATE 25 MG TABLET (FP) PO SCH ×2 (12:41→21:14)
[2020-09-17] MEDS: SILODOSIN 8 MG CAP PO SCH (12:42)
[2020-09-17 12:56] LABS: BF GLUCOSE (CSF ONLY) 36 mg/dL (40-70)
[2020-09-17 13:10] LABS: CSF APPEARANCE CLEAR; CSF COLOR COLORLESS; CSF WBC 4
[2020-09-17] MEDS ORDERED: ceFAZolin 2 GRAM PREMIX BAG IVPB ONE (17:02)
[2020-09-17] MEDS: SODIUM CHLORIDE 1,000 ML IV SCH (17:42)
[2020-09-17] MEDS: MELATONIN 5 MG TABLETS PO PRN (22:00)
[2020-09-18] MEDS: SODIUM CHLORIDE 1,000 ML IV SCH ×3 (03:21→23:55)
[2020-09-18] MEDS: DOCUSATE SODIUM 100 MG CAPSULE (FP) PO SCH ×3 (05:23→21:28)
[2020-09-18] MEDS: PREGABALIN 50 MG CAPSULE PO SCH ×3 (05:23→21:28)
[2020-09-18] MEDS: TAMSULOSIN HCL 0.4 MG CAP PO SCH (09:28)
[2020-09-18] MEDS: HYDROCHLOROTHIAZIDE 12.5 MG CAPSULE (FP) PO SCH (09:28)
[2020-09-18] MEDS: ESCITALOPRAM OXALATE 10 MG TABLET PO SCH (09:29)
[2020-09-18] MEDS: ALPRAZolam 0.25 MG TABLET PO SCH ×2 (09:29→21:25)
[2020-09-18] MEDS: METOPROLOL TARTRATE 25 MG TABLET (FP) PO SCH ×2 (09:29→21:29)
[2020-09-18] MEDS: LOSARTAN POTASSIUM 50 MG TABLET PO SCH (09:29)
[2020-09-18] MEDS ORDERED: PT OWN MED DRAWER 7, Y5N ONE ×2 (09:30→10:08)
[2020-09-18] MEDS: SILODOSIN 8 MG CAP PO SCH (09:31)
[2020-09-18] MEDS: ACETAMINOPHEN 325 MG TABLET (FP) PO PRN (20:06)
[2020-09-18] MEDS: MELATONIN 5 MG TABLETS PO PRN (21:30)
[2020-09-19] MEDS: ACETAMINOPHEN 325 MG TABLET (FP) PO PRN (06:19)
[2020-09-19] MEDS: PREGABALIN 50 MG CAPSULE PO SCH ×3 (06:20→21:30)
[2020-09-19] MEDS: DOCUSATE SODIUM 100 MG CAPSULE (FP) PO SCH ×3 (06:20→21:31)
[2020-09-19] MEDS: SILODOSIN 8 MG CAP PO SCH (10:18)
[2020-09-19] MEDS: TAMSULOSIN HCL 0.4 MG CAP PO SCH (10:19)
[2020-09-19] MEDS: ALPRAZolam 0.25 MG TABLET PO SCH ×2 (10:24→21:30)
[2020-09-19] MEDS: LOSARTAN POTASSIUM 50 MG TABLET PO SCH (10:24)
[2020-09-19] MEDS: METOPROLOL TARTRATE 25 MG TABLET (FP) PO SCH ×2 (10:25→21:30)
[2020-09-19] MEDS: HYDROCHLOROTHIAZIDE 12.5 MG CAPSULE (FP) PO SCH (10:26)
[2020-09-19] MEDS: ESCITALOPRAM OXALATE 10 MG TABLET PO SCH (10:26)
[2020-09-19] MEDS: SODIUM CHLORIDE 1,000 ML IV SCH (15:17)
[2020-09-19] MEDS: MELATONIN 5 MG TABLETS PO PRN (21:31)
[2020-09-20] MEDS: SODIUM CHLORIDE 1,000 ML IV SCH ×2 (05:00→15:37)
[2020-09-20] MEDS: PREGABALIN 50 MG CAPSULE PO SCH ×3 (06:01→21:03)
[2020-09-20] MEDS: DOCUSATE SODIUM 100 MG CAPSULE (FP) PO SCH ×3 (06:01→21:04)
[2020-09-20] MEDS ORDERED: MEPERIDINE HCL 25 MG/ML VIAL IM ONE (07:49)
[2020-09-20 08:15] LABS: BASO % 0.8 % (0-2.0); EOS % 5.5 % (0-4.5); HEMATOCRIT 37.7 % (35.4-49); HEMOGLOBIN 12.6 GM/dL (11.7-16.9); LYMPH % 35.6 % (8-40); MCHC 33.5 g/dl (32.0-35.9); MEAN CELL VOLUME 92.7 fl (80-96); MONO % 8.9 % (3.8-10.2); NEUT % 49.2 % (42.8-82.8); PLATELET COUNT 238 K/MM3 (134-434); RBC 4.07 M/mm3 (4.00-5.60); RDW 14.8 % (11.9-15.9); WHITE BLOOD COUNT 6.5 K/mm3 (4.0-10.0)
[2020-09-20 08:37] LABS: POTASSIUM 4.3 mmol/L (3.5-5.1)
[2020-09-20 08:39] LABS: CALCIUM 8.8 mg/dL (8.5-10.1)
[2020-09-20 08:40] LABS: ALBUMIN 3.1 g/dl (3.4-5.0)
[2020-09-20 08:43] LABS: CREATININE 0.6 mg/dL (0.55-1.3)
[2020-09-20 08:44] LABS: BILIRUBIN,TOTAL 0.6 mg/dL (0.2-1); TOT PROT 5.5 g/dl (6.4-8.2)
[2020-09-20] MEDS ORDERED: PT OWN MED DRAWER 7, Y5N ONE (08:57)
[2020-09-20] MEDS: ALPRAZolam 0.25 MG TABLET PO SCH ×2 (09:11→21:03)
[2020-09-20] MEDS: ENOXAPARIN NA (PORCINE) 40 MG/0.4 ML DISP.SYRIN SQ SCH (09:11)
[2020-09-20] MEDS: HYDROCHLOROTHIAZIDE 12.5 MG CAPSULE (FP) PO SCH (09:13)
[2020-09-20] MEDS: ESCITALOPRAM OXALATE 10 MG TABLET PO SCH (09:13)
[2020-09-20] MEDS: LOSARTAN POTASSIUM 50 MG TABLET PO SCH (09:13)
[2020-09-20] MEDS: METOPROLOL TARTRATE 25 MG TABLET (FP) PO SCH ×2 (09:14→21:06)
[2020-09-20] MEDS: TAMSULOSIN HCL 0.4 MG CAP PO SCH (09:14)
[2020-09-20] MEDS: SILODOSIN 8 MG CAP PO SCH (09:15)
[2020-09-20] MEDS ORDERED: TAMSULOSIN HCL 0.4 MG CAP PO ONE (18:56)
[2020-09-20] MEDS: MELATONIN 5 MG TABLETS PO PRN (21:06)
[2020-09-21] MEDS: PREGABALIN 50 MG CAPSULE PO SCH ×2 (05:22→14:04)
[2020-09-21] MEDS: DOCUSATE SODIUM 100 MG CAPSULE (FP) PO SCH ×2 (05:23→14:04)
[2020-09-21 11:07] VITALS: TEMP 97.6
[2020-09-21] MEDS: ENOXAPARIN NA (PORCINE) 40 MG/0.4 ML DISP.SYRIN SQ SCH (11:08)
[2020-09-21] MEDS: LOSARTAN POTASSIUM 50 MG TABLET PO SCH (11:08)
[2020-09-21] MEDS: ALPRAZolam 0.25 MG TABLET PO SCH (11:08)
[2020-09-21] MEDS: HYDROCHLOROTHIAZIDE 12.5 MG CAPSULE (FP) PO SCH (11:08)
[2020-09-21] MEDS: ESCITALOPRAM OXALATE 10 MG TABLET PO SCH (11:09)
[2020-09-21] MEDS: METOPROLOL TARTRATE 25 MG TABLET (FP) PO SCH (11:09)
[2020-09-21] MEDS: TAMSULOSIN HCL 0.4 MG CAP PO SCH (11:09)
[2020-09-21] MEDS: SILODOSIN 8 MG CAP PO SCH (11:09)
[2020-09-21 13:25] VITALS: BP 119/70; PULSE 61
[2020-09-21] MEDS: SODIUM CHLORIDE 1,000 ML IV SCH (14:04)
== END 2020-09-21 17:25 | disposition home or self-care (01) | DRG 919 ==
LOC: JER 11:56 → JERBED 17:35 → J7W 22:20
PROVIDERS: ADMIT Internal Medicine; ATTEND Internal Medicine
PROC: 009U3ZX Drainage of Spinal Canal, Percutaneous Approach, Diagnostic (ICD-10-PCS; principal; 2020-09-17)
DX: G97.63 Postprocedural seroma of a nervous system organ or structure following a nervous system procedure (principal); R53.2 Functional quadriplegia; M47.12 Other spondylosis with myelopathy, cervical region; G97.82 Other postprocedural complications and disorders of nervous system; I10 Essential (primary) hypertension; G62.9 Polyneuropathy, unspecified; M54.9 Dorsalgia, unspecified; N40.0 Benign prostatic hyperplasia without lower urinary tract symptoms; J32.9 Chronic sinusitis, unspecified; E66.9 Obesity, unspecified; Z68.31 Body mass index [BMI] 31.0-31.9, adult; R26.9 Unspecified abnormalities of gait and mobility; R60.9 Edema, unspecified; R55 Syncope and collapse; G96.198 Other disorders of meninges, not elsewhere classified; Y83.8 Other surgical procedures as the cause of abnormal reaction of the patient, or of later complication, without mention of misadventure at the time of the procedure
CPT/HCPCS: 10030; 36415; 70450-TC; 71045-TC-FY; 71250-TC; 72125-TC; 72128-TC; 72131-TC; 72141-TC; 72146-TC; 72148-TC; 72149-TC; 80053; 82945; 83880; 84157; 85025; 85610; 87070; 87102; 87116; 87205; 87206; 87210; 93005; 93010; 93971; 95860-TC; 97116-GP; 97162-GP; 99285-25; A9579; C9803; J1644; U0003

== ENCOUNTER 2021-01-14 15:35 | Inpatient (IN) | payer OTHER, BC ==
[2021-01-14 16:51] LABS: BASO % 0.1 % (0-2.0); HEMATOCRIT 33.4 % (35.4-49); HEMOGLOBIN 11.8 GM/dL (11.7-16.9); LYMPH % 7.3 % (8-40); MCHC 35.3 g/dl (32.0-35.9); MEAN CELL VOLUME 90.8 fl (80-96); MEAN PLT VOLUME 7.1 fl (7.5-11.1); MONO % 7.7 % (3.8-10.2); NEUT % 84.9 % (42.8-82.8); PLATELET COUNT 155 K/MM3 (134-434); RBC 3.67 M/mm3 (4.00-5.60); WHITE BLOOD COUNT 18.9 K/mm3 (4.0-10.0)
[2021-01-14 16:58] LABS: INR 1.32 (0.83-1.09); PROTHROMBIN TIME (PATIENT) 15.9 SEC (9.7-13.0)
[2021-01-14 17:01] LABS: ACTIVATED PTT 30.2 SECONDS (25.2-36.5)
[2021-01-14 17:15] LABS: ANISOCYTOSIS 1+; MACROCYTOSIS 0; PLATELET ESTIMATE DECREASED
[2021-01-14 17:18] LABS: POTASSIUM 4.1 mmol/L (3.5-5.1)
[2021-01-14 17:20] VITALS: BMI 30.2
[2021-01-14 18:16] LABS: BLOOD UREA NITROGEN 40.8 mg/dL (7-18); CALCIUM 8.6 mg/dL (8.5-10.1)
[2021-01-14 18:19] LABS: CREATININE 1.8 mg/dL (0.55-1.3); PHOSPHOROUS 1.5 mg/dL (2.5-4.9)
[2021-01-14 18:21] LABS: BILIRUBIN,TOTAL 0.9 mg/dL (0.2-1); TOT PROT 5.7 g/dl (6.4-8.2)
[2021-01-14] MEDS ORDERED: LACTATED RINGERS SOLUTION 1000 ML INFUS.BAG IV ONE (19:30)
[2021-01-14 19:36] LABS: EPI CELLS 9 /uL (0-25.1); HYALINE CASTS 3 /uL (0-3.1); URINE APPEARANCE TURBID; URINE BACTERIA >9,000 /uL (0-1359); URINE BILIRUBIN NEGATIVE (NEGATIVE); URINE COLOR YELLOW; URINE GLUCOSE (UA) NEGATIVE (NEGATIVE); URINE KETONE NEGATIVE (NEGATIVE); URINE LEUK ESTERASE 3+ (NEGATIVE); URINE NITRITE NEGATIVE (NEGATIVE); URINE PROTEIN NEGATIVE (NEGATIVE); URINE RBC 908 /uL (0-23.9); URINE UROBILINOGEN 0.2 mg/dL (0.2-1.0); URINE WBC 2031 /uL (0-25.8)
[2021-01-14] MEDS ORDERED: MAGNESIUM 1GM/D5W - 1 GM/100 ML IVPB IVPB ONE (19:44)
[2021-01-14] MEDS ORDERED: CEFTRIAXONE 1,000 MG in DEXTROSE 5%-WATER - 50 ML IVPB ONE (19:47)
[2021-01-14] MEDS ORDERED: MEROPENEM 1 GM in DEXTROSE 5%-WATER 100 ML IVPB ONE (19:49)
[2021-01-14] MEDS ORDERED: ACETAMINOPHEN 500 MG TABLET (FP) PO ONE ×2 (20:07→20:46)
[2021-01-14] MEDS ORDERED: ACETAMINOPHEN 325 MG TABLET (FP) ONE (20:08)
[2021-01-14] MEDS ORDERED: MEROPENEM 1 GM VIAL (RESTRICTED TO ID) IVPB ONE (20:25)
[2021-01-14] MEDS ORDERED: LACTATED RINGERS SOLUTION 1,000 ML/1,000 ML INFUS.BAG IV STA (20:45)
[2021-01-14] MEDS ORDERED: oxyCODONE HCL 5 MG TABLET PO PRN (23:15)
[2021-01-14] MEDS ORDERED: SODIUM PHOSPHATE/NA BIPHOS 133 ML ENEMA RC PRN (23:22)
[2021-01-14] MEDS ORDERED: BISACODYL 10 MG SUPP.RECT PR PRN (23:26)
[2021-01-15] MEDS ORDERED: ERTAPENEM SODIUM 1 GM VIAL ONE ×2 (00:52→08:36)
[2021-01-15] MEDS: ERTAPENEM SODIUM 1 GM in SODIUM CHLORIDE 50 ML IVPB SCH ×2 (00:59→09:10)
[2021-01-15] MEDS ORDERED: HEPARIN NA (PORCINE) 5,000 UNITS/ML 1ML VIAL ONE ×3 (01:37→08:36)
[2021-01-15] MEDS ORDERED: PIPERACILLIN/TAZOB 2.25 GM 2.25 GM/50 ML BAG IVPB ONE (01:41)
[2021-01-15] MEDS: LACTATED RINGERS SOLUTION 1,000 ML IV SCH (02:50)
[2021-01-15] MEDS ORDERED: PREGABALIN 50 MG CAPSULE PO ONE (04:46)
[2021-01-15] MEDS ORDERED: PREGABALIN 50 MG CAPSULE ONE ×3 (04:47→14:44)
[2021-01-15] MEDS ORDERED: ACETAMINOPHEN 1000 MG/100 ML VIAL (NON FORMULARY) IVPB ONE (05:08)
[2021-01-15] MEDS ORDERED: NAPH,MB-DB/K PH,MBDB POWDER PACKET ONE ×2 (05:21→14:44)
[2021-01-15] MEDS ORDERED: DOCUSATE SODIUM 100 MG CAPSULE (FP) PO ONE ×3 (05:22→14:44)
[2021-01-15] MEDS ORDERED: ACETAMINOPHEN INJECTION 100 ML IVPB ONE (05:22)
[2021-01-15] MEDS: HEPARIN NA (PORCINE) 5,000 UNITS/ML 1ML VIAL SQ SCH ×3 (05:36→22:22)
[2021-01-15] MEDS: DOCUSATE SODIUM 100 MG CAPSULE (FP) PO SCH ×3 (05:36→22:22)
[2021-01-15] MEDS: PREGABALIN 50 MG CAPSULE PO SCH ×3 (05:37→22:22)
[2021-01-15] MEDS: NAPH,MB-DB/K PH,MBDB POWDER PACKET PO SCH ×3 (05:37→22:22)
[2021-01-15] MEDS: INSULIN SLIDING SCALE (NOVOLOG) 1 VIAL SQ SCH (06:28)
[2021-01-15 07:56] LABS: BASO % 0.2 % (0-2.0); EOS % 0.5 % (0-4.5); HEMATOCRIT 31.6 % (35.4-49); HEMOGLOBIN 10.9 GM/dL (11.7-16.9); LYMPH % 6.4 % (8-40); MCH 31.7 pg (25.7-33.7); MCHC 34.4 g/dl (32.0-35.9); MEAN CELL VOLUME 92.2 fl (80-96); MEAN PLT VOLUME 7.8 fl (7.5-11.1); MONO % 2.2 % (3.8-10.2); NEUT % 90.7 % (42.8-82.8); PLATELET COUNT 130 K/MM3 (134-434); RBC 3.43 M/mm3 (4.00-5.60); RDW 14.1 % (11.9-15.9); WHITE BLOOD COUNT 13.1 K/mm3 (4.0-10.0)
[2021-01-15 08:08] LABS: POTASSIUM 4.3 mmol/L (3.5-5.1)
[2021-01-15 08:09] LABS: INR 1.25 (0.83-1.09)
[2021-01-15 08:10] LABS: CALCIUM 8.3 mg/dL (8.5-10.1)
[2021-01-15 08:11] LABS: ALBUMIN 2.8 g/dl (3.4-5.0); BLOOD UREA NITROGEN 45.5 mg/dL (7-18); MAGNESIUM 1.2 mg/dL (1.8-2.4)
[2021-01-15 08:14] LABS: PHOSPHOROUS 3.3 mg/dL (2.5-4.9)
[2021-01-15 08:15] LABS: BILIRUBIN,TOTAL 0.9 mg/dL (0.2-1); TOT PROT 5.5 g/dl (6.4-8.2)
[2021-01-15] MEDS ORDERED: METOPROLOL TARTRATE 25 MG TABLET (FP) ONE ×2 (08:35→08:55)
[2021-01-15] MEDS ORDERED: ASPIRIN 81 MG CHEWABLE TABLETS ONE (08:35)
[2021-01-15] MEDS ORDERED: TAMSULOSIN HCL 0.4 MG CAP ONE (08:35)
[2021-01-15] MEDS ORDERED: ESCITALOPRAM OXALATE 10 MG TABLET ONE (08:36)
[2021-01-15] MEDS ORDERED: FOLIC ACID 1 MG TABLET (FP) ONE (08:36)
[2021-01-15] MEDS: TAMSULOSIN HCL 0.4 MG CAP PO SCH (08:56)
[2021-01-15] MEDS: ASPIRIN 81 MG CHEWABLE TABLETS PO SCH (09:10)
[2021-01-15] MEDS: FOLIC ACID 1 MG TABLET (FP) PO SCH (09:10)
[2021-01-15] MEDS: METOPROLOL TARTRATE 25 MG TABLET (FP) PO SCH ×2 (09:10→22:22)
[2021-01-15] MEDS: ESCITALOPRAM OXALATE 10 MG TABLET PO SCH (09:10)
[2021-01-15] MEDS: POLYETHYLENE GLYCOL 3350 119 GM BTL PO SCH ×2 (09:10→22:21)
[2021-01-15] MEDS ORDERED: PATIENT'S OWN MEDICATION (NON-FORMULARY) (Silodosin [Rapaflo] 8 MG Capsule) PO SCH (10:00)
[2021-01-15] MEDS: AMINO ACIDS/PROTEIN HYDROLYS 30 ML LIQUID.PKT PO SCH ×2 (10:54→19:14)
[2021-01-15 11:47] LABS: ANISOCYTOSIS 2+; MACROCYTOSIS 1+
[2021-01-15 12:02] LABS: PLATELET ESTIMATE SLT DECREASE
[2021-01-15] MEDS: ACETAMINOPHEN 325 MG TABLET (FP) PO PRN (12:30)
[2021-01-15] MEDS: MELATONIN 5 MG TABLETS PO PRN (22:22)
[2021-01-16] MEDS: NAPH,MB-DB/K PH,MBDB POWDER PACKET PO SCH ×3 (06:03→21:19)
[2021-01-16] MEDS: HEPARIN NA (PORCINE) 5,000 UNITS/ML 1ML VIAL SQ SCH ×3 (06:03→21:19)
[2021-01-16] MEDS: PREGABALIN 50 MG CAPSULE PO SCH ×3 (06:03→21:19)
[2021-01-16] MEDS: DOCUSATE SODIUM 100 MG CAPSULE (FP) PO SCH ×3 (06:03→21:18)
[2021-01-16] MEDS: INSULIN SLIDING SCALE (NOVOLOG) 1 VIAL SQ SCH (06:05)
[2021-01-16] MEDS: TAMSULOSIN HCL 0.4 MG CAP PO SCH (10:01)
[2021-01-16] MEDS: AMINO ACIDS/PROTEIN HYDROLYS 30 ML LIQUID.PKT PO SCH ×2 (10:01→17:16)
[2021-01-16] MEDS: FOLIC ACID 1 MG TABLET (FP) PO SCH (10:02)
[2021-01-16] MEDS: METOPROLOL TARTRATE 25 MG TABLET (FP) PO SCH ×2 (10:02→21:19)
[2021-01-16] MEDS: ASPIRIN 81 MG CHEWABLE TABLETS PO SCH (10:02)
[2021-01-16] MEDS: ESCITALOPRAM OXALATE 10 MG TABLET PO SCH (10:02)
[2021-01-16] MEDS: POLYETHYLENE GLYCOL 3350 119 GM BTL PO SCH ×2 (10:02→21:19)
[2021-01-16] MEDS: ERTAPENEM SODIUM 1 GM in SODIUM CHLORIDE 50 ML IVPB SCH (11:28)
[2021-01-16] MEDS ORDERED: MAGNESIUM 2GM/50ML STERILE WATER IVPB IVPB ONE (13:15)
[2021-01-16] MEDS: MAGNESIUM OXIDE 400 MG TABLET (FP) PO SCH (13:55)
[2021-01-16] MEDS: LACTATED RINGERS SOLUTION 1,000 ML IV SCH (13:57)
[2021-01-16] MEDS: MELATONIN 5 MG TABLETS PO PRN (23:59)
[2021-01-17] MEDS: NAPH,MB-DB/K PH,MBDB POWDER PACKET PO SCH ×3 (07:01→22:48)
[2021-01-17] MEDS: PREGABALIN 50 MG CAPSULE PO SCH ×3 (07:01→22:48)
[2021-01-17] MEDS: INSULIN SLIDING SCALE (NOVOLOG) 1 VIAL SQ SCH (07:01)
[2021-01-17] MEDS: HEPARIN NA (PORCINE) 5,000 UNITS/ML 1ML VIAL SQ SCH ×3 (07:01→22:49)
[2021-01-17] MEDS: DOCUSATE SODIUM 100 MG CAPSULE (FP) PO SCH ×3 (07:02→22:49)
[2021-01-17 07:17] LABS: POTASSIUM 3.7 mmol/L (3.5-5.1)
[2021-01-17 07:19] LABS: BLOOD UREA NITROGEN 34.1 mg/dL (7-18); CALCIUM 8.5 mg/dL (8.5-10.1)
[2021-01-17 07:21] LABS: ALBUMIN 2.4 g/dl (3.4-5.0)
[2021-01-17 07:24] LABS: CREATININE 0.7 mg/dL (0.55-1.3)
[2021-01-17 07:25] LABS: BILIRUBIN,TOTAL 0.6 mg/dL (0.2-1); TOT PROT 4.9 g/dl (6.4-8.2)
[2021-01-17] MEDS: AMINO ACIDS/PROTEIN HYDROLYS 30 ML LIQUID.PKT PO SCH ×2 (08:55→17:28)
[2021-01-17] MEDS: TAMSULOSIN HCL 0.4 MG CAP PO SCH (08:59)
[2021-01-17] MEDS: FOLIC ACID 1 MG TABLET (FP) PO SCH (09:00)
[2021-01-17] MEDS: METOPROLOL TARTRATE 25 MG TABLET (FP) PO SCH ×2 (09:00→22:48)
[2021-01-17] MEDS: ASPIRIN 81 MG CHEWABLE TABLETS PO SCH (09:00)
[2021-01-17] MEDS: ESCITALOPRAM OXALATE 10 MG TABLET PO SCH (09:00)
[2021-01-17] MEDS: MAGNESIUM OXIDE 400 MG TABLET (FP) PO SCH (09:00)
[2021-01-17] MEDS: POLYETHYLENE GLYCOL 3350 119 GM BTL PO SCH ×2 (09:03→22:49)
[2021-01-17] MEDS: ERTAPENEM SODIUM 1 GM in SODIUM CHLORIDE 50 ML IVPB SCH (09:23)
[2021-01-17] MEDS: LACTATED RINGERS SOLUTION 1,000 ML IV SCH (13:24)
[2021-01-17] MEDS ORDERED: LACTATED RINGERS SOLUTION 1,000 ML IV SCH (17:10)
[2021-01-17] MEDS ORDERED: MAGNESIUM OXIDE 400 MG TABLET (FP) PO ONE (17:11)
[2021-01-17] MEDS: MELATONIN 5 MG TABLETS PO PRN (22:48)
[2021-01-18] MEDS: INSULIN SLIDING SCALE (NOVOLOG) 1 VIAL SQ SCH (06:15)
[2021-01-18] MEDS: DOCUSATE SODIUM 100 MG CAPSULE (FP) PO SCH ×3 (06:15→21:46)
[2021-01-18] MEDS: PREGABALIN 50 MG CAPSULE PO SCH ×3 (06:16→21:39)
[2021-01-18] MEDS: NAPH,MB-DB/K PH,MBDB POWDER PACKET PO SCH ×3 (06:16→21:39)
[2021-01-18] MEDS: HEPARIN NA (PORCINE) 5,000 UNITS/ML 1ML VIAL SQ SCH ×3 (06:16→21:38)
[2021-01-18 07:16] LABS: POTASSIUM 3.9 mmol/L (3.5-5.1)
[2021-01-18 07:23] LABS: ALBUMIN 2.4 g/dl (3.4-5.0); CALCIUM 8.7 mg/dL (8.5-10.1)
[2021-01-18 07:24] LABS: BLOOD UREA NITROGEN 18.2 mg/dL (7-18); CREATININE 0.5 mg/dL (0.55-1.3); MAGNESIUM 1.5 mg/dL (1.8-2.4)
[2021-01-18 07:28] LABS: BILIRUBIN,TOTAL 0.6 mg/dL (0.2-1)
[2021-01-18] MEDS: ACETAMINOPHEN 325 MG TABLET (FP) PO PRN ×2 (07:58→21:39)
[2021-01-18] MEDS: TAMSULOSIN HCL 0.4 MG CAP PO SCH (08:02)
[2021-01-18] MEDS: AMINO ACIDS/PROTEIN HYDROLYS 30 ML LIQUID.PKT PO SCH ×2 (08:03→16:47)
[2021-01-18] MEDS: MAGNESIUM OXIDE 400 MG TABLET (FP) PO SCH (09:05)
[2021-01-18] MEDS: ESCITALOPRAM OXALATE 10 MG TABLET PO SCH (09:05)
[2021-01-18] MEDS: ASPIRIN 81 MG CHEWABLE TABLETS PO SCH (09:05)
[2021-01-18] MEDS: METOPROLOL TARTRATE 25 MG TABLET (FP) PO SCH ×2 (09:05→21:39)
[2021-01-18] MEDS: FOLIC ACID 1 MG TABLET (FP) PO SCH (09:05)
[2021-01-18] MEDS: POLYETHYLENE GLYCOL 3350 119 GM BTL PO SCH ×2 (09:06→21:39)
[2021-01-18] MEDS ORDERED: PT OWN MED DRAWER 7, Y5N ONE (09:49)
[2021-01-18] MEDS: ERTAPENEM SODIUM 1 GM in SODIUM CHLORIDE 50 ML IVPB SCH (09:49)
[2021-01-18] MEDS ORDERED: MAGNESIUM 2GM/50ML STERILE WATER IVPB IVPB ONE (13:48)
[2021-01-18] MEDS: MELATONIN 5 MG TABLETS PO PRN (21:39)
[2021-01-18] MEDS ORDERED: ESCITALOPRAM OXALATE 10 MG TABLET PO ONE (22:55)
[2021-01-19] MEDS: DOCUSATE SODIUM 100 MG CAPSULE (FP) PO SCH ×4 (06:05→21:45)
[2021-01-19] MEDS: INSULIN SLIDING SCALE (NOVOLOG) 1 VIAL SQ SCH (06:06)
[2021-01-19] MEDS: PREGABALIN 50 MG CAPSULE PO SCH ×3 (06:15→21:45)
[2021-01-19] MEDS: NAPH,MB-DB/K PH,MBDB POWDER PACKET PO SCH ×3 (06:15→21:45)
[2021-01-19] MEDS: HEPARIN NA (PORCINE) 5,000 UNITS/ML 1ML VIAL SQ SCH ×3 (06:15→21:45)
[2021-01-19] MEDS: POLYETHYLENE GLYCOL 3350 119 GM BTL PO SCH ×2 (09:21→21:45)
[2021-01-19] MEDS: FOLIC ACID 1 MG TABLET (FP) PO SCH (09:22)
[2021-01-19] MEDS: ESCITALOPRAM OXALATE 10 MG TABLET PO SCH (09:22)
[2021-01-19] MEDS: ASPIRIN 81 MG CHEWABLE TABLETS PO SCH (09:22)
[2021-01-19] MEDS: METOPROLOL TARTRATE 25 MG TABLET (FP) PO SCH ×2 (09:22→21:45)
[2021-01-19] MEDS: MAGNESIUM OXIDE 400 MG TABLET (FP) PO SCH (09:22)
[2021-01-19] MEDS: AMINO ACIDS/PROTEIN HYDROLYS 30 ML LIQUID.PKT PO SCH ×2 (09:23→17:48)
[2021-01-19] MEDS: ERTAPENEM SODIUM 1 GM in SODIUM CHLORIDE 50 ML IVPB SCH (10:00)
[2021-01-19] MEDS: TAMSULOSIN HCL 0.4 MG CAP PO SCH (10:04)
[2021-01-19] MEDS: ACETAMINOPHEN 325 MG TABLET (FP) PO PRN ×2 (15:46→21:46)
[2021-01-19] MEDS: MELATONIN 5 MG TABLETS PO PRN (21:46)
[2021-01-20] MEDS: INSULIN SLIDING SCALE (NOVOLOG) 1 VIAL SQ SCH (07:03)
[2021-01-20] MEDS: DOCUSATE SODIUM 100 MG CAPSULE (FP) PO SCH ×3 (07:03→21:01)
[2021-01-20] MEDS: PREGABALIN 50 MG CAPSULE PO SCH ×3 (07:03→21:00)
[2021-01-20] MEDS: HEPARIN NA (PORCINE) 5,000 UNITS/ML 1ML VIAL SQ SCH ×3 (07:03→21:00)
[2021-01-20] MEDS: NAPH,MB-DB/K PH,MBDB POWDER PACKET PO SCH ×3 (07:03→21:00)
[2021-01-20] MEDS: POLYETHYLENE GLYCOL 3350 119 GM BTL PO SCH ×2 (09:30→21:01)
[2021-01-20] MEDS: FOLIC ACID 1 MG TABLET (FP) PO SCH (09:53)
[2021-01-20] MEDS: TAMSULOSIN HCL 0.4 MG CAP PO SCH (09:53)
[2021-01-20] MEDS: ESCITALOPRAM OXALATE 10 MG TABLET PO SCH (09:53)
[2021-01-20] MEDS: METOPROLOL TARTRATE 25 MG TABLET (FP) PO SCH ×2 (09:53→21:00)
[2021-01-20] MEDS: MAGNESIUM OXIDE 400 MG TABLET (FP) PO SCH (09:53)
[2021-01-20] MEDS: AMINO ACIDS/PROTEIN HYDROLYS 30 ML LIQUID.PKT PO SCH ×2 (09:54→17:21)
[2021-01-20] MEDS: ASPIRIN 81 MG CHEWABLE TABLETS PO SCH (09:54)
[2021-01-20] MEDS ORDERED: PT OWN MED DRAWER 7, Y5N ONE (09:58)
[2021-01-20] MEDS: ERTAPENEM SODIUM 1 GM in SODIUM CHLORIDE 50 ML IVPB SCH (09:59)
[2021-01-20] MEDS: MELATONIN 5 MG TABLETS PO PRN (21:01)
[2021-01-21 01:29] LABS: POTASSIUM 3.9 mmol/L (3.5-5.1)
[2021-01-21 01:30] LABS: CALCIUM 8.6 mg/dL (8.5-10.1)
[2021-01-21 01:31] LABS: BLOOD UREA NITROGEN 12.2 mg/dL (7-18); MAGNESIUM 1.1 mg/dL (1.8-2.4)
[2021-01-21 01:34] LABS: CREATININE 0.5 mg/dL (0.55-1.3)
[2021-01-21] MEDS ORDERED: MAGNESIUM SULF 50% (8.12 MEQ/2 ML-1 GM VIAL) IVPB ONE (01:38)
[2021-01-21] MEDS: HEPARIN NA (PORCINE) 5,000 UNITS/ML 1ML VIAL SQ SCH ×2 (06:13→13:53)
[2021-01-21] MEDS: INSULIN SLIDING SCALE (NOVOLOG) 1 VIAL SQ SCH (06:13)
[2021-01-21] MEDS: DOCUSATE SODIUM 100 MG CAPSULE (FP) PO SCH ×2 (06:13→13:44)
[2021-01-21] MEDS: PREGABALIN 50 MG CAPSULE PO SCH ×2 (06:13→13:53)
[2021-01-21] MEDS: NAPH,MB-DB/K PH,MBDB POWDER PACKET PO SCH ×2 (06:13→13:53)
[2021-01-21 09:09] LABS: EOS % 3.7 % (0-4.5); HEMATOCRIT 31.8 % (35.4-49); HEMOGLOBIN 10.9 GM/dL (11.7-16.9); LYMPH % 24.3 % (8-40); MCH 31.6 pg (25.7-33.7); MCHC 34.2 g/dl (32.0-35.9); MEAN CELL VOLUME 92.5 fl (80-96); MEAN PLT VOLUME 7.9 fl (7.5-11.1); MONO % 9.2 % (3.8-10.2); NEUT % 61.8 % (42.8-82.8); PLATELET COUNT 274 K/MM3 (134-434); RBC 3.43 M/mm3 (4.00-5.60); RDW 13.7 % (11.9-15.9); WHITE BLOOD COUNT 11.8 K/mm3 (4.0-10.0)
[2021-01-21] MEDS ORDERED: PT OWN MED DRAWER 7, Y5N ONE ×2 (09:35→12:58)
[2021-01-21 09:40] LABS: POTASSIUM 3.9 mmol/L (3.5-5.1)
[2021-01-21 09:45] LABS: ALBUMIN 2.6 g/dl (3.4-5.0); CALCIUM 8.7 mg/dL (8.5-10.1)
[2021-01-21 09:49] LABS: CREATININE 0.4 mg/dL (0.55-1.3)
[2021-01-21 09:51] LABS: BILIRUBIN,TOTAL 0.9 mg/dL (0.2-1); TOT PROT 5.5 g/dl (6.4-8.2)
[2021-01-21] MEDS: ASPIRIN 81 MG CHEWABLE TABLETS PO SCH (10:28)
[2021-01-21] MEDS: TAMSULOSIN HCL 0.4 MG CAP PO SCH (10:28)
[2021-01-21] MEDS: AMINO ACIDS/PROTEIN HYDROLYS 30 ML LIQUID.PKT PO SCH (10:28)
[2021-01-21] MEDS: FOLIC ACID 1 MG TABLET (FP) PO SCH (10:28)
[2021-01-21] MEDS: METOPROLOL TARTRATE 25 MG TABLET (FP) PO SCH (10:29)
[2021-01-21] MEDS: ESCITALOPRAM OXALATE 10 MG TABLET PO SCH (10:29)
[2021-01-21] MEDS: MAGNESIUM OXIDE 400 MG TABLET (FP) PO SCH (10:30)
[2021-01-21] MEDS: POLYETHYLENE GLYCOL 3350 119 GM BTL PO SCH (10:31)
[2021-01-21 12:11] LABS: ANISOCYTOSIS 0; MACROCYTOSIS 0; PLATELET ESTIMATE NORMAL
[2021-01-21] MEDS: ERTAPENEM SODIUM 1 GM in SODIUM CHLORIDE 50 ML IVPB SCH (12:49)
[2021-01-21 13:36] VITALS: BP 154/74; PULSE 80; TEMP 98.1
== END 2021-01-21 16:30 | disposition home or self-care (01) | DRG 871 ==
LOC: JER 15:35 → JERBED 18:30 → J4W 01-15 22:10
PROVIDERS: ADMIT Internal Medicine; ATTEND Internal Medicine
DX: A41.50 Gram-negative sepsis, unspecified (principal); R53.2 Functional quadriplegia; N17.9 Acute kidney failure, unspecified; N39.0 Urinary tract infection, site not specified; E83.42 Hypomagnesemia; I95.9 Hypotension, unspecified; N40.0 Benign prostatic hyperplasia without lower urinary tract symptoms; G62.9 Polyneuropathy, unspecified; I10 Essential (primary) hypertension; J32.9 Chronic sinusitis, unspecified; R50.9 Fever, unspecified; M48.02 Spinal stenosis, cervical region; D64.9 Anemia, unspecified; R33.9 Retention of urine, unspecified; B96.20 Unspecified Escherichia coli [E. coli] as the cause of diseases classified elsewhere; Z74.01 Bed confinement status
CPT/HCPCS: 36415; 71045-TC-FY; 76775-TC; 76856-TC; 80048; 80053; 80061; 81003; 82962; 83605; 83721; 83735; 84100; 84153; 85025; 85610; 85730; 87040; 87086; 87186; 93005; 93010; 97162-GP; 99285-25; C9803; J0131; J1644; U0003

== ENCOUNTER 2021-02-05 17:31 | Inpatient (IN) | payer OTHER, BC ==
[2021-02-05 17:49] VITALS: BMI 29.9
[2021-02-05 20:34] LABS: EPI CELLS 16 /uL (0-25.1); HYALINE CASTS 2 /uL (0-3.1); PH,URINE 5.5 (5.0-8.0); URINE APPEARANCE CLEAR; URINE BACTERIA 3016 /uL (0-1359); URINE BILIRUBIN NEGATIVE (NEGATIVE); URINE COLOR YELLOW; URINE GLUCOSE (UA) NEGATIVE (NEGATIVE); URINE KETONE NEGATIVE (NEGATIVE); URINE LEUK ESTERASE TRACE (NEGATIVE); URINE NITRITE NEGATIVE (NEGATIVE); URINE PROTEIN NEGATIVE (NEGATIVE); URINE RBC 80 /uL (0-23.9); URINE UROBILINOGEN 0.2 mg/dL (0.2-1.0); URINE WBC 54 /uL (0-25.8)
[2021-02-05 21:43] LABS: HEMATOCRIT 35.3 % (35.4-49); HEMOGLOBIN 11.8 GM/dL (11.7-16.9); MCH 31.4 pg (25.7-33.7); MCHC 33.5 g/dl (32.0-35.9); MEAN CELL VOLUME 93.5 fl (80-96); MEAN PLT VOLUME 7.7 fl (7.5-11.1); PLATELET COUNT 318 K/MM3 (134-434); RBC 3.77 M/mm3 (4.00-5.60); RDW 14.7 % (11.9-15.9); WHITE BLOOD COUNT 8.7 K/mm3 (4.0-10.0)
[2021-02-05 21:54] LABS: INR 1.13 (0.83-1.09); PROTHROMBIN TIME (PATIENT) 13.6 SEC (9.7-13.0)
[2021-02-05 21:57] LABS: ACTIVATED PTT 29.8 SECONDS (25.2-36.5)
[2021-02-05 22:01] LABS: POTASSIUM 5.1 mmol/L (3.5-5.1)
[2021-02-05 22:02] LABS: CALCIUM 9.3 mg/dL (8.5-10.1)
[2021-02-05 22:03] LABS: BLOOD UREA NITROGEN 17.1 mg/dL (7-18)
[2021-02-05 22:06] LABS: CREATININE 0.7 mg/dL (0.55-1.3)
[2021-02-06] MEDS ORDERED: GABAPENTIN 300 MG CAPSULE PO ONE (03:31)
[2021-02-06] MEDS ORDERED: ESCITALOPRAM OXALATE 10 MG TABLET PO ONE (03:38)
[2021-02-06] MEDS ORDERED: GABAPENTIN 100 MG CAPSULE ONE ×2 (03:44→22:22)
[2021-02-06] MEDS: SODIUM CHLORIDE 1,000 ML IV SCH (03:54)
[2021-02-06 07:36] LABS: BASO % 0.9 % (0-2.0); EOS % 4.4 % (0-4.5); HEMATOCRIT 35.8 % (35.4-49); HEMOGLOBIN 12.1 GM/dL (11.7-16.9); LYMPH % 32.4 % (8-40); MCH 31.5 pg (25.7-33.7); MCHC 33.7 g/dl (32.0-35.9); MEAN CELL VOLUME 93.5 fl (80-96); MEAN PLT VOLUME 8.1 fl (7.5-11.1); MONO % 8.2 % (3.8-10.2); NEUT % 54.1 % (42.8-82.8); PLATELET COUNT 319 K/MM3 (134-434); RBC 3.83 M/mm3 (4.00-5.60); RDW 14.7 % (11.9-15.9); WHITE BLOOD COUNT 7.1 K/mm3 (4.0-10.0)
[2021-02-06 07:56] LABS: POTASSIUM 4.4 mmol/L (3.5-5.1)
[2021-02-06] MEDS ORDERED: TAMSULOSIN HCL 0.4 MG CAP PO SCH (08:30)
[2021-02-06] MEDS ORDERED: TAMSULOSIN HCL 0.4 MG CAP ONE (08:48)
[2021-02-06 08:50] LABS: CALCIUM 9.5 mg/dL (8.5-10.1)
[2021-02-06 08:51] LABS: ALBUMIN 3.2 g/dl (3.4-5.0); BLOOD UREA NITROGEN 12.9 mg/dL (7-18)
[2021-02-06 08:54] LABS: CREATININE 0.6 mg/dL (0.55-1.3)
[2021-02-06 08:55] LABS: BILIRUBIN,TOTAL 0.5 mg/dL (0.2-1)
[2021-02-06 08:56] LABS: TOT PROT 6.2 g/dl (6.4-8.2)
[2021-02-06] MEDS ORDERED: PT OWN MED DRAWER 7, Y5N ONE (13:39)
[2021-02-06] MEDS: GABAPENTIN 300 MG CAPSULE PO SCH ×2 (13:50→22:28)
[2021-02-06] MEDS ORDERED: PATIENT'S OWN MEDICATION (NON-FORMULARY) (Gabapentin [Gabapentin] 600 MG Tablet) PO SCH (22:00)
[2021-02-06] MEDS ORDERED: ESCITALOPRAM OXALATE 10 MG TABLET ONE (22:22)
[2021-02-06] MEDS ORDERED: METOPROLOL TARTRATE 25 MG TABLET (FP) ONE (22:22)
[2021-02-06] MEDS: METOPROLOL TARTRATE 25 MG TABLET (FP) PO SCH (22:28)
[2021-02-06] MEDS: ESCITALOPRAM OXALATE 10 MG TABLET PO SCH (22:28)
[2021-02-06] MEDS ORDERED: ACETAMINOPHEN 325 MG TABLET (FP) PO PRN (22:33)
[2021-02-06] MEDS ORDERED: ACETAMINOPHEN 325 MG TABLET (FP) ONE (23:37)
[2021-02-07] MEDS ORDERED: ACETAMINOPHEN 325 MG TABLET (FP) ONE (06:35)
[2021-02-07] MEDS: GABAPENTIN 300 MG CAPSULE PO SCH ×2 (08:00→14:13)
[2021-02-07] MEDS ORDERED: TAMSULOSIN HCL 0.4 MG CAP PO SCH (08:30)
[2021-02-07] MEDS: SODIUM CHLORIDE 1,000 ML IV SCH (08:43)
[2021-02-07] MEDS: METOPROLOL TARTRATE 25 MG TABLET (FP) PO SCH (11:00)
[2021-02-07] MEDS: ESCITALOPRAM OXALATE 10 MG TABLET PO SCH (11:00)
[2021-02-07] MEDS ORDERED: METOPROLOL TARTRATE 25 MG TABLET (FP) ONE (11:36)
[2021-02-07] MEDS ORDERED: TAMSULOSIN HCL 0.4 MG CAP ONE (11:36)
[2021-02-07] MEDS ORDERED: ESCITALOPRAM OXALATE 10 MG TABLET ONE (11:37)
[2021-02-07 15:31] VITALS: BP 142/86; PULSE 78; TEMP 98.1
== END 2021-02-07 15:20 | disposition home or self-care (01) | DRG 689 ==
LOC: JER 17:31 → JERBED 02-06 02:23
PROVIDERS: ADMIT Internal Medicine; ATTEND Internal Medicine
DX: N39.0 Urinary tract infection, site not specified (principal); R53.2 Functional quadriplegia; B96.20 Unspecified Escherichia coli [E. coli] as the cause of diseases classified elsewhere; N40.0 Benign prostatic hyperplasia without lower urinary tract symptoms; G62.9 Polyneuropathy, unspecified; I10 Essential (primary) hypertension; J32.8 Other chronic sinusitis; R33.9 Retention of urine, unspecified; R31.9 Hematuria, unspecified
CPT/HCPCS: 36415; 71045-TC-FY; 80048; 80053; 81003; 85025; 85027; 85610; 85730; 87086; 87186; 99285-25; C9803; U0003; U0005

== ENCOUNTER 2021-04-07 13:20 | Inpatient (IN) | payer OTHER, BC ==
[2021-04-07 14:29] LABS: BASO % 0.8 % (0-2.0); EOS % 3.4 % (0-4.5); HEMATOCRIT 37.8 % (35.4-49); HEMOGLOBIN 12.8 GM/dL (11.7-16.9); LYMPH % 20.1 % (8-40); MCH 31.2 pg (25.7-33.7); MCHC 33.9 g/dl (32.0-35.9); MEAN CELL VOLUME 91.9 fl (80-96); MEAN PLT VOLUME 7.2 fl (7.5-11.1); MONO % 6.7 % (3.8-10.2); PLATELET COUNT 279 K/MM3 (134-434); RBC 4.11 M/mm3 (4.00-5.60); RDW 15.3 % (11.9-15.9); WHITE BLOOD COUNT 10.3 K/mm3 (4.0-10.0)
[2021-04-07 14:38] LABS: INR 1.11 (0.83-1.09); PROTHROMBIN TIME (PATIENT) 13.6 SEC (9.7-13.0)
[2021-04-07 14:41] LABS: ACTIVATED PTT 29.8 SECONDS (25.2-36.5)
[2021-04-07 14:50] LABS: ALBUMIN 3.2 g/dl (3.4-5.0); BLOOD UREA NITROGEN 11.4 mg/dL (7-18); CALCIUM 8.8 mg/dL (8.5-10.1)
[2021-04-07 14:54] LABS: CREATININE 0.5 mg/dL (0.55-1.3)
[2021-04-07 14:55] LABS: BILIRUBIN,TOTAL 0.5 mg/dL (0.2-1); TOT PROT 6.2 g/dl (6.4-8.2)
[2021-04-07] MEDS ORDERED: SODIUM CHLORIDE 0.9% 500 ML INFUS.BAG IV ONE (15:11)
[2021-04-07 16:11] LABS: URINE APPEARANCE HAZY; URINE COLOR RED
[2021-04-07 16:21] LABS: EPI CELLS 3 /uL (0-25.1); HYALINE CASTS 0 /uL (0-3.1); URINE BACTERIA >9,000 /uL (0-1359); URINE BILIRUBIN NEGATIVE (NEGATIVE); URINE GLUCOSE (UA) NEGATIVE (NEGATIVE); URINE KETONE NEGATIVE (NEGATIVE); URINE PROTEIN 4+ (NEGATIVE); URINE RBC 1108 /uL (0-23.9); URINE UROBILINOGEN 0.2 mg/dL (0.2-1.0); URINE WBC 9 /uL (0-25.8)
[2021-04-07] MEDS ORDERED: LIDOCAINE HCL 2% JELLY 10 ML CARTRIDGE ONE (20:21)
[2021-04-08] MEDS: MELATONIN 5 MG TABLETS PO SCH ×2 (00:06→22:08)
[2021-04-08 05:14] VITALS: BMI 29.5
[2021-04-08 09:01] LABS: BASO % 0.7 % (0-2.0); EOS % 4.2 % (0-4.5); HEMOGLOBIN 12.3 GM/dL (11.7-16.9); LYMPH % 31.4 % (8-40); MCH 31.1 pg (25.7-33.7); MCHC 34.1 g/dl (32.0-35.9); MEAN CELL VOLUME 91.2 fl (80-96); MEAN PLT VOLUME 7.1 fl (7.5-11.1); MONO % 6.8 % (3.8-10.2); NEUT % 56.9 % (42.8-82.8); PLATELET COUNT 243 K/MM3 (134-434); RBC 3.95 M/mm3 (4.00-5.60); RDW 14.5 % (11.9-15.9); WHITE BLOOD COUNT 7.1 K/mm3 (4.0-10.0)
[2021-04-08 09:17] LABS: MAGNESIUM 1.2 mg/dL (1.8-2.4)
[2021-04-08 09:25] LABS: N-TERMINAL BNP 126.9 pg/ml (5-125)
[2021-04-08 09:35] LABS: BLOOD UREA NITROGEN 9.8 mg/dL (7-18); CALCIUM 9.1 mg/dL (8.5-10.1)
[2021-04-08 09:36] LABS: ALBUMIN 3.2 g/dl (3.4-5.0)
[2021-04-08 09:39] LABS: CREATININE 0.5 mg/dL (0.55-1.3)
[2021-04-08 09:40] LABS: BILIRUBIN,TOTAL 0.6 mg/dL (0.2-1); TOT PROT 5.8 g/dl (6.4-8.2)
[2021-04-08] MEDS: TAMSULOSIN HCL 0.4 MG CAP PO SCH (12:38)
[2021-04-08] MEDS: METOPROLOL TARTRATE 25 MG TABLET (FP) PO SCH ×2 (12:39→22:08)
[2021-04-08] MEDS: ESCITALOPRAM OXALATE 10 MG TABLET PO SCH (12:39)
[2021-04-08] MEDS: ACETAMINOPHEN 325 MG TABLET (FP) PO PRN ×2 (12:41→19:53)
[2021-04-08] MEDS: GABAPENTIN 300 MG CAPSULE PO SCH ×2 (14:25→22:09)
[2021-04-08] MEDS: MULTIVITAMINS (DAILY MVI) TABLET (FP) PO SCH (14:25)
[2021-04-08] MEDS: ZINC SULFATE 220 MG CAPSULE (FP) PO SCH (14:25)
[2021-04-08] MEDS ORDERED: MAGNESIUM SULFATE IN WATER 2 GM/50 ML IVPB IVPB ONE (21:19)
[2021-04-08] MEDS ORDERED: METOPROLOL TARTRATE 25 MG TABLET (FP) PO SCH (22:00)
[2021-04-08] MEDS: ZINC OXIDE/PANTHENOL/VITAMIN E 56 GM TUBE TP SCH (22:44)
[2021-04-09] MEDS: GABAPENTIN 300 MG CAPSULE PO SCH ×3 (05:36→23:11)
[2021-04-09] MEDS: TAMSULOSIN HCL 0.4 MG CAP PO SCH (08:14)
[2021-04-09 10:07] LABS: BASO % 0.7 % (0-2.0); EOS % 3.8 % (0-4.5); HEMATOCRIT 33.3 % (35.4-49); HEMOGLOBIN 11.7 GM/dL (11.7-16.9); LYMPH % 31.1 % (8-40); MCH 31.6 pg (25.7-33.7); MEAN CELL VOLUME 90.2 fl (80-96); MEAN PLT VOLUME 7.2 fl (7.5-11.1); MONO % 6.2 % (3.8-10.2); NEUT % 58.2 % (42.8-82.8); PLATELET COUNT 230 K/MM3 (134-434); RBC 3.69 M/mm3 (4.00-5.60); RDW 14.7 % (11.9-15.9); WHITE BLOOD COUNT 8.3 K/mm3 (4.0-10.0)
[2021-04-09] MEDS: ESCITALOPRAM OXALATE 10 MG TABLET PO SCH (10:27)
[2021-04-09] MEDS: METOPROLOL TARTRATE 25 MG TABLET (FP) PO SCH ×2 (10:27→23:12)
[2021-04-09] MEDS: ZINC OXIDE/PANTHENOL/VITAMIN E 56 GM TUBE TP SCH ×2 (10:27→23:13)
[2021-04-09] MEDS: ZINC SULFATE 220 MG CAPSULE (FP) PO SCH (10:27)
[2021-04-09] MEDS: MULTIVITAMINS (DAILY MVI) TABLET (FP) PO SCH (10:27)
[2021-04-09 10:35] LABS: BLOOD UREA NITROGEN 7.9 mg/dL (7-18); MAGNESIUM 1.4 mg/dL (1.8-2.4)
[2021-04-09 10:38] LABS: CREATININE 0.5 mg/dL (0.55-1.3)
[2021-04-09] MEDS ORDERED: MAGNESIUM SULFATE IN WATER 2 GM/50 ML IVPB IVPB ONE (13:00)
[2021-04-09] MEDS: MELATONIN 5 MG TABLETS PO SCH (23:11)
[2021-04-10] MEDS: GABAPENTIN 300 MG CAPSULE PO SCH ×3 (05:42→21:33)
[2021-04-10] MEDS: ACETAMINOPHEN 325 MG TABLET (FP) PO PRN ×2 (05:47→21:04)
[2021-04-10 06:09] LABS: SARS-CoV-2 NAA Not Detected (Not Detected)
[2021-04-10 08:05] LABS: HEMATOCRIT 31.9 % (35.4-49); HEMOGLOBIN 11.1 GM/dL (11.7-16.9); MCH 31.5 pg (25.7-33.7); MCHC 34.7 g/dl (32.0-35.9); MEAN CELL VOLUME 90.9 fl (80-96); MEAN PLT VOLUME 7.5 fl (7.5-11.1); PLATELET COUNT 230 K/MM3 (134-434); RBC 3.51 M/mm3 (4.00-5.60); RDW 14.7 % (11.9-15.9); WHITE BLOOD COUNT 10.2 K/mm3 (4.0-10.0)
[2021-04-10 08:24] LABS: CALCIUM 8.7 mg/dL (8.5-10.1)
[2021-04-10 08:25] LABS: BLOOD UREA NITROGEN 7.7 mg/dL (7-18); MAGNESIUM 1.4 mg/dL (1.8-2.4)
[2021-04-10 08:28] LABS: CREATININE 0.5 mg/dL (0.55-1.3)
[2021-04-10 08:29] LABS: BILIRUBIN,TOTAL 0.4 mg/dL (0.2-1); TOT PROT 5.5 g/dl (6.4-8.2)
[2021-04-10] MEDS: ZINC SULFATE 220 MG CAPSULE (FP) PO SCH (11:02)
[2021-04-10] MEDS: TAMSULOSIN HCL 0.4 MG CAP PO SCH (11:02)
[2021-04-10] MEDS: METOPROLOL TARTRATE 25 MG TABLET (FP) PO SCH ×2 (11:02→21:33)
[2021-04-10] MEDS: MULTIVITAMINS (DAILY MVI) TABLET (FP) PO SCH (11:02)
[2021-04-10] MEDS: ESCITALOPRAM OXALATE 10 MG TABLET PO SCH (11:02)
[2021-04-10] MEDS ORDERED: MAGNESIUM 2GM/50ML STERILE WATER IVPB IVPB ONE (14:15)
[2021-04-10] MEDS: MELATONIN 5 MG TABLETS PO SCH (21:33)
[2021-04-10] MEDS: ZINC OXIDE/PANTHENOL/VITAMIN E 56 GM TUBE TP SCH (21:34)
[2021-04-11] MEDS: GABAPENTIN 300 MG CAPSULE PO SCH ×3 (06:32→21:01)
[2021-04-11] MEDS: ZINC SULFATE 220 MG CAPSULE (FP) PO SCH (10:31)
[2021-04-11] MEDS: MULTIVITAMINS (DAILY MVI) TABLET (FP) PO SCH (10:31)
[2021-04-11] MEDS: ESCITALOPRAM OXALATE 10 MG TABLET PO SCH (10:31)
[2021-04-11] MEDS: METOPROLOL TARTRATE 25 MG TABLET (FP) PO SCH ×2 (10:31→21:01)
[2021-04-11] MEDS: TAMSULOSIN HCL 0.4 MG CAP PO SCH (10:31)
[2021-04-11] MEDS: ACETAMINOPHEN 325 MG TABLET (FP) PO PRN ×2 (10:40→21:22)
[2021-04-11] MEDS: MELATONIN 5 MG TABLETS PO SCH ×3 (21:01→23:45)
[2021-04-11] MEDS: ZINC OXIDE/PANTHENOL/VITAMIN E 56 GM TUBE TP SCH (21:02)
[2021-04-12] MEDS: GABAPENTIN 300 MG CAPSULE PO SCH (06:15)
[2021-04-12 06:42] VITALS: BP 138/93; PULSE 64; TEMP 97.9
[2021-04-12] MEDS: ZINC SULFATE 220 MG CAPSULE (FP) PO SCH (09:55)
[2021-04-12] MEDS: METOPROLOL TARTRATE 25 MG TABLET (FP) PO SCH (09:55)
[2021-04-12] MEDS: ESCITALOPRAM OXALATE 10 MG TABLET PO SCH (09:55)
[2021-04-12] MEDS: TAMSULOSIN HCL 0.4 MG CAP PO SCH (09:55)
[2021-04-12] MEDS: MULTIVITAMINS (DAILY MVI) TABLET (FP) PO SCH (09:55)
== END 2021-04-12 11:48 | disposition home health service (06) | DRG 698 ==
LOC: JER 13:20 → JERBED 18:44 → J7W 23:11
PROVIDERS: ADMIT Internal Medicine; ATTEND Internal Medicine
DX: T83.091A Other mechanical complication of indwelling urethral catheter, initial encounter (principal); R53.2 Functional quadriplegia; U07.1 COVID-19; N39.0 Urinary tract infection, site not specified; N40.0 Benign prostatic hyperplasia without lower urinary tract symptoms; Y83.8 Other surgical procedures as the cause of abnormal reaction of the patient, or of later complication, without mention of misadventure at the time of the procedure; N31.9 Neuromuscular dysfunction of bladder, unspecified; G62.9 Polyneuropathy, unspecified; J32.9 Chronic sinusitis, unspecified; R15.9 Full incontinence of feces; B96.1 Klebsiella pneumoniae [K. pneumoniae] as the cause of diseases classified elsewhere; B96.20 Unspecified Escherichia coli [E. coli] as the cause of diseases classified elsewhere
CPT/HCPCS: 36415; 71045-TC-FY; 80048; 80053; 81003; 82550; 82553; 82728; 83615; 83735; 83880; 84484; 85025; 85027; 85379; 85384; 85610; 85730; 86140; 86850; 86900; 86901; 87086; 87186; 93005; 93010; 99285-25; C9803; U0003; U0005

== ENCOUNTER 2021-04-23 10:00 | Inpatient (IN) | payer OTHER, BC ==
[2021-04-23 14:24] LABS: EPI CELLS 11 /uL (0-25.1); HYALINE CASTS 5 /uL (0-3.1); URINE APPEARANCE TURBID; URINE BACTERIA 7951 /uL (0-1359); URINE BILIRUBIN NEGATIVE (NEGATIVE); URINE COLOR ORANGE; URINE GLUCOSE (UA) NEGATIVE (NEGATIVE); URINE KETONE NEGATIVE (NEGATIVE); URINE LEUK ESTERASE 3+ (NEGATIVE); URINE NITRITE POSITIVE (NEGATIVE); URINE PROTEIN 1+ (NEGATIVE); URINE UROBILINOGEN 0.2 mg/dL (0.2-1.0); URINE WBC 3596 /uL (0-25.8)
[2021-04-23 14:42] LABS: URINE RBC 385.7 /uL (0-23.9); YEAST NO SEEN (NEGATIVE)
[2021-04-23] MEDS ORDERED: ERTAPENEM SODIUM 1 GM in SODIUM CHLORIDE 50 ML IVPB ONE (14:55)
[2021-04-23 14:58] LABS: BASO % 0.8 % (0-2.0); EOS % 2.7 % (0-4.5); HEMATOCRIT 35.8 % (35.4-49); HEMOGLOBIN 12.2 GM/dL (11.7-16.9); MCH 30.6 pg (25.7-33.7); MCHC 34.1 g/dl (32.0-35.9); MEAN CELL VOLUME 89.6 fl (80-96); MEAN PLT VOLUME 6.8 fl (7.5-11.1); MONO % 7.2 % (3.8-10.2); NEUT % 67.3 % (42.8-82.8); PLATELET COUNT 339 10^3/uL (134-434); RDW 15.1 % (11.9-15.9); WHITE BLOOD COUNT 10.1 K/mm3 (4.0-10.0)
[2021-04-23 15:21] LABS: ALBUMIN 3.1 g/dl (3.4-5.0); BLOOD UREA NITROGEN 13.4 mg/dL (7-18)
[2021-04-23] MEDS ORDERED: SODIUM CHLORIDE 0.9% 500 ML INFUS.BAG IV ONE (15:22)
[2021-04-23 15:24] LABS: CREATININE 0.5 mg/dL (0.55-1.3)
[2021-04-23 15:26] LABS: BILIRUBIN,TOTAL 0.2 mg/dL (0.2-1); TOT PROT 5.9 g/dl (6.4-8.2)
[2021-04-23] MEDS: ESCITALOPRAM OXALATE 10 MG TABLET PO SCH (21:35)
[2021-04-23] MEDS: METOPROLOL TARTRATE 25 MG TABLET (FP) PO SCH (21:35)
[2021-04-23] MEDS: GABAPENTIN 300 MG CAPSULE PO SCH (21:35)
[2021-04-23] MEDS: MELATONIN 5 MG TABLETS PO SCH (21:35)
[2021-04-23 23:12] VITALS: BMI 28.7
[2021-04-24] MEDS ORDERED: ACETAMINOPHEN 325 MG TABLET (FP) PO PRN (05:24)
[2021-04-24] MEDS: GABAPENTIN 300 MG CAPSULE PO SCH ×3 (05:44→21:04)
[2021-04-24] MEDS: ESCITALOPRAM OXALATE 10 MG TABLET PO SCH ×2 (09:32→21:04)
[2021-04-24] MEDS: MULTIVITAMINS (DAILY MVI) TABLET (FP) PO SCH (09:32)
[2021-04-24] MEDS: METOPROLOL TARTRATE 25 MG TABLET (FP) PO SCH ×2 (09:32→21:04)
[2021-04-24] MEDS: TAMSULOSIN HCL 0.4 MG CAP PO SCH (09:33)
[2021-04-24] MEDS: MELATONIN 5 MG TABLETS PO SCH (21:04)
[2021-04-25] MEDS: GABAPENTIN 300 MG CAPSULE PO SCH ×2 (05:37→14:34)
[2021-04-25] MEDS: ESCITALOPRAM OXALATE 10 MG TABLET PO SCH (09:22)
[2021-04-25] MEDS: TAMSULOSIN HCL 0.4 MG CAP PO SCH (09:22)
[2021-04-25] MEDS: MULTIVITAMINS (DAILY MVI) TABLET (FP) PO SCH (09:22)
[2021-04-25] MEDS: METOPROLOL TARTRATE 25 MG TABLET (FP) PO SCH (09:22)
[2021-04-25 16:23] VITALS: BP 179/84; PULSE 58; TEMP 98.1
== END 2021-04-25 16:26 | disposition home or self-care (01) | DRG 698 ==
LOC: JER 10:00 → JERBED 15:03 → J5S 20:00
PROVIDERS: ADMIT Internal Medicine; ATTEND Internal Medicine
PROC: 0T9B30Z Drainage of Bladder with Drainage Device, Percutaneous Approach (ICD-10-PCS; principal; 2021-04-24)
DX: T83.511A Infection and inflammatory reaction due to indwelling urethral catheter, initial encounter (principal); G82.50 Quadriplegia, unspecified; N31.9 Neuromuscular dysfunction of bladder, unspecified; N39.0 Urinary tract infection, site not specified; N40.1 Benign prostatic hyperplasia with lower urinary tract symptoms; R33.8 Other retention of urine; I10 Essential (primary) hypertension; G62.9 Polyneuropathy, unspecified; J32.9 Chronic sinusitis, unspecified; Z96.653 Presence of artificial knee joint, bilateral; Z22.39 Carrier of other specified bacterial diseases; Y83.8 Other surgical procedures as the cause of abnormal reaction of the patient, or of later complication, without mention of misadventure at the time of the procedure
CPT/HCPCS: 36415; 51102; 76775-TC; 80053; 81003; 85025; 87086; 93005; 93010; 99285-25; C9803; U0003; U0005

== ENCOUNTER 2021-05-20 11:03 | Emergency (ER) | payer OTHER, BC ==
[2021-05-20 11:18] VITALS: BMI 29.3
[2021-05-20 14:41] LABS: EPI CELLS 29 /uL (0-25.1); HYALINE CASTS 3 /uL (0-3.1); PH,URINE 5.5 (5.0-8.0); URINE APPEARANCE TURBID; URINE BACTERIA >9,000 /uL (0-1359); URINE BILIRUBIN NEGATIVE (NEGATIVE); URINE COLOR DK YELLOW; URINE GLUCOSE (UA) NEGATIVE (NEGATIVE); URINE KETONE NEGATIVE (NEGATIVE); URINE LEUK ESTERASE 3+ (NEGATIVE); URINE NITRITE POSITIVE (NEGATIVE); URINE PROTEIN 2+ (NEGATIVE); URINE RBC 7953 /uL (0-23.9); URINE WBC 1644 /uL (0-25.8)
[2021-05-20 17:52] VITALS: PULSE 78; TEMP 97.8
[2021-05-20 17:53] VITALS: BP 107/69
== END 2021-05-20 20:08 | disposition home or self-care (01) ==
LOC: JER 11:03
DX: T83.098A Other mechanical complication of other urinary catheter, initial encounter (principal)
CPT/HCPCS: 81003; 87086; 87186; 99283-25

== ENCOUNTER 2021-06-08 14:38 | Inpatient (IN) | payer OTHER, BC ==
[2021-06-08] MEDS ORDERED: PIPERACILLIN/TAZOB 3.375 GM 3.375 GM in DEXTROSE 5%-WATER - 50 ML IVPB ONE (15:47)
[2021-06-08] MEDS ORDERED: VANCOMYCIN 1 GM in D5W (PRE-DOCKED) 1,000 MG/250 ML IVPB ONE (15:47)
[2021-06-08 16:46] LABS: BASO % 0.1 % (0-2.0); EOS % 0.1 % (0-4.5); HEMATOCRIT 37.9 % (35.4-49); HEMOGLOBIN 12.9 GM/dL (11.7-16.9); LYMPH % 5.2 % (8-40); MCH 30.6 pg (25.7-33.7); MCHC 34.2 g/dl (32.0-35.9); MEAN CELL VOLUME 89.6 fl (80-96); MEAN PLT VOLUME 6.1 fl (7.5-11.1); MONO % 4.5 % (3.8-10.2); NEUT % 90.1 % (42.8-82.8); PLATELET COUNT 237 10^3/uL (134-434); RBC 4.22 M/mm3 (4.00-5.60); WHITE BLOOD COUNT 20.1 K/mm3 (4.0-10.0)
[2021-06-08 16:54] LABS: INR 1.11 (0.83-1.09); PROTHROMBIN TIME (PATIENT) 13.4 SEC (9.7-13.0)
[2021-06-08 17:04] LABS: CHLORIDE 105 mmol/L (98-107); SODIUM 135 mmol/L (136-145)
[2021-06-08 17:06] LABS: ALBUMIN 2.6 g/dl (3.4-5.0); ANION GAP 7 MMOL/L (8-16); CALCIUM 7.8 mg/dL (8.5-10.1); CO2 23 mmol/L (21-32)
[2021-06-08 17:07] LABS: BLOOD UREA NITROGEN 25.5 mg/dL (7-18); GLUCOSE,RANDOM 115 mg/dL (74-106)
[2021-06-08 17:10] LABS: CREATININE 0.8 mg/dL (0.55-1.3); SGOT/AST 25 U/L (15-37); SGPT/ALT 62 U/L (13-61)
[2021-06-08 17:11] LABS: BILIRUBIN,TOTAL 0.4 mg/dL (0.2-1); TOT PROT 4.5 g/dl (6.4-8.2)
[2021-06-08 17:12] LABS: ALK PHOS 81 U/L (45-117)
[2021-06-08] MEDS ORDERED: VANCOMYCIN 1 GRAM (PRE-DOCKED) 1,000 MG/250 ML BAG IVPB ONE (17:23)
[2021-06-08] MEDS ORDERED: PIPERACILLIN/TAZOB 3.375 GM 3.375 GM/50 ML BAG IVPB ONE (17:24)
[2021-06-08 17:25] LABS: LACTIC ACID 2.6 mmol/L (0.4-2.0)
[2021-06-08 17:38] LABS: EPI CELLS >36 /uL (0-25.1); HYALINE CASTS 2 /uL (0-3.1); PH,URINE >= 9.0 (5.0-8.0); URINE APPEARANCE TURBID; URINE BACTERIA >9,000 /uL (0-1359); URINE BILIRUBIN NEGATIVE (NEGATIVE); URINE COLOR RED; URINE GLUCOSE (UA) NEGATIVE (NEGATIVE); URINE KETONE NEGATIVE (NEGATIVE); URINE LEUK ESTERASE 3+ (NEGATIVE); URINE NITRITE POSITIVE (NEGATIVE); URINE PROTEIN 4+ (NEGATIVE); URINE RBC 9069 /uL (0-23.9); URINE WBC 73 /uL (0-25.8)
[2021-06-08 17:48] LABS: ANISOCYTOSIS 1+; MACROCYTOSIS 0; PLATELET ESTIMATE NORMAL
[2021-06-08 17:53] LABS: ACTIVATED PTT 17.7 SECONDS (25.2-36.5)
[2021-06-08 18:05] LABS: VENOUS BASE EXCESS -1.2 mmol/L (-2-2); VENOUS O2 SATURATION 80.9 % (70-80); VENOUS PCO2 40.2 mmHg (38-52); VENOUS PH 7.387 (7.310-7.410)
[2021-06-08] MEDS ORDERED: LACTATED RINGERS SOLUTION 1,000 ML IV STA (18:21)
[2021-06-08] MEDS ORDERED: PANTOPRAZOLE SODIUM 40 MG VIAL IVPUSH ONE (18:52)
[2021-06-08] MEDS ORDERED: PANTOPRAZOLE SODIUM 40 MG VIAL ONE (19:01)
[2021-06-08 20:26] LABS: LACTIC ACID 4.8 mmol/L (0.4-2.0)
[2021-06-08] MEDS ORDERED: VANCOMYCIN 1 GM in D5W (PRE-DOCKED) 1,000 MG/250 ML IVPB SCH (22:00)
[2021-06-08 23:31] VITALS: BMI 27.1
[2021-06-09] MEDS: MELATONIN 5 MG TABLETS PO SCH ×2 (00:01→21:28)
[2021-06-09] MEDS: GABAPENTIN 300 MG CAPSULE PO SCH ×4 (00:01→21:28)
[2021-06-09] MEDS: MUPIROCIN 2% TOPICAL OINTMENT FOR DECOLONIZATION NS SCH ×3 (00:01→21:28)
[2021-06-09] MEDS: CHLORHEXIDINE GLUCONATE 4% CLEANSER FOR DECOLONIZATION TP SCH ×2 (00:01→21:28)
[2021-06-09] MEDS ORDERED: LACTATED RINGERS SOLUTION 1,000 ML/1,000 ML INFUS.BAG IV SCH (00:45)
[2021-06-09] MEDS ORDERED: PIPERACILLIN/TAZOBACTAM 3.375 GM VIAL IVPB ONE ×2 (01:26→08:25)
[2021-06-09] MEDS ORDERED: DEXTROSE 5%-WATER - 50 ML IVPB ONE ×2 (01:26→08:26)
[2021-06-09] MEDS: PIPERACILLIN/TAZOB 3.375 GM 3.375 GM in DEXTROSE 5%-WATER - 50 ML IVPB SCH ×3 (01:30→11:04)
[2021-06-09] MEDS ORDERED: VANCOMYCIN 1 GM in D5W (PRE-DOCKED) 1,000 MG/250 ML IVPB SCH (06:00)
[2021-06-09 06:22] LABS: EOS % 0.1 % (0-4.5); HEMOGLOBIN 12.4 GM/dL (11.7-16.9); MCH 31.2 pg (25.7-33.7); MCHC 34.5 g/dl (32.0-35.9); MEAN CELL VOLUME 90.5 fl (80-96); MEAN PLT VOLUME 6.6 fl (7.5-11.1); MONO % 4.3 % (3.8-10.2); NEUT % 85.6 % (42.8-82.8); PLATELET COUNT 260 10^3/uL (134-434); RBC 3.98 M/mm3 (4.00-5.60); RDW 15.4 % (11.9-15.9); WHITE BLOOD COUNT 19.1 K/mm3 (4.0-10.0)
[2021-06-09 06:28] LABS: INR 1.24 (0.83-1.09); PROTHROMBIN TIME (PATIENT) 14.9 SEC (9.7-13.0)
[2021-06-09 06:31] LABS: ACTIVATED PTT 26.6 SECONDS (25.2-36.5)
[2021-06-09 06:38] LABS: ALBUMIN 2.5 g/dl (3.4-5.0); BLOOD UREA NITROGEN 16.9 mg/dL (7-18)
[2021-06-09 06:39] LABS: MAGNESIUM 1.4 mg/dL (1.8-2.4)
[2021-06-09 06:41] LABS: CREATININE 0.7 mg/dL (0.55-1.3)
[2021-06-09 06:42] LABS: PHOSPHOROUS 3.2 mg/dL (2.5-4.9)
[2021-06-09 06:43] LABS: BILIRUBIN,TOTAL 0.7 mg/dL (0.2-1); TOT PROT 4.6 g/dl (6.4-8.2)
[2021-06-09] MEDS ORDERED: MAGNESIUM SULFATE IN WATER 2 GM/50 ML IVPB IVPB ONE (09:00)
[2021-06-09] MEDS ORDERED: SODIUM CHLORIDE 1,000 ML IV SCH ×2 (09:15→23:12)
[2021-06-09] MEDS ORDERED: ESCITALOPRAM OXALATE 20 MG TABLET PO SCH (10:00)
[2021-06-09 11:32] LABS: HEMATOCRIT 33.2 % (35.4-49); HEMOGLOBIN 11.5 GM/dL (11.7-16.9); MCH 31.3 pg (25.7-33.7); MCHC 34.5 g/dl (32.0-35.9); MEAN CELL VOLUME 90.9 fl (80-96); MEAN PLT VOLUME 6.3 fl (7.5-11.1); PLATELET COUNT 232 10^3/uL (134-434); RBC 3.65 M/mm3 (4.00-5.60); RDW 15.9 % (11.9-15.9); WHITE BLOOD COUNT 15.7 K/mm3 (4.0-10.0)
[2021-06-09] MEDS: MEROPENEM 1 GM in DEXTROSE 5%-WATER 100 ML IVPB SCH ×2 (12:00→18:05)
[2021-06-09] MEDS ORDERED: MEROPENEM 1 GM VIAL (RESTRICTED TO ID) IVPB ONE ×2 (12:10→17:55)
[2021-06-09] MEDS ORDERED: DEXTROSE 5%-WATER 100 ML IVPB ONE ×2 (12:10→17:56)
[2021-06-09] MEDS ORDERED: CEFTRIAXONE 1 GM in DEXTROSE 5%-WATER - 50 ML IVPB SCH (14:00)
[2021-06-09] MEDS ORDERED: POLYETHYLENE GLYCOL (HEALTHYLAX) 3350 17 GM PACKET PO SCH (22:00)
[2021-06-09] MEDS ORDERED: ESCITALOPRAM OXALATE 10 MG TABLET PO SCH (22:00)
[2021-06-10] MEDS ORDERED: DEXTROSE 5%-WATER 100 ML IVPB ONE ×3 (01:19→16:51)
[2021-06-10] MEDS ORDERED: MEROPENEM 1 GM VIAL (RESTRICTED TO ID) IVPB ONE ×3 (01:19→16:51)
[2021-06-10] MEDS: MEROPENEM 1 GM in DEXTROSE 5%-WATER 100 ML IVPB SCH ×3 (01:24→17:26)
[2021-06-10] MEDS: GABAPENTIN 300 MG CAPSULE PO SCH ×3 (05:45→21:09)
[2021-06-10] MEDS: ESCITALOPRAM OXALATE 10 MG TABLET PO SCH ×2 (09:23→21:09)
[2021-06-10] MEDS: POLYETHYLENE GLYCOL (HEALTHYLAX) 3350 17 GM PACKET PO SCH ×2 (09:24→21:09)
[2021-06-10] MEDS: PIPERACILLIN/TAZOB 3.375 GM 3.375 GM in DEXTROSE 5%-WATER - 50 ML IVPB SCH (10:38)
[2021-06-10 11:16] LABS: BASO % 0.1 % (0-2.0); EOS % 1.4 % (0-4.5); HEMATOCRIT 35.5 % (35.4-49); HEMOGLOBIN 12.1 GM/dL (11.7-16.9); LYMPH % 12.5 % (8-40); MCH 31.1 pg (25.7-33.7); MCHC 34.2 g/dl (32.0-35.9); MEAN CELL VOLUME 90.9 fl (80-96); MEAN PLT VOLUME 6.6 fl (7.5-11.1); MONO % 2.8 % (3.8-10.2); NEUT % 83.2 % (42.8-82.8); PLATELET COUNT 252 10^3/uL (134-434); RDW 16.1 % (11.9-15.9); WHITE BLOOD COUNT 13.1 K/mm3 (4.0-10.0)
[2021-06-10 11:42] LABS: CALCIUM 7.6 mg/dL (8.5-10.1)
[2021-06-10 11:43] LABS: ALBUMIN 2.5 g/dl (3.4-5.0); MAGNESIUM 1.5 mg/dL (1.8-2.4)
[2021-06-10 11:46] LABS: CREATININE 0.6 mg/dL (0.55-1.3); PHOSPHOROUS 1.9 mg/dL (2.5-4.9)
[2021-06-10 11:47] LABS: BILIRUBIN,TOTAL 0.4 mg/dL (0.2-1); TOT PROT 4.8 g/dl (6.4-8.2)
[2021-06-10] MEDS: METOPROLOL TARTRATE 25 MG TABLET (FP) PO SCH ×2 (13:20→21:09)
[2021-06-10] MEDS: NYSTATIN POWDER 100,000 UNITS/GM - 15 GM TOPICAL POWDER TP SCH ×2 (14:40→23:42)
[2021-06-10] MEDS: MAGNESIUM OXIDE 400 MG TABLET (FP) PO SCH (21:09)
[2021-06-10] MEDS: HEPARIN NA (PORCINE) 5,000 UNITS/ML 1ML VIAL SQ SCH ×2 (21:09→21:23)
[2021-06-10] MEDS: MELATONIN 5 MG TABLETS PO SCH (23:42)
[2021-06-11] MEDS ORDERED: MEROPENEM 1 GM VIAL (RESTRICTED TO ID) IVPB ONE ×3 (01:49→16:51)
[2021-06-11] MEDS ORDERED: DEXTROSE 5%-WATER 100 ML IVPB ONE ×3 (01:49→16:51)
[2021-06-11] MEDS: MEROPENEM 1 GM in DEXTROSE 5%-WATER 100 ML IVPB SCH ×3 (01:50→17:08)
[2021-06-11] MEDS: GABAPENTIN 300 MG CAPSULE PO SCH ×3 (06:15→22:07)
[2021-06-11] MEDS: METOPROLOL TARTRATE 25 MG TABLET (FP) PO SCH ×2 (09:27→22:07)
[2021-06-11] MEDS: HEPARIN NA (PORCINE) 5,000 UNITS/ML 1ML VIAL SQ SCH ×2 (09:27→11:16)
[2021-06-11] MEDS: ESCITALOPRAM OXALATE 10 MG TABLET PO SCH ×2 (09:27→22:06)
[2021-06-11] MEDS: MAGNESIUM OXIDE 400 MG TABLET (FP) PO SCH ×2 (09:27→22:07)
[2021-06-11] MEDS: NYSTATIN POWDER 100,000 UNITS/GM - 15 GM TOPICAL POWDER TP SCH ×2 (09:28→22:07)
[2021-06-11] MEDS: POLYETHYLENE GLYCOL (HEALTHYLAX) 3350 17 GM PACKET PO SCH ×2 (11:16→22:06)
[2021-06-11] MEDS: MELATONIN 5 MG TABLETS PO SCH (22:07)
[2021-06-12] MEDS ORDERED: MEROPENEM 1 GM VIAL (RESTRICTED TO ID) IVPB ONE ×3 (01:12→17:03)
[2021-06-12] MEDS ORDERED: DEXTROSE 5%-WATER 100 ML IVPB ONE ×3 (01:13→17:03)
[2021-06-12] MEDS: MEROPENEM 1 GM in DEXTROSE 5%-WATER 100 ML IVPB SCH ×3 (01:16→17:10)
[2021-06-12] MEDS: GABAPENTIN 300 MG CAPSULE PO SCH ×3 (05:19→23:03)
[2021-06-12] MEDS: POLYETHYLENE GLYCOL (HEALTHYLAX) 3350 17 GM PACKET PO SCH ×2 (09:26→23:05)
[2021-06-12] MEDS: METOPROLOL TARTRATE 25 MG TABLET (FP) PO SCH ×2 (09:26→23:04)
[2021-06-12] MEDS: ESCITALOPRAM OXALATE 10 MG TABLET PO SCH ×2 (09:26→23:04)
[2021-06-12] MEDS: MAGNESIUM OXIDE 400 MG TABLET (FP) PO SCH ×2 (09:26→23:04)
[2021-06-12] MEDS: TAMSULOSIN HCL 0.4 MG CAP PO SCH (09:26)
[2021-06-12] MEDS: NYSTATIN POWDER 100,000 UNITS/GM - 15 GM TOPICAL POWDER TP SCH ×2 (12:46→23:04)
[2021-06-12] MEDS: MELATONIN 5 MG TABLETS PO SCH (23:04)
[2021-06-13] MEDS ORDERED: MEROPENEM 1 GM VIAL (RESTRICTED TO ID) IVPB ONE ×3 (02:00→17:48)
[2021-06-13] MEDS: MEROPENEM 1 GM in DEXTROSE 5%-WATER 100 ML IVPB SCH ×3 (02:01→17:52)
[2021-06-13] MEDS ORDERED: DEXTROSE 5%-WATER 100 ML IVPB ONE ×3 (02:01→17:49)
[2021-06-13] MEDS ORDERED: GABAPENTIN 100 MG CAPSULE PO SCH (06:15)
[2021-06-13] MEDS: GABAPENTIN 300 MG CAPSULE PO SCH ×3 (07:06→21:35)
[2021-06-13] MEDS ORDERED: PT OWN MED DRAWER 7, Y5N ONE (10:22)
[2021-06-13] MEDS ORDERED: ACETAMINOPHEN 325 MG TABLET (FP) PO PRN ×2 (10:31→11:14)
[2021-06-13] MEDS: MAGNESIUM OXIDE 400 MG TABLET (FP) PO SCH ×2 (10:32→21:35)
[2021-06-13] MEDS: METOPROLOL TARTRATE 25 MG TABLET (FP) PO SCH ×2 (10:32→21:35)
[2021-06-13] MEDS: ESCITALOPRAM OXALATE 10 MG TABLET PO SCH ×2 (10:32→21:35)
[2021-06-13] MEDS: TAMSULOSIN HCL 0.4 MG CAP PO SCH (10:32)
[2021-06-13] MEDS: POLYETHYLENE GLYCOL (HEALTHYLAX) 3350 17 GM PACKET PO SCH ×3 (10:33→21:35)
[2021-06-13] MEDS: NYSTATIN POWDER 100,000 UNITS/GM - 15 GM TOPICAL POWDER TP SCH ×2 (10:33→21:35)
[2021-06-13] MEDS: MELATONIN 5 MG TABLETS PO SCH (21:35)
[2021-06-14] MEDS ORDERED: DEXTROSE 5%-WATER 100 ML IVPB ONE ×3 (02:03→16:40)
[2021-06-14] MEDS ORDERED: MEROPENEM 1 GM VIAL (RESTRICTED TO ID) IVPB ONE ×3 (02:03→16:40)
[2021-06-14] MEDS: MEROPENEM 1 GM in DEXTROSE 5%-WATER 100 ML IVPB SCH ×3 (02:07→17:14)
[2021-06-14] MEDS: GABAPENTIN 300 MG CAPSULE PO SCH ×3 (06:12→22:22)
[2021-06-14] MEDS: ESCITALOPRAM OXALATE 10 MG TABLET PO SCH ×2 (09:53→22:21)
[2021-06-14] MEDS: MAGNESIUM OXIDE 400 MG TABLET (FP) PO SCH ×2 (09:53→22:21)
[2021-06-14] MEDS: NYSTATIN POWDER 100,000 UNITS/GM - 15 GM TOPICAL POWDER TP SCH ×2 (09:54→23:46)
[2021-06-14] MEDS: METOPROLOL TARTRATE 25 MG TABLET (FP) PO SCH ×2 (09:54→22:21)
[2021-06-14] MEDS: TAMSULOSIN HCL 0.4 MG CAP PO SCH (09:54)
[2021-06-14] MEDS: POLYETHYLENE GLYCOL (HEALTHYLAX) 3350 17 GM PACKET PO SCH ×2 (09:54→22:21)
[2021-06-14] MEDS: MELATONIN 5 MG TABLETS PO SCH (22:21)
[2021-06-15] MEDS ORDERED: MEROPENEM 1 GM VIAL (RESTRICTED TO ID) IVPB ONE ×3 (02:12→17:02)
[2021-06-15] MEDS ORDERED: DEXTROSE 5%-WATER 100 ML IVPB ONE ×3 (02:12→17:02)
[2021-06-15] MEDS: MEROPENEM 1 GM in DEXTROSE 5%-WATER 100 ML IVPB SCH ×3 (02:31→17:31)
[2021-06-15] MEDS: GABAPENTIN 300 MG CAPSULE PO SCH ×3 (07:09→21:36)
[2021-06-15] MEDS: TAMSULOSIN HCL 0.4 MG CAP PO SCH (08:43)
[2021-06-15] MEDS: ESCITALOPRAM OXALATE 10 MG TABLET PO SCH ×2 (09:03→21:35)
[2021-06-15] MEDS: MAGNESIUM OXIDE 400 MG TABLET (FP) PO SCH ×2 (09:03→21:35)
[2021-06-15] MEDS: POLYETHYLENE GLYCOL (HEALTHYLAX) 3350 17 GM PACKET PO SCH ×2 (09:04→21:36)
[2021-06-15] MEDS: METOPROLOL TARTRATE 25 MG TABLET (FP) PO SCH ×2 (09:04→21:35)
[2021-06-15 12:41] LABS: BASO % 0.5 % (0-2.0); HEMATOCRIT 33.5 % (35.4-49); HEMOGLOBIN 11.6 GM/dL (11.7-16.9); LYMPH % 21.8 % (8-40); MCH 31.5 pg (25.7-33.7); MCHC 34.7 g/dl (32.0-35.9); MEAN CELL VOLUME 90.7 fl (80-96); MEAN PLT VOLUME 6.4 fl (7.5-11.1); MONO % 8.8 % (3.8-10.2); NEUT % 65.9 % (42.8-82.8); PLATELET COUNT 282 10^3/uL (134-434); RDW 15.2 % (11.9-15.9); WHITE BLOOD COUNT 7.3 K/mm3 (4.0-10.0)
[2021-06-15 13:09] LABS: CALCIUM 7.9 mg/dL (8.5-10.1)
[2021-06-15 13:10] LABS: ALBUMIN 2.5 g/dl (3.4-5.0); BLOOD UREA NITROGEN 7.9 mg/dL (7-18); MAGNESIUM 1.3 mg/dL (1.8-2.4)
[2021-06-15 13:13] LABS: CREATININE 0.5 mg/dL (0.55-1.3)
[2021-06-15 13:15] LABS: BILIRUBIN,TOTAL 0.3 mg/dL (0.2-1); TOT PROT 4.7 g/dl (6.4-8.2)
[2021-06-15] MEDS: NYSTATIN POWDER 100,000 UNITS/GM - 15 GM TOPICAL POWDER TP SCH ×2 (13:15→21:36)
[2021-06-15] MEDS: MELATONIN 5 MG TABLETS PO SCH (21:36)
[2021-06-16] MEDS ORDERED: MEROPENEM 1 GM VIAL (RESTRICTED TO ID) IVPB ONE ×3 (00:59→16:52)
[2021-06-16] MEDS ORDERED: DEXTROSE 5%-WATER 100 ML IVPB ONE ×3 (01:00→16:52)
[2021-06-16] MEDS: MEROPENEM 1 GM in DEXTROSE 5%-WATER 100 ML IVPB SCH ×3 (01:32→17:20)
[2021-06-16] MEDS: GABAPENTIN 300 MG CAPSULE PO SCH ×3 (06:47→21:11)
[2021-06-16] MEDS: MAGNESIUM OXIDE 400 MG TABLET (FP) PO SCH ×2 (10:10→21:12)
[2021-06-16] MEDS: ESCITALOPRAM OXALATE 10 MG TABLET PO SCH ×2 (10:10→21:12)
[2021-06-16] MEDS: TAMSULOSIN HCL 0.4 MG CAP PO SCH (10:10)
[2021-06-16] MEDS: NYSTATIN POWDER 100,000 UNITS/GM - 15 GM TOPICAL POWDER TP SCH ×2 (10:11→21:12)
[2021-06-16] MEDS: METOPROLOL TARTRATE 25 MG TABLET (FP) PO SCH ×2 (10:11→21:11)
[2021-06-16] MEDS: POLYETHYLENE GLYCOL (HEALTHYLAX) 3350 17 GM PACKET PO SCH ×2 (10:11→22:00)
[2021-06-16] MEDS: MELATONIN 5 MG TABLETS PO SCH (21:12)
[2021-06-17] MEDS ORDERED: DEXTROSE 5%-WATER 100 ML IVPB ONE ×3 (01:10→17:36)
[2021-06-17] MEDS ORDERED: MEROPENEM 1 GM VIAL (RESTRICTED TO ID) IVPB ONE ×3 (01:10→17:36)
[2021-06-17] MEDS: MEROPENEM 1 GM in DEXTROSE 5%-WATER 100 ML IVPB SCH ×3 (01:46→17:50)
[2021-06-17] MEDS: GABAPENTIN 300 MG CAPSULE PO SCH ×3 (06:04→21:54)
[2021-06-17] MEDS: METOPROLOL TARTRATE 25 MG TABLET (FP) PO SCH ×2 (10:53→21:55)
[2021-06-17] MEDS ORDERED: MIDAZOLAM HCL 2 MG/2 ML SINGLE DOSE VIAL ONE (12:48)
[2021-06-17] MEDS ORDERED: PROPOFOL 20 ML ONE (12:48)
[2021-06-17] MEDS ORDERED: ceFAZolin SODIUM 1 GM VIAL IVPB ONE (13:05)
[2021-06-17] MEDS ORDERED: IOHEXOL 300 MG/ML INFUS..BTL IJ ONE (13:20)
[2021-06-17] MEDS ORDERED: PHENYLEPHRINE HCL 10 MG/1 ML SINGLE DOSE VIAL ONE (13:23)
[2021-06-17] MEDS ORDERED: ACETAMINOPHEN 325 MG TABLET (FP) PO PRN (14:15)
[2021-06-17] MEDS ORDERED: ONDANSETRON 4 MG/2 ML VIAL IVPUSH PRN (14:33)
[2021-06-17] MEDS ORDERED: LABETALOL HCL 5 MG/1 ML (100MG/20 ML VIAL) IVPUSH ONE (14:40)
[2021-06-17] MEDS ORDERED: LACTATED RINGERS SOLUTION 1,000 ML IV SCH (14:45)
[2021-06-17] MEDS ORDERED: ESCITALOPRAM OXALATE 10 MG TABLET PO SCH (15:45)
[2021-06-17] MEDS ORDERED: GABAPENTIN 300 MG CAPSULE PO SCH (16:00)
[2021-06-17] MEDS ORDERED: MAGNESIUM OXIDE 400 MG TABLET (FP) PO SCH (16:00)
[2021-06-17] MEDS ORDERED: METOPROLOL TARTRATE 25 MG TABLET (FP) PO SCH (16:00)
[2021-06-17] MEDS: TAMSULOSIN HCL 0.4 MG CAP PO SCH (16:14)
[2021-06-17] MEDS: POLYETHYLENE GLYCOL (HEALTHYLAX) 3350 17 GM PACKET PO SCH ×2 (16:15→21:55)
[2021-06-17] MEDS: MAGNESIUM OXIDE 400 MG TABLET (FP) PO SCH ×2 (16:15→21:54)
[2021-06-17] MEDS: NYSTATIN POWDER 100,000 UNITS/GM - 15 GM TOPICAL POWDER TP SCH ×2 (16:15→22:40)
[2021-06-17] MEDS: ESCITALOPRAM OXALATE 10 MG TABLET PO SCH ×2 (16:15→21:55)
[2021-06-17] MEDS ORDERED: MELATONIN 5 MG TABLETS PO SCH (22:00)
[2021-06-18] MEDS ORDERED: DEXTROSE 5%-WATER 100 ML IVPB ONE ×2 (01:14→09:25)
[2021-06-18] MEDS ORDERED: MEROPENEM 1 GM VIAL (RESTRICTED TO ID) IVPB ONE ×2 (01:14→09:24)
[2021-06-18] MEDS: MEROPENEM 1 GM in DEXTROSE 5%-WATER 100 ML IVPB SCH ×2 (02:14→09:31)
[2021-06-18] MEDS: GABAPENTIN 300 MG CAPSULE PO SCH ×2 (05:40→13:49)
[2021-06-18] MEDS: POLYETHYLENE GLYCOL (HEALTHYLAX) 3350 17 GM PACKET PO SCH ×2 (09:32→09:35)
[2021-06-18] MEDS: ESCITALOPRAM OXALATE 10 MG TABLET PO SCH (09:32)
[2021-06-18] MEDS: MAGNESIUM OXIDE 400 MG TABLET (FP) PO SCH (09:32)
[2021-06-18] MEDS: METOPROLOL TARTRATE 25 MG TABLET (FP) PO SCH (09:32)
[2021-06-18] MEDS: NYSTATIN POWDER 100,000 UNITS/GM - 15 GM TOPICAL POWDER TP SCH (09:33)
[2021-06-18 14:00] VITALS: TEMP 98.3
[2021-06-18 17:46] VITALS: BP 161/51; PULSE 71
== END 2021-06-18 18:24 | disposition home or self-care (01) | DRG 853 ==
LOC: JER 14:38 → JERBED 18:22 → JICU 22:48 → J4S 06-09 23:07
PROVIDERS: ADMIT Internal Medicine; ATTEND Internal Medicine
PROC: 06HM33Z Insertion of Infusion Device into Right Femoral Vein, Percutaneous Approach (ICD-10-PCS; principal; 2021-06-08)
PROC: 0T7B8DZ Dilation of Bladder with Intraluminal Device, Via Natural or Artificial Opening Endoscopic (ICD-10-PCS; 2021-06-08)
PROC: 0TPB8DZ Removal of Intraluminal Device from Bladder, Via Natural or Artificial Opening Endoscopic (ICD-10-PCS; 2021-06-08)
PROC: 0T2BX0Z Change Drainage Device in Bladder, External Approach (ICD-10-PCS; 2021-06-08)
PROC: BT00ZZZ Plain Radiography of Bladder (ICD-10-PCS; 2021-06-08)
PROC: 0TJB8ZZ Inspection of Bladder, Via Natural or Artificial Opening Endoscopic (ICD-10-PCS; 2021-06-08)
PROC: 3E1K38Z Irrigation of Genitourinary Tract using Irrigating Substance, Percutaneous Approach (ICD-10-PCS; 2021-06-08)
DX: A41.89 Other specified sepsis (principal); R53.2 Functional quadriplegia; E87.2 Acidosis; N39.0 Urinary tract infection, site not specified; K62.5 Hemorrhage of anus and rectum; D72.829 Elevated white blood cell count, unspecified; N40.1 Benign prostatic hyperplasia with lower urinary tract symptoms; R33.8 Other retention of urine; K64.4 Residual hemorrhoidal skin tags; R31.0 Gross hematuria; N31.9 Neuromuscular dysfunction of bladder, unspecified; Z93.50 Unspecified cystostomy status; B96.4 Proteus (mirabilis) (morganii) as the cause of diseases classified elsewhere; M41.9 Scoliosis, unspecified; M48.00 Spinal stenosis, site unspecified; I95.9 Hypotension, unspecified; R55 Syncope and collapse
CPT/HCPCS: 36415; 51102; 71045-TC-FY; 74174-TC; 80053; 81003; 82803; 83605; 83735; 84100; 84484; 85025; 85027; 85610; 85730; 86850; 86900; 86901; 87040; 87086; 87186; 93005; 93010; 94760; 99285-25; A4314; A4358; C9803; J1644; U0003; U0005

== ENCOUNTER 2021-07-07 11:33 | Inpatient (IN) | payer OTHER, BC ==
[2021-07-07] MEDS ORDERED: SODIUM CHLORIDE 0.9% 1000 ML INFUS.BAG IV ONE (12:11)
[2021-07-07 13:09] LABS: BASO % 0.8 % (0-2.0); EOS % 4.1 % (0-4.5); HEMOGLOBIN 13.6 GM/dL (11.7-16.9); LYMPH % 23.3 % (8-40); MCH 31.6 pg (25.7-33.7); MCHC 34.9 g/dl (32.0-35.9); MEAN CELL VOLUME 90.7 fl (80-96); MEAN PLT VOLUME 6.6 fl (7.5-11.1); MONO % 7.9 % (3.8-10.2); NEUT % 63.9 % (42.8-82.8); PLATELET COUNT 312 10^3/uL (134-434); RDW 14.6 % (11.9-15.9); WHITE BLOOD COUNT 9.6 K/mm3 (4.0-10.0)
[2021-07-07 13:15] LABS: INR 1.08 (0.83-1.09); PROTHROMBIN TIME (PATIENT) 13.2 SEC (9.7-13.0)
[2021-07-07 13:18] LABS: ACTIVATED PTT 29.8 SECONDS (25.2-36.5)
[2021-07-07 13:28] LABS: CHLORIDE 100 mmol/L (98-107); SODIUM 132 mmol/L (136-145)
[2021-07-07 13:31] LABS: ALBUMIN 2.9 g/dl (3.4-5.0); ANION GAP 8 MMOL/L (8-16); CALCIUM 8.8 mg/dL (8.5-10.1); CO2 24 mmol/L (21-32); GLUCOSE,RANDOM 98 mg/dL (74-106)
[2021-07-07 13:33] LABS: SGOT/AST 20 U/L (15-37); SGPT/ALT 28 U/L (13-61)
[2021-07-07 13:34] LABS: CREATININE 0.5 mg/dL (0.55-1.3)
[2021-07-07 13:35] LABS: BILIRUBIN,TOTAL 0.3 mg/dL (0.2-1); TOT PROT 5.7 g/dl (6.4-8.2)
[2021-07-07 13:36] LABS: ALK PHOS 99 U/L (45-117)
[2021-07-07 14:41] LABS: EPI CELLS 4 /uL (0-25.1); HYALINE CASTS 0 /uL (0-3.1); PH,URINE 5.5 (5.0-8.0); URINE APPEARANCE CLOUDY; URINE BILIRUBIN NEGATIVE (NEGATIVE); URINE COLOR YELLOW; URINE GLUCOSE (UA) NEGATIVE (NEGATIVE); URINE KETONE NEGATIVE (NEGATIVE); URINE LEUK ESTERASE 3+ (NEGATIVE); URINE NITRITE POSITIVE (NEGATIVE); URINE PROTEIN 1+ (NEGATIVE); URINE RBC 1483 /uL (0-23.9); URINE UROBILINOGEN 0.2 mg/dL (0.2-1.0); URINE WBC 1559 /uL (0-25.8)
[2021-07-07] MEDS ORDERED: ERTAPENEM SODIUM 1 GM in SODIUM CHLORIDE 50 ML IVPB ONE (14:47)
[2021-07-07] MEDS ORDERED: MEROPENEM 1 GM in DEXTROSE 5%-WATER 100 ML IVPB ONE (14:50)
[2021-07-07 14:51] LABS: URINE BACTERIA 470.6 /uL (0-1359)
[2021-07-07] MEDS ORDERED: MEROPENEM 1 GM VIAL (RESTRICTED TO ID) IVPB ONE (15:44)
[2021-07-07] MEDS: MELATONIN 5 MG TABLETS PO SCH (22:30)
[2021-07-07] MEDS: ESCITALOPRAM OXALATE 10 MG TABLET PO SCH (22:30)
[2021-07-07] MEDS: HEPARIN NA (PORCINE) 5,000 UNITS/ML 1ML VIAL SQ SCH (22:30)
[2021-07-07] MEDS: GABAPENTIN 300 MG CAPSULE PO SCH (22:31)
[2021-07-07] MEDS: METOPROLOL TARTRATE 25 MG TABLET (FP) PO SCH (22:31)
[2021-07-07] MEDS: ACETAMINOPHEN 325 MG TABLET (FP) PO PRN (22:34)
[2021-07-08] MEDS: NYSTATIN POWDER 100,000 UNITS/GM - 15 GM TOPICAL POWDER TP SCH ×3 (01:09→22:02)
[2021-07-08] MEDS: GABAPENTIN 300 MG CAPSULE PO SCH ×3 (06:18→22:00)
[2021-07-08 07:46] LABS: BASO % 0.9 % (0-2.0); EOS % 5.3 % (0-4.5); HEMATOCRIT 34.7 % (35.4-49); HEMOGLOBIN 12.2 GM/dL (11.7-16.9); LYMPH % 28.6 % (8-40); MCH 31.5 pg (25.7-33.7); MCHC 35.1 g/dl (32.0-35.9); MEAN CELL VOLUME 89.8 fl (80-96); MEAN PLT VOLUME 6.7 fl (7.5-11.1); MONO % 7.9 % (3.8-10.2); NEUT % 57.3 % (42.8-82.8); PLATELET COUNT 301 10^3/uL (134-434); RBC 3.86 M/mm3 (4.00-5.60); RDW 14.6 % (11.9-15.9); WHITE BLOOD COUNT 8.4 K/mm3 (4.0-10.0)
[2021-07-08 08:04] LABS: ALBUMIN 2.8 g/dl (3.4-5.0); CALCIUM 8.4 mg/dL (8.5-10.1)
[2021-07-08 08:08] LABS: CREATININE 0.6 mg/dL (0.55-1.3)
[2021-07-08 08:09] LABS: BILIRUBIN,TOTAL 0.5 mg/dL (0.2-1)
[2021-07-08] MEDS: METOPROLOL TARTRATE 25 MG TABLET (FP) PO SCH ×2 (09:18→22:00)
[2021-07-08] MEDS: MULTIVITAMINS (DAILY MVI) TABLET (FP) PO SCH (09:18)
[2021-07-08] MEDS: TAMSULOSIN HCL 0.4 MG CAP PO SCH (09:20)
[2021-07-08] MEDS: HEPARIN NA (PORCINE) 5,000 UNITS/ML 1ML VIAL SQ SCH (09:21)
[2021-07-08] MEDS: ESCITALOPRAM OXALATE 10 MG TABLET PO SCH ×2 (09:21→22:01)
[2021-07-08] MEDS: ACETAMINOPHEN 325 MG TABLET (FP) PO PRN (09:21)
[2021-07-08] MEDS ORDERED: ERTAPENEM SODIUM 1 GM VIAL ONE (12:40)
[2021-07-08] MEDS ORDERED: SODIUM CHLORIDE 50 ML IVPB ONE (12:40)
[2021-07-08] MEDS: ERTAPENEM SODIUM 1 GM in SODIUM CHLORIDE 50 ML IVPB SCH (12:55)
[2021-07-08] MEDS: BACLOFEN 10 MG TABLET (FP) PO SCH (22:00)
[2021-07-08] MEDS: MELATONIN 5 MG TABLETS PO SCH (22:00)
[2021-07-09] MEDS: GABAPENTIN 300 MG CAPSULE PO SCH ×3 (05:52→21:51)
[2021-07-09] MEDS ORDERED: ERTAPENEM SODIUM 1 GM VIAL ONE (09:46)
[2021-07-09] MEDS ORDERED: SODIUM CHLORIDE 50 ML IVPB ONE (09:47)
[2021-07-09] MEDS: ERTAPENEM SODIUM 1 GM in SODIUM CHLORIDE 50 ML IVPB SCH (10:21)
[2021-07-09] MEDS: METOPROLOL TARTRATE 25 MG TABLET (FP) PO SCH ×2 (10:21→21:51)
[2021-07-09] MEDS: ESCITALOPRAM OXALATE 10 MG TABLET PO SCH ×2 (10:21→21:51)
[2021-07-09] MEDS: TAMSULOSIN HCL 0.4 MG CAP PO SCH (10:21)
[2021-07-09] MEDS: MULTIVITAMINS (DAILY MVI) TABLET (FP) PO SCH (10:21)
[2021-07-09] MEDS: BACLOFEN 10 MG TABLET (FP) PO SCH ×2 (10:21→21:51)
[2021-07-09] MEDS: NYSTATIN POWDER 100,000 UNITS/GM - 15 GM TOPICAL POWDER TP SCH ×2 (10:22→21:52)
[2021-07-09] MEDS ORDERED: VANCOMYCIN 1 GRAM (PRE-DOCKED) 1,000 MG/250 ML BAG IVPB ONE (15:55)
[2021-07-09] MEDS: MELATONIN 5 MG TABLETS PO SCH (21:51)
[2021-07-10] MEDS: GABAPENTIN 300 MG CAPSULE PO SCH ×3 (06:38→21:56)
[2021-07-10] MEDS ORDERED: ERTAPENEM SODIUM 1 GM VIAL ONE ×2 (07:29→09:19)
[2021-07-10] MEDS ORDERED: SODIUM CHLORIDE 50 ML IVPB ONE (09:19)
[2021-07-10] MEDS: TAMSULOSIN HCL 0.4 MG CAP PO SCH (09:44)
[2021-07-10] MEDS: ESCITALOPRAM OXALATE 10 MG TABLET PO SCH ×2 (09:44→21:56)
[2021-07-10] MEDS: NYSTATIN POWDER 100,000 UNITS/GM - 15 GM TOPICAL POWDER TP SCH ×2 (09:44→21:56)
[2021-07-10] MEDS: BACLOFEN 10 MG TABLET (FP) PO SCH ×2 (09:44→21:56)
[2021-07-10] MEDS: METOPROLOL TARTRATE 25 MG TABLET (FP) PO SCH ×2 (09:44→21:56)
[2021-07-10] MEDS: ERTAPENEM SODIUM 1 GM in SODIUM CHLORIDE 50 ML IVPB SCH (09:44)
[2021-07-10] MEDS: MULTIVITAMINS (DAILY MVI) TABLET (FP) PO SCH (09:44)
[2021-07-10] MEDS: ACETAMINOPHEN 325 MG TABLET (FP) PO PRN ×2 (13:38→20:03)
[2021-07-10] MEDS ORDERED: PIPERACILLIN/TAZOBACTAM 3.375 GM VIAL IVPB ONE (19:42)
[2021-07-10] MEDS ORDERED: DEXTROSE 5%-WATER - 50 ML IVPB ONE (19:42)
[2021-07-10] MEDS: PIPERACILLIN/TAZOB 3.375 GM 3.375 GM in DEXTROSE 5%-WATER - 50 ML IVPB SCH (19:46)
[2021-07-10] MEDS: VANCOMYCIN 1 GRAM (PRE-DOCKED) 1,000 MG/250 ML BAG IVPB SCH (20:27)
[2021-07-10] MEDS: MELATONIN 5 MG TABLETS PO SCH (21:56)
[2021-07-11] MEDS ORDERED: PIPERACILLIN/TAZOBACTAM 3.375 GM VIAL IVPB ONE ×3 (02:40→18:18)
[2021-07-11] MEDS ORDERED: DEXTROSE 5%-WATER - 50 ML IVPB ONE ×3 (02:40→18:18)
[2021-07-11] MEDS: PIPERACILLIN/TAZOB 3.375 GM 3.375 GM in DEXTROSE 5%-WATER - 50 ML IVPB SCH ×3 (03:00→18:24)
[2021-07-11] MEDS: GABAPENTIN 300 MG CAPSULE PO SCH ×3 (05:47→22:48)
[2021-07-11] MEDS: VANCOMYCIN 1 GRAM (PRE-DOCKED) 1,000 MG/250 ML BAG IVPB SCH ×2 (06:06→19:23)
[2021-07-11] MEDS: ACETAMINOPHEN 325 MG TABLET (FP) PO PRN ×2 (08:00→19:23)
[2021-07-11] MEDS: TAMSULOSIN HCL 0.4 MG CAP PO SCH (08:00)
[2021-07-11] MEDS ORDERED: PT OWN MED DRAWER 7, Y5N ONE (10:09)
[2021-07-11] MEDS: ESCITALOPRAM OXALATE 10 MG TABLET PO SCH ×2 (10:16→22:48)
[2021-07-11] MEDS: MULTIVITAMINS (DAILY MVI) TABLET (FP) PO SCH (10:16)
[2021-07-11] MEDS: BACLOFEN 10 MG TABLET (FP) PO SCH ×2 (10:16→22:48)
[2021-07-11] MEDS: METOPROLOL TARTRATE 25 MG TABLET (FP) PO SCH ×2 (10:17→22:48)
[2021-07-11] MEDS: NYSTATIN POWDER 100,000 UNITS/GM - 15 GM TOPICAL POWDER TP SCH ×2 (10:17→22:49)
[2021-07-11] MEDS: MELATONIN 5 MG TABLETS PO SCH (22:48)
[2021-07-12] MEDS: PIPERACILLIN/TAZOB 3.375 GM 3.375 GM in DEXTROSE 5%-WATER - 50 ML IVPB SCH ×3 (03:00→17:20)
[2021-07-12] MEDS ORDERED: DEXTROSE 5%-WATER - 50 ML IVPB ONE ×3 (03:04→17:18)
[2021-07-12] MEDS ORDERED: PIPERACILLIN/TAZOBACTAM 3.375 GM VIAL IVPB ONE ×3 (03:04→17:18)
[2021-07-12] MEDS ORDERED: ACETAMINOPHEN 325 MG TABLET (FP) PO PRN (03:10)
[2021-07-12] MEDS: GABAPENTIN 300 MG CAPSULE PO SCH ×3 (05:45→22:27)
[2021-07-12] MEDS: VANCOMYCIN 1 GRAM (PRE-DOCKED) 1,000 MG/250 ML BAG IVPB SCH ×2 (06:41→18:39)
[2021-07-12] MEDS: BACITRACIN 15 GM TUBE TOPICAL OINTMENT TP SCH (10:01)
[2021-07-12] MEDS: TAMSULOSIN HCL 0.4 MG CAP PO SCH (10:03)
[2021-07-12] MEDS: ESCITALOPRAM OXALATE 10 MG TABLET PO SCH ×2 (10:04→22:27)
[2021-07-12] MEDS: MULTIVITAMINS (DAILY MVI) TABLET (FP) PO SCH (10:04)
[2021-07-12] MEDS: BACLOFEN 10 MG TABLET (FP) PO SCH ×2 (10:04→22:27)
[2021-07-12] MEDS: NYSTATIN POWDER 100,000 UNITS/GM - 15 GM TOPICAL POWDER TP SCH ×2 (10:04→22:29)
[2021-07-12] MEDS: METOPROLOL TARTRATE 25 MG TABLET (FP) PO SCH ×2 (10:04→22:32)
[2021-07-12] MEDS: ACETAMINOPHEN 325 MG TABLET (FP) PO PRN (18:45)
[2021-07-12] MEDS: MELATONIN 5 MG TABLETS PO SCH (22:27)
[2021-07-13] MEDS ORDERED: PIPERACILLIN/TAZOBACTAM 3.375 GM VIAL IVPB ONE ×3 (02:06→16:47)
[2021-07-13] MEDS ORDERED: DEXTROSE 5%-WATER - 50 ML IVPB ONE ×3 (02:07→16:47)
[2021-07-13] MEDS: PIPERACILLIN/TAZOB 3.375 GM 3.375 GM in DEXTROSE 5%-WATER - 50 ML IVPB SCH ×3 (02:20→17:12)
[2021-07-13] MEDS: GABAPENTIN 300 MG CAPSULE PO SCH ×3 (05:59→21:27)
[2021-07-13] MEDS: VANCOMYCIN 1 GRAM (PRE-DOCKED) 1,000 MG/250 ML BAG IVPB SCH ×2 (06:14→18:00)
[2021-07-13] MEDS: ESCITALOPRAM OXALATE 10 MG TABLET PO SCH ×2 (09:21→21:28)
[2021-07-13] MEDS: TAMSULOSIN HCL 0.4 MG CAP PO SCH (09:21)
[2021-07-13] MEDS: MULTIVITAMINS (DAILY MVI) TABLET (FP) PO SCH (09:21)
[2021-07-13] MEDS: BACLOFEN 10 MG TABLET (FP) PO SCH ×2 (09:21→21:28)
[2021-07-13] MEDS: NYSTATIN POWDER 100,000 UNITS/GM - 15 GM TOPICAL POWDER TP SCH ×2 (09:22→21:30)
[2021-07-13] MEDS: METOPROLOL TARTRATE 25 MG TABLET (FP) PO SCH ×2 (09:23→21:29)
[2021-07-13] MEDS: BACITRACIN 15 GM TUBE TOPICAL OINTMENT TP SCH (09:23)
[2021-07-13] MEDS: ACETAMINOPHEN 325 MG TABLET (FP) PO PRN ×3 (14:00→22:25)
[2021-07-13] MEDS: MELATONIN 5 MG TABLETS PO SCH (21:28)
[2021-07-14] MEDS ORDERED: PIPERACILLIN/TAZOBACTAM 3.375 GM VIAL IVPB ONE ×3 (01:15→17:17)
[2021-07-14] MEDS ORDERED: DEXTROSE 5%-WATER - 50 ML IVPB ONE ×3 (01:15→17:17)
[2021-07-14] MEDS: PIPERACILLIN/TAZOB 3.375 GM 3.375 GM in DEXTROSE 5%-WATER - 50 ML IVPB SCH ×3 (01:51→18:01)
[2021-07-14] MEDS: GABAPENTIN 300 MG CAPSULE PO SCH ×3 (05:32→21:13)
[2021-07-14] MEDS: METOPROLOL TARTRATE 25 MG TABLET (FP) PO SCH ×2 (10:28→21:13)
[2021-07-14] MEDS: BACLOFEN 10 MG TABLET (FP) PO SCH ×2 (10:28→21:13)
[2021-07-14] MEDS: ESCITALOPRAM OXALATE 10 MG TABLET PO SCH ×2 (10:28→21:13)
[2021-07-14] MEDS: MULTIVITAMINS (DAILY MVI) TABLET (FP) PO SCH (10:28)
[2021-07-14] MEDS: TAMSULOSIN HCL 0.4 MG CAP PO SCH (10:28)
[2021-07-14] MEDS: NYSTATIN POWDER 100,000 UNITS/GM - 15 GM TOPICAL POWDER TP SCH ×2 (10:29→21:13)
[2021-07-14] MEDS: BACITRACIN 15 GM TUBE TOPICAL OINTMENT TP SCH (10:29)
[2021-07-14] MEDS: VANCOMYCIN 1 GRAM (PRE-DOCKED) 1,000 MG/250 ML BAG IVPB SCH ×2 (10:44→18:01)
[2021-07-14] MEDS: ACETAMINOPHEN 325 MG TABLET (FP) PO PRN (14:16)
[2021-07-14 19:10] VITALS: BMI 25.6
[2021-07-14] MEDS: MELATONIN 5 MG TABLETS PO SCH (21:13)
[2021-07-15] MEDS ORDERED: PIPERACILLIN/TAZOBACTAM 3.375 GM VIAL IVPB ONE ×3 (00:23→17:46)
[2021-07-15] MEDS ORDERED: DEXTROSE 5%-WATER - 50 ML IVPB ONE ×3 (00:23→17:46)
[2021-07-15] MEDS: PIPERACILLIN/TAZOB 3.375 GM 3.375 GM in DEXTROSE 5%-WATER - 50 ML IVPB SCH ×3 (01:10→17:57)
[2021-07-15] MEDS: GABAPENTIN 300 MG CAPSULE PO SCH ×3 (05:59→21:05)
[2021-07-15] MEDS: VANCOMYCIN 1 GRAM (PRE-DOCKED) 1,000 MG/250 ML BAG IVPB SCH ×2 (05:59→18:56)
[2021-07-15] MEDS: ESCITALOPRAM OXALATE 10 MG TABLET PO SCH ×2 (09:41→21:05)
[2021-07-15] MEDS: BACITRACIN 15 GM TUBE TOPICAL OINTMENT TP SCH (09:41)
[2021-07-15] MEDS: TAMSULOSIN HCL 0.4 MG CAP PO SCH (09:41)
[2021-07-15] MEDS: METOPROLOL TARTRATE 25 MG TABLET (FP) PO SCH ×2 (09:41→21:06)
[2021-07-15] MEDS: BACLOFEN 10 MG TABLET (FP) PO SCH ×2 (09:41→21:05)
[2021-07-15] MEDS: MULTIVITAMINS (DAILY MVI) TABLET (FP) PO SCH (09:41)
[2021-07-15] MEDS: NYSTATIN POWDER 100,000 UNITS/GM - 15 GM TOPICAL POWDER TP SCH ×2 (09:42→22:01)
[2021-07-15] MEDS: MELATONIN 5 MG TABLETS PO SCH (21:05)
[2021-07-16] MEDS ORDERED: PIPERACILLIN/TAZOBACTAM 3.375 GM VIAL IVPB ONE ×2 (00:04→09:35)
[2021-07-16] MEDS ORDERED: DEXTROSE 5%-WATER - 50 ML IVPB ONE ×2 (00:05→09:36)
[2021-07-16] MEDS: PIPERACILLIN/TAZOB 3.375 GM 3.375 GM in DEXTROSE 5%-WATER - 50 ML IVPB SCH ×2 (01:01→09:49)
[2021-07-16] MEDS: GABAPENTIN 300 MG CAPSULE PO SCH ×3 (06:01→22:05)
[2021-07-16] MEDS: VANCOMYCIN 1 GRAM (PRE-DOCKED) 1,000 MG/250 ML BAG IVPB SCH (06:03)
[2021-07-16] MEDS: ACETAMINOPHEN 325 MG TABLET (FP) PO PRN ×2 (06:55→22:05)
[2021-07-16 07:18] LABS: BASO % 1.1 % (0-2.0); EOS % 13.1 % (0-4.5); HEMATOCRIT 35.5 % (35.4-49); HEMOGLOBIN 12.5 GM/dL (11.7-16.9); LYMPH % 31.4 % (8-40); MCH 31.8 pg (25.7-33.7); MCHC 35.3 g/dl (32.0-35.9); MEAN PLT VOLUME 6.7 fl (7.5-11.1); MONO % 7.1 % (3.8-10.2); NEUT % 47.3 % (42.8-82.8); PLATELET COUNT 323 10^3/uL (134-434); RBC 3.94 M/mm3 (4.00-5.60); RDW 14.6 % (11.9-15.9); WHITE BLOOD COUNT 9.7 K/mm3 (4.0-10.0)
[2021-07-16 07:31] LABS: INR 1.03 (0.83-1.09); PROTHROMBIN TIME (PATIENT) 12.6 SEC (9.7-13.0)
[2021-07-16 07:38] LABS: ALBUMIN 2.7 g/dl (3.4-5.0); BLOOD UREA NITROGEN 8.2 mg/dL (7-18); CALCIUM 8.7 mg/dL (8.5-10.1)
[2021-07-16 07:41] LABS: CREATININE 0.6 mg/dL (0.55-1.3)
[2021-07-16 07:43] LABS: BILIRUBIN,TOTAL 0.3 mg/dL (0.2-1); TOT PROT 5.4 g/dl (6.4-8.2)
[2021-07-16] MEDS: METOPROLOL TARTRATE 25 MG TABLET (FP) PO SCH ×2 (09:47→22:05)
[2021-07-16] MEDS: MULTIVITAMINS (DAILY MVI) TABLET (FP) PO SCH (09:47)
[2021-07-16] MEDS: BACLOFEN 10 MG TABLET (FP) PO SCH ×2 (09:48→22:05)
[2021-07-16] MEDS: ESCITALOPRAM OXALATE 10 MG TABLET PO SCH ×2 (09:48→22:04)
[2021-07-16] MEDS: TAMSULOSIN HCL 0.4 MG CAP PO SCH (09:48)
[2021-07-16] MEDS: BACITRACIN 15 GM TUBE TOPICAL OINTMENT TP SCH (14:13)
[2021-07-16] MEDS: NYSTATIN POWDER 100,000 UNITS/GM - 15 GM TOPICAL POWDER TP SCH ×2 (14:15→22:05)
[2021-07-16] MEDS: MELATONIN 5 MG TABLETS PO SCH (22:04)
[2021-07-17] MEDS: GABAPENTIN 300 MG CAPSULE PO SCH ×3 (06:06→21:01)
[2021-07-17] MEDS: ESCITALOPRAM OXALATE 10 MG TABLET PO SCH ×2 (09:51→21:00)
[2021-07-17] MEDS: TAMSULOSIN HCL 0.4 MG CAP PO SCH (09:51)
[2021-07-17] MEDS: BACLOFEN 10 MG TABLET (FP) PO SCH ×2 (09:51→21:00)
[2021-07-17] MEDS: METOPROLOL TARTRATE 25 MG TABLET (FP) PO SCH ×2 (09:51→21:01)
[2021-07-17] MEDS: MULTIVITAMINS (DAILY MVI) TABLET (FP) PO SCH (09:51)
[2021-07-17] MEDS ORDERED: SODIUM CHLORIDE IVPB SCH (10:00)
[2021-07-17] MEDS ORDERED: DAPTOMYCIN IVPB SCH (10:00)
[2021-07-17] MEDS: NYSTATIN POWDER 100,000 UNITS/GM - 15 GM TOPICAL POWDER TP SCH ×2 (12:26→21:01)
[2021-07-17] MEDS: BACITRACIN 15 GM TUBE TOPICAL OINTMENT TP SCH (12:26)
[2021-07-17] MEDS: ACETAMINOPHEN 325 MG TABLET (FP) PO PRN (16:30)
[2021-07-17 20:44] VITALS: BP 106/66; PULSE 64; TEMP 98.1
[2021-07-17] MEDS: MELATONIN 5 MG TABLETS PO SCH (23:12)
== END 2021-07-18 00:14 | disposition home or self-care (01) | DRG 698 ==
LOC: JER 11:33 → JERBED 15:51 → J7W 17:46
PROVIDERS: ADMIT Internal Medicine; ATTEND Internal Medicine
PROC: 0T2BX0Z Change Drainage Device in Bladder, External Approach (ICD-10-PCS; principal; 2021-07-08)
PROC: 0T9B70Z Drainage of Bladder with Drainage Device, Via Natural or Artificial Opening (ICD-10-PCS; 2021-07-08)
PROC: 02HV33Z Insertion of Infusion Device into Superior Vena Cava, Percutaneous Approach (ICD-10-PCS; 2021-07-16)
PROC: B518ZZA Fluoroscopy of Superior Vena Cava, Guidance (ICD-10-PCS; 2021-07-16)
DX: T83.510A Infection and inflammatory reaction due to cystostomy catheter, initial encounter (principal); R53.2 Functional quadriplegia; N39.0 Urinary tract infection, site not specified; G95.9 Disease of spinal cord, unspecified; E78.81 Lipoid dermatoarthritis; Z22.39 Carrier of other specified bacterial diseases; Z93.59 Other cystostomy status; M54.12 Radiculopathy, cervical region; M54.16 Radiculopathy, lumbar region; B95.62 Methicillin resistant Staphylococcus aureus infection as the cause of diseases classified elsewhere; R31.0 Gross hematuria; B96.5 Pseudomonas (aeruginosa) (mallei) (pseudomallei) as the cause of diseases classified elsewhere; N40.0 Benign prostatic hyperplasia without lower urinary tract symptoms; I10 Essential (primary) hypertension; Y83.9 Surgical procedure, unspecified as the cause of abnormal reaction of the patient, or of later complication, without mention of misadventure at the time of the procedure
CPT/HCPCS: 36415; 36569; 71045-TC-FY; 72141-TC; 76857; 77001-TC-FY; 80053; 81003; 82550; 82607; 83605; 84484; 85025; 85610; 85730; 87040; 87086; 87186; 93005; 93010; 93306-TC; 97162-GP; 99285-25; C1751; C9803; G0480; J0475; J0878; J1644; U0003; U0005

== ENCOUNTER 2021-09-01 10:12 | Inpatient (IN) | payer OTHER, BC ==
[2021-09-01] MEDS ORDERED: PIPERACILLIN/TAZOB 4.5 GM 4.5 GM in DEXTROSE 5%-WATER 100 ML IVPB ONE (11:43)
[2021-09-01] MEDS ORDERED: VANCOMYCIN 1 GM in D5W (PRE-DOCKED) 1,000 MG/250 ML IVPB ONE (11:43)
[2021-09-01 12:46] LABS: ALBUMIN 2.9 g/dl (3.4-5.0); BLOOD UREA NITROGEN 12.5 mg/dL (7-18); CALCIUM 8.4 mg/dL (8.5-10.1)
[2021-09-01 12:49] LABS: BASO % 0.8 % (0-2.0); CREATININE 0.5 mg/dL (0.55-1.3); EOS % 4.5 % (0-4.5); HEMOGLOBIN 13.6 GM/dL (11.7-16.9); LYMPH % 30.4 % (8-40); MCH 31.6 pg (25.7-33.7); MCHC 34.9 g/dl (32.0-35.9); MEAN CELL VOLUME 90.6 fl (80-96); MEAN PLT VOLUME 7.8 fl (7.5-11.1); MONO % 7.4 % (3.8-10.2); NEUT % 56.9 % (42.8-82.8); RBC 4.31 M/mm3 (4.00-5.60); RDW 14.6 % (11.9-15.9); WHITE BLOOD COUNT 9.9 K/mm3 (4.0-10.0)
[2021-09-01 12:51] LABS: BILIRUBIN,TOTAL 0.4 mg/dL (0.2-1); TOT PROT 6.2 g/dl (6.4-8.2)
[2021-09-01] MEDS ORDERED: VANCOMYCIN 1 GRAM (PRE-DOCKED) 1,000 MG/250 ML BAG IVPB ONE (12:54)
[2021-09-01] MEDS ORDERED: PIPERACILLIN/TAZOB 4.5 GM 4.5 GM/100 ML BAG IVPB ONE (12:54)
[2021-09-01 13:40] LABS: PLATELET COUNT 265 10^3/uL (134-434)
[2021-09-01 14:42] LABS: PLATELET ESTIMATE NORMAL
[2021-09-01 14:53] LABS: EPI CELLS 6 /uL (0-25.1); HYALINE CASTS 4 /uL (0-3.1); URINE APPEARANCE TURBID; URINE BACTERIA 3936 /uL (0-1359); URINE BILIRUBIN NEGATIVE (NEGATIVE); URINE COLOR YELLOW; URINE GLUCOSE (UA) NEGATIVE (NEGATIVE); URINE KETONE NEGATIVE (NEGATIVE); URINE LEUK ESTERASE 3+ (NEGATIVE); URINE NITRITE NEGATIVE (NEGATIVE); URINE PROTEIN 2+ (NEGATIVE); URINE WBC 1305 /uL (0-25.8)
[2021-09-01 16:36] LABS: URINE CRYSTALS FEW /hpf; URINE RBC 409 /uL (0-23.9)
[2021-09-01 17:29] VITALS: BMI 28.0
[2021-09-01] MEDS ORDERED: PIPERACILLIN/TAZOBACTAM 3.375 GM VIAL IVPB ONE (19:30)
[2021-09-01] MEDS ORDERED: DEXTROSE 5%-WATER - 50 ML IVPB ONE (19:30)
[2021-09-01] MEDS: ACETAMINOPHEN 325 MG TABLET (FP) PO PRN (19:36)
[2021-09-01] MEDS: PIPERACILLIN/TAZOB 3.375 GM 3.375 GM in DEXTROSE 5%-WATER - 50 ML IVPB SCH (19:38)
[2021-09-01] MEDS: METOPROLOL TARTRATE 25 MG TABLET (FP) PO SCH (21:13)
[2021-09-01] MEDS: MELATONIN 5 MG TABLETS PO SCH (21:13)
[2021-09-01] MEDS: GABAPENTIN 300 MG CAPSULE PO SCH (21:13)
[2021-09-01] MEDS: ESCITALOPRAM OXALATE 10 MG TABLET PO SCH (21:13)
[2021-09-02] MEDS ORDERED: DEXTROSE 5%-WATER - 50 ML IVPB ONE ×2 (00:14→08:53)
[2021-09-02] MEDS ORDERED: PIPERACILLIN/TAZOBACTAM 3.375 GM VIAL IVPB ONE ×2 (00:14→08:53)
[2021-09-02] MEDS: PIPERACILLIN/TAZOB 3.375 GM 3.375 GM in DEXTROSE 5%-WATER - 50 ML IVPB SCH ×3 (01:22→11:52)
[2021-09-02] MEDS: GABAPENTIN 300 MG CAPSULE PO SCH ×3 (06:05→21:03)
[2021-09-02] MEDS: TAMSULOSIN HCL 0.4 MG CAP PO SCH (09:00)
[2021-09-02] MEDS: ESCITALOPRAM OXALATE 10 MG TABLET PO SCH ×2 (10:45→21:03)
[2021-09-02] MEDS: ENOXAPARIN NA (PORCINE) 40 MG/0.4 ML DISP.SYRIN SQ SCH (10:46)
[2021-09-02] MEDS: METOPROLOL TARTRATE 25 MG TABLET (FP) PO SCH ×2 (10:46→21:03)
[2021-09-02] MEDS: ACETAMINOPHEN 325 MG TABLET (FP) PO PRN ×2 (11:57→18:52)
[2021-09-02] MEDS: MELATONIN 5 MG TABLETS PO SCH ×2 (21:04→21:06)
[2021-09-03] MEDS: MELATONIN 5 MG TABLETS PO SCH ×2 (00:39→00:40)
[2021-09-03] MEDS: GABAPENTIN 300 MG CAPSULE PO SCH (05:45)
[2021-09-03 06:15] VITALS: TEMP 97.8
[2021-09-03] MEDS: ESCITALOPRAM OXALATE 10 MG TABLET PO SCH (09:27)
[2021-09-03] MEDS: METOPROLOL TARTRATE 25 MG TABLET (FP) PO SCH (09:27)
[2021-09-03] MEDS: TAMSULOSIN HCL 0.4 MG CAP PO SCH (09:28)
[2021-09-03] MEDS: ENOXAPARIN NA (PORCINE) 40 MG/0.4 ML DISP.SYRIN SQ SCH (09:28)
[2021-09-03] MEDS: ACETAMINOPHEN 325 MG TABLET (FP) PO PRN (09:28)
[2021-09-03 09:38] VITALS: BP 135/84; PULSE 70
== END 2021-09-03 13:35 | disposition home or self-care (01) | DRG 698 ==
LOC: JER 10:12 → JERBED 11:43 → J8W 15:38
PROVIDERS: ADMIT Internal Medicine; ATTEND Internal Medicine
DX: T83.510A Infection and inflammatory reaction due to cystostomy catheter, initial encounter (principal); R53.2 Functional quadriplegia; R78.81 Bacteremia; N39.0 Urinary tract infection, site not specified; N40.0 Benign prostatic hyperplasia without lower urinary tract symptoms; I10 Essential (primary) hypertension; M48.02 Spinal stenosis, cervical region; M48.061 Spinal stenosis, lumbar region without neurogenic claudication; M47.9 Spondylosis, unspecified; K59.00 Constipation, unspecified; N31.9 Neuromuscular dysfunction of bladder, unspecified; Y83.8 Other surgical procedures as the cause of abnormal reaction of the patient, or of later complication, without mention of misadventure at the time of the procedure; E66.9 Obesity, unspecified; Z68.28 Body mass index [BMI] 28.0-28.9, adult; B96.5 Pseudomonas (aeruginosa) (mallei) (pseudomallei) as the cause of diseases classified elsewhere; Z74.01 Bed confinement status
CPT/HCPCS: 36415; 80053; 81003; 85025; 87086; 87186; 93005; 93010; 99285-25; C9803; U0003; U0005

== ENCOUNTER 2021-10-11 07:35 | Inpatient (IN) | payer OTHER, BC ==
[2021-10-11 07:48] VITALS: BMI 32.1
[2021-10-11] MEDS ORDERED: GABAPENTIN 300 MG CAPSULE PO ONE (10:09)
[2021-10-11 11:08] LABS: HEMATOCRIT 42.7 % (35.4-49); HEMOGLOBIN 14.5 GM/dL (11.7-16.9); MCH 30.9 pg (25.7-33.7); MCHC 33.9 g/dl (32.0-35.9); PLATELET COUNT 281 10^3/uL (134-434); RBC 4.69 M/mm3 (4.00-5.60); RDW 14.2 % (11.9-15.9); WHITE BLOOD COUNT 9.2 K/mm3 (4.0-10.0)
[2021-10-11 11:10] LABS: VENOUS BASE EXCESS -1.7 mmol/L (-2-2); VENOUS O2 SATURATION 56.2 % (70-80); VENOUS PCO2 48.6 mmHg (38-52); VENOUS PH 7.327 (7.310-7.410)
[2021-10-11 11:14] LABS: INR 1.16 (0.83-1.09)
[2021-10-11 11:16] LABS: ACTIVATED PTT 29.1 SECONDS (25.2-36.5)
[2021-10-11 11:28] LABS: CHLORIDE 102 mmol/L (98-107); SODIUM 134 mmol/L (136-145)
[2021-10-11 11:30] LABS: CALCIUM 9.4 mg/dL (8.5-10.1)
[2021-10-11 11:31] LABS: ALBUMIN 3.4 g/dl (3.4-5.0); ANION GAP 6 MMOL/L (8-16); BLOOD UREA NITROGEN 14.7 mg/dL (7-18); CO2 27 mmol/L (21-32); GLUCOSE,RANDOM 90 mg/dL (74-106); MAGNESIUM 1.6 mg/dL (1.8-2.4)
[2021-10-11 11:34] LABS: CREATININE 0.6 mg/dL (0.55-1.3); PHOSPHOROUS 3.1 mg/dL (2.5-4.9); SGOT/AST 27 U/L (15-37); SGPT/ALT 39 U/L (13-61)
[2021-10-11 11:35] LABS: BILIRUBIN,TOTAL 0.4 mg/dL (0.2-1); TOT PROT 6.7 g/dl (6.4-8.2)
[2021-10-11 11:37] LABS: ALK PHOS 133 U/L (45-117)
[2021-10-11] MEDS ORDERED: CEFTRIAXONE 1 GM in DEXTROSE 5%-WATER - 50 ML IVPB SCH (13:45)
[2021-10-11] MEDS ORDERED: CEFTRIAXONE 1 GM/50 ML BAG ONE (13:50)
[2021-10-11] MEDS ORDERED: PATIENT'S OWN MEDICATION (NON-FORMULARY) (Gabapentin [Gabapentin] 600 MG Tablet) PO SCH (14:00)
[2021-10-11 16:43] LABS: EPI CELLS 7 /uL (0-25.1); HYALINE CASTS 3 /uL (0-3.1); PH,URINE 5.5 (5.0-8.0); URINE APPEARANCE CLOUDY; URINE BACTERIA 13 /uL (0-1359); URINE BILIRUBIN NEGATIVE (NEGATIVE); URINE COLOR DK YELLOW; URINE GLUCOSE (UA) NEGATIVE (NEGATIVE); URINE KETONE TRACE (NEGATIVE); URINE LEUK ESTERASE 1+ (NEGATIVE); URINE NITRITE NEGATIVE (NEGATIVE); URINE PROTEIN TRACE (NEGATIVE); URINE RBC 67 /uL (0-23.9); URINE UROBILINOGEN 0.2 mg/dL (0.2-1.0); URINE WBC 41 /uL (0-25.8)
[2021-10-11] MEDS: ACETAMINOPHEN 325 MG TABLET (FP) PO PRN (21:01)
[2021-10-11] MEDS: HEPARIN NA (PORCINE) 5,000 UNITS/ML 1ML VIAL SQ SCH (21:03)
[2021-10-11] MEDS: METOPROLOL TARTRATE 25 MG TABLET (FP) PO SCH (21:04)
[2021-10-11] MEDS: ESCITALOPRAM OXALATE 10 MG TABLET PO SCH (21:04)
[2021-10-11] MEDS: GABAPENTIN 300 MG CAPSULE PO SCH (21:04)
[2021-10-11] MEDS: MELATONIN 5 MG TABLETS PO SCH (21:04)
[2021-10-11] MEDS: NYSTATIN POWDER 100,000 UNITS/GM - 15 GM TOPICAL POWDER TP SCH (22:28)
[2021-10-12] MEDS: GABAPENTIN 300 MG CAPSULE PO SCH ×3 (05:45→21:00)
[2021-10-12 08:19] LABS: BASO % 0.6 % (0-2.0); EOS % 2.8 % (0-4.5); HEMATOCRIT 37.9 % (35.4-49); HEMOGLOBIN 13.3 GM/dL (11.7-16.9); LYMPH % 36.3 % (8-40); MCH 31.9 pg (25.7-33.7); MCHC 35.2 g/dl (32.0-35.9); MEAN CELL VOLUME 90.7 fl (80-96); MEAN PLT VOLUME 6.9 fl (7.5-11.1); MONO % 7.9 % (3.8-10.2); NEUT % 52.4 % (42.8-82.8); PLATELET COUNT 259 10^3/uL (134-434); RBC 4.18 M/mm3 (4.00-5.60); RDW 14.3 % (11.9-15.9); WHITE BLOOD COUNT 6.1 K/mm3 (4.0-10.0)
[2021-10-12 09:17] LABS: ALBUMIN 2.9 g/dl (3.4-5.0)
[2021-10-12 09:18] LABS: BLOOD UREA NITROGEN 15.4 mg/dL (7-18)
[2021-10-12 09:20] LABS: CREATININE 0.6 mg/dL (0.55-1.3)
[2021-10-12 09:22] LABS: BILIRUBIN,TOTAL 0.4 mg/dL (0.2-1); TOT PROT 5.9 g/dl (6.4-8.2)
[2021-10-12] MEDS: TAMSULOSIN HCL 0.4 MG CAP PO SCH (10:27)
[2021-10-12] MEDS: METOPROLOL TARTRATE 25 MG TABLET (FP) PO SCH ×2 (10:27→21:01)
[2021-10-12] MEDS: ACETAMINOPHEN 325 MG TABLET (FP) PO PRN (10:27)
[2021-10-12] MEDS: MULTIVITAMINS (DAILY MVI) TABLET (FP) PO SCH (10:27)
[2021-10-12] MEDS: ESCITALOPRAM OXALATE 10 MG TABLET PO SCH ×2 (10:27→21:01)
[2021-10-12] MEDS: HEPARIN NA (PORCINE) 5,000 UNITS/ML 1ML VIAL SQ SCH ×2 (10:27→21:01)
[2021-10-12] MEDS: NYSTATIN POWDER 100,000 UNITS/GM - 15 GM TOPICAL POWDER TP SCH ×2 (10:30→22:43)
[2021-10-12] MEDS: MELATONIN 5 MG TABLETS PO SCH (21:01)
[2021-10-13] MEDS: ACETAMINOPHEN 325 MG TABLET (FP) PO PRN ×3 (04:38→13:09)
[2021-10-13] MEDS: GABAPENTIN 300 MG CAPSULE PO SCH ×2 (05:38→13:09)
[2021-10-13] MEDS: TAMSULOSIN HCL 0.4 MG CAP PO SCH (08:23)
[2021-10-13 08:31] VITALS: BP 135/67; PULSE 78; TEMP 98
[2021-10-13] MEDS: HEPARIN NA (PORCINE) 5,000 UNITS/ML 1ML VIAL SQ SCH (09:12)
[2021-10-13] MEDS: ESCITALOPRAM OXALATE 10 MG TABLET PO SCH (09:12)
[2021-10-13] MEDS: MULTIVITAMINS (DAILY MVI) TABLET (FP) PO SCH (09:12)
[2021-10-13] MEDS: METOPROLOL TARTRATE 25 MG TABLET (FP) PO SCH (09:12)
[2021-10-13] MEDS: NYSTATIN POWDER 100,000 UNITS/GM - 15 GM TOPICAL POWDER TP SCH (09:13)
== END 2021-10-13 13:45 | disposition short-term general hospital (02) | DRG 947 ==
LOC: JER 07:35 → JERBED 12:02 → J7W 14:46
PROVIDERS: ADMIT Internal Medicine; ATTEND Internal Medicine
DX: R41.82 Altered mental status, unspecified (principal); R53.2 Functional quadriplegia; I10 Essential (primary) hypertension; E78.5 Hyperlipidemia, unspecified; J32.3 Chronic sphenoidal sinusitis; M54.16 Radiculopathy, lumbar region; M54.12 Radiculopathy, cervical region; Z74.01 Bed confinement status
CPT/HCPCS: 36415; 70450-TC; 71045-TC-FY; 80053; 81003; 82550; 82553; 82803; 82962; 83036; 83605; 83735; 84100; 84443; 84484; 85025; 85027; 85610; 85730; 87086; 93005; 93010; 99285-25; C9803; J1644; U0003; U0005

== ENCOUNTER 2021-12-15 13:26 | Observation (INO) | payer OTHER, BC ==
[2021-12-15] MEDS ORDERED: CEFTRIAXONE 1,000 MG in DEXTROSE 5%-WATER - 50 ML IVPB ONE (16:07)
[2021-12-15] MEDS ORDERED: CEFTRIAXONE 1 GM/50 ML BAG ONE (16:39)
[2021-12-15] MEDS ORDERED: ACETAMINOPHEN 325 MG TABLET (FP) PO PRN (16:42)
[2021-12-15 17:57] LABS: BASO % 0.9 % (0-2.0); EOS % 5.3 % (0-4.5); HEMATOCRIT 33.1 % (35.4-49); HEMOGLOBIN 11.2 GM/dL (11.7-16.9); LYMPH % 32.6 % (8-40); MCH 29.8 pg (25.7-33.7); MCHC 33.7 g/dl (32.0-35.9); MEAN CELL VOLUME 88.3 fl (80-96); MEAN PLT VOLUME 6.6 fl (7.5-11.1); NEUT % 53.2 % (42.8-82.8); PLATELET COUNT 358 10^3/uL (134-434); RBC 3.75 M/mm3 (4.00-5.60); RDW 15.1 % (11.9-15.9); WHITE BLOOD COUNT 6.7 K/mm3 (4.0-10.0)
[2021-12-15 18:10] LABS: CALCIUM 8.6 mg/dL (8.5-10.1)
[2021-12-15 18:12] LABS: BLOOD UREA NITROGEN 13.8 mg/dL (7-18)
[2021-12-15 18:14] LABS: CREATININE 0.6 mg/dL (0.55-1.3)
[2021-12-15] MEDS ORDERED: GABAPENTIN 300 MG CAPSULE PO ONE (19:53)
[2021-12-15] MEDS ORDERED: APIXABAN 5 MG TABLET ONE (21:16)
[2021-12-15] MEDS ORDERED: METOPROLOL TARTRATE 50 MG TABLET (FP) ONE (21:16)
[2021-12-15] MEDS: NYSTATIN POWDER 100,000 UNITS/GM - 15 GM TOPICAL POWDER TP SCH (21:23)
[2021-12-15] MEDS: METOPROLOL TARTRATE 50 MG TABLET (FP) PO SCH (21:23)
[2021-12-15] MEDS: APIXABAN 5 MG TABLET PO SCH (21:23)
[2021-12-15] MEDS ORDERED: MELATONIN 5 MG TABLETS PO ONE (21:32)
[2021-12-15] MEDS ORDERED: MELATONIN 5 MG TABLETS ONE (21:33)
[2021-12-15] MEDS ORDERED: ESCITALOPRAM OXALATE 10 MG TABLET PO SCH (22:00)
[2021-12-15] MEDS ORDERED: HEPARIN NA (PORCINE) 5,000 UNITS/ML 1ML VIAL SQ SCH (22:00)
[2021-12-15] MEDS ORDERED: METOPROLOL TARTRATE 25 MG TABLET (FP) PO SCH (22:00)
[2021-12-16 02:08] LABS: EPI CELLS >36 /uL (0-25.1); HYALINE CASTS 44 /uL (0-3.1); PH,URINE 5.5 (5.0-8.0); URINE APPEARANCE CLOUDY; URINE BACTERIA 8825 /uL (0-1359); URINE BILIRUBIN NEGATIVE (NEGATIVE); URINE COLOR ORANGE; URINE GLUCOSE (UA) NEGATIVE (NEGATIVE); URINE KETONE NEGATIVE (NEGATIVE); URINE LEUK ESTERASE 2+ (NEGATIVE); URINE NITRITE POSITIVE (NEGATIVE); URINE PROTEIN 2+ (NEGATIVE); URINE RBC 1283 /uL (0-23.9); URINE WBC 58 /uL (0-25.8)
[2021-12-16 06:43] VITALS: BMI 27.5
[2021-12-16] MEDS ORDERED: TAMSULOSIN HCL 0.4 MG CAP PO SCH (08:30)
[2021-12-16] MEDS: METOPROLOL TARTRATE 50 MG TABLET (FP) PO SCH ×2 (09:50→20:31)
[2021-12-16] MEDS: APIXABAN 5 MG TABLET PO SCH ×2 (09:50→20:31)
[2021-12-16] MEDS ORDERED: ESCITALOPRAM OXALATE 10 MG TABLET PO SCH (10:00)
[2021-12-16] MEDS ORDERED: BACLOFEN 10 MG TABLET (FP) PO SCH (10:00)
[2021-12-16] MEDS: NYSTATIN POWDER 100,000 UNITS/GM - 15 GM TOPICAL POWDER TP SCH ×2 (16:38→20:35)
[2021-12-16] MEDS: ZINC OXIDE 20% TOPICAL OINTMENT 30 GM TUBE TP SCH ×2 (16:38→20:35)
[2021-12-16 16:48] VITALS: PULSE 72; TEMP 98.4
[2021-12-16 17:58] VITALS: BP 150/96
== END 2021-12-16 21:51 | disposition home or self-care (01) ==
LOC: JER 13:26 → JERBED 16:08 → J7W 12-16 01:20
PROVIDERS: ADMIT Internal Medicine; ATTEND Internal Medicine
PROC: 0T2BX0Z Change Drainage Device in Bladder, External Approach (ICD-10-PCS; principal; 2021-12-15)
PROC: 3E03329 Introduction of Other Anti-infective into Peripheral Vein, Percutaneous Approach (ICD-10-PCS; 2021-12-15)
DX: T83.9XXA Unspecified complication of genitourinary prosthetic device, implant and graft, initial encounter (principal); N39.0 Urinary tract infection, site not specified; R53.2 Functional quadriplegia; I10 Essential (primary) hypertension; E78.5 Hyperlipidemia, unspecified; R33.9 Retention of urine, unspecified; G62.9 Polyneuropathy, unspecified; K59.00 Constipation, unspecified; J32.9 Chronic sinusitis, unspecified; R79.89 Other specified abnormal findings of blood chemistry; Z87.891 Personal history of nicotine dependence; Z93.59 Other cystostomy status
CPT/HCPCS: 36415; 51102; 80048; 81003; 85025; 93005; 93010; 96365; 99285-25; C9803; E0372; G0378; J0475; U0003; U0005

== ENCOUNTER 2023-01-03 14:37 | Inpatient (IN) | payer OTHER, BC ==
[2023-01-03 14:56] VITALS: BMI 27.5
[2023-01-03 17:10] LABS: BASO % 0.7 % (0-2.0); EOS % 3.9 % (0-4.5); HEMATOCRIT 32.7 % (35.4-49); MCH 28.1 pg (25.7-33.7); MCHC 33.5 g/dl (32.0-35.9); MEAN CELL VOLUME 83.7 fl (80-96); MEAN PLT VOLUME 6.2 fl (7.5-11.1); MONO % 7.8 % (3.8-10.2); NEUT % 51.6 % (42.8-82.8); PLATELET COUNT 391 10^3/uL (134-434); RBC 3.91 M/mm3 (4.00-5.60); RDW 15.6 % (11.9-15.9); WHITE BLOOD COUNT 8.4 K/mm3 (4.0-10.0)
[2023-01-03 17:16] LABS: INR 1.6 (0.83-1.09); PROTHROMBIN TIME (PATIENT) 18.5 SEC (9.7-13.0)
[2023-01-03 17:29] LABS: CALCIUM 8.4 mg/dL (8.5-10.1)
[2023-01-03 17:30] LABS: ALBUMIN 2.5 g/dl (3.4-5.0); BLOOD UREA NITROGEN 7.8 mg/dL (7-18); MAGNESIUM 1.1 mg/dL (1.8-2.4)
[2023-01-03 17:33] LABS: CREATININE 0.4 mg/dL (0.55-1.3)
[2023-01-03 17:34] LABS: TOT PROT 5.7 g/dl (6.4-8.2)
[2023-01-03 17:35] LABS: BILIRUBIN,TOTAL 0.3 mg/dL (0.2-1)
[2023-01-03] MEDS ORDERED: VANCOMYCIN 1,000 MG in DEXTROSE 5%-WATER - 250 ML IVPB ONE (17:52)
[2023-01-03] MEDS ORDERED: PIPERACILLIN/TAZOB 4.5 GM 4.5 GM in DEXTROSE 5%-WATER 100 ML IVPB ONE (17:52)
[2023-01-03] MEDS ORDERED: PIPERACILLIN/TAZOB 4.5 GM 4.5 GM/100 ML BAG IVPB ONE (17:55)
[2023-01-03] MEDS ORDERED: VANCOMYCIN/WATER FOR INJ (PEG) 1,000 MG/200 ML BAG IVPB ONE ×3 (17:55→19:15)
[2023-01-03] MEDS ORDERED: LACTATED RINGERS SOLUTION 1,000 ML IV SCH (18:00)
[2023-01-03] MEDS ORDERED: APIXABAN 5 MG TABLET ONE (20:57)
[2023-01-03] MEDS ORDERED: MELATONIN 5 MG TABLETS ONE (20:57)
[2023-01-03] MEDS ORDERED: METOPROLOL TARTRATE 50 MG TABLET (FP) ONE (20:57)
[2023-01-03] MEDS ORDERED: GABAPENTIN 300 MG CAPSULE ONE (20:58)
[2023-01-03] MEDS: APIXABAN 5 MG TABLET PO SCH (21:04)
[2023-01-03] MEDS: METOPROLOL TARTRATE 50 MG TABLET (FP) PO SCH (21:05)
[2023-01-03] MEDS: MELATONIN 5 MG TABLETS PO SCH (21:05)
[2023-01-03] MEDS: GABAPENTIN 300 MG CAPSULE PO SCH (21:05)
[2023-01-04] MEDS: GABAPENTIN 300 MG CAPSULE PO SCH ×3 (06:44→21:49)
[2023-01-04 09:17] LABS: INR 1.43 (0.83-1.09); PROTHROMBIN TIME (PATIENT) 16.5 SEC (9.7-13.0)
[2023-01-04 09:19] LABS: BASO % 0.9 % (0-2.0); EOS % 3.1 % (0-4.5); HEMATOCRIT 33.9 % (35.4-49); HEMOGLOBIN 11.3 GM/dL (11.7-16.9); LYMPH % 32.8 % (8-40); MCH 28.1 pg (25.7-33.7); MCHC 33.4 g/dl (32.0-35.9); MEAN CELL VOLUME 83.9 fl (80-96); MEAN PLT VOLUME 6.3 fl (7.5-11.1); NEUT % 56.2 % (42.8-82.8); PLATELET COUNT 385 10^3/uL (134-434); RBC 4.04 M/mm3 (4.00-5.60); RDW 15.4 % (11.9-15.9); WHITE BLOOD COUNT 7.8 K/mm3 (4.0-10.0)
[2023-01-04 09:20] LABS: ACTIVATED PTT 30.4 SECONDS (25.2-36.5)
[2023-01-04 09:47] LABS: ALBUMIN 2.4 g/dl (3.4-5.0); CALCIUM 8.2 mg/dL (8.5-10.1)
[2023-01-04 09:48] LABS: BLOOD UREA NITROGEN 7.2 mg/dL (7-18); MAGNESIUM 1.2 mg/dL (1.8-2.4)
[2023-01-04 09:51] LABS: CREATININE 0.4 mg/dL (0.55-1.3); PHOSPHOROUS 3.5 mg/dL (2.5-4.9)
[2023-01-04 09:52] LABS: BILIRUBIN,TOTAL 0.4 mg/dL (0.2-1); TOT PROT 5.5 g/dl (6.4-8.2)
[2023-01-04 09:56] LABS: N-TERMINAL BNP 359.5 pg/ml (5-125)
[2023-01-04] MEDS ORDERED: VANCOMYCIN 1 GM/200 ML PREMIX BAG (RESTRICTED TO ID ONLY) IVPB SCH (10:00)
[2023-01-04] MEDS ORDERED: CEFEPIME 1 GM in DEXTROSE 5%-WATER 100 ML IVPB SCH (10:00)
[2023-01-04] MEDS ORDERED: CEFEPIME HCL/D5W 1 GM/50 ML BAG IVPB SCH (10:00)
[2023-01-04] MEDS ORDERED: VANCOMYCIN 1 GM in D5W (PRE-DOCKED) 1,000 MG/250 ML IVPB SCH (10:00)
[2023-01-04] MEDS ORDERED: MAGNESIUM SULFATE IN WATER 2 GM/50 ML IVPB IVPB ONE (10:45)
[2023-01-04] MEDS: ZINC OXIDE 20% TOPICAL OINTMENT 30 GM TUBE TP SCH ×4 (10:56→22:16)
[2023-01-04] MEDS: TAMSULOSIN HCL 0.4 MG CAP PO SCH (11:03)
[2023-01-04] MEDS: APIXABAN 5 MG TABLET PO SCH ×2 (11:03→21:50)
[2023-01-04] MEDS: ESCITALOPRAM OXALATE 10 MG TABLET PO SCH (11:03)
[2023-01-04] MEDS: METOPROLOL TARTRATE 50 MG TABLET (FP) PO SCH ×2 (11:03→21:49)
[2023-01-04] MEDS: FUROSEMIDE 40 MG/4 ML INJECTABLE VIAL IVPUSH SCH (13:55)
[2023-01-04] MEDS ORDERED: VANCOMYCIN 1,000 MG in DEXTROSE 5%-WATER - 250 ML IVPB SCH (15:15)
[2023-01-04] MEDS ORDERED: VANCOMYCIN/WATER FOR INJ (PEG) 1,000 MG/200 ML BAG IVPB SCH (15:15)
[2023-01-04] MEDS: PIPERACILLIN/TAZOB 3.375 GM 3.375 GM in DEXTROSE 5%-WATER - 50 ML IVPB SCH (17:38)
[2023-01-04] MEDS: MELATONIN 5 MG TABLETS PO SCH (21:49)
[2023-01-04] MEDS: VANCOMYCIN/WATER FOR INJ (PEG) 1,000 MG/200 ML BAG IVPB SCH (22:54)
[2023-01-05] MEDS: PIPERACILLIN/TAZOB 3.375 GM 3.375 GM in DEXTROSE 5%-WATER - 50 ML IVPB SCH ×3 (01:59→17:20)
[2023-01-05] MEDS: FUROSEMIDE 40 MG/4 ML INJECTABLE VIAL IVPUSH SCH ×2 (05:15→15:36)
[2023-01-05] MEDS: GABAPENTIN 300 MG CAPSULE PO SCH ×3 (05:15→21:01)
[2023-01-05] MEDS: METOPROLOL TARTRATE 50 MG TABLET (FP) PO SCH ×2 (09:22→21:01)
[2023-01-05] MEDS: TAMSULOSIN HCL 0.4 MG CAP PO SCH (09:22)
[2023-01-05] MEDS: ESCITALOPRAM OXALATE 10 MG TABLET PO SCH (09:22)
[2023-01-05] MEDS: APIXABAN 5 MG TABLET PO SCH ×2 (09:22→21:01)
[2023-01-05 09:50] LABS: CALCIUM 8.4 mg/dL (8.5-10.1)
[2023-01-05 09:51] LABS: BLOOD UREA NITROGEN 8.3 mg/dL (7-18); MAGNESIUM 1.2 mg/dL (1.8-2.4)
[2023-01-05 09:52] LABS: CREATININE 0.4 mg/dL (0.55-1.3)
[2023-01-05] MEDS: VANCOMYCIN/WATER FOR INJ (PEG) 1,000 MG/200 ML BAG IVPB SCH ×2 (11:13→23:35)
[2023-01-05] MEDS: ZINC OXIDE 20% TOPICAL OINTMENT 30 GM TUBE TP SCH ×2 (12:57→21:02)
[2023-01-05] MEDS: AMINO ACIDS/PROTEIN HYDROLYS 30 ML LIQUID.PKT PO SCH (17:20)
[2023-01-05] MEDS: ACETAMINOPHEN 325 MG TABLET (FP) PO PRN (20:14)
[2023-01-05] MEDS: MELATONIN 5 MG TABLETS PO SCH (21:01)
[2023-01-06] MEDS: PIPERACILLIN/TAZOB 3.375 GM 3.375 GM in DEXTROSE 5%-WATER - 50 ML IVPB SCH ×3 (02:17→17:50)
[2023-01-06] MEDS: FUROSEMIDE 40 MG/4 ML INJECTABLE VIAL IVPUSH SCH ×2 (07:15→15:23)
[2023-01-06] MEDS: GABAPENTIN 300 MG CAPSULE PO SCH ×3 (07:16→21:27)
[2023-01-06] MEDS: AMINO ACIDS/PROTEIN HYDROLYS 30 ML LIQUID.PKT PO SCH ×2 (09:01→17:50)
[2023-01-06] MEDS: TAMSULOSIN HCL 0.4 MG CAP PO SCH (09:02)
[2023-01-06] MEDS: ESCITALOPRAM OXALATE 10 MG TABLET PO SCH (09:03)
[2023-01-06] MEDS: MULTIVITAMINS (DAILY MVI) TABLET (FP) PO SCH (09:03)
[2023-01-06] MEDS: ASCORBIC ACID 250 MG TABLET (FP) PO SCH (09:03)
[2023-01-06] MEDS: ZINC SULFATE 220 MG CAPSULE (FP) PO SCH (09:03)
[2023-01-06] MEDS: METOPROLOL TARTRATE 50 MG TABLET (FP) PO SCH ×2 (09:03→21:21)
[2023-01-06] MEDS: APIXABAN 5 MG TABLET PO SCH ×2 (09:03→21:27)
[2023-01-06] MEDS: ZINC OXIDE 20% TOPICAL OINTMENT 30 GM TUBE TP SCH ×2 (11:36→21:27)
[2023-01-06] MEDS: VANCOMYCIN/WATER FOR INJ (PEG) 1,000 MG/200 ML BAG IVPB SCH ×2 (11:36→23:46)
[2023-01-06] MEDS: MELATONIN 5 MG TABLETS PO SCH (21:27)
[2023-01-07] MEDS: PIPERACILLIN/TAZOB 3.375 GM 3.375 GM in DEXTROSE 5%-WATER - 50 ML IVPB SCH ×3 (01:52→18:03)
[2023-01-07] MEDS: FUROSEMIDE 40 MG/4 ML INJECTABLE VIAL IVPUSH SCH ×2 (06:25→14:04)
[2023-01-07] MEDS: GABAPENTIN 300 MG CAPSULE PO SCH ×3 (06:26→22:37)
[2023-01-07] MEDS: AMINO ACIDS/PROTEIN HYDROLYS 30 ML LIQUID.PKT PO SCH ×2 (08:46→18:03)
[2023-01-07] MEDS: TAMSULOSIN HCL 0.4 MG CAP PO SCH (08:47)
[2023-01-07] MEDS: ESCITALOPRAM OXALATE 10 MG TABLET PO SCH (09:00)
[2023-01-07] MEDS: APIXABAN 5 MG TABLET PO SCH (09:00)
[2023-01-07] MEDS: ZINC SULFATE 220 MG CAPSULE (FP) PO SCH (09:00)
[2023-01-07] MEDS: MULTIVITAMINS (DAILY MVI) TABLET (FP) PO SCH (09:00)
[2023-01-07] MEDS: METOPROLOL TARTRATE 50 MG TABLET (FP) PO SCH ×2 (09:00→22:37)
[2023-01-07] MEDS: ASCORBIC ACID 250 MG TABLET (FP) PO SCH (09:00)
[2023-01-07 10:52] LABS: CALCIUM 8.3 mg/dL (8.5-10.1)
[2023-01-07 10:55] LABS: CREATININE 0.7 mg/dL (0.55-1.3)
[2023-01-07] MEDS: ZINC OXIDE 20% TOPICAL OINTMENT 30 GM TUBE TP SCH ×2 (11:15→22:37)
[2023-01-07] MEDS ORDERED: POTASSIUM CHLORIDE ORAL LIQUID 20 MEQ/15 ML PO ONE (12:30)
[2023-01-07] MEDS: VANCOMYCIN/WATER FOR INJ (PEG) 1,000 MG/200 ML BAG IVPB SCH (14:02)
[2023-01-07] MEDS: MELATONIN 5 MG TABLETS PO SCH (22:37)
[2023-01-08] MEDS: PIPERACILLIN/TAZOB 3.375 GM 3.375 GM in DEXTROSE 5%-WATER - 50 ML IVPB SCH ×3 (01:28→17:11)
[2023-01-08] MEDS: VANCOMYCIN/WATER FOR INJ (PEG) 1,000 MG/200 ML BAG IVPB SCH ×3 (02:17→22:56)
[2023-01-08] MEDS: GABAPENTIN 300 MG CAPSULE PO SCH ×3 (05:45→21:02)
[2023-01-08] MEDS: FUROSEMIDE 40 MG/4 ML INJECTABLE VIAL IVPUSH SCH ×2 (05:45→13:44)
[2023-01-08] MEDS: TAMSULOSIN HCL 0.4 MG CAP PO SCH (08:27)
[2023-01-08] MEDS: AMINO ACIDS/PROTEIN HYDROLYS 30 ML LIQUID.PKT PO SCH ×2 (08:27→17:11)
[2023-01-08] MEDS: ZINC SULFATE 220 MG CAPSULE (FP) PO SCH (09:37)
[2023-01-08] MEDS: ASCORBIC ACID 250 MG TABLET (FP) PO SCH (09:37)
[2023-01-08] MEDS: METOPROLOL TARTRATE 50 MG TABLET (FP) PO SCH ×2 (09:37→21:02)
[2023-01-08] MEDS: ESCITALOPRAM OXALATE 10 MG TABLET PO SCH (09:37)
[2023-01-08] MEDS: MULTIVITAMINS (DAILY MVI) TABLET (FP) PO SCH (09:37)
[2023-01-08] MEDS: ZINC OXIDE 20% TOPICAL OINTMENT 30 GM TUBE TP SCH ×2 (09:38→21:03)
[2023-01-08 09:39] LABS: CALCIUM 8.4 mg/dL (8.5-10.1)
[2023-01-08 09:43] LABS: CREATININE 0.4 mg/dL (0.55-1.3)
[2023-01-08] MEDS: MELATONIN 5 MG TABLETS PO SCH (21:02)
[2023-01-09] MEDS: PIPERACILLIN/TAZOB 3.375 GM 3.375 GM in DEXTROSE 5%-WATER - 50 ML IVPB SCH ×2 (01:41→10:09)
[2023-01-09] MEDS: GABAPENTIN 300 MG CAPSULE PO SCH ×3 (06:04→21:46)
[2023-01-09] MEDS: FUROSEMIDE 40 MG/4 ML INJECTABLE VIAL IVPUSH SCH ×2 (06:04→14:08)
[2023-01-09] MEDS: MULTIVITAMINS (DAILY MVI) TABLET (FP) PO SCH (10:09)
[2023-01-09] MEDS: ZINC SULFATE 220 MG CAPSULE (FP) PO SCH (10:09)
[2023-01-09] MEDS: ESCITALOPRAM OXALATE 10 MG TABLET PO SCH (10:09)
[2023-01-09] MEDS: AMINO ACIDS/PROTEIN HYDROLYS 30 ML LIQUID.PKT PO SCH ×2 (10:09→17:19)
[2023-01-09] MEDS: ASCORBIC ACID 250 MG TABLET (FP) PO SCH (10:09)
[2023-01-09] MEDS: METOPROLOL TARTRATE 50 MG TABLET (FP) PO SCH ×2 (10:09→21:46)
[2023-01-09] MEDS: ZINC OXIDE 20% TOPICAL OINTMENT 30 GM TUBE TP SCH ×2 (10:12→21:47)
[2023-01-09] MEDS: VANCOMYCIN/WATER FOR INJ (PEG) 1,000 MG/200 ML BAG IVPB SCH (11:44)
[2023-01-09] MEDS: CEFTRIAXONE 2 GM in DEXTROSE 5%-WATER 100 ML IVPB SCH (17:14)
[2023-01-09] MEDS: DAPTOMYCIN 600 MG in SODIUM CHLORIDE 50 ML IVPB SCH (18:23)
[2023-01-09] MEDS: MELATONIN 5 MG TABLETS PO SCH (21:46)
[2023-01-10] MEDS: GABAPENTIN 300 MG CAPSULE PO SCH ×3 (05:03→21:35)
[2023-01-10] MEDS: FUROSEMIDE 40 MG/4 ML INJECTABLE VIAL IVPUSH SCH ×2 (05:03→14:07)
[2023-01-10] MEDS: ESCITALOPRAM OXALATE 10 MG TABLET PO SCH (10:15)
[2023-01-10] MEDS: MULTIVITAMINS (DAILY MVI) TABLET (FP) PO SCH (10:15)
[2023-01-10] MEDS: AMINO ACIDS/PROTEIN HYDROLYS 30 ML LIQUID.PKT PO SCH ×2 (10:15→18:21)
[2023-01-10] MEDS: ASCORBIC ACID 250 MG TABLET (FP) PO SCH (10:15)
[2023-01-10] MEDS: ZINC SULFATE 220 MG CAPSULE (FP) PO SCH (10:15)
[2023-01-10] MEDS: CEFTRIAXONE 2 GM in DEXTROSE 5%-WATER 100 ML IVPB SCH (10:15)
[2023-01-10] MEDS: METOPROLOL TARTRATE 50 MG TABLET (FP) PO SCH ×2 (10:15→21:35)
[2023-01-10] MEDS: ACETAMINOPHEN 325 MG TABLET (FP) PO PRN (10:16)
[2023-01-10] MEDS: ZINC OXIDE 20% TOPICAL OINTMENT 30 GM TUBE TP SCH ×2 (10:16→21:38)
[2023-01-10] MEDS: POLYETHYLENE GLYCOL (HEALTHYLAX) 3350 17 GM PACKET PO SCH (11:17)
[2023-01-10] MEDS: APIXABAN 5 MG TABLET PO SCH ×2 (14:07→21:35)
[2023-01-10] MEDS: DAPTOMYCIN 600 MG in SODIUM CHLORIDE 50 ML IVPB SCH (16:01)
[2023-01-10] MEDS ORDERED: SODIUM CHLORIDE 1,000 ML IV STA (16:58)
[2023-01-10 17:50] LABS: BASO % 0.7 % (0-2.0); EOS % 1.5 % (0-4.5); HEMATOCRIT 32.9 % (35.4-49); HEMOGLOBIN 10.8 GM/dL (11.7-16.9); LYMPH % 21.2 % (8-40); MCH 26.9 pg (25.7-33.7); MCHC 32.8 g/dl (32.0-35.9); MEAN CELL VOLUME 82.1 fl (80-96); MEAN PLT VOLUME 6.2 fl (7.5-11.1); MONO % 9.1 % (3.8-10.2); NEUT % 67.5 % (42.8-82.8); PLATELET COUNT 366 10^3/uL (134-434); RBC 4.01 M/mm3 (4.00-5.60); RDW 16.1 % (11.9-15.9); WHITE BLOOD COUNT 11.2 K/mm3 (4.0-10.0)
[2023-01-10 18:11] LABS: ALBUMIN 2.6 g/dl (3.4-5.0); BLOOD UREA NITROGEN 19.6 mg/dL (7-18); CALCIUM 8.6 mg/dL (8.5-10.1)
[2023-01-10 18:15] LABS: CREATININE 0.8 mg/dL (0.55-1.3)
[2023-01-10 18:16] LABS: BILIRUBIN,TOTAL 0.3 mg/dL (0.2-1); TOT PROT 5.6 g/dl (6.4-8.2)
[2023-01-10] MEDS: MELATONIN 5 MG TABLETS PO SCH (21:35)
[2023-01-11] MEDS: FUROSEMIDE 40 MG/4 ML INJECTABLE VIAL IVPUSH SCH (05:04)
[2023-01-11] MEDS: GABAPENTIN 300 MG CAPSULE PO SCH ×2 (05:04→13:44)
[2023-01-11] MEDS: AMINO ACIDS/PROTEIN HYDROLYS 30 ML LIQUID.PKT PO SCH ×2 (08:17→17:42)
[2023-01-11] MEDS: ASCORBIC ACID 250 MG TABLET (FP) PO SCH (09:21)
[2023-01-11] MEDS: MULTIVITAMINS (DAILY MVI) TABLET (FP) PO SCH (09:21)
[2023-01-11] MEDS: CEFTRIAXONE 2 GM in DEXTROSE 5%-WATER 100 ML IVPB SCH (09:21)
[2023-01-11] MEDS: ZINC SULFATE 220 MG CAPSULE (FP) PO SCH (09:21)
[2023-01-11] MEDS: APIXABAN 5 MG TABLET PO SCH (09:21)
[2023-01-11] MEDS: POLYETHYLENE GLYCOL (HEALTHYLAX) 3350 17 GM PACKET PO SCH (09:21)
[2023-01-11] MEDS: ESCITALOPRAM OXALATE 10 MG TABLET PO SCH (09:21)
[2023-01-11] MEDS: METOPROLOL TARTRATE 50 MG TABLET (FP) PO SCH (09:21)
[2023-01-11] MEDS: ZINC OXIDE 20% TOPICAL OINTMENT 30 GM TUBE TP SCH (09:22)
[2023-01-11] MEDS: DAPTOMYCIN 600 MG in SODIUM CHLORIDE 50 ML IVPB SCH (17:43)
[2023-01-11 18:22] VITALS: BP 119/56; PULSE 61; RESP 18; TEMP 98.1
[2023-01-12] MEDS ORDERED: FUROSEMIDE 40 MG TABLET (FP) PO SCH (10:00)
== END 2023-01-11 20:20 | disposition home or self-care (01) | DRG 539 ==
LOC: JER 14:37 → JERBED 17:53 → J5S 22:13 → OBSVTOIN 01-05 13:34
PROVIDERS: ADMIT Internal Medicine; ATTEND Internal Medicine
PROC: 02HV33Z Insertion of Infusion Device into Superior Vena Cava, Percutaneous Approach (ICD-10-PCS; principal; 2023-01-09)
PROC: B548ZZA Ultrasonography of Superior Vena Cava, Guidance (ICD-10-PCS; 2023-01-09)
DX: M86.8X6 Other osteomyelitis, lower leg (principal); R53.2 Functional quadriplegia; L97.229 Non-pressure chronic ulcer of left calf with unspecified severity; I10 Essential (primary) hypertension; E78.5 Hyperlipidemia, unspecified; Z74.01 Bed confinement status; Z86.718 Personal history of other venous thrombosis and embolism; Z79.01 Long term (current) use of anticoagulants; E83.42 Hypomagnesemia; N31.9 Neuromuscular dysfunction of bladder, unspecified
CPT/HCPCS: 0241U-QW; 36415; 36569; 71275-TC; 73590-TC-LT-FY; 73720-LT; 77001-TC-FY; 80048; 80053; 82962; 83605; 83735; 83880; 84100; 84436; 84443; 84484; 85025; 85610; 85651; 85730; 86140; 86850; 86900; 86901; 87040; 87070; 87077; 87186; 87205; 93005; 93010; 99285-25; C1751; G0378; G0480; J0878; Q9967

== ENCOUNTER 2023-02-24 09:09 | Inpatient (IN) | payer OTHER, BC ==
[2023-02-24] MEDS ORDERED: PIPERACILLIN/TAZOB 4.5 GM 4.5 GM in DEXTROSE 5%-WATER 100 ML IVPB ONE (09:20)
[2023-02-24] MEDS ORDERED: VANCOMYCIN 1 GM in D5W (PRE-DOCKED) 1,000 MG/250 ML (RESTRICTED TO ID ONLY IVPB ONE (09:20)
[2023-02-24] MEDS ORDERED: LACTATED RINGERS SOLUTION 1000 ML INFUS.BAG IV ONE (09:20)
[2023-02-24 10:28] LABS: BASO % 0.6 % (0-2.0); HEMATOCRIT 37.3 % (35.4-49); HEMOGLOBIN 12.4 GM/dL (11.7-16.9); LYMPH % 23.7 % (8-40); MCH 28.8 pg (25.7-33.7); MCHC 33.2 g/dl (32.0-35.9); MEAN CELL VOLUME 86.8 fl (80-96); MEAN PLT VOLUME 6.9 fl (7.5-11.1); MONO % 7.8 % (3.8-10.2); NEUT % 65.9 % (42.8-82.8); PLATELET COUNT 330 10^3/uL (134-434); RDW 16.6 % (11.9-15.9); WHITE BLOOD COUNT 9.5 K/mm3 (4.0-10.0)
[2023-02-24 10:35] LABS: INR 1.65 (0.83-1.09); PROTHROMBIN TIME (PATIENT) 19.1 SEC (9.7-13.0)
[2023-02-24] MEDS ORDERED: PIPERACILLIN/TAZOB 4.5 GM 4.5 GM/100 ML BAG IVPB ONE (10:35)
[2023-02-24] MEDS ORDERED: VANCOMYCIN/WATER FOR INJ (PEG) 1,000 MG/200 ML BAG IVPB ONE (10:35)
[2023-02-24 10:38] LABS: ACTIVATED PTT 29.7 SECONDS (25.2-36.5)
[2023-02-24 10:40] LABS: VENOUS BASE EXCESS -2.3 mmol/L (-2-2); VENOUS O2 SATURATION 34.1 % (70-80); VENOUS PCO2 49.6 mmHg (38-52); VENOUS PH 7.314 (7.310-7.410)
[2023-02-24 10:54] LABS: POTASSIUM 4.6 mmol/L (3.5-5.1)
[2023-02-24 10:55] LABS: CALCIUM 8.7 mg/dL (8.5-10.1)
[2023-02-24 10:56] LABS: ALBUMIN 2.6 g/dl (3.4-5.0); MAGNESIUM 1.2 mg/dL (1.8-2.4)
[2023-02-24 10:59] LABS: CREATININE 0.8 mg/dL (0.55-1.3)
[2023-02-24 11:01] LABS: BILIRUBIN,TOTAL 0.4 mg/dL (0.2-1); TOT PROT 5.7 g/dl (6.4-8.2)
[2023-02-24 11:25] LABS: LACTIC ACID 2.2 mmol/L (0.4-2.0)
[2023-02-24] MEDS ORDERED: SODIUM CHLORIDE 0.9% 500 ML INFUS.BAG IV ONE (13:45)
[2023-02-24] MEDS ORDERED: ACETAMINOPHEN 325 MG TABLET (FP) PO PRN (17:08)
[2023-02-24] MEDS ORDERED: SODIUM CHLORIDE 1,000 ML IV SCH (17:15)
[2023-02-24 17:51] VITALS: BMI 28.1
[2023-02-24] MEDS ORDERED: PIPERACILLIN/TAZOB 4.5 GM 4.5 GM in DEXTROSE 5%-WATER 100 ML IVPB SCH (18:00)
[2023-02-24] MEDS: AMINO ACIDS/PROTEIN HYDROLYS 30 ML LIQUID.PKT PO SCH (18:25)
[2023-02-24] MEDS: PIPERACILLIN/TAZOB 4.5 GM 4.5 GM in DEXTROSE 5%-WATER 100 ML IVPB SCH (18:26)
[2023-02-24] MEDS: APIXABAN 5 MG TABLET PO SCH (21:28)
[2023-02-24] MEDS: GABAPENTIN 300 MG CAPSULE PO SCH ×2 (21:28→21:37)
[2023-02-24] MEDS: MELATONIN 5 MG TABLETS PO PRN (22:33)
[2023-02-25] MEDS: PIPERACILLIN/TAZOB 4.5 GM 4.5 GM in DEXTROSE 5%-WATER 100 ML IVPB SCH ×3 (01:13→17:21)
[2023-02-25] MEDS: GABAPENTIN 300 MG CAPSULE PO SCH ×3 (05:41→21:43)
[2023-02-25] MEDS: AMINO ACIDS/PROTEIN HYDROLYS 30 ML LIQUID.PKT PO SCH ×2 (08:02→17:18)
[2023-02-25] MEDS: ESCITALOPRAM OXALATE 10 MG TABLET PO SCH (09:58)
[2023-02-25] MEDS: APIXABAN 5 MG TABLET PO SCH ×2 (09:58→21:43)
[2023-02-25 12:34] LABS: BASO % 0.8 % (0-2.0); HEMATOCRIT 32.3 % (35.4-49); HEMOGLOBIN 11.1 GM/dL (11.7-16.9); LYMPH % 29.7 % (8-40); MCH 28.8 pg (25.7-33.7); MCHC 34.3 g/dl (32.0-35.9); MEAN CELL VOLUME 83.9 fl (80-96); MEAN PLT VOLUME 7.2 fl (7.5-11.1); MONO % 8.3 % (3.8-10.2); NEUT % 57.2 % (42.8-82.8); PLATELET COUNT 321 10^3/uL (134-434); RBC 3.85 M/mm3 (4.00-5.60); RDW 16.6 % (11.9-15.9)
[2023-02-25 12:53] LABS: POTASSIUM 3.9 mmol/L (3.5-5.1)
[2023-02-25 12:56] LABS: CALCIUM 8.6 mg/dL (8.5-10.1)
[2023-02-25 12:57] LABS: ALBUMIN 2.7 g/dl (3.4-5.0)
[2023-02-25 13:00] LABS: CREATININE 0.5 mg/dL (0.55-1.3)
[2023-02-25 13:01] LABS: BILIRUBIN,TOTAL 0.5 mg/dL (0.2-1)
[2023-02-25 13:02] LABS: TOT PROT 5.8 g/dl (6.4-8.2)
[2023-02-25 13:18] LABS: BLOOD UREA NITROGEN 13.8 mg/dL (7-18)
[2023-02-25 13:56] LABS: EPI CELLS 15 /uL (0-25.1); HYALINE CASTS 4 /uL (0-3.1); PH,URINE 5.5 (5.0-8.0); URINE APPEARANCE CLEAR; URINE BILIRUBIN NEGATIVE (NEGATIVE); URINE COLOR YELLOW; URINE GLUCOSE (UA) NEGATIVE (NEGATIVE); URINE KETONE NEGATIVE (NEGATIVE); URINE LEUK ESTERASE 2+ (NEGATIVE); URINE NITRITE POSITIVE (NEGATIVE); URINE PROTEIN NEGATIVE (NEGATIVE); URINE UROBILINOGEN 0.2 mg/dL (0.2-1.0); URINE WBC 299 /uL (0-25.8)
[2023-02-25] MEDS: METOPROLOL TARTRATE 25 MG TABLET (FP) PO SCH ×2 (14:09→21:43)
[2023-02-25 15:09] LABS: URINE RBC 93.8 /uL (0-23.9)
[2023-02-25 15:10] LABS: URINE BACTERIA MODERATE /uL (0-1359); YEAST MANY (NEGATIVE)
[2023-02-25] MEDS: MELATONIN 5 MG TABLETS PO PRN (23:12)
[2023-02-26] MEDS: PIPERACILLIN/TAZOB 4.5 GM 4.5 GM in DEXTROSE 5%-WATER 100 ML IVPB SCH ×3 (01:39→17:27)
[2023-02-26] MEDS: GABAPENTIN 300 MG CAPSULE PO SCH ×3 (06:10→22:25)
[2023-02-26] MEDS: AMINO ACIDS/PROTEIN HYDROLYS 30 ML LIQUID.PKT PO SCH ×2 (08:57→17:27)
[2023-02-26] MEDS: APIXABAN 5 MG TABLET PO SCH ×2 (09:58→22:25)
[2023-02-26] MEDS: METOPROLOL TARTRATE 25 MG TABLET (FP) PO SCH ×2 (09:58→22:25)
[2023-02-26] MEDS: ESCITALOPRAM OXALATE 10 MG TABLET PO SCH (09:59)
[2023-02-27] MEDS: MELATONIN 5 MG TABLETS PO PRN ×2 (00:29→23:54)
[2023-02-27] MEDS: PIPERACILLIN/TAZOB 4.5 GM 4.5 GM in DEXTROSE 5%-WATER 100 ML IVPB SCH ×2 (02:18→09:27)
[2023-02-27] MEDS: GABAPENTIN 300 MG CAPSULE PO SCH ×3 (06:08→21:42)
[2023-02-27] MEDS: AMINO ACIDS/PROTEIN HYDROLYS 30 ML LIQUID.PKT PO SCH ×2 (08:42→18:54)
[2023-02-27] MEDS: ESCITALOPRAM OXALATE 10 MG TABLET PO SCH (09:27)
[2023-02-27] MEDS: APIXABAN 5 MG TABLET PO SCH ×2 (09:27→21:42)
[2023-02-27] MEDS: METOPROLOL TARTRATE 25 MG TABLET (FP) PO SCH ×2 (09:27→21:43)
[2023-02-27] MEDS ORDERED: FUROSEMIDE 40 MG TABLET (FP) PO SCH (13:15)
[2023-02-27] MEDS: FUROSEMIDE 40 MG/4 ML INJECTABLE VIAL IVPUSH SCH (15:30)
[2023-02-28] MEDS: GABAPENTIN 300 MG CAPSULE PO SCH ×3 (05:55→23:03)
[2023-02-28] MEDS: FUROSEMIDE 40 MG/4 ML INJECTABLE VIAL IVPUSH SCH (09:07)
[2023-02-28] MEDS: ESCITALOPRAM OXALATE 10 MG TABLET PO SCH (09:07)
[2023-02-28] MEDS: APIXABAN 5 MG TABLET PO SCH ×2 (09:07→23:04)
[2023-02-28] MEDS: AMINO ACIDS/PROTEIN HYDROLYS 30 ML LIQUID.PKT PO SCH ×2 (09:08→18:09)
[2023-02-28] MEDS: METOPROLOL TARTRATE 25 MG TABLET (FP) PO SCH ×3 (09:08→23:09)
[2023-02-28] MEDS ORDERED: hydrALAZINE HCL 20 MG/ML VIAL IVPUSH ONE (17:47)
[2023-02-28] MEDS: MELATONIN 5 MG TABLETS PO PRN (23:03)
[2023-03-01] MEDS: GABAPENTIN 300 MG CAPSULE PO SCH ×3 (05:49→22:49)
[2023-03-01] MEDS: AMINO ACIDS/PROTEIN HYDROLYS 30 ML LIQUID.PKT PO SCH ×2 (08:48→16:45)
[2023-03-01] MEDS: ESCITALOPRAM OXALATE 10 MG TABLET PO SCH (09:08)
[2023-03-01] MEDS: FUROSEMIDE 40 MG/4 ML INJECTABLE VIAL IVPUSH SCH ×2 (09:08→15:15)
[2023-03-01] MEDS: APIXABAN 5 MG TABLET PO SCH ×2 (09:08→23:28)
[2023-03-01] MEDS: METOPROLOL TARTRATE 25 MG TABLET (FP) PO SCH ×2 (09:08→22:49)
[2023-03-01] MEDS: TAMSULOSIN HCL 0.4 MG CAP PO SCH (14:31)
[2023-03-02] MEDS: GABAPENTIN 300 MG CAPSULE PO SCH ×3 (06:08→21:11)
[2023-03-02] MEDS: FUROSEMIDE 40 MG/4 ML INJECTABLE VIAL IVPUSH SCH ×2 (06:08→15:40)
[2023-03-02 08:49] LABS: POTASSIUM 3.8 mmol/L (3.5-5.1)
[2023-03-02 08:52] LABS: CALCIUM 8.4 mg/dL (8.5-10.1)
[2023-03-02 08:53] LABS: BLOOD UREA NITROGEN 20.4 mg/dL (7-18)
[2023-03-02 08:54] LABS: CREATININE 0.5 mg/dL (0.55-1.3)
[2023-03-02] MEDS: AMINO ACIDS/PROTEIN HYDROLYS 30 ML LIQUID.PKT PO SCH ×2 (09:04→17:18)
[2023-03-02] MEDS: TAMSULOSIN HCL 0.4 MG CAP PO SCH (09:05)
[2023-03-02] MEDS: APIXABAN 5 MG TABLET PO SCH ×2 (09:05→21:11)
[2023-03-02] MEDS: ESCITALOPRAM OXALATE 10 MG TABLET PO SCH (11:34)
[2023-03-02] MEDS: METOPROLOL TARTRATE 25 MG TABLET (FP) PO SCH ×2 (11:35→21:11)
[2023-03-02 15:23] VITALS: RESP 18
[2023-03-02] MEDS: MELATONIN 5 MG TABLETS PO PRN (23:31)
[2023-03-03] MEDS: GABAPENTIN 300 MG CAPSULE PO SCH ×2 (06:08→14:46)
[2023-03-03] MEDS: FUROSEMIDE 40 MG/4 ML INJECTABLE VIAL IVPUSH SCH ×2 (06:08→14:45)
[2023-03-03] MEDS: AMINO ACIDS/PROTEIN HYDROLYS 30 ML LIQUID.PKT PO SCH ×2 (11:13→17:16)
[2023-03-03] MEDS: TAMSULOSIN HCL 0.4 MG CAP PO SCH (11:14)
[2023-03-03] MEDS: ESCITALOPRAM OXALATE 10 MG TABLET PO SCH (11:14)
[2023-03-03] MEDS: APIXABAN 5 MG TABLET PO SCH (11:14)
[2023-03-03] MEDS: METOPROLOL TARTRATE 25 MG TABLET (FP) PO SCH (11:15)
[2023-03-03 14:52] VITALS: BP 122/54; PULSE 68; TEMP 97.7
== END 2023-03-03 19:01 | disposition home or self-care (01) | DRG 698 ==
LOC: JER 09:09 → JERBED 14:15 → J4S 15:29
PROVIDERS: ADMIT Internal Medicine; ATTEND Internal Medicine
DX: T83.518A Infection and inflammatory reaction due to other urinary catheter, initial encounter (principal); A41.9 Sepsis, unspecified organism; L89.893 Pressure ulcer of other site, stage 3; R53.2 Functional quadriplegia; G93.41 Metabolic encephalopathy; E87.1 Hypo-osmolality and hyponatremia; N39.0 Urinary tract infection, site not specified; M86.9 Osteomyelitis, unspecified; L97.909 Non-pressure chronic ulcer of unspecified part of unspecified lower leg with unspecified severity; E78.5 Hyperlipidemia, unspecified; I10 Essential (primary) hypertension; N40.0 Benign prostatic hyperplasia without lower urinary tract symptoms; T83.098A Other mechanical complication of other urinary catheter, initial encounter; Y83.9 Surgical procedure, unspecified as the cause of abnormal reaction of the patient, or of later complication, without mention of misadventure at the time of the procedure
CPT/HCPCS: 0241U-QW; 36415; 70450-TC; 71045-TC-FY; 80048; 80053; 81003; 82550; 82553; 82803; 82962; 83605; 83735; 84484; 85025; 85610; 85730; 86850; 86900; 86901; 87040; 87077; 87086; 87186; 93005; 93010; 99291

== ENCOUNTER 2023-04-03 23:05 | Inpatient (IN) | payer OTHER, BC ==
[2023-04-03] MEDS ORDERED: SODIUM CHLORIDE 0.9% 500 ML INFUS.BAG IV ONE (23:39)
[2023-04-04 01:11] LABS: BASO % 0.6 % (0-2.0); EOS % 3.8 % (0-4.5); HEMATOCRIT 35.9 % (35.4-49); LYMPH % 17.2 % (8-40); MCH 27.5 pg (25.7-33.7); MCHC 33.3 g/dl (32.0-35.9); MEAN CELL VOLUME 82.4 fl (80-96); MEAN PLT VOLUME 6.6 fl (7.5-11.1); MONO % 7.9 % (3.8-10.2); NEUT % 70.5 % (42.8-82.8); PLATELET COUNT 358 10^3/uL (134-434); RBC 4.36 M/mm3 (4.00-5.60); RDW 15.5 % (11.9-15.9); WHITE BLOOD COUNT 10.4 K/mm3 (4.0-10.0)
[2023-04-04 01:13] LABS: INR 1.44 (0.83-1.09); PROTHROMBIN TIME (PATIENT) 16.7 SEC (9.7-13.0)
[2023-04-04 01:17] LABS: VENOUS BASE EXCESS 1.3 mmol/L (-2-2); VENOUS O2 SATURATION 86.7 % (70-80); VENOUS PCO2 41.5 mmHg (38-52); VENOUS PH 7.415 (7.310-7.410)
[2023-04-04 01:27] LABS: POTASSIUM 4.2 mmol/L (3.5-5.1)
[2023-04-04 01:30] LABS: ALBUMIN 2.8 g/dl (3.4-5.0); BLOOD UREA NITROGEN 11.3 mg/dL (7-18); CALCIUM 8.5 mg/dL (8.5-10.1)
[2023-04-04 01:33] LABS: CREATININE 0.6 mg/dL (0.55-1.3)
[2023-04-04 01:35] LABS: BILIRUBIN,TOTAL 0.3 mg/dL (0.2-1)
[2023-04-04] MEDS ORDERED: SODIUM CHLORIDE 500 ML IV STA (01:51)
[2023-04-04] MEDS ORDERED: HYDROCORTISONE SOD SUCCINATE 100 MG/2 ML VIAL IVPB ONE (01:52)
[2023-04-04] MEDS ORDERED: CEFTRIAXONE 1 GM in DEXTROSE 5%-WATER - 100 ML IVPB ONE (01:52)
[2023-04-04 02:01] LABS: EPI CELLS >36 /uL (0-25.1); HYALINE CASTS 0 /uL (0-3.1); URINE APPEARANCE CLEAR; URINE BACTERIA 17 /uL (0-1359); URINE BILIRUBIN NEGATIVE (NEGATIVE); URINE COLOR RED; URINE GLUCOSE (UA) NEGATIVE (NEGATIVE); URINE KETONE NEGATIVE (NEGATIVE); URINE LEUK ESTERASE 3+ (NEGATIVE); URINE NITRITE NEGATIVE (NEGATIVE); URINE PROTEIN 1+ (NEGATIVE); URINE UROBILINOGEN 0.2 mg/dL (0.2-1.0); URINE WBC 49 /uL (0-25.8)
[2023-04-04] MEDS ORDERED: HYDROCORTISONE SOD SUCCINATE 100 MG/2 ML VIAL ONE (02:04)
[2023-04-04] MEDS ORDERED: CEFTRIAXONE 1 GM/50 ML BAG ONE (02:05)
[2023-04-04] MEDS ORDERED: CEFEPIME HCL/D5W 2 GM/50 ML BAG IVPB ONE (02:08)
[2023-04-04] MEDS ORDERED: VANCOMYCIN/WATER FOR INJ (PEG) 1,000 MG/200 ML BAG IVPB ONE (02:08)
[2023-04-04] MEDS ORDERED: VANCOMYCIN 1 GM in D5W (PRE-DOCKED) 1,000 MG/250 ML (RESTRICTED TO ID ONLY IVPB ONE (02:08)
[2023-04-04] MEDS ORDERED: CEFEPIME 1 GM/100 ML BAG IVPB ONE (02:09)
[2023-04-04 02:49] LABS: URINE RBC 148.1 /uL (0-23.9); YEAST NONE SEEN (NEGATIVE)
[2023-04-04] MEDS ORDERED: ACETAMINOPHEN 325 MG TABLET (FP) PO PRN (04:21)
[2023-04-04] MEDS: GABAPENTIN 300 MG CAPSULE PO SCH ×3 (07:45→22:23)
[2023-04-04] MEDS: MULTIVITAMINS (DAILY MVI) TABLET (FP) PO SCH (09:53)
[2023-04-04] MEDS: FUROSEMIDE 40 MG TABLET (FP) PO SCH (09:53)
[2023-04-04] MEDS: ESCITALOPRAM OXALATE 10 MG TABLET PO SCH (09:53)
[2023-04-04] MEDS: AMINO ACIDS/PROTEIN HYDROLYS 30 ML LIQUID.PKT PO SCH ×2 (09:53→17:26)
[2023-04-04] MEDS ORDERED: APIXABAN 5 MG TABLET PO SCH (10:00)
[2023-04-04] MEDS: DEXTROSE 5%-NORMAL SALINE 1,000 ML IV SCH (10:47)
[2023-04-04 11:30] VITALS: BMI 31.4
[2023-04-04] MEDS: CEFEPIME 2 GM in DEXTROSE 5%-WATER 100 ML IVPB SCH ×2 (11:57→22:23)
[2023-04-04] MEDS: ZINC OXIDE 20% TOPICAL OINTMENT 30 GM TUBE TP SCH ×2 (14:26→23:00)
[2023-04-04] MEDS: VANCOMYCIN PREMIX 1.5 GM 1,500 MG/300 ML BAG IVPB SCH (15:24)
[2023-04-04] MEDS: MELATONIN 5 MG TABLETS PO SCH (23:45)
[2023-04-05] MEDS: VANCOMYCIN PREMIX 1.5 GM 1,500 MG/300 ML BAG IVPB SCH (02:29)
[2023-04-05] MEDS: DEXTROSE 5%-NORMAL SALINE 1,000 ML IV SCH ×2 (04:17→07:05)
[2023-04-05] MEDS: GABAPENTIN 300 MG CAPSULE PO SCH ×3 (06:26→21:15)
[2023-04-05] MEDS: AMINO ACIDS/PROTEIN HYDROLYS 30 ML LIQUID.PKT PO SCH ×2 (08:16→17:50)
[2023-04-05 09:57] LABS: BASO % 0.9 % (0-2.0); EOS % 3.6 % (0-4.5); HEMATOCRIT 31.1 % (35.4-49); HEMOGLOBIN 10.5 GM/dL (11.7-16.9); LYMPH % 29.6 % (8-40); MCH 27.9 pg (25.7-33.7); MCHC 33.8 g/dl (32.0-35.9); MEAN CELL VOLUME 82.6 fl (80-96); MONO % 6.8 % (3.8-10.2); NEUT % 59.1 % (42.8-82.8); PLATELET COUNT 289 10^3/uL (134-434); RBC 3.77 M/mm3 (4.00-5.60); RDW 15.4 % (11.9-15.9); WHITE BLOOD COUNT 6.2 K/mm3 (4.0-10.0)
[2023-04-05 10:14] LABS: POTASSIUM 3.9 mmol/L (3.5-5.1)
[2023-04-05] MEDS: CEFEPIME 2 GM in DEXTROSE 5%-WATER 100 ML IVPB SCH (10:20)
[2023-04-05] MEDS: MULTIVITAMINS (DAILY MVI) TABLET (FP) PO SCH (10:20)
[2023-04-05] MEDS: FUROSEMIDE 40 MG TABLET (FP) PO SCH (10:20)
[2023-04-05] MEDS: ESCITALOPRAM OXALATE 10 MG TABLET PO SCH (10:20)
[2023-04-05] MEDS: ZINC OXIDE 20% TOPICAL OINTMENT 30 GM TUBE TP SCH ×2 (10:21→21:15)
[2023-04-05 10:24] LABS: CALCIUM 8.2 mg/dL (8.5-10.1)
[2023-04-05 10:25] LABS: BLOOD UREA NITROGEN 8.1 mg/dL (7-18); MAGNESIUM 1.3 mg/dL (1.8-2.4)
[2023-04-05 10:27] LABS: ALBUMIN 2.5 g/dl (3.4-5.0)
[2023-04-05 10:28] LABS: CREATININE 0.4 mg/dL (0.55-1.3); PHOSPHOROUS 2.4 mg/dL (2.5-4.9)
[2023-04-05 10:29] LABS: TOT PROT 5.2 g/dl (6.4-8.2)
[2023-04-05 10:30] LABS: BILIRUBIN,TOTAL 0.4 mg/dL (0.2-1)
[2023-04-05] MEDS: FUROSEMIDE 40 MG/4 ML INJECTABLE VIAL IVPUSH SCH (11:26)
[2023-04-05] MEDS: metoPROLOL SUCCINATE 25 MG TAB.SR.24H (FP) PO SCH (11:38)
[2023-04-05] MEDS: VANCOMYCIN HCL 1,500 MG in DEXTROSE 5%-WATER - 250 ML IVPB SCH ×2 (14:39→22:51)
[2023-04-05] MEDS ORDERED: NAPH,MB-DB/K PH,MBDB POWDER PACKET PO ONE (17:07)
[2023-04-05] MEDS ORDERED: MAGNESIUM SULF 50% (8.12 MEQ/2 ML-1 GM VIAL) IVPB ONE (17:07)
[2023-04-05] MEDS: MELATONIN 5 MG TABLETS PO SCH (21:15)
[2023-04-05] MEDS: APIXABAN 5 MG TABLET PO SCH (21:15)
[2023-04-06] MEDS: GABAPENTIN 300 MG CAPSULE PO SCH ×3 (05:29→21:39)
[2023-04-06] MEDS: TAMSULOSIN HCL 0.4 MG CAP PO SCH (08:47)
[2023-04-06] MEDS: AMINO ACIDS/PROTEIN HYDROLYS 30 ML LIQUID.PKT PO SCH ×2 (08:48→17:16)
[2023-04-06] MEDS: MULTIVITAMINS (DAILY MVI) TABLET (FP) PO SCH (10:52)
[2023-04-06] MEDS: APIXABAN 5 MG TABLET PO SCH ×2 (10:52→21:39)
[2023-04-06] MEDS: metoPROLOL SUCCINATE 25 MG TAB.SR.24H (FP) PO SCH (10:52)
[2023-04-06] MEDS: ESCITALOPRAM OXALATE 10 MG TABLET PO SCH (10:52)
[2023-04-06] MEDS: FUROSEMIDE 40 MG/4 ML INJECTABLE VIAL IVPUSH SCH (10:52)
[2023-04-06] MEDS: ZINC OXIDE 20% TOPICAL OINTMENT 30 GM TUBE TP SCH ×2 (14:53→21:39)
[2023-04-06] MEDS: MELATONIN 5 MG TABLETS PO SCH (21:39)
[2023-04-07] MEDS: GABAPENTIN 300 MG CAPSULE PO SCH ×3 (06:00→22:19)
[2023-04-07 08:48] LABS: BASO % 1.2 % (0-2.0); EOS % 3.6 % (0-4.5); HEMATOCRIT 32.2 % (35.4-49); LYMPH % 35.1 % (8-40); MCH 28.1 pg (25.7-33.7); MCHC 34.3 g/dl (32.0-35.9); MONO % 8.1 % (3.8-10.2); PLATELET COUNT 347 10^3/uL (134-434); RBC 3.92 M/mm3 (4.00-5.60); RDW 15.4 % (11.9-15.9); WHITE BLOOD COUNT 8.1 K/mm3 (4.0-10.0)
[2023-04-07 09:15] LABS: ALBUMIN 2.8 g/dl (3.4-5.0); CALCIUM 8.8 mg/dL (8.5-10.1)
[2023-04-07 09:18] LABS: CREATININE 0.3 mg/dL (0.55-1.3)
[2023-04-07 09:20] LABS: BILIRUBIN,TOTAL 0.5 mg/dL (0.2-1); TOT PROT 5.8 g/dl (6.4-8.2)
[2023-04-07] MEDS: ESCITALOPRAM OXALATE 10 MG TABLET PO SCH (09:52)
[2023-04-07] MEDS: metoPROLOL SUCCINATE 25 MG TAB.SR.24H (FP) PO SCH (09:53)
[2023-04-07] MEDS: ZINC OXIDE 20% TOPICAL OINTMENT 30 GM TUBE TP SCH ×2 (09:53→22:20)
[2023-04-07] MEDS: FUROSEMIDE 40 MG/4 ML INJECTABLE VIAL IVPUSH SCH (09:53)
[2023-04-07] MEDS: MULTIVITAMINS (DAILY MVI) TABLET (FP) PO SCH (09:53)
[2023-04-07] MEDS: AMINO ACIDS/PROTEIN HYDROLYS 30 ML LIQUID.PKT PO SCH ×2 (09:53→17:57)
[2023-04-07] MEDS: APIXABAN 5 MG TABLET PO SCH ×2 (09:53→22:19)
[2023-04-07] MEDS: TAMSULOSIN HCL 0.4 MG CAP PO SCH (09:53)
[2023-04-07] MEDS: MELATONIN 5 MG TABLETS PO SCH (22:19)
[2023-04-08 05:42] VITALS: RESP 18
[2023-04-08] MEDS: GABAPENTIN 300 MG CAPSULE PO SCH ×2 (05:47→14:09)
[2023-04-08] MEDS: TAMSULOSIN HCL 0.4 MG CAP PO SCH (09:26)
[2023-04-08] MEDS: FUROSEMIDE 40 MG/4 ML INJECTABLE VIAL IVPUSH SCH (09:26)
[2023-04-08] MEDS: APIXABAN 5 MG TABLET PO SCH (09:26)
[2023-04-08] MEDS: ESCITALOPRAM OXALATE 10 MG TABLET PO SCH (09:26)
[2023-04-08] MEDS: MULTIVITAMINS (DAILY MVI) TABLET (FP) PO SCH (09:26)
[2023-04-08] MEDS: metoPROLOL SUCCINATE 25 MG TAB.SR.24H (FP) PO SCH (09:26)
[2023-04-08] MEDS: AMINO ACIDS/PROTEIN HYDROLYS 30 ML LIQUID.PKT PO SCH (09:26)
[2023-04-08] MEDS: ZINC OXIDE 20% TOPICAL OINTMENT 30 GM TUBE TP SCH (09:29)
[2023-04-08 14:09] VITALS: BP 119/72; PULSE 72; TEMP 97.8
[2023-04-09] MEDS ORDERED: FUROSEMIDE 40 MG TABLET (FP) PO SCH (10:00)
== END 2023-04-08 17:36 | disposition home or self-care (01) | DRG 698 ==
LOC: JER 23:05 → JERBED 04-04 03:43 → INTOOBSV 04-04 03:43 → J6S 04-04 07:17 → OBSVTOIN 04-07 15:58
PROVIDERS: ADMIT Internal Medicine; ATTEND Internal Medicine
DX: T83.83XA Hemorrhage due to genitourinary prosthetic devices, implants and grafts, initial encounter (principal); G82.50 Quadriplegia, unspecified; G93.41 Metabolic encephalopathy; T83.518A Infection and inflammatory reaction due to other urinary catheter, initial encounter; T83.028A Displacement of other urinary catheter, initial encounter; I10 Essential (primary) hypertension; E78.5 Hyperlipidemia, unspecified; R09.02 Hypoxemia; I95.9 Hypotension, unspecified; Y83.9 Surgical procedure, unspecified as the cause of abnormal reaction of the patient, or of later complication, without mention of misadventure at the time of the procedure; E66.9 Obesity, unspecified; Z68.31 Body mass index [BMI] 31.0-31.9, adult
CPT/HCPCS: 0241U-QW; 36415; 70450-TC; 71045-TC-FY; 80048; 80053; 81003; 82550; 82553; 82803; 83605; 83735; 84100; 84484; 85025; 85610; 85730; 86850; 86900; 86901; 87040; 87086; 93005; 93010; 99285-25; G0378

== ENCOUNTER 2024-02-04 09:58 | Inpatient (IN) | payer OTHER, BC ==
[2024-02-04] MEDS ORDERED: PIPERACILLIN/TAZOB 4.5 GM 4.5 GM/100 ML BAG IVPB ONE (12:51)
[2024-02-04] MEDS ORDERED: ACETAMINOPHEN INJECTION 100 ML IVPB ONE (12:51)
[2024-02-04 12:53] LABS: INR 1.68 (0.83-1.09); PROTHROMBIN TIME (PATIENT) 19.4 SEC (9.7-13.0)
[2024-02-04 12:56] LABS: ACTIVATED PTT 33.1 SECONDS (25.2-36.5); POTASSIUM 4.4 mmol/L (3.5-5.1)
[2024-02-04] MEDS: ACETAMINOPHEN 1000 MG/100 ML BAG IVPB ONE (13:00)
[2024-02-04 13:01] LABS: ALBUMIN 2.8 g/dl (3.4-5.0); CALCIUM 8.9 mg/dL (8.5-10.1)
[2024-02-04 13:02] LABS: BLOOD UREA NITROGEN 6.6 mg/dL (7-18)
[2024-02-04] MEDS: PIPERACILLIN/TAZOB 4.5 GM 4.5 GM in DEXTROSE 5%-WATER 100 ML IVPB ONE (13:02)
[2024-02-04 13:05] LABS: CREATININE 0.6 mg/dL (0.55-1.3)
[2024-02-04 13:06] LABS: BILIRUBIN,TOTAL 0.6 mg/dL (0.2-1); TOT PROT 5.7 g/dl (6.4-8.2)
[2024-02-04 13:16] LABS: BASO % 0.6 % (0-2.0); EOS % 1.8 % (0-4.5); HEMATOCRIT 37.7 % (35.4-49); MCH 26.6 pg (25.7-33.7); MCHC 31.9 g/dl (32.0-35.9); MEAN CELL VOLUME 83.3 fl (80-96); MEAN PLT VOLUME 6.5 fl (7.5-11.1); MONO % 7.3 % (3.8-10.2); NEUT % 73.3 % (42.8-82.8); PLATELET COUNT 373 10^3/uL (134-434); RBC 4.52 M/mm3 (4.00-5.60); RDW 17.3 % (11.9-15.9); WHITE BLOOD COUNT 13.7 K/mm3 (4.0-10.0)
[2024-02-04 14:19] LABS: URINE APPEARANCE BLOODY; URINE BILIRUBIN NEGATIVE (NEGATIVE); URINE COLOR RED; URINE GLUCOSE (UA) NEGATIVE (NEGATIVE)
[2024-02-04 14:20] LABS: URINE PROTEIN 4+ (NEGATIVE)
[2024-02-04 15:20] LABS: EPI CELLS NONE SEEN /uL (0-25.1); HYALINE CASTS NONE SEEN /uL (0-3.1); URINE RBC >100 /uL (0-23.9)
[2024-02-04 15:21] LABS: URINE BACTERIA NONE SEEN /uL (0-1359)
[2024-02-04] MEDS: AMINO ACIDS/PROTEIN HYDROLYS 30 ML LIQUID.PKT PO SCH (18:11)
[2024-02-04] MEDS: CEFTRIAXONE 1 GM in DEXTROSE 5%-WATER - 50 ML IVPB SCH (20:53)
[2024-02-04] MEDS: GABAPENTIN 300 MG CAPSULE PO SCH (21:19)
[2024-02-04] MEDS: METOPROLOL TARTRATE 50 MG TABLET (FP) PO SCH (21:19)
[2024-02-04] MEDS: ACETAMINOPHEN 325 MG TABLET (FP) PO PRN (21:20)
[2024-02-04] MEDS: MELATONIN 5 MG TABLETS PO SCH (21:20)
[2024-02-04] MEDS: NYSTATIN POWDER 100,000 UNITS/GM - 15 GM TOPICAL POWDER TP SCH (21:21)
[2024-02-04] MEDS ORDERED: GABAPENTIN 100 MG CAPSULE PO SCH (22:00)
[2024-02-04] MEDS ORDERED: NYSTATIN POWDER 100,000 UNITS/GM - 15 GM TOPICAL POWDER TP SCH (22:00)
[2024-02-04] MEDS: ZINC OXIDE 20% TOPICAL OINTMENT 30 GM TUBE TP SCH (23:11)
[2024-02-05 00:46] VITALS: BMI 29.9
[2024-02-05] MEDS: MULTIVITAMINS (DAILY MVI) TABLET (FP) PO SCH (09:12)
[2024-02-05] MEDS: FUROSEMIDE 40 MG TABLET (FP) PO SCH (09:12)
[2024-02-05] MEDS: POTASSIUM CHLORIDE TABS 20 MEQ TABLET.ER (FP) PO SCH (09:12)
[2024-02-05] MEDS: ESCITALOPRAM OXALATE 10 MG TABLET PO SCH (09:12)
[2024-02-05] MEDS ORDERED: CEFTRIAXONE 1 GM in DEXTROSE 5%-WATER - 50 ML IVPB SCH (10:00)
[2024-02-05] MEDS: SODIUM CHLORIDE 1,000 ML IV SCH (11:50)
[2024-02-06 11:18] LABS: HEMATOCRIT 32.2 % (35.4-49); HEMOGLOBIN 10.6 GM/dL (11.7-16.9); MCH 27.2 pg (25.7-33.7); MEAN CELL VOLUME 82.5 fl (80-96); MEAN PLT VOLUME 6.6 fl (7.5-11.1); PLATELET COUNT 305 10^3/uL (134-434); RDW 17.3 % (11.9-15.9); WHITE BLOOD COUNT 6.7 K/mm3 (4.0-10.0)
[2024-02-06 11:43] LABS: POTASSIUM 3.8 mmol/L (3.5-5.1)
[2024-02-06 11:44] LABS: CALCIUM 8.2 mg/dL (8.5-10.1)
[2024-02-06 11:45] LABS: ALBUMIN 2.4 g/dl (3.4-5.0); BLOOD UREA NITROGEN 7.2 mg/dL (7-18)
[2024-02-06 11:48] LABS: CREATININE 0.4 mg/dL (0.55-1.3)
[2024-02-06 11:50] LABS: BILIRUBIN,TOTAL 0.2 mg/dL (0.2-1); TOT PROT 5.1 g/dl (6.4-8.2)
[2024-02-07 09:49] LABS: INR 1.22 (0.83-1.09); PROTHROMBIN TIME (PATIENT) 14.1 SEC (9.7-13.0)
[2024-02-07 09:52] LABS: ACTIVATED PTT 31.3 SECONDS (25.2-36.5)
[2024-02-07 09:53] LABS: BASO % 1.1 % (0-2.0); EOS % 1.8 % (0-4.5); HEMATOCRIT 32.9 % (35.4-49); HEMOGLOBIN 10.9 GM/dL (11.7-16.9); LYMPH % 30.4 % (8-40); MCH 27.4 pg (25.7-33.7); MCHC 33.3 g/dl (32.0-35.9); MEAN CELL VOLUME 82.1 fl (80-96); MEAN PLT VOLUME 6.4 fl (7.5-11.1); MONO % 4.8 % (3.8-10.2); NEUT % 61.9 % (42.8-82.8); PLATELET COUNT 335 10^3/uL (134-434); RDW 17.2 % (11.9-15.9); WHITE BLOOD COUNT 8.4 K/mm3 (4.0-10.0)
[2024-02-07] MEDS: APIXABAN 2.5 MG TABLET PO SCH (21:37)
[2024-02-08 10:05] LABS: BASO % 0.8 % (0-2.0); EOS % 2.2 % (0-4.5); HEMATOCRIT 34.1 % (35.4-49); HEMOGLOBIN 11.2 GM/dL (11.7-16.9); INR 1.24 (0.83-1.09); LYMPH % 29.7 % (8-40); MCH 27.2 pg (25.7-33.7); MCHC 32.9 g/dl (32.0-35.9); MEAN CELL VOLUME 82.8 fl (80-96); MEAN PLT VOLUME 6.4 fl (7.5-11.1); MONO % 5.9 % (3.8-10.2); NEUT % 61.4 % (42.8-82.8); PLATELET COUNT 347 10^3/uL (134-434); PROTHROMBIN TIME (PATIENT) 14.3 SEC (9.7-13.0); RBC 4.12 M/mm3 (4.00-5.60); RDW 17.4 % (11.9-15.9); WHITE BLOOD COUNT 8.3 K/mm3 (4.0-10.0)
[2024-02-08 14:48] VITALS: RESP 16
[2024-02-08 14:57] VITALS: BP 151/91; PULSE 70; TEMP 97.2
== END 2024-02-08 04:00 | disposition home or self-care (01) | DRG 698 ==
LOC: JER 09:58 → JERBED 14:19 → J6S 18:29
PROVIDERS: ADMIT Internal Medicine; ATTEND Internal Medicine
PROC: 0TPB70Z Removal of Drainage Device from Bladder, Via Natural or Artificial Opening (ICD-10-PCS; principal; 2024-02-06)
PROC: 0T9870Z Drainage of Bilateral Ureters with Drainage Device, Via Natural or Artificial Opening (ICD-10-PCS; 2024-02-06)
DX: T83.83XA Hemorrhage due to genitourinary prosthetic devices, implants and grafts, initial encounter (principal); G82.50 Quadriplegia, unspecified; N17.9 Acute kidney failure, unspecified; N39.0 Urinary tract infection, site not specified; R31.0 Gross hematuria; N40.0 Benign prostatic hyperplasia without lower urinary tract symptoms; N31.9 Neuromuscular dysfunction of bladder, unspecified; L89.211 Pressure ulcer of right hip, stage 1; L89.322 Pressure ulcer of left buttock, stage 2; L89.312 Pressure ulcer of right buttock, stage 2; I10 Essential (primary) hypertension; M48.02 Spinal stenosis, cervical region; M48.061 Spinal stenosis, lumbar region without neurogenic claudication; K59.00 Constipation, unspecified; N31.2 Flaccid neuropathic bladder, not elsewhere classified; Z93.59 Other cystostomy status; Z96.653 Presence of artificial knee joint, bilateral; Y84.8 Other medical procedures as the cause of abnormal reaction of the patient, or of later complication, without mention of misadventure at the time of the procedure; Z74.01 Bed confinement status
CPT/HCPCS: 36415; 76775-TC; 76856-TC; 80053; 81003; 82962; 83605; 85025; 85027; 85610; 85730; 87040; 87077; 87081; 93005; 93010; 99285-25; J0131

== ENCOUNTER 2024-04-08 12:49 | Emergency (ER) | payer OTHER, BC ==
[2024-04-08 13:33] VITALS: RESP 19; TEMP 97.9; BMI 31.2
[2024-04-08 17:45] VITALS: BP 147/89; PULSE 66
== END 2024-04-08 19:05 | disposition home or self-care (01) ==
LOC: JER 12:49
PROC: 0T9B70Z Drainage of Bladder with Drainage Device, Via Natural or Artificial Opening (ICD-10-PCS; principal; 2024-04-08)
DX: T83.010A Breakdown (mechanical) of cystostomy catheter, initial encounter (principal); N31.9 Neuromuscular dysfunction of bladder, unspecified
CPT/HCPCS: 99283-25

== ENCOUNTER 2024-05-13 11:05 | Inpatient (IN) | payer OTHER, BC ==
[2024-05-13] MEDS ORDERED: ACETAMINOPHEN INJECTION 100 ML IVPB ONE (11:54)
[2024-05-13 13:17] LABS: EPI CELLS 12 /uL (0-25.1); HYALINE CASTS 2 /uL (0-3.1); URINE APPEARANCE TURBID; URINE BACTERIA >9,000 /uL (0-1359); URINE BILIRUBIN NEGATIVE (NEGATIVE); URINE COLOR RED; URINE GLUCOSE (UA) NEGATIVE (NEGATIVE); URINE KETONE TRACE (NEGATIVE); URINE LEUK ESTERASE 3+ (NEGATIVE); URINE NITRITE NEGATIVE (NEGATIVE); URINE PROTEIN 2+ (NEGATIVE); URINE WBC 1906 /uL (0-25.8)
[2024-05-13] MEDS: SODIUM CHLORIDE 1,000 ML IV SCH ×2 (13:28→13:58)
[2024-05-13] MEDS: ACETAMINOPHEN 1000 MG/100 ML BAG IVPB ONE ×2 (13:28→16:21)
[2024-05-13 13:29] LABS: URINE RBC 12549.9 /uL (0-23.9); YEAST NEGATIVE (NEGATIVE)
[2024-05-13 13:38] LABS: BASO % 0.5 % (0-2.0); EOS % 0.1 % (0-4.5); HEMATOCRIT 29.7 % (35.4-49); HEMOGLOBIN 9.5 GM/dL (11.7-16.9); LYMPH % 10.9 % (8-40); MCH 22.9 pg (25.7-33.7); MCHC 31.8 g/dl (32.0-35.9); MEAN CELL VOLUME 71.9 fl (80-96); MEAN PLT VOLUME 5.9 fl (7.5-11.1); MONO % 4.6 % (3.8-10.2); NEUT % 83.9 % (42.8-82.8); PLATELET COUNT 529 10^3/uL (134-434); RBC 4.14 M/mm3 (4.00-5.60); RDW 19.2 % (11.9-15.9); WHITE BLOOD COUNT 15.6 K/mm3 (4.0-10.0)
[2024-05-13 13:43] LABS: INR 1.82 (0.83-1.09); PROTHROMBIN TIME (PATIENT) 20.6 SEC (9.7-13.0)
[2024-05-13 13:46] LABS: ACTIVATED PTT 33.4 SECONDS (25.2-36.5)
[2024-05-13 14:01] LABS: POTASSIUM 4.3 mmol/L (3.5-5.1)
[2024-05-13 14:02] LABS: CALCIUM 8.2 mg/dL (8.5-10.1)
[2024-05-13 14:03] LABS: ALBUMIN 2.5 g/dl (3.4-5.0)
[2024-05-13 14:04] LABS: BLOOD UREA NITROGEN 16.6 mg/dL (7-18)
[2024-05-13 14:08] LABS: TOT PROT 5.6 g/dl (6.4-8.2)
[2024-05-13 14:09] LABS: BILIRUBIN,TOTAL 0.7 mg/dL (0.2-1)
[2024-05-13 14:22] LABS: CREATININE 0.4 mg/dL (0.55-1.3)
[2024-05-13] MEDS ORDERED: CEFTRIAXONE 1 GM/50 ML BAG ONE (14:45)
[2024-05-13] MEDS ORDERED: KETOROLAC TROMETHAMINE 15 MG/ML VIAL ONE (15:08)
[2024-05-13] MEDS: KETOROLAC TROMETHAMINE 15 MG/ML VIAL IVPUSH ONE (15:10)
[2024-05-13] MEDS: AMINO ACIDS/PROTEIN HYDROLYS 30 ML LIQUID.PKT PO SCH (18:29)
[2024-05-13 19:14] LABS: HEMATOCRIT 26.2 % (35.4-49); HEMOGLOBIN 8.5 GM/dL (11.7-16.9); MCH 23.6 pg (25.7-33.7); MCHC 32.6 g/dl (32.0-35.9); MEAN CELL VOLUME 72.5 fl (80-96); MEAN PLT VOLUME 6.1 fl (7.5-11.1); PLATELET COUNT 478 10^3/uL (134-434); RBC 3.62 M/mm3 (4.00-5.60); RDW 18.4 % (11.9-15.9); WHITE BLOOD COUNT 14.6 K/mm3 (4.0-10.0)
[2024-05-13 20:13] LABS: ANISOCYTOSIS 2+; MACROCYTOSIS 0; OVALOCYTE 1+
[2024-05-13] MEDS: ACETAMINOPHEN 325 MG TABLET (FP) PO PRN (20:45)
[2024-05-13] MEDS: METOPROLOL TARTRATE 25 MG TABLET (FP) PO SCH (21:19)
[2024-05-13] MEDS: APIXABAN 5 MG TABLET PO SCH (21:19)
[2024-05-13] MEDS: NYSTATIN POWDER 100,000 UNITS/GM - 15 GM TOPICAL POWDER TP SCH (23:10)
[2024-05-13] MEDS: ZINC OXIDE 20% TOPICAL OINTMENT 30 GM TUBE TP SCH (23:10)
[2024-05-14] MEDS: CEFTRIAXONE 1 GM in DEXTROSE 5%-WATER - 50 ML IVPB SCH (09:39)
[2024-05-14] MEDS: MULTIVITAMINS (DAILY MVI) TABLET (FP) PO SCH (09:42)
[2024-05-14] MEDS: SODIUM CHLORIDE 1,000 ML IV SCH (16:48)
[2024-05-15] MEDS: FUROSEMIDE 40 MG/4 ML INJECTABLE VIAL IVPUSH ONE (08:52)
[2024-05-15 11:15] LABS: HEMATOCRIT 24.6 % (35.4-49); HEMOGLOBIN 7.9 GM/dL (11.7-16.9); LYMPH % 9.4 % (8-40); MCH 23.4 pg (25.7-33.7); MEAN CELL VOLUME 73.2 fl (80-96); MEAN PLT VOLUME 6.1 fl (7.5-11.1); MONO % 4.2 % (3.8-10.2); NEUT % 86.4 % (42.8-82.8); PLATELET COUNT 452 10^3/uL (134-434); RBC 3.36 M/mm3 (4.00-5.60); RDW 19.1 % (11.9-15.9); WHITE BLOOD COUNT 15.8 K/mm3 (4.0-10.0)
[2024-05-15 11:27] LABS: POTASSIUM 3.4 mmol/L (3.5-5.1)
[2024-05-15 11:36] LABS: CALCIUM 8.2 mg/dL (8.5-10.1)
[2024-05-15 11:37] LABS: ALBUMIN 2.3 g/dl (3.4-5.0); BLOOD UREA NITROGEN 16.3 mg/dL (7-18)
[2024-05-15 11:40] LABS: CREATININE 0.3 mg/dL (0.55-1.3)
[2024-05-15 11:42] LABS: TOT PROT 5.1 g/dl (6.4-8.2)
[2024-05-15] MEDS: KCL 10 MEQ IVPB 10 MEQ/100 ML INFUS.BAG IVPB SCH (12:27)
[2024-05-15] MEDS: POTASSIUM CHLORIDE ORAL LIQUID 20 MEQ/15 ML PO ONE (12:34)
[2024-05-16 14:03] LABS: CALCIUM 7.9 mg/dL (8.5-10.1)
[2024-05-16 14:05] LABS: ALBUMIN 2.2 g/dl (3.4-5.0); MAGNESIUM 1.2 mg/dL (1.8-2.4)
[2024-05-16 14:07] LABS: CREATININE 0.3 mg/dL (0.55-1.3)
[2024-05-16 14:10] LABS: BILIRUBIN,TOTAL 0.4 mg/dL (0.2-1); TOT PROT 5.2 g/dl (6.4-8.2)
[2024-05-16] MEDS: FUROSEMIDE 40 MG/4 ML INJECTABLE VIAL IVPUSH ONE (16:37)
[2024-05-16] MEDS: POTASSIUM CHLORIDE ORAL LIQUID 20 MEQ/15 ML PO ONE (16:37)
[2024-05-16] MEDS: PIPERACILLIN/TAZOB 3.375 GM 3.375 GM in DEXTROSE 5%-WATER - 50 ML IVPB SCH (18:48)
[2024-05-17 11:12] LABS: POTASSIUM 3.7 mmol/L (3.5-5.1)
[2024-05-17 11:16] LABS: ALBUMIN 2.2 g/dl (3.4-5.0); BLOOD UREA NITROGEN 15.2 mg/dL (7-18); MAGNESIUM 1.2 mg/dL (1.8-2.4)
[2024-05-17 11:19] LABS: CREATININE 0.4 mg/dL (0.55-1.3)
[2024-05-17 11:21] LABS: BILIRUBIN,TOTAL 0.4 mg/dL (0.2-1); TOT PROT 5.1 g/dl (6.4-8.2)
[2024-05-17 12:23] LABS: HEMATOCRIT 21.5 % (35.4-49); MCH 23.5 pg (25.7-33.7); MCHC 32.2 g/dl (32.0-35.9); MEAN CELL VOLUME 73.2 fl (80-96); MEAN PLT VOLUME 5.9 fl (7.5-11.1); PLATELET COUNT 463 10^3/uL (134-434); RBC 2.94 M/mm3 (4.00-5.60); RDW 19.7 % (11.9-15.9); WHITE BLOOD COUNT 12.8 K/mm3 (4.0-10.0)
[2024-05-17 12:26] LABS: HEMOGLOBIN 6.9 GM/dL (11.7-16.9)
[2024-05-17] MEDS: MAGNESIUM SULF 50% (8.12 MEQ/2 ML-1 GM VIAL) IVPB ONE (13:07)
[2024-05-17] MEDS: POTASSIUM CHLORIDE ORAL LIQUID 20 MEQ/15 ML PO ONE (13:08)
[2024-05-17] MEDS: FUROSEMIDE 40 MG TABLET (FP) PO ONE (13:08)
[2024-05-17] MEDS: MAGNESIUM OXIDE 400 MG TABLET (FP) PO ONE (13:08)
[2024-05-17] MEDS: IRON SUCROSE INJECTION 200 MG in SODIUM CHLORIDE 100 ML IVPB ONE (14:47)
[2024-05-18 10:01] LABS: BASO % 0.2 % (0-2.0); EOS % 1.2 % (0-4.5); HEMATOCRIT 26.2 % (35.4-49); HEMOGLOBIN 8.6 GM/dL (11.7-16.9); MCH 24.6 pg (25.7-33.7); MEAN CELL VOLUME 74.4 fl (80-96); MONO % 8.2 % (3.8-10.2); NEUT % 72.4 % (42.8-82.8); PLATELET COUNT 495 10^3/uL (134-434); RBC 3.52 M/mm3 (4.00-5.60); RDW 20.7 % (11.9-15.9); WHITE BLOOD COUNT 13.6 K/mm3 (4.0-10.0)
[2024-05-18 10:22] LABS: BLOOD UREA NITROGEN 10.4 mg/dL (7-18)
[2024-05-18 10:25] LABS: CREATININE 0.3 mg/dL (0.55-1.3)
[2024-05-18] MEDS ORDERED: FUROSEMIDE 40 MG TABLET (FP) PO ONE (12:30)
[2024-05-18] MEDS ORDERED: POTASSIUM CHLORIDE ORAL LIQUID 20 MEQ/15 ML PO ONE (12:30)
[2024-05-18] MEDS: POTASSIUM CHLORIDE ORAL LIQUID 20 MEQ/15 ML PO ONE (15:33)
[2024-05-18] MEDS: FUROSEMIDE 40 MG TABLET (FP) PO ONE (15:33)
[2024-05-19 13:19] LABS: HEMATOCRIT 28.9 % (35.4-49); HEMOGLOBIN 9.3 GM/dL (11.7-16.9); MCH 24.1 pg (25.7-33.7); MCHC 32.2 g/dl (32.0-35.9); MEAN CELL VOLUME 74.8 fl (80-96); MEAN PLT VOLUME 6.2 fl (7.5-11.1); PLATELET COUNT 575 10^3/uL (134-434); RBC 3.86 M/mm3 (4.00-5.60); RDW 20.8 % (11.9-15.9); WHITE BLOOD COUNT 18.1 K/mm3 (4.0-10.0)
[2024-05-19 14:01] LABS: ANISOCYTOSIS 1+; MACROCYTOSIS 0
[2024-05-19 14:21] LABS: POTASSIUM 4.2 mmol/L (3.5-5.1)
[2024-05-19 14:25] LABS: ALBUMIN 2.3 g/dl (3.4-5.0); BLOOD UREA NITROGEN 10.8 mg/dL (7-18)
[2024-05-19 14:27] LABS: CREATININE 0.3 mg/dL (0.55-1.3)
[2024-05-19 14:29] LABS: BILIRUBIN,TOTAL 0.6 mg/dL (0.2-1); TOT PROT 5.7 g/dl (6.4-8.2)
[2024-05-20] MEDS: POTASSIUM CHLORIDE ORAL LIQUID 20 MEQ/15 ML PO ONE (13:57)
[2024-05-20] MEDS: FUROSEMIDE 40 MG TABLET (FP) PO ONE (13:57)
[2024-05-20 22:45] VITALS: BMI 29.9
[2024-05-21] MEDS: ASCORBIC ACID 250 MG TABLET (FP) PO SCH (09:29)
[2024-05-21 10:42] VITALS: BP 128/67; PULSE 72; RESP 108; TEMP 98.2
== END 2024-05-21 13:26 | disposition home or self-care (01) | DRG 698 ==
LOC: JER 11:05 → JERBED 14:49 → J6S 17:32
PROVIDERS: ADMIT Internal Medicine; ATTEND Internal Medicine
DX: T83.510A Infection and inflammatory reaction due to cystostomy catheter, initial encounter (principal); G93.41 Metabolic encephalopathy; R53.2 Functional quadriplegia; N39.0 Urinary tract infection, site not specified; E87.1 Hypo-osmolality and hyponatremia; I82.621 Acute embolism and thrombosis of deep veins of right upper extremity; D64.9 Anemia, unspecified; I10 Essential (primary) hypertension; E87.6 Hypokalemia; R33.9 Retention of urine, unspecified; N40.0 Benign prostatic hyperplasia without lower urinary tract symptoms; Y83.8 Other surgical procedures as the cause of abnormal reaction of the patient, or of later complication, without mention of misadventure at the time of the procedure
CPT/HCPCS: 36415; 36430; 36511; 70450-TC; 71045-TC-FY; 80048; 80053; 80061; 81003; 82550; 83036; 83605; 83735; 83930; 83935; 84484; 85025; 85027; 85610; 85730; 86850; 86900; 86901; 86922; 87040; 87086; 87186; 93005; 93010; 93971; 99285-25; J0131; J1756; P9038; P9058

== ENCOUNTER 2025-02-04 23:02 | Inpatient (IN) | payer OTHER, BC ==
[2025-02-04] MEDS ORDERED: levETIRAcetam 500 MG/5 ML INJECTION VIAL IVPB ONE (23:19)
[2025-02-04 23:25] LABS: ARTERIAL BLD GAS O2 SATURATION 99.7 % (95-98); ARTERIAL BLOOD GAS BASE EXCESS -0.7 mmol/L (-2-2); ARTERIAL BLOOD GAS PO2 292.7 mmHg (80-100); ARTERIAL BLOOD GAS pH 7.484 (7.350-7.450)
[2025-02-05] MEDS: PROPOFOL 1,000,000 MCG/100 ML VIAL IVPB SCH (00:19)
[2025-02-05] MEDS: levETIRAcetam 500 MG/5 ML INJECTION VIAL IVPB ONE (00:20)
[2025-02-05 00:25] LABS: ABSOLUTE IMMATURE GRANULOCYTES 0.03 x10^3/uL (0.0-0.031); BASOPHILS # 0.05 x10^3/uL (0.01-0.08); EOSINOPHIL % 1.6 % (0.8-7.0); EOSINOPHILS # 0.12 x10^3/uL (0.04-0.54); MEAN CELL VOLUME 78.1 fl (79.0-92.2); MEAN PLT VOLUME 8.5 fl (9.4-12.4); MONOCYTE # 0.62 x10^3/uL (0.30-0.82); MONOCYTE % 8.3 % (5.3-12.2); PLATELET COUNT 310 x10^3/uL (163-337); RDW 19.6 % (12.2-16.6)
[2025-02-05 00:26] LABS: VENOUS BASE EXCESS -1.7 mmol/L (-2-2); VENOUS O2 SATURATION 91.5 % (70-80); VENOUS PCO2 35.9 mmHg (38-52); VENOUS PH 7.416 (7.310-7.410)
[2025-02-05 01:22] LABS: POTASSIUM 3.9 mmol/L (3.5-5.1)
[2025-02-05 01:25] LABS: BLOOD UREA NITROGEN 13.6 mg/dL (7-18); CALCIUM 8.1 mg/dL (8.5-10.1)
[2025-02-05 01:26] LABS: EPI CELLS 2 /uL (0-25.1); HYALINE CASTS 3 /uL (0-3.1); PH,URINE 5.5 (5.0-8.0); URINE APPEARANCE CLEAR; URINE BACTERIA 66 /uL (0-1359); URINE BILIRUBIN NEGATIVE (NEGATIVE); URINE COLOR YELLOW; URINE GLUCOSE (UA) NEGATIVE (NEGATIVE); URINE KETONE NEGATIVE (NEGATIVE); URINE LEUK ESTERASE 2+ (NEGATIVE); URINE NITRITE NEGATIVE (NEGATIVE); URINE PROTEIN TRACE (NEGATIVE); URINE UROBILINOGEN 0.2 mg/dL (0.2-1.0); URINE WBC 616 /uL (0-25.8)
[2025-02-05 01:26] LABS: ALBUMIN 2.3 g/dl (3.4-5.0)
[2025-02-05 01:29] LABS: CREATININE 0.5 mg/dL (0.55-1.3)
[2025-02-05 01:30] LABS: BILIRUBIN,TOTAL 0.8 mg/dL (0.2-1); TOT PROT 5.3 g/dl (6.4-8.2)
[2025-02-05 01:34] LABS: LACTIC ACID 2.1 mmol/L (0.4-2.0)
[2025-02-05] MEDS ORDERED: PIPERACILLIN/TAZOB 4.5 GM 4.5 GM/100 ML BAG IVPB ONE (01:36)
[2025-02-05] MEDS: PIPERACILLIN/TAZOB 3.375 GM 4.5 GM in DEXTROSE 5%-WATER - 50 ML IVPB ONE (01:43)
[2025-02-05] MEDS: VANCOMYCIN PREMIX 1.75 GM 1,750 MG/350 ML PIGGYBACK IVPB ONE (02:51)
[2025-02-05 02:59] LABS: ALBUMIN 2.4 g/dl (3.4-5.0); ANION GAP 12 mmol/L (4-13); CALCIUM 8.2 mg/dL (8.5-10.1); CHLORIDE 97 mmol/L (98-107); CO2 23 mmol/L (21-32); POTASSIUM 3.2 mmol/L (3.5-5.1); SODIUM 132 mmol/L (136-145)
[2025-02-05 03:00] LABS: BLOOD UREA NITROGEN 13.1 mg/dL (7-18); GLUCOSE,RANDOM 101 mg/dL (74-106)
[2025-02-05 03:03] LABS: CREATININE 0.4 mg/dL (0.55-1.3); SGOT/AST 25 U/L (15-37); SGPT/ALT 16 U/L (13-61)
[2025-02-05 03:04] LABS: BILIRUBIN,TOTAL 0.8 mg/dL (0.2-1); TOT PROT 5.3 g/dl (6.4-8.2)
[2025-02-05 03:05] LABS: ALK PHOS 105 U/L (45-117)
[2025-02-05] MEDS: LACTATED RINGERS SOLUTION 1,000 ML/1,000 ML INFUS.BAG IV SCH (03:20)
[2025-02-05] MEDS: LACTATED RINGERS SOLUTION 1000 ML INFUS.BAG IV ONE (03:21)
[2025-02-05] MEDS: KCL 10 MEQ IVPB 10 MEQ/100 ML INFUS.BAG IVPB SCH (03:23)
[2025-02-05] MEDS: PANTOPRAZOLE SODIUM 40 MG VIAL IVPUSH ONE (03:23)
[2025-02-05 03:28] LABS: PHOSPHOROUS 2.7 mg/dL (2.5-4.9)
[2025-02-05 03:29] LABS: MAGNESIUM 0.9 mg/dL (1.8-2.4)
[2025-02-05] MEDS: MUPIROCIN 2% TOPICAL OINTMENT FOR DECOLONIZATION NS SCH (03:47)
[2025-02-05] MEDS: MAGNESIUM SULFATE IN WATER 2 GM/50 ML IVPB IVPB ONE (04:06)
[2025-02-05] MEDS: MAGNESIUM 1GM/D5W - 1 GM/100 ML IVPB IVPB ONE ×2 (04:11→09:40)
[2025-02-05 06:43] LABS: ABSOLUTE IMMATURE GRANULOCYTES 0.03 x10^3/uL (0.0-0.031); BASOPHILS # 0.06 x10^3/uL (0.01-0.08); EOSINOPHILS # 0.17 x10^3/uL (0.04-0.54); HEMATOCRIT 24.6 % (40.1-51.0); HEMOGLOBIN 7.6 g/dL (13.7-17.5); MCHC 30.9 g/dl (32.3-36.5); MEAN CELL VOLUME 79.6 fl (79.0-92.2); MEAN PLT VOLUME 8.7 fl (9.4-12.4); MONOCYTE # 0.94 x10^3/uL (0.30-0.82); MONOCYTE % 11.2 % (5.3-12.2); PLATELET COUNT 287 x10^3/uL (163-337); RDW 19.4 % (12.2-16.6)
[2025-02-05 06:51] LABS: INR 1.81 (0.83-1.09); PROTHROMBIN TIME (PATIENT) 19.7 SEC (9.7-13.0)
[2025-02-05 06:54] LABS: ACTIVATED PTT 29.7 SECONDS (25.2-36.5)
[2025-02-05 07:03] LABS: POTASSIUM 3.4 mmol/L (3.5-5.1)
[2025-02-05 07:08] LABS: CALCIUM 7.8 mg/dL (8.5-10.1)
[2025-02-05 07:09] LABS: ALBUMIN 2.2 g/dl (3.4-5.0); BLOOD UREA NITROGEN 13.1 mg/dL (7-18); MAGNESIUM 1.6 mg/dL (1.8-2.4)
[2025-02-05 07:12] LABS: CREATININE 0.4 mg/dL (0.55-1.3); PHOSPHOROUS 2.8 mg/dL (2.5-4.9); TOT PROT 4.8 g/dl (6.4-8.2)
[2025-02-05 07:16] LABS: BILIRUBIN,TOTAL 0.5 mg/dL (0.2-1)
[2025-02-05] MEDS: APIXABAN 5 MG TABLET PO SCH (10:30)
[2025-02-05] MEDS: PIPERACILLIN/TAZOB 3.375 GM 50 ML IVPB SCH (10:57)
[2025-02-05] MEDS: CHLORHEXIDINE GLUCONATE 4% CLEANSER FOR DECOLONIZATION TP SCH (21:10)
[2025-02-05] MEDS ORDERED: levETIRAcetam 500 MG/5 ML INJECTION VIAL IVPB ONE (23:15)
[2025-02-06 06:47] LABS: HEMATOCRIT 25.7 % (40.1-51.0); HEMOGLOBIN 7.9 g/dL (13.7-17.5); MCHC 30.7 g/dl (32.3-36.5); MEAN CELL VOLUME 78.4 fl (79.0-92.2); MEAN PLT VOLUME 8.5 fl (9.4-12.4); PLATELET COUNT 344 x10^3/uL (163-337); RDW 19.8 % (12.2-16.6)
[2025-02-06 06:57] LABS: POTASSIUM 3.4 mmol/L (3.5-5.1)
[2025-02-06 07:07] LABS: ALBUMIN 2.4 g/dl (3.4-5.0); CALCIUM 8.3 mg/dL (8.5-10.1); MAGNESIUM 1.7 mg/dL (1.8-2.4)
[2025-02-06 07:10] LABS: CREATININE 0.4 mg/dL (0.55-1.3)
[2025-02-06 07:11] LABS: PHOSPHOROUS 2.9 mg/dL (2.5-4.9)
[2025-02-06 07:12] LABS: BILIRUBIN,TOTAL 0.4 mg/dL (0.2-1)
[2025-02-06 19:45] LABS: ARTERIAL BLD GAS O2 SATURATION 96.9 % (95-98); ARTERIAL BLOOD GAS BASE EXCESS -1.2 mmol/L (-2-2); ARTERIAL BLOOD GAS PO2 83.6 mmHg (80-100)
[2025-02-06 19:47] LABS: ALLENS TEST POSITIVE; VENT MODE PT ON 2L NASAL
[2025-02-06] MEDS: levETIRAcetam 500 MG/5 ML INJECTION VIAL IVPB ONE (22:13)
[2025-02-06] MEDS: VANCOMYCIN 1 GM PREMIX (F) 1 GM/200 ML BAG IVPB ONE (22:21)
[2025-02-07] MEDS ORDERED: DEXMEDETOMIDINE PREMIX 400 MCG/100 ML BAG IVPB SCH (00:30)
[2025-02-07] MEDS: PIPERACILLIN/TAZOB 3.375 GM 3.375 GM in DEXTROSE 5%-WATER - 50 ML IVPB SCH (02:56)
[2025-02-07] MEDS: APIXABAN 5 MG TABLET PO SCH (09:49)
[2025-02-07] MEDS ORDERED: PIPERACILLIN/TAZOB 3.375 GM 50 ML IVPB SCH (10:00)
[2025-02-07] MEDS ORDERED: MUPIROCIN 2% TOPICAL OINTMENT FOR DECOLONIZATION NS SCH (10:00)
[2025-02-07] MEDS: LACTATED RINGERS SOLUTION 1,000 ML/1,000 ML INFUS.BAG IV SCH (10:28)
[2025-02-07] MEDS: AMINO ACIDS/PROTEIN HYDROLYS 30 ML LIQUID.PKT PO SCH (17:50)
[2025-02-07] MEDS: POTASSIUM CHLORIDE ORAL LIQUID 20 MEQ/15 ML PO ONE (18:59)
[2025-02-07] MEDS ORDERED: CHLORHEXIDINE GLUCONATE 4% CLEANSER FOR DECOLONIZATION TP SCH (22:00)
[2025-02-08] MEDS: MAGNESIUM SULFATE IN WATER 2 GM/50 ML IVPB IVPB ONE (00:03)
[2025-02-08 07:58] LABS: ABSOLUTE IMMATURE GRANULOCYTES 0.03 x10^3/uL (0.0-0.031); BASOPHILS # 0.08 x10^3/uL (0.01-0.08); EOSINOPHIL % 1.2 % (0.8-7.0); EOSINOPHILS # 0.12 x10^3/uL (0.04-0.54); HEMATOCRIT 26.2 % (40.1-51.0); HEMOGLOBIN 8.2 g/dL (13.7-17.5); MCHC 31.3 g/dl (32.3-36.5); MEAN CELL VOLUME 78.9 fl (79.0-92.2); MEAN PLT VOLUME 8.5 fl (9.4-12.4); MONOCYTE # 0.81 x10^3/uL (0.30-0.82); PLATELET COUNT 351 x10^3/uL (163-337); RDW 19.7 % (12.2-16.6)
[2025-02-08 08:18] LABS: POTASSIUM 3.1 mmol/L (3.5-5.1)
[2025-02-08 08:53] LABS: CALCIUM 8.1 mg/dL (8.5-10.1)
[2025-02-08 08:54] LABS: ALBUMIN 2.4 g/dl (3.4-5.0); BLOOD UREA NITROGEN 7.2 mg/dL (7-18)
[2025-02-08 08:57] LABS: BILIRUBIN,TOTAL 0.6 mg/dL (0.2-1); CREATININE 0.3 mg/dL (0.55-1.3); TOT PROT 5.3 g/dl (6.4-8.2)
[2025-02-08] MEDS: ZINC SULFATE 220 MG CAPSULE (FP) PO SCH (10:11)
[2025-02-08] MEDS: MULTIVITAMINS (DAILY MVI) TABLET (FP) PO SCH (10:11)
[2025-02-08] MEDS: ASCORBIC ACID 500 MG TABLET (FP) PO SCH (10:11)
[2025-02-08] MEDS: KCL 10 MEQ IVPB 10 MEQ/100 ML INFUS.BAG IVPB SCH (18:03)
[2025-02-08] MEDS: levETIRAcetam 250 MG TABLET PO SCH (21:32)
[2025-02-08] MEDS: METOPROLOL TARTRATE 25 MG TABLET (FP) PO SCH (23:24)
[2025-02-08] MEDS: LACTATED RINGERS SOLUTION 1,000 ML/1,000 ML INFUS.BAG IV SCH (23:25)
[2025-02-09] MEDS: ERYTHROMYCIN 0.5% OPHTHALMIC OINTMENT 3.5 GM TUBE OU SCH (06:14)
[2025-02-09 07:05] LABS: ALBUMIN 2.3 g/dl (3.4-5.0)
[2025-02-09 07:06] LABS: BLOOD UREA NITROGEN 7.5 mg/dL (7-18); CALCIUM 8.2 mg/dL (8.5-10.1); MAGNESIUM 1.3 mg/dL (1.8-2.4)
[2025-02-09 07:08] LABS: CREATININE 0.3 mg/dL (0.55-1.3)
[2025-02-09 07:10] LABS: BILIRUBIN,TOTAL 0.5 mg/dL (0.2-1); TOT PROT 5.2 g/dl (6.4-8.2)
[2025-02-09 07:55] LABS: ABSOLUTE IMMATURE GRANULOCYTES 0.04 x10^3/uL (0.0-0.031); BASOPHILS # 0.06 x10^3/uL (0.01-0.08); EOSINOPHIL % 1.3 % (0.8-7.0); EOSINOPHILS # 0.13 x10^3/uL (0.04-0.54); HEMATOCRIT 25.1 % (40.1-51.0); HEMOGLOBIN 7.8 g/dL (13.7-17.5); MCHC 31.1 g/dl (32.3-36.5); MEAN CELL VOLUME 78.9 fl (79.0-92.2); MEAN PLT VOLUME 8.7 fl (9.4-12.4); MONOCYTE # 0.75 x10^3/uL (0.30-0.82); MONOCYTE % 7.3 % (5.3-12.2); PLATELET COUNT 358 x10^3/uL (163-337); RDW 19.7 % (12.2-16.6)
[2025-02-09] MEDS: ARTIFICIAL TEARS OPHTHALMIC DROPS OU SCH (10:26)
[2025-02-09] MEDS: TAMSULOSIN HCL 0.4 MG CAP PO SCH (10:35)
[2025-02-09] MEDS: POTASSIUM CHLORIDE ORAL LIQUID 20 MEQ/15 ML PO ONE (11:59)
[2025-02-09] MEDS: MAGNESIUM 2GM/50ML STERILE WATER IVPB IVPB ONE (11:59)
[2025-02-09] MEDS: BACITRACIN ZINC 15 GM TUBE TOPICAL OINTMENT TP SCH (11:59)
[2025-02-09] MEDS: KCL 10 MEQ IVPB 10 MEQ/100 ML INFUS.BAG IVPB SCH (14:24)
[2025-02-09] MEDS: TOBRAMYCIN 0.3% OPHTH OINT 3.5 GM OU SCH (18:34)
[2025-02-10 07:58] LABS: ABSOLUTE IMMATURE GRANULOCYTES 0.02 x10^3/uL (0.0-0.031); BASOPHILS # 0.09 x10^3/uL (0.01-0.08); EOSINOPHIL % 2.3 % (0.8-7.0); EOSINOPHILS # 0.22 x10^3/uL (0.04-0.54); HEMATOCRIT 25.3 % (40.1-51.0); HEMOGLOBIN 7.8 g/dL (13.7-17.5); MCHC 30.8 g/dl (32.3-36.5); MEAN CELL VOLUME 80.1 fl (79.0-92.2); MEAN PLT VOLUME 8.9 fl (9.4-12.4); MONOCYTE # 0.69 x10^3/uL (0.30-0.82); MONOCYTE % 7.2 % (5.3-12.2); PLATELET COUNT 350 x10^3/uL (163-337); RDW 19.3 % (12.2-16.6)
[2025-02-10 08:07] LABS: POTASSIUM 4.2 mmol/L (3.5-5.1)
[2025-02-10 08:12] LABS: CALCIUM 8.2 mg/dL (8.5-10.1)
[2025-02-10 08:13] LABS: ALBUMIN 2.2 g/dl (3.4-5.0); BLOOD UREA NITROGEN 11.8 mg/dL (7-18)
[2025-02-10 08:16] LABS: CREATININE 0.4 mg/dL (0.55-1.3)
[2025-02-10 08:18] LABS: BILIRUBIN,TOTAL 0.3 mg/dL (0.2-1)
[2025-02-10] MEDS: diphenhydrAMINE HCL 25 MG CAPSULE (FP) PO SCH (15:40)
[2025-02-10] MEDS: diphenhydrAMINE HCL 25 MG CAPSULE (FP) PO ONE (17:32)
[2025-02-11] MEDS ORDERED: FUROSEMIDE 40 MG/4 ML INJECTABLE VIAL IVPUSH ONE (12:00)
[2025-02-11] MEDS: LORATADINE 10 MG TABLET PO SCH (12:10)
[2025-02-11 12:27] LABS: ABSOLUTE IMMATURE GRANULOCYTES 0.02 x10^3/uL (0.0-0.031); BASOPHILS # 0.08 x10^3/uL (0.01-0.08); EOSINOPHILS # 0.36 x10^3/uL (0.04-0.54); HEMATOCRIT 26.8 % (40.1-51.0); HEMOGLOBIN 8.1 g/dL (13.7-17.5); MCHC 30.2 g/dl (32.3-36.5); MEAN CELL VOLUME 80.5 fl (79.0-92.2); MEAN PLT VOLUME 8.5 fl (9.4-12.4); MONOCYTE # 0.76 x10^3/uL (0.30-0.82); MONOCYTE % 8.5 % (5.3-12.2); PLATELET COUNT 345 x10^3/uL (163-337); RDW 19.4 % (12.2-16.6)
[2025-02-11 12:40] LABS: POTASSIUM 3.9 mmol/L (3.5-5.1)
[2025-02-11 12:42] LABS: ALBUMIN 2.3 g/dl (3.4-5.0); BLOOD UREA NITROGEN 14.6 mg/dL (7-18); CALCIUM 8.3 mg/dL (8.5-10.1); MAGNESIUM 1.3 mg/dL (1.8-2.4)
[2025-02-11 12:46] LABS: CREATININE 0.4 mg/dL (0.55-1.3)
[2025-02-11 12:47] LABS: BILIRUBIN,TOTAL 0.3 mg/dL (0.2-1); TOT PROT 5.2 g/dl (6.4-8.2)
[2025-02-11] MEDS: FUROSEMIDE 40 MG/4 ML INJECTABLE VIAL IVPUSH ONE (13:17)
[2025-02-11] MEDS: MAGNESIUM 2GM/50ML STERILE WATER IVPB IVPB ONE (14:04)
[2025-02-11] MEDS: AMINO ACIDS/PROTEIN HYDROLYS 30 ML LIQUID.PKT PO SCH (18:21)
[2025-02-11 19:31] VITALS: BMI 25.4
[2025-02-12] MEDS: AMOX TR/POT CLAV 875MG/125MG TABLETS (FP) PO SCH (08:16)
[2025-02-12] MEDS: FUROSEMIDE 40 MG/4 ML INJECTABLE VIAL IVPUSH ONE (10:19)
[2025-02-12] MEDS: ARTIFICIAL TEARS OPHTHALMIC DROPS OU SCH (11:36)
[2025-02-12 11:41] LABS: ABSOLUTE IMMATURE GRANULOCYTES 0.01 x10^3/uL (0.0-0.031); BASOPHILS # 0.06 x10^3/uL (0.01-0.08); EOSINOPHIL % 3.9 % (0.8-7.0); EOSINOPHILS # 0.28 x10^3/uL (0.04-0.54); MCHC 30.8 g/dl (32.3-36.5); MEAN CELL VOLUME 80.2 fl (79.0-92.2); MEAN PLT VOLUME 8.5 fl (9.4-12.4); MONOCYTE # 0.62 x10^3/uL (0.30-0.82); MONOCYTE % 8.6 % (5.3-12.2); PLATELET COUNT 350 x10^3/uL (163-337); RDW 19.2 % (12.2-16.6)
[2025-02-12 11:54] LABS: POTASSIUM 3.4 mmol/L (3.5-5.1)
[2025-02-12 11:56] LABS: ALBUMIN 2.2 g/dl (3.4-5.0); BLOOD UREA NITROGEN 17.4 mg/dL (7-18); CALCIUM 8.2 mg/dL (8.5-10.1); MAGNESIUM 1.3 mg/dL (1.8-2.4)
[2025-02-12 11:59] LABS: CREATININE 0.4 mg/dL (0.55-1.3)
[2025-02-12 12:01] LABS: BILIRUBIN,TOTAL 0.2 mg/dL (0.2-1); TOT PROT 5.1 g/dl (6.4-8.2)
[2025-02-12] MEDS: POTASSIUM CHLORIDE TABS 20 MEQ TABLET.ER (FP) PO ONE (13:37)
[2025-02-12] MEDS: MAGNESIUM SULFATE IN WATER 2 GM/50 ML IVPB IVPB ONE (13:37)
[2025-02-12] MEDS: MAGNESIUM OXIDE 400 MG TABLET (FP) PO SCH (22:25)
[2025-02-13] MEDS: MELATONIN 5 MG TABLETS PO PRN (00:51)
[2025-02-13 08:08] LABS: ABSOLUTE IMMATURE GRANULOCYTES 0.01 x10^3/uL (0.0-0.031); BASOPHILS # 0.07 x10^3/uL (0.01-0.08); EOSINOPHIL % 3.7 % (0.8-7.0); EOSINOPHILS # 0.29 x10^3/uL (0.04-0.54); HEMATOCRIT 24.7 % (40.1-51.0); HEMOGLOBIN 7.6 g/dL (13.7-17.5); MCHC 30.8 g/dl (32.3-36.5); MEAN CELL VOLUME 78.9 fl (79.0-92.2); MEAN PLT VOLUME 8.6 fl (9.4-12.4); MONOCYTE # 0.48 x10^3/uL (0.30-0.82); MONOCYTE % 6.2 % (5.3-12.2); PLATELET COUNT 345 x10^3/uL (163-337); RDW 19.2 % (12.2-16.6)
[2025-02-13 08:24] LABS: POTASSIUM 4.2 mmol/L (3.5-5.1)
[2025-02-13 08:29] LABS: BLOOD UREA NITROGEN 18.3 mg/dL (7-18); CALCIUM 8.3 mg/dL (8.5-10.1)
[2025-02-13 08:30] LABS: ALBUMIN 2.2 g/dl (3.4-5.0); MAGNESIUM 1.4 mg/dL (1.8-2.4)
[2025-02-13 08:32] LABS: CREATININE 0.3 mg/dL (0.55-1.3)
[2025-02-13 08:34] LABS: BILIRUBIN,TOTAL 0.4 mg/dL (0.2-1); TOT PROT 5.1 g/dl (6.4-8.2)
[2025-02-13] MEDS: POTASSIUM CHLORIDE TABS 20 MEQ TABLET.ER (FP) PO SCH (09:24)
[2025-02-13] MEDS ORDERED: MAGNESIUM SULF 50% (8.12 MEQ/2 ML-1 GM VIAL) IVPB ONE (14:16)
[2025-02-13] MEDS: FUROSEMIDE 20 MG TABLET (FP) PO ONE (14:58)
[2025-02-13] MEDS: MAGNESIUM SULFATE IN WATER 2 GM/50 ML IVPB IVPB ONE (14:58)
[2025-02-14 10:14] VITALS: RESP 18
[2025-02-14 10:21] LABS: ABSOLUTE IMMATURE GRANULOCYTES 0.01 x10^3/uL (0.0-0.031); BASOPHILS # 0.09 x10^3/uL (0.01-0.08); EOSINOPHIL % 3.1 % (0.8-7.0); EOSINOPHILS # 0.23 x10^3/uL (0.04-0.54); HEMATOCRIT 29.6 % (40.1-51.0); HEMOGLOBIN 8.9 g/dL (13.7-17.5); MCHC 30.1 g/dl (32.3-36.5); MEAN CELL VOLUME 81.1 fl (79.0-92.2); MEAN PLT VOLUME 8.4 fl (9.4-12.4); MONOCYTE # 0.54 x10^3/uL (0.30-0.82); MONOCYTE % 7.2 % (5.3-12.2); PLATELET COUNT 389 x10^3/uL (163-337); RDW 19.2 % (12.2-16.6)
[2025-02-14] MEDS: FUROSEMIDE 20 MG TABLET (FP) PO ONE (11:16)
[2025-02-14 13:01] LABS: POTASSIUM 4.6 mmol/L (3.5-5.1)
[2025-02-14 13:03] LABS: CALCIUM 8.7 mg/dL (8.5-10.1)
[2025-02-14 13:04] LABS: ALBUMIN 2.6 g/dl (3.4-5.0); BLOOD UREA NITROGEN 19.7 mg/dL (7-18); MAGNESIUM 1.6 mg/dL (1.8-2.4)
[2025-02-14 13:07] LABS: CREATININE 0.4 mg/dL (0.55-1.3)
[2025-02-14 13:08] LABS: TOT PROT 5.9 g/dl (6.4-8.2)
[2025-02-14 13:09] LABS: BILIRUBIN,TOTAL 0.2 mg/dL (0.2-1)
[2025-02-14 14:27] VITALS: BP 108/70; PULSE 66; TEMP 97.5
== END 2025-02-14 18:58 | disposition home health service (06) | DRG 100 ==
LOC: JER 23:02 → JERBED 02-05 02:34 → JICU 02-05 02:49 → J4S 02-07 08:48
PROVIDERS: ADMIT Internal Medicine Pulmonary Disease; ATTEND Internal Medicine
PROC: 5A1945Z Respiratory Ventilation, 24-96 Consecutive Hours (ICD-10-PCS; principal; 2025-02-05)
PROC: 0BH17EZ Insertion of Endotracheal Airway into Trachea, Via Natural or Artificial Opening (ICD-10-PCS; 2025-02-05)
DX: R56.9 Unspecified convulsions (principal); G82.50 Quadriplegia, unspecified; L89.314 Pressure ulcer of right buttock, stage 4; J96.90 Respiratory failure, unspecified, unspecified whether with hypoxia or hypercapnia; L97.929 Non-pressure chronic ulcer of unspecified part of left lower leg with unspecified severity; I10 Essential (primary) hypertension; L89.610 Pressure ulcer of right heel, unstageable
CPT/HCPCS: 0241U-QW; 36415; 36600; 70450-TC; 71045-TC-FY; 80053; 81003; 82803; 82962; 83605; 83735; 84100; 84436; 84443; 84479; 84484; 85025; 85027; 85610; 85730; 86850; 86900; 86901; 86922; 87040; 87086; 87186; 93005; 93010; 93925-TC; 94002; 95816; 99291; J3370